=== PATIENT | female | born 1940 | race Hispanic/Latino ===

== ENCOUNTER 2016-07-17 01:29 | Inpatient (IN) | payer MEDICARE, BC ==
[2016-07-17 01:33] VITALS: BMI 24.6
--- NOTE | 2016-07-17 01:56 | ED PDOC ---
Arrival/HPI - General Chief Complaint: Shortness Of Breath Time Seen by Provider: 07/17/16 01:44 - History of Present Illness Narrative History of Present Illness (Text): 07/17/16 01:56 Estelle Fulton is a 75 year old female, whose past medical history includes COPD, emphysema, CAD with stenting, breast cancer, osteoarthritis, and hypertension, who presents to the Emergency department brought in by EMS complaining of shortness of breath tonight. Patient states she had nebulizer treatments at home and is on home oxygen. Patient denies any fever, chills, chest pain, shortness of breath, nausea, vomiting, diarrhea, urinary symptoms, back pain, neck pain, headache, dizziness, or any other complaints. PMD: Dr. Octavio Blair Time/Duration: Other (tonight) Symptom Onset: Gradual Symptom Course: Unchanged Activities at Onset: Rest, Light Context: Home Past Medical History - Provider Review Nursing Documentation Reviewed: Yes - Infectious Disease Hx of Infectious Diseases: None - Tetanus Immunization Tetanus Immunization: Unknown - Reproductive Menopause: Yes - Cardiac Hx Hypertension: Yes Hx Pacemaker: No - Pulmonary Hx Chronic Obstructive Pulmonary Disease (COPD): Yes Hx Emphysema: Yes Hx Pneumonia: Yes Other/Comment: O2 @ 2LPM - Neurological Hx Alzheimer's Disease: No Hx Dementia: No Hx Migraine: No Hx Multiple Sclerosis: No Hx Parkinson's Disease: No Hx Seizures: No - HEENT Hx HEENT Disorder: Yes (right eye lazy eye) Hx Cataracts: Yes (WITH SURGERY) Other/Comment: REDNESS ON RIGHT EYE X 6WKS - Renal Hx Renal Disorder: No Hx Kidney Stones: No - Endocrine/Metabolic Hx Hyperthyroidism: No Hx Hypothyroidism: No - Hematological/Oncological Hx Anemia: No Hx Sickle Cell Disease: No - Integumentary Hx Dermatological Disorder: No Hx Basal Cell Carcinoma: No Hx Damon: No Hx Cellulitis: No Hx Eczema: No Hx Melanoma: No Hx Psoriasis: No Hx Squamous Cell Carcinoma: No - Musculoskeletal/Rheumatological Hx Falls: Yes - Gastrointestinal Hx Crohn's Disease: No Hx Diverticulitis: No Hx Gall Bladder Disease: No Hx Gastritis: No Hx Pancreatitis: No - Genitourinary/Gynecological Hx Sexually Transmitted Diseases: No - Psychiatric Hx Anxiety: Yes Hx Bipolar Disorder: No Hx Depression: Yes Hx Schizophrenia: No Hx Substance Use: No - Past Surgical History Past Surgical History: No Previous - Surgical History Hx Appendectomy: No Hx Carotid Endarterectomy: No Hx Cholecystectomy: Yes Hx Coronary Artery Bypass Graft: No Hx Coronary Stent: No (pt denies) Hx Tonsillectomy: No - Anesthesia Hx Anesthesia: Yes Hx Anesthesia Reactions: No - Suicidal Assessment Feels Threatened In Home Enviroment: No Family/Social History - Physician Review Nursing Documentation Reviewed: Yes Family/Social History: No Known Family HX Smoking Status: Former Smoker Hx Alcohol Use: No Hx Substance Use: No Hx Substance Use Treatment: No Allergies/Home Meds Allergies/Adverse Reactions: Allergies No Known Allergies Allergy (Verified 03/16/16 10:16) Home Medications: Home Meds Medication Instructions Recorded Confirmed Tiotropium [Spiriva] 18 mcg IH DAILY 04/25/13 03/16/16 Fluticasone/Salmeterol [Advair 1 inh INH Q12 09/18/13 03/16/16 250-50 Diskus] Hydrochlorothiazide [HCTZ] 12.5 mg PO DAILY 03/02/14 03/16/16 Quetiapine Fumarate [Seroquel] 25 mg PO HS 03/02/14 03/16/16 Review of Systems - Physician Review All systems were reviewed & negative as marked: Yes - Review of Systems Constitutional: Normal. absent: Fevers Eyes: Normal ENT: Normal Respiratory: Normal, SOB Cardiovascular: Normal. absent: Chest Pain Gastrointestinal: Normal. absent: Abdominal Pain, Constipation, Diarrhea, Nausea Genitourinary Female: Normal. absent: Dysuria, Frequency, Hematuria, Urine Output Changes Musculoskeletal: Normal. absent: Back Pain, Neck Pain Skin: Normal. absent: Rash Neurological: Normal. absent: Headache, Dizziness Endocrine: Normal Hemo/Lymphatic: Normal Psychiatric: Normal Physical Exam Vital Signs Reviewed: Yes Vital Signs Temp Pulse Resp BP Pulse Ox 07/17/16 04:41 56 L 18 137/60 95 07/17/16 03:33 68 18 138/90 97 07/17/16 02:23 22 07/17/16 01:39 97.7 F 55 L 22 155/58 H 97 Temperature: Afebrile Blood Pressure: Hypertensive Pulse: Regular Respiratory Rate: Normal Appearance: Positive for: Well-Appearing, Non-Toxic, Comfortable Pain Distress: None Mental Status: Positive for: Alert and Oriented X 3 - Systems Exam Head: Present: Atraumatic, Normocephalic Pupils: Present: PERRL Extroacular Muscles: Present: EOMI Conjunctiva: Present: Normal Mouth: Present: Moist Mucous Membranes Neck: Present: Normal Range of Motion Respiratory/Chest: Present: Decreased Breath Sounds (Decreased breath sounds bilaterally). No: Respiratory Distress, Accessory Muscle Use Cardiovascular: Present: Regular Rate and Rhythm, Normal S1, S2. No: Murmurs Abdomen: Present: Normal Bowel Sounds. No: Tenderness, Distention, Peritoneal Signs Back: Present: Normal Inspection Upper Extremity: Present: Normal Inspection. No: Cyanosis, Edema Lower Extremity: Present: Normal Inspection. No: Edema Neurological: Present: GCS=15, CN II-XII Intact, Speech Normal Skin: Present: Warm, Dry, Normal Color. No: Rashes Psychiatric: Present: Alert, Oriented x 3, Normal Insight, Normal Concentration Medical Decision Making ED Course and Treatment: 07/17/16 01:56 Impression: 75 year old female brought in by EMS for shortness of breath tonight. Differential Diagnosis include but are not limited to: Plan: -- EKG -- Chest X-ray -- Labs, cardiac enzymes, BNP -- Solu-medrol -- Reassess and disposition Prior Visits: Notes and results from previous visits were reviewed. Progress Notes: Reviewed EKG, sinus bradycardia at 49 bpm. Non-specific ST/T wave changes. 07/17/16 04:23 Reviewed radiology, Chest X-ray shows chronic interstitial markings. 07/17/16 04:[address] Blair, who is aware and agree with plan. Accepts pt in to his service. Pt will go to Telemetry observation for COPD exacerbation. Pt is no acute distress. Discussed results and hospital observation plan with pt , who is aware and verbalizes understanding. - Lab Interpretations Lab Results: 07/17/16 02:10 07/17/16 02:10 Lab Results 07/17/16 02:10: WBC 6.6 D, RBC 3.96, Hgb 12.0, Hct 37.3, MCV 94.2, MCH 30.3, MCHC 32.2, RDW 12.4, Plt Count 324, MPV 8.3, PT 11.4, INR 1.06, APTT 25.6, Sodium 136, Potassium 4.1, Chloride 92 L, Carbon Dioxide 41 H, Anion Gap 7 L, BUN 13, Creatinine 0.7, Est GFR ( Amer) > 60, Est GFR (Non-Af Amer) > 60 , Random Glucose 90, Calcium 8.7, Total Bilirubin 0.8, AST 24, ALT 37, Alkaline Phosphatase 60, Lactate Dehydrogenase 384, Total Creatine Kinase 30 L, Troponin I 0.06 D, NT-Pro-B Natriuret Pep 1600 H, Total Protein 6.3, Albumin 3.3, Globulin 3.1, Albumin/Globulin Ratio 1.1 I have reviewed the lab results: Yes - RAD Interpretation Radiology Orders: 07/17/16 04:12 CHEST PORTABLE [RAD] [employer] Advisor: ED Physician - EKG Interpretation Interpreted by ED Physician: Yes Type: 12 lead EKG - Medication Orders Current Medication Orders: Albuterol/Ipratropium (Duoneb 3 Mg/0.5 Mg (3 Ml) Ud) 3 ml IH Q4H PRN PRN Reason: Shortness of Breath Stop: 07/17/16 08:32 Discontinued Medications Albuterol/Ipratropium (Duoneb 3 Mg/0.5 Mg (3 Ml) Ud) 3 ml IH ONCE STA Stop: 07/17/16 02:00 Last Admin: 07/17/16 02:21 Dose: 3 ML Albuterol/Ipratropium (Duoneb 3 Mg/0.5 Mg (3 Ml) Ud) 3 ml IH ONCE STA Stop: 07/17/16 04:12 Last Admin: 07/17/16 04:16 Dose: 3 ML Methylprednisolone (Solu-Medrol) 125 mg IVP ONCE ONE Stop: 07/17/16 02:00 Last Admin: 07/17/16 02:21 Dose: 125 MG IVP Administration Document 07/17/16 02:21 GMD (Rec: 07/17/16 02:21 GMD [id number]) Charges for Administration # of IVP Administrations 1 - Scribe Statement The provider has reviewed the documentation as recorded by the Veronique Hendrickson Provider Attestation: All medical record entries made by the Scribe were at my direction and personally dictated by me. I have reviewed the chart and agree that the record accurately reflects my personal performance of the history, physical exam, medical decision making, and the department course for this patient. I have also personally directed, reviewed, and agree with the discharge instructions and disposition. Disposition/Present on Arrival - Present on Arrival Any Indicators Present on Arrival: No History of DVT/PE: No History of Uncontrolled Diabetes: No Urinary Catheter: No History of Decub. Ulcer: No History Surgical Site Infection Following: None - Disposition Have Diagnosis and Disposition been Completed?: Yes Diagnosis: Chronic obstructive pulmonary disease with acute exacerbation Disposition: HOSPITALIZED Disposition Time: 04:32 Patient Plan: Observation Patient Problems: Current Active Problems Problem Status Diagnosed Chronic obstructive pulmonary disease with acute exacerbation Acute Hypertension Acute Metastatic bone cancer Acute Pneumonia Acute Pulmonary embolism Acute Lumbar compression fracture Chronic Thoracic compression fracture Chronic Depression Resolved Suicidal ideation Resolved Condition: GOOD
[2016-07-17] MEDS ORDERED: Albuterol-Ipratrop 3 mg / 0.5 (3 ml) UD IH STA ×2 (01:59→04:11)
[2016-07-17 02:33] LABS: HEMATOCRIT 37.3 % (36.0-48.0); MEAN CELL VOLUME 94.2 fL (80.0-105.0); MEAN CORPUSCULAR HEMOGLOBIN 30.3 pg (25.0-35.0); MEAN CORPUSCULAR HGB CONC 32.2 g/dl (31.0-37.0); MEAN PLATELET VOLUME 8.3 fl (7.0-11.0); RED CELL DISTRIBUTION WIDTH 12.4 % (11.5-14.5)
[2016-07-17 02:38] LABS: WHITE BLOOD COUNT 6.6 10^3/ul (4.5-11.0)
[2016-07-17 02:40] LABS: INR 1.06 (0.93-1.08); PARTIAL THROMBOPLASTIN TIME 25.6 Seconds (23.7-30.8)
[2016-07-17 02:53] LABS: ALB/GLOB RATIO 1.1 (1.1-1.8); ALKALINE PHOSPHATASE 60 U/L (38-133); ALT/SGPT 37 U/L (7-56); AST/SGOT 24 U/L (15-39); BILIRUBIN,TOTAL 0.8 mg/dL (0.2-1.3); BLOOD UREA NITROGEN 13 mg/dL (7-21); CALCIUM 8.7 mg/dL (8.4-10.5); CHLORIDE 92 mmol/L (98-107); GFR AFRICAN-AMERICAN > 60; GLUCOSE,RANDOM 90 mg/dL (70-110); POTASSIUM 4.1 mmol/L (3.6-5.0); SODIUM 136 mmol/L (132-148); TOTAL PROTEIN 6.3 g/dL (5.8-8.3)
[2016-07-17 03:03] LABS: TROPONIN I 0.06 ng/mL
[2016-07-17 03:11] LABS: CARBON DIOXIDE 41 mmol/L (21-33)
[2016-07-17] MEDS ORDERED: Albuterol-Ipratrop 3 mg / 0.5 (3 ml) UD IH PRN (04:31)
--- NOTE | 2016-07-17 08:25 | RAD ---
HISTORY: Shortness of breath COMPARISON: 03/15/2016 FINDINGS: LUNGS: The lungs are hyperinflated and there is peribronchial thickening with chronic changes in both lungs. There is no focal consolidation. PLEURA: No significant pleural effusion identified, no pneumothorax apparent. CARDIOVASCULAR: Normal. OSSEOUS STRUCTURES: There is diffuse bone demineralization. There is severe S shaped scoliosis. VISUALIZED UPPER ABDOMEN: Normal. OTHER FINDINGS: There are multiple surgical clips in the right axilla. IMPRESSION: No active pulmonary disease. COPD.
[2016-07-17] MEDS: Albuterol-Ipratrop 3 mg / 0.5 (3 ml) UD IH SCH ×2 (08:35→20:25)
--- NOTE | 2016-07-17 09:14 | HP ---
CHIEF COMPLAINT AND HISTORY OF PRESENT ILLNESS: This is a 75-year-old female who is coming into the hospital complaining of shortness of breath. She says her shortness of breath has become worse over the past few days. She does have a history of COPD, coronary artery disease. She was brought into t ER and was found to have shortness of breath secondary to COPD. The patient was given albuterol a nd Solu-Medrol. The patient has no complaints of any headaches. She says her breathing is better. She has no nausea, no vomiting, no dysuria, no frequency. All other review of symptoms are within no rmal limits. The patient is not able to walk that well. She was recently in [facility]. ALLERGIES: No known drug allergies. PAST MEDICAL HISTORY: 1. Coronary artery disease with stent. 2. Chronic obstructive pulmonary disease. 3. Anxiety. 4. Breast cancer. 5. Emphysema. 6. Insomnia. 7. T12 compression fracture. 8. Osteoporosis. PAST SURGICAL HISTORY: Mastectomy, , cholecystectomy. SOCIAL HISTORY: The patient did smoke for 50 years. She denies any drug use. FAMILY HISTORY: Noncontributory. HOME MEDICATIONS: Spiriva, Advair, hydrochlorothiazide, Seroquel. PHYSICAL EXAMINATION: VITAL SIGNS: Temperature is 98.3, pulse of 66, blood pressure 125/60, respiration is 18, O2 saturati on 94%. Height is 4 feet 8 inches, weight is 110 pounds, BMI is 24.7. GENERAL: The patient lying in bed, flat, and in no apparent distress. HEAD AND NECK EXAM: Atraumatic, normocephalic. Conjunctivae are pink. Throat clear and mouth with moist mucosa. Oropharynx benign. EYES: Extraocular movements are intact. PERRLA. NECK: Supple. No JVD, thyromegaly, or adenopathy. No bruits. HEART: S1 and S2 regular rate and rhythm. No murmurs, rubs, or gallops. LUNGS: Clear to auscultation bilaterally. No wheezing rales or rhonchi appreciated. No retraction s on exam. ABDOMEN: Soft, nontender, nondistended. Bowel sounds are positive in all quadrants. No rebound. No hepatosplenomegaly. EXTREMITIES: No cyanosis, clubbing, or edema. NEUROLOGIC: No facial asymmetry, tongue is midline, no uvula deviation. Power is 5/5 in upper extr emity and 5/5 in lower extremity. Sensation is normal in upper extremity and lower extremity. PSYCHIATRIC: Awake, alert, oriented x 3. No anxiety or depression symptoms. Good insight. Milena l affect. GENITOURINARY: No CVA tenderness VASCULAR: 2+ pulses in carotid and pedal pulses. SKIN: No erythema or abnormal nodules noted. SPINE: There is kyphosis. LYMPHADENOPATHY: No anterior cervical or posterior cervical adenopathy. No inguinal adenopathy. LABORATORIES: White count of 6.6, hemoglobin 12, platelet count is 324. INR is 1.06. Sodium is 136 , potassium 4.1, creatinine 0.7. ProBNP 1600. Chest x-ray done, no infiltrates. ASSESSMENT: 1. Acute chronic obstructive pulmonary disease. 2. Hypertension. 3. Coronary artery disease. 4. Insomnia. 5. T12 compression. 6. Osteoporosis. PLAN: The patient is going to be admitted to the hospital. The patient is going to be on steroids w ith Solu-Medrol, is on nebulizer treatments. The patient is on Seroquel. She is going to see [facility]. The patient is on lisinopril for hypertension, is on a heart healthy diet. We will get physical therapy to evaluate the patient as well. Bashir Blair MD cc: [id number] TT: 07/17/2016 09:13:10 en
--- NOTE | 2016-07-17 09:33 | CON ---
DATE: 07/17/2016 REASON FOR CONSULTATION: Chronic obstructive pulmonary disease. REFERRING PHYSICIAN: Dr. Bashir Blair. HISTORY OF PRESENT ILLNESS: The patient is a 75-year-old female, with past medical history significant for chronic obstructive pulmonary disease, significant noncompliance with office followup (not seen in our office in multiple years), coronary artery disease, status post cardiac stents, breast cancer, osteoarthritis, hypertension, anxiety, who presents to [facility] with a 1-day history of increasing shortness of breath at rest and dyspnea on exertion. The patient denies cough or sputum production. The patient also denies chest pain, coughing up of blood, or chest pain -- made worse with deep respirations. There is no history of temperatures, chills or infectious exposure. There is no history of night sweats, weight loss or appetite change prior to the above events. No history of leg or calf pains. No history of syncope or diaphoresis. No history of recent travel or trauma. REVIEW OF SYSTEMS: No history of nausea, vomiting or diarrhea. No acute urinary symptoms. No new neurologic complaints. The rest of the review of systems is negative. ALLERGIES: No known allergies. SOCIAL HISTORY: Positive for tobacco, negative for alcohol. FAMILY HISTORY: No inheritable diseases. HOME MEDICATIONS: Include prednisone, Spiriva, Seroquel, Advair, Lexapro, Lovenox, Vasotec, Tenormin, DuoNebs, Percocet, Xanax. PHYSICAL EXAMINATION: GENERAL: The patient is not short of breath at rest. She is not using accessory muscles for breathing. VITAL SIGNS: Temperature is 98.3, pulse 66, respirations 18, blood pressure 125 /60. Oxygen saturation on nasal cannula is between 94%-97%. HEENT: Normocephalic, atraumatic. NECK: No JVD. CARDIOVASCULAR: Systolic ejection murmur at the lower left sternal border. No S3 gallop. LUNGS: Decreased breath sounds at the bases. Minimal bilateral rhonchi. No wheezing. EXTREMITIES: No clubbing, cyanosis, or edema. Calves are nontender to palpation. GASTROINTESTINAL: Abdomen is soft, nontender, nondistended. Bowel sounds are positive. SKIN: No acute rash. NEUROLOGIC: Limited at the present time. PERTINENT LABORATORY DATA: Chest x-ray was done and reviewed. It is not significantly changed from the previous films. CBC: White count 6.6, hemoglobin 12.0, hematocrit 37.3, platelets of 324. Complete metabolic profile : Chloride 92, carbon dioxide 41, anion gap 7, troponin 0.06, B-type natriuretic peptide 1600. The rest of the metabolic profile is within normal limits. IMPRESSION: 1. Acute bronchitis. 2. Chronic obstructive pulmonary disease. 3. Coronary artery disease. 4. Hypertension. PLAN: The patient presents to [facility] with a 1-day history of increasing shortness of breath at rest and dyspnea on exertion. The patient offers no other pulmonary symptoms. I did review the x-ray as above. There is no significant change from the previous films. On physical exam, the patient is in mild bronchospasm. However, there is no significant alveolar arterial gradient. Oxygen saturation on nasal cannula is 94%-97%. I will continue with the current nebulizer treatments and intravenous steroids -- started by Dr. Blair. There is no history of temperatures. There is no leukocytosis. However, given her above age and diagnosis, I will start the patient on oral antibiotic therapy. I will also add inhaled Pulmicort to the current regimen this morning. The patient is on Advair at home. The patient does state to feeling much better this morning -- compared to yesterday. She is clinically improved. Additional pulmonary intervention will be based on the clinical status of the patient. I will discuss the above with Dr. Blair in the next few moments. Thank you very much for this pulmonary consultation. Nikos Taylor MD cc: [id number] TT: 07/17/2016 09:32:42 Confirmation # [id number] Dictation # [id number] lebron FOY
--- NOTE | 2016-07-17 09:54 | CARD ---
APPROVED REPORT EKG Measurement Heart [id number] <Conclusion> Sinus bradycardia with short SD Minimal voltage criteria for LVH, may be normal variant
[2016-07-17] MEDS: levoFLOXacin 500 MG TAB PO SCH (11:01)
[2016-07-17] MEDS ORDERED: Pneumococcal 23-Valent Vaccine IM ONE (13:47)
[2016-07-17] MEDS: Budesonide 0.5 mg/2 ml Inhal Susp UD IH SCH (20:25)
--- NOTE | 2016-07-18 07:28 | PN ---
DATE: 07/18/2016 The patient has no complaints of any chest pain, no shortness of breath. She says her breathing is b brenda. PHYSICAL EXAMINATION: VITAL SIGNS: Temperature is 98.3, pulse is 60, blood pressure is 100/65, respirations 20. GENERAL: The patient comfortable, in no acute distress. HEENT: Anicteric sclerae. Moist mucosa. NECK: No JVD or adenopathy. CARDIAC: S1/S2. No murmurs. No rubs. Regular. RESPIRATORY: Clear to auscultation bilaterally. No wheezes, rales, or rhonchi. Good air entry. ABDOMEN: Bowel sounds are positive, soft, nontender, and nondistended. EXTREMITIES: No edema. Has 1+ pulses. LABS: White count is 6.6, hemoglobin is 12, creatinine is 0.7. ASSESSMENT: 1. Acute chronic obstructive pulmonary disease exacerbation. 2. Anxiety. 3. Coronary artery disease. 4. Hypertension. 5. Insomnia. 6. T12 compression fracture. 7. Osteoporosis. PLAN: The patient is currently comfortable. She is on nebulizer treatment. She is receiving antibi otics with Levaquin. She is receiving Seroquel; this will continue. She is on steroids IV. She is on lisinopril for her hypertension. She says her breathing is better. She has no complaints of any headaches or dizziness. She otherwise feels well. Bashir Blair MD cc: [id number] TT: 07/18/2016 07:27:19 Confirmation # [id number] Dictation # [id number] mn
--- NOTE | 2016-07-18 07:40 | PN ---
DATE: 07/18/2016 SUBJECTIVE: The patient appears very comfortable at rest. She is not short of breath. PHYSICAL EXAMINATION: VITAL SIGNS: Temperature is 98.3, pulse 60, respirations 18, blood pressure 100 /65. Oxygen saturation on nasal cannula is 97%. HEENT: Normocephalic, atraumatic. No JVD. CARDIOVASCULAR: Systolic ejection murmur at the lower left sternal border. No S3 gallop. LUNGS: Improved breath sounds at the bases. Very minimal/less rhonchi. No wheezing. EXTREMITIES: No clubbing, cyanosis, or edema. Calves are nontender to palpation. GASTROINTESTINAL: Abdomen is soft, nontender, nondistended. Bowel sounds are positive. SKIN: No acute rash. NEUROLOGIC: Limited at the present time. IMPRESSION: 1. Acute bronchitis. 2. Chronic obstructive pulmonary disease. 3. Coronary artery disease. 4. Hypertension. PLAN: The patient appears very comfortable this morning. She is not short of breath at rest. She states she is feeling much, much better overall. She is asking to go home. On physical exam, there is certainly less bronchospasm noted. In addition, the oxygen saturation on nasal cannula is now 97%. I will continue with the current nebulizer treatments and change to oral steroids this morning. The patient remains on oral antibiotic therapy. There are no temperatures noted. There is no leukocytosis. Clinical status of the patient is certainly improved. I did discuss the case with the nurse and the patient at length. The patient is advised to increase her activity as tolerated. I will discuss the above with Dr. Blair this morning. Nikos Taylor MD cc: [id number] TT: 07/18/2016 07:39:40 Confirmation # [id number] Dictation # [id number] lebron FOY
[2016-07-18] MEDS: Budesonide 0.5 mg/2 ml Inhal Susp UD IH SCH ×2 (08:12→19:39)
[2016-07-18] MEDS: Albuterol-Ipratrop 3 mg / 0.5 (3 ml) UD IH SCH ×3 (08:12→19:39)
[2016-07-18] MEDS: levoFLOXacin 500 MG TAB PO SCH (09:40)
[2016-07-18] MEDS ORDERED: MethylPREDNISolone 40 mg Vial IVP SCH (10:00)
[2016-07-18] MEDS: Aspirin 325 mg EC Tablets PO SCH (17:06)
[2016-07-18 20:19] LABS: TROPONIN I 0.05 ng/mL
[2016-07-18 22:01] VITALS: RESP 20
[2016-07-19 01:40] VITALS: TEMP 97.8
[2016-07-19] MEDS: Albuterol-Ipratrop 3 mg / 0.5 (3 ml) UD IH SCH (07:58)
[2016-07-19] MEDS: Budesonide 0.5 mg/2 ml Inhal Susp UD IH SCH (07:58)
[2016-07-19 08:00] LABS: ALB/GLOB RATIO 1.1 (1.1-1.8); ALKALINE PHOSPHATASE 58 U/L (38-133); ALT/SGPT 28 U/L (7-56); AST/SGOT 26 U/L (15-39); BILIRUBIN,TOTAL 0.8 mg/dL (0.2-1.3); BLOOD UREA NITROGEN 17 mg/dL (7-21); CALCIUM 8.8 mg/dL (8.4-10.5); CARBON DIOXIDE 39 mmol/L (21-33); CHLORIDE 93 mmol/L (95-110); CHOLESTEROL 139 mg/dL (130-200); GFR AFRICAN-AMERICAN > 60; GLUCOSE,RANDOM 79 mg/dL (70-110); POTASSIUM 3.8 mmol/L (3.6-5.0); SODIUM 136 mmol/L (132-148); TOTAL PROTEIN 6.1 g/dL (5.8-8.3)
[2016-07-19 08:07] VITALS: BP 136/68
[2016-07-19 08:32] LABS: FREE T4 1.3 ng/dL (0.78-2.19); THYROID STIMULATING HORMONE 1.7 MIU/ml (0.46-4.68)
--- NOTE | 2016-07-19 08:38 | PN ---
DATE: 07/19/2016 SUBJECTIVE: The patient appears very comfortable this morning. She is not short of breath at rest. VITALS: Temperature is 97.8, pulse 64, respirations 18/20, blood pressure 105/ 51. Oxygen saturation on nasal cannula is 97%. HENT: Normocephalic, atraumatic. No JVD. CARDIOVASCULAR: Systolic ejection murmur at the lower left sternal border. No S3 gallop. LUNGS: Very minimal rhonchi. No wheezing. EXTREMITIES: No clubbing, cyanosis, or edema. Calves are nontender to palpation. GASTROINTESTINAL: Abdomen is soft, nontender, nondistended. Bowel sounds are positive. SKIN: No acute rash. NEUROLOGIC EXAMINATION: Limited at the present time. IMPRESSION: 1. Acute bronchitis. 2. Chronic obstructive pulmonary disease. 3. Coronary artery disease. 4. Hypertension. PLAN: The patient appears very comfortable this morning. She is not short of breath at rest. She states she is feeling much better overall. On physical exam, only minimal bronchospasm remains. In addition, the oxygen saturation on nasal cannula is now 97%. I will continue with the current nebulizer treatments and oral steroids (changed yesterday) for now. The patient also remains on oral antibiotic therapy. There are no temperatures noted. There is no leukocytosis. Clinical status of the patient is certainly improved -- compared to the initial presentation. The patient is advised to increase her activity as tolerated. I will discuss the above with Dr. Blair. Nikos Taylor MD cc: [id number] TT: 07/19/2016 08:37:58 Confirmation # [id number] Dictation # [id number] jn DANII
[2016-07-19] MEDS: Aspirin 325 mg EC Tablets PO SCH (09:38)
[2016-07-19] MEDS: levoFLOXacin 500 MG TAB PO SCH (09:40)
--- NOTE | 2016-07-19 13:10 | DS ---
The patient is a 75-year-old female who came into the hospital with an acute COPD exacerbation. She was given IV steroids and nebulizer treatments. She had improvement of her symptoms. The patient sa ys she is feeling better. She does not wish to go to rehab and prefers to go home. She has no compl aints of any headaches, no dizziness, no nausea. PHYSICAL EXAMINATION: VITAL SIGNS: Temperature is 97.8, pulse of 64, blood pressure is 105/51, respirations 20. GENERAL: The patient comfortable, in no acute distress. HEENT: Anicteric sclerae. Moist mucosa. NECK: No JVD or adenopathy. CARDIAC: S1/S2. No murmurs. No rubs. Regular. RESPIRATORY: Clear to auscultation bilaterally. No wheezes, rales, or rhonchi. Good air entry. ABDOMEN: Bowel sounds are positive, soft, nontender, and nondistended. EXTREMITIES: No edema. Has 1+ pulses. ASSESSMENT: 1. Acute chronic obstructive pulmonary disease. 2. Anxiety. 3. Coronary artery disease. 4. Hypertension. 5. Insomnia. 6. T12 compression fracture. 7. Osteoporosis. PLAN: The patient is currently comfortable. She had a troponin that was 0.7 and 0.5. We will get c ardiology to see her. She is on aspirin daily. She is on Levaquin. She is receiving Lipitor for dy slipidemia. She is on atenolol. She is receiving p.o. prednisone. We will await further input from cardiology. If she is cleared, we will most likely be able to discharge the patient home and have h er follow up as an outpatient. CONDITION: Stable. ACTIVITY: Increase as tolerated. FOLLOWUP: With Dr. Blair in 1-2 weeks. Bashir Blair MD cc: [id number] TT: 07/19/2016 13:09:41 en
[2016-07-19 13:12] VITALS: PULSE 76
--- NOTE | 2016-07-19 15:15 | CON ---
DATE: 07/19/2016 REQUESTING PHYSICIAN: Dr. Blair. REASON FOR CONSULTATION: Elevated troponin. HISTORY OF PRESENT ILLNESS: This is a 75-year-old woman with a history of chronic obstructive pulmon lalit disease, who was admitted with increasing dyspnea. Her troponin was borderline elevated and card iac evaluation was requested. There is mention in the chart of coronary artery disease with prior st enting, although the patient denies this. She did undergo cardiac catheterization in 2004, at which time she was found to have relatively normal coronary arteries. She denies any chest pain at the pre sent time. PAST MEDICAL HISTORY: Notable for chronic obstructive lung disease, history of prior breast cancer f or which she underwent a mastectomy prior, cholecystectomy, osteoporosis and thoracic compression fra cture. CURRENT MEDICATIONS: Include DuoNeb inhaler, aspirin, Levaquin, Lipitor, Pulmicort inhaler, Seroquel , Tenormin 50 mg daily, lisinopril, prednisone and Xanax p.r.n. ALLERGIES: She has no reported allergies. SOCIAL HISTORY: She was a smoker for over 50 years. She denies alcohol use. FAMILY HISTORY: Both parents are from age-related illness. REVIEW OF SYSTEMS: A 10-point review of systems is notable mainly for the problems mentioned above. PHYSICAL EXAMINATION: GENERAL: She is a thin elderly woman. VITAL SIGNS: Her blood pressure is 136/60 with a pulse of 76 in sinus, respirations are 14. She is afebrile. HEENT: Normocephalic, atraumatic. Pupils equal to light and accommodation. NECK: Supple. No JVD noted. CHEST: Bilateral scattered rhonchi heard. HEART: PMI displaced medially with no pathologic murmur or gallops noted. ABDOMEN: Soft, nontender, normoactive bowel sounds. EXTREMITIES: No clubbing, cyanosis or edema. SKIN: Warm and dry. PSYCHIATRIC: Normal mood and affect. NEUROLOGIC: No gross motor or sensory deficits appreciable. DIAGNOSTIC DATA: White count 6.6, hemoglobin and hematocrit 12.0 and 37.3 with a platelet count of 3 24,000. Potassium 3.8, BUN and creatinine 17 and 0.9, bicarbonate is 39. Three sets of cardiac enzy mes were borderline at 0.06, 0.07, and 0.05. CK was negative 30 and 43 respectively. Chest x-ray re veals hyperinflated lung rehman with severe scoliosis. Electrocardiogram reveals sinus bradycardia w ith a short [place] interval, voltage criteria for LVH and nonspecific ST-T abnormalities. IMPRESSION: 1. Borderline troponin, doubt any significance at this time. 2. Unclear if she does have coronary disease as she denies this despite reports in the chart to the contrary. 3. Exacerbation of chronic obstructive pulmonary disease, appears clinically improved. RECOMMENDATIONS: At this time, no further cardiac workup appears necessary at the present time. An echocardiogram has been performed and will be reviewed. All records will be accessed as able. An ev entual stress test would be reasonable. Thank you for this consultation. I will be happy to follow along as needed. Odilon Morris MD cc: [id number] TT: 07/19/2016 15:14:15 Confirmation # [id number] Dictation # [id number] [id number]
--- NOTE | 2016-07-20 12:54 | CARD ---
APPROVED REPORT EXAM: Two-dimensional and M-mode echocardiogram with Doppler and color Doppler. Other Information Quality : AverageRhythm : INDICATION LVFX 2D DIMENSIONS Left Atrium (2D)4.6 (1.6-4.0cm)IVSd1.0 (0.7-1.1cm) LVDd3.7 (3.9-5.9cm)PWd1.0 (0.7-1.1cm) LVDs2.5 (2.5-4.0cm)FS (%) 32.2 % LVEF (%)61.0 (>50%) M-Mode DIMENSIONS Aortic Root2.90 (2.2-3.7cm)Aortic Cusp Exc.2.00 (1.5-2.0cm) Aortic Valve AoV Peak Yergysyg241.0cm/Christiana P 1/2 [id number] Mitral Valve MV E Yfmcdmlc05.9cm/sMV A Odcuggyp822.0cm/sE/A ratio0.8 TDI Lateral E' Peak V4.58cm/sMedial E' Peak V4.68cm/sE/Lateral E'18.1 E/Medial E'17.7 Pulmonary Valve PV Peak Vpzbubmh40.3cm/sPV Peak Grad.2mmHg Tricuspid Valve TR Peak Fdueejfo742ak/sRAP NHWTKCZV61dzEwPT Peak Gr.61mmHg [id number] LEFT VENTRICLE The left ventricle is normal size. There is normal left ventricular wall thickness. The left ventricular function is normal. The left ventricular ejection fraction is within the normal range. There is normal LV segmental wall motion. RIGHT VENTRICLE The right ventricle is mildly dilated. ATRIA The left atrium is moderately dilated. The right atrium size is normal. AORTIC VALVE The aortic valve is normal in structure. There is trace aortic regurgitation. MITRAL VALVE The mitral valve is normal in structure. Mitral regurgitation is mild to moderate. TRICUSPID VALVE The tricuspid valve is normal in structure. There is severe tricuspid regurgitation. There is severe pulmonary hypertension. PULMONIC VALVE The pulmonic valve is not well visualized. There is mild pulmonic valvular regurgitation. GREAT VESSELS The aortic root is normal in size. PERICARDIAL EFFUSION There is no pericardial effusion. <Conclusion> The left ventricle is normal size. There is normal left ventricular wall thickness. The left ventricular function is normal. There is trace aortic regurgitation. Mitral regurgitation is mild to moderate. There is severe tricuspid regurgitation. There is mild pulmonic valvular regurgitation. There is severe pulmonary hypertension.
--- NOTE | 2016-07-20 16:09 | PQF GENQUE ---
07/20/16 Dr. Blair, ED documentation includes both "pneumonia,acute" and "pulmonary embolism, acute. " Please clarify whether either one or both of these conditions were present on this admission, since they are documented only in the ED notes. Thank you. no PE and no pneumonia Clarification of your documentation is requested to better reflect the severity of illness and intensity of treatment of your patient. Indicators present [] Specify: [] [] Specify: [] [] Specify: [] [] Specify: [] Location in the medical record that reflects the above clinical findings: [] Treatment Provided: [] PHYSICIAN'S RESPONSE Based on your medical judgment of the clinical indicators outlined above please clarify the following: [] Practitioner response [] If unable to determine, please check the box, sign and date. Present On Admission (POA) Indicator: [] Present at the time of admission [] Not present at the time of admission [] Clinically Undetermined In responding to this query, please exercise your independent professional judgment. The fact that a question is asked does not imply that any particular answer is desired or expected. Thank you for your clarification on this documentation. If you have any questions please call:[ ] * Thank you, [ ] diesel engine pipe fitter DANII
--- NOTE | 2016-07-20 16:55 | IP.NPCORE ---
COPD Progress Note - COPD Progress Note Plan to assess at outpatient follow up: Yes Symptoms:: Increase in Dyspnea, Cough Initial CXR:: normal result Date:: 07/17/16 Oxygen Saturation/Pulse Oximetry:: 96 ABG Not Indicated (Symptoms Improved): Yes Nebulizers Q2-4 hrs:: Duonebs/Albuterol Therapy Antibiotics (Name/Dose/Frequency):: Levaquin 500 mg po daily Systemic Steroids w/ methylprednisolone Name/Dose/Frequency:: prednisone 30 mg po daily Oxygen Delivery Method: Nasal Cannula Oxygen Flow Rate: 3 Smoking cessation counseling all stages copd exacerbation: Yes
[2016-07-20 16:58] VITALS: O2SAT 96
== END 2016-07-19 14:36 | disposition home or self-care (01) | DRG 191 ==
LOC: ED 01:29 → ERH 04:28 → OBSVTOIN 04:28 → ERH 06:42 → 3RNO 08:48
PROVIDERS: ADMIT Internal Medicine Nephrology; ATTEND Internal Medicine Nephrology
DX: J44.1 Chronic obstructive pulmonary disease with (acute) exacerbation (principal); C79.51 Secondary malignant neoplasm of bone; I27.2 Other secondary pulmonary hypertension; M48.54XA Collapsed vertebra, not elsewhere classified, thoracic region, initial encounter for fracture; M48.56XA Collapsed vertebra, not elsewhere classified, lumbar region, initial encounter for fracture; R00.1 Bradycardia, unspecified; Z99.81 Dependence on supplemental oxygen; J44.0 Chronic obstructive pulmonary disease with (acute) lower respiratory infection; J20.9 Acute bronchitis, unspecified; M81.0 Age-related osteoporosis without current pathological fracture; I25.10 Atherosclerotic heart disease of native coronary artery without angina pectoris; I10 Essential (primary) hypertension; F32.89 Other specified depressive episodes; F41.9 Anxiety disorder, unspecified; G47.00 Insomnia, unspecified; Z79.899 Other long term (current) drug therapy; Z85.3 Personal history of malignant neoplasm of breast; Z87.01 Personal history of pneumonia (recurrent); Z87.891 Personal history of nicotine dependence; Z90.49 Acquired absence of other specified parts of digestive tract; Z95.5 Presence of coronary angioplasty implant and graft; M19.90 Unspecified osteoarthritis, unspecified site; Z98.49 Cataract extraction status, unspecified eye; R40.2412 Glasgow coma scale score 13-15, at arrival to emergency department; Z91.19 Patient's noncompliance with other medical treatment and regimen; Z90.10 Acquired absence of unspecified breast and nipple; I08.3 Combined rheumatic disorders of mitral, aortic and tricuspid valves

== ENCOUNTER 2016-08-04 04:48 | Inpatient (IN) | payer MEDICARE, BC ==
[2016-08-04 04:48] VITALS: BMI 24.6
--- NOTE | 2016-08-04 05:23 | ED PDOC ---
Arrival/HPI - General Chief Complaint: Shortness Of Breath Time Seen by Provider: 08/04/16 04:49 Historian: Patient - History of Present Illness Narrative History of Present Illness (Text): 08/04/16 05:19 Estelle Fulton is a 75 year old female, with a history of CAD with stents, breast CA, osteoarthritis, and hypertension, presents to the emergency department via EMS complaining of 2 hour duration of shortness of breath. Denies any cough or chest pain. Patient has nebulizers at home, but states she has not used them.States she also found herself using home O2 more often over past few days. Denies any fever, chills, headache, dizziness, nausea, vomiting, diarrhea, urinary symptoms, or any other complaints at this time. PMD: Dr. Blair. 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) Hx Cataracts: Yes (WITH SURGERY left eye only) Other/Comment: eyeglasses, sx age 14 for strabismus right eye - Renal Hx Renal Disorder: No Hx Kidney Stones: No - Endocrine/Metabolic Hx Hypothyroidism: No - Hematological/Oncological Hx Anemia: No Hx Cancer: Yes (r breast over 20 yrs ago) Hx Chemotherapy: No (no chemo no radiation) Hx Sickle Cell Disease: No Other/Comment: r mastectomy with reconstruction - Integumentary Hx Dermatological Disorder: No Hx Basal Cell Carcinoma: No Hx Eczema: No Hx Melanoma: No Hx Psoriasis: No Hx Squamous Cell Carcinoma: No - Musculoskeletal/Rheumatological Hx Arthritis: Yes - Gastrointestinal Hx Crohn's Disease: No Hx Diverticulitis: No Hx Gall Bladder Disease: No Hx Gastritis: No Hx Pancreatitis: No - Genitourinary/Gynecological Hx Sexually Transmitted Diseases: No - Psychiatric Hx Anxiety: Yes Hx Bipolar Disorder: No Hx Depression: Yes Hx Schizophrenia: No Hx Substance Use: No - Past Surgical History Past Surgical History: No Previous - Surgical History Hx Appendectomy: No Hx Cardiac Catheterization: Yes (negative as per pt) Hx Cholecystectomy: Yes Hx Coronary Stent: No (pt denies) Other/Comment: left toe sx, r ankle fx sx with pin - Anesthesia Hx Anesthesia: Yes Hx Anesthesia Reactions: No - Suicidal Assessment Feels Threatened In Home Enviroment: No Family/Social History - Physician Review Nursing Documentation Reviewed: Yes Family/Social History: No Known Family HX Smoking Status: Former Smoker Hx Alcohol Use: No Hx Substance Use: No Hx Substance Use Treatment: No Allergies/Home Meds Allergies/Adverse Reactions: Allergies No Known Allergies Allergy (Verified 08/04/16 05:03) Home Medications: Home Meds Medication Instructions Recorded Confirmed Tiotropium [Spiriva] 18 mcg IH DAILY 04/25/13 08/04/16 Fluticasone/Salmeterol [Advair 1 inh INH Q12 09/18/13 08/04/16 250-50 Diskus] Hydrochlorothiazide [HCTZ] 12.5 mg PO DAILY 03/02/14 08/04/16 Quetiapine Fumarate [Seroquel] 25 mg PO HS 03/02/14 08/04/16 oxyCODONE/Acetaminophen [Percocet 1 tab PO Q8 07/17/16 08/04/16 5/325 mg Tab] Review of Systems - Physician Review All systems were reviewed & negative as marked: Yes - Review of Systems Constitutional: Normal. absent: Fatigue, Fevers Respiratory: SOB. absent: Cough Cardiovascular: absent: Chest Pain Gastrointestinal: Normal. absent: Abdominal Pain, Diarrhea, Nausea, Vomiting Genitourinary Female: Normal Neurological: Normal. absent: Headache, Dizziness Psychiatric: Normal Physical Exam Vital Signs Reviewed: Yes Vital Signs Temp Pulse Resp BP Pulse Ox 08/04/16 06:04 128 H 26 H 140/78 98 08/04/16 05:07 28 H 98 08/04/16 04:57 98.9 F 110 H 28 H 145/73 98 Temperature: Afebrile Blood Pressure: Normal Pulse: Tachycardic Respiratory Rate: Normal Appearance: Positive for: Non-Toxic Pain Distress: None Mental Status: Positive for: Alert and Oriented X 3 - Systems Exam Head: Present: Atraumatic, Normocephalic Pupils: Present: PERRL Conjunctiva: Present: Normal Respiratory/Chest: Present: Clear to Auscultation, Respiratory Distress (mild respiratory distress ), Decreased Breath Sounds, Other (velcro crackles Left lung base ). No: Accessory Muscle Use Cardiovascular: Present: Regular Rate and Rhythm, Normal S1, S2. No: Murmurs Abdomen: Present: Normal Bowel Sounds. No: Tenderness, Distention, Peritoneal Signs Upper Extremity: Present: Normal Inspection. No: Cyanosis, Edema Lower Extremity: Present: Normal Inspection. No: Edema Neurological: Present: GCS=15, CN II-XII Intact, Speech Normal, Motor Func Grossly Intact, Normal Sensory Function Skin: Present: Warm, Dry, Normal Color. No: Rashes Psychiatric: Present: Alert, Oriented x 3, Normal Insight, Normal Concentration Medical Decision Making ED Course and Treatment: 08/04/16 05:26 EKG interpreted by me: Sinus Tachycardia @ 104 bpm. normal axis. No STEMI. 08/04/16 05:51 Chest X-ray interpreted by me: No acute findings, no changes from previous. - Lab Interpretations Lab Results: 08/04/16 05:30 08/04/16 05:30 Lab Results 08/04/16 05:30: Sodium 141, Chloride 95 L, Potassium 3.1 L, Carbon Dioxide 38 H , Anion Gap 11, BUN 8, Creatinine 0.7, Est GFR ( Amer) > 60, Est GFR (Non -Af Amer) > 60, Random Glucose 101, Calcium 9.1, Total Bilirubin 1.4 H, AST 17, ALT 28, Alkaline Phosphatase 84, Troponin I Pending, Total Protein 6.5, Albumin 3.4, Globulin 3.1, Albumin/Globulin Ratio 1.1 08/04/16 05:30: pO2 41, VBG pH 7.35, VBG pCO2 76.0 H*, VBG HCO3 42.0 H, VBG Total CO2 44.3 H, VBG O2 Sat (Calc) 78.4 H, VBG Base Excess 12.8 H, VBG Potassium 3.3 L, Sodium 139.0, Chloride 101.0, Glucose 100, Lactate 1.1, FiO2 21.0, Venous Blood Potassium 3.3 L 08/04/16 05:30: WBC 6.0, RBC 4.26, Hgb 12.9, Hct 39.0, MCV 91.5, MCH 30.3, MCHC 33.1, RDW 12.6, Plt Count 195, MPV 10.2, Gran % 61.7, Lymph % (Auto) 18.2 L, [place] % (Auto) 10.4 H, Eos % (Auto) 9.0 H, Baso % (Auto) 0.7, Gran # 3.70, Lymph # 1.1 L, [place] # 0.6, Eos # 0.5, Baso # 0.04 - RAD Interpretation Radiology Orders: 08/04/16 05:10 CHEST PORTABLE [RAD] Stat - Medication Orders Current Medication Orders: Albuterol Sulfate (Albuterol 0.083% Inhal [place] (2.5 Mg/3 Ml) Ud) 2.5 mg INH Q4 ENDER Albuterol/Ipratropium (Duoneb 3 Mg/0.5 Mg (3 Ml) Ud) 3 ml IH TIDRESP ENDER Alprazolam (Xanax) 0.25 mg PO BID ENDER PRN Reason: Protocol Stop: 08/11/16 10:01 Atenolol (Tenormin) 50 mg PO DAILY ENDER Docusate Sodium (Colace) 100 mg PO BID ENDER Escitalopram Oxalate (Lexapro) 10 mg PO HS ENDER Ipratropium [place] (Atrovent) 0.5 mg IH Q6 ENDER Methylprednisolone (Solu-Medrol) 40 mg IVP DAILY ENDER Non-Formulary Medication (Enalapril Maleate [Vasotec]) 10 mg PO DAILY ENDER Non-Formulary Medication (Hydrochlorothiazide [Hctz]) 12.5 mg PO DAILY ENDER Oxycodone/Acetaminophen (Percocet 5/325 Mg Tab) 1 tab PO Q8 PRN PRN Reason: Pain, moderate (4-7) Stop: 08/07/16 14:01 Quetiapine Fumarate (Seroquel) 25 mg PO HS ENDER PRN Reason: Protocol Discontinued Medications Albuterol/Ipratropium (Duoneb 3 Mg/0.5 Mg (3 Ml) Ud) 3 ml IH Q15M ENDER Stop: 08/04/16 05:46 Last Admin: 08/04/16 05:25 Dose: 3 ml Methylprednisolone (Solu-Medrol) 60 mg IVP STAT STA Stop: 08/04/16 05:11 Last Admin: 08/04/16 05:30 Dose: 60 mg Potassium Chloride (K-Dur 20 Meq Er Tab) 40 meq PO STAT STA Stop: 08/04/16 06:05 - Scribe Statement The provider has reviewed the documentation as recorded by the Veronique Herzog Provider Attestation: All medical record entries made by the Veronique were at my direction and personally dictated by me. I have reviewed the chart and agree that the record accurately reflects my personal performance of the history, physical exam, medical decision making, and the department course for this patient. I have also personally directed, reviewed, and agree with the discharge instructions and disposition. Disposition/Present on Arrival - Present on Arrival Any Indicators Present on Arrival: No History of DVT/PE: No History of Uncontrolled Diabetes: No Urinary Catheter: No History of Decub. Ulcer: No History Surgical Site Infection Following: None - Disposition Have Diagnosis and Disposition been Completed?: Yes Diagnosis: Chronic obstructive pulmonary disease with acute exacerbation Disposition: HOSPITALIZED Disposition Time: 06:19 Condition: STABLE
[2016-08-04] MEDS: Albuterol-Ipratrop 3 mg / 0.5 (3 ml) UD IH SCH ×6 (05:25→20:02)
[2016-08-04 05:48] LABS: ADD MANUAL DIFF? NO
[2016-08-04 05:50] LABS: BASO # 0.04 K/mm3 (0.0-2.0); BASO % 0.7 % (0.0-3.0); EOS # 0.5 (0.0-0.7); GRAN % 61.7 % (50.0-68.0); LYMPH # 1.1 (1.2-3.4); LYMPH % 18.2 % (22.0-35.0); MEAN CELL VOLUME 91.5 fL (80.0-105.0); MEAN CORPUSCULAR HEMOGLOBIN 30.3 pg (25.0-35.0); MEAN CORPUSCULAR HGB CONC 33.1 g/dl (31.0-37.0); MEAN PLATELET VOLUME 10.2 fl (7.0-11.0); MONO # 0.6 (0.1-0.6); MONO % 10.4 % (1.0-6.0); PLATELET COUNT 195 10^3/uL (120.0-450.0); RED CELL DISTRIBUTION WIDTH 12.6 % (11.5-14.5)
[2016-08-04 05:52] LABS: VENOUS BLOOD GAS BASE EXCESS 12.8 mmol/L (0.0-2.0); VENOUS BLOOD PH 7.35 (7.32-7.43)
[2016-08-04 05:58] LABS: ALB/GLOB RATIO 1.1 (1.1-1.8); ALKALINE PHOSPHATASE 84 U/L (38-133); ALT/SGPT 28 U/L (7-56); AST/SGOT 17 U/L (15-39); BILIRUBIN,TOTAL 1.4 mg/dL (0.2-1.3); BLOOD UREA NITROGEN 8 mg/dL (7-21); CALCIUM 9.1 mg/dL (8.4-10.5); CARBON DIOXIDE 38 mmol/L (21-33); CHLORIDE 95 mmol/L (98-107); GFR AFRICAN-AMERICAN > 60; GLUCOSE,RANDOM 101 mg/dL (70-110); POTASSIUM 3.1 mmol/L (3.6-5.0); SODIUM 141 mmol/L (132-148); TOTAL PROTEIN 6.5 g/dL (5.8-8.3)
[2016-08-04] MEDS ORDERED: Potassium Chloride 20 mEq ER Tab PO STA (06:04)
[2016-08-04 06:09] LABS: TROPONIN I 0.02 ng/mL
[2016-08-04] MEDS ORDERED: Oxycodone/Acetaminophen 5/325 mg Tab PO PRN (06:14)
[2016-08-04] MEDS ORDERED: Albuterol 0.083% Inhal Sol (2.5 mg/3 mL) UD INH SCH (07:30)
--- NOTE | 2016-08-04 08:18 | CON ---
DATE: 08/04/2016 REASON FOR CONSULTATION: Chronic obstructive pulmonary disease. REFERRING PHYSICIAN: Dr. Bashir Blair The patient is a 75-year-old female, with past medical history significant for advanced chronic obstructive pulmonary disease, significant noncompliance with office followup, admitted noncompliance with her pulmonary medications at home, coronary artery disease, status post cardiac stents, breast cancer, osteoarthritis, hypertension, anxiety, who presents to [facility] with increasing shortness of breath at rest and dyspnea on exertion for 1 day. Again, the patient does state to not using her pulmonary medication at home for multiple days. The patient does state to a minimal cough with no sputum production. There is no history of chest pain, coughing up of blood or chest pain -- made worse with deep respirations. There is no history of temperatures , chills or infectious exposure. There is no history of night sweats, weight loss or appetite change prior to the above events. No history of leg or calf pains. No history of syncope or diaphoresis. No history of recent travel or trauma. REVIEW OF SYSTEMS: No history of nausea, vomiting or diarrhea. No acute urinary symptoms. No new neurologic or musculoskeletal complaints. Rest is negative. ALLERGIES: No known allergies. SOCIAL HISTORY: Positive for tobacco, negative for alcohol. FAMILY HISTORY: No inheritable diseases. HOME MEDICATIONS: Include Xanax, Lexapro, Vasotec, Colace, DuoNeb, Percocet, Seroquel, hydrochlorothiazide, Advair. PHYSICAL EXAMINATION: GENERAL: The patient is mildly short of breath, but in no acute distress. There is minimal accessory muscle usage. VITAL SIGNS: Temperature is 98.9, pulse on the monitor is 104, respiratory rate approximately 22/24, blood pressure 140/78. Oxygen saturation on nasal cannula is 98%. HEENT: Normocephalic, atraumatic. No JVD. CARDIOVASCULAR: Systolic ejection murmur at the lower left sternal border. No S3 gallop. LUNGS: Decreased breath sounds at the bases. Minimal rhonchi. Minimal wheezing. EXTREMITIES: No clubbing, cyanosis, or edema. Calves are nontender to palpation. GASTROINTESTINAL: Abdomen is soft, nontender, nondistended. Bowel sounds are positive. SKIN: No acute rash. NEUROLOGIC: Limited at the present time. PERTINENT LABORATORY DATA: Chest x-ray was done in the Emergency Room and reviewed. It is a poor rotated portable film. I do not appreciate any new or significant infiltrates. CBC: White count 6.0, hemoglobin 12.9, hematocrit 39.0, platelets of 195. Complete metabolic profile: Potassium 3.1, chloride 95 , carbon dioxide 38, total bilirubin 1.4. Rest of the metabolic profile is within normal limits. IMPRESSION: 1. Recurrent bronchitis. 2. Advanced chronic obstructive pulmonary disease. 3. Significant noncompliance with medication. 4. Coronary artery disease. PLAN: The patient presents to [facility] with increasing pulmonary symptoms for the past day. As above, she has admitted -- this morning -- to not using her pulmonary medications for multiple days. When asked why, she just shrugs her shoulders. The nurse practitioner -- who covers outpatient lung disease patients -- met with the patient right after I did. Hopefully the patient will start to be more compliant. I did review the x-ray as above. It is a poor rotated portable film -- but does not appear to show any new or significant changes. On physical exam, the patient is in mild bronchospasm. There is no significant alveolar-arterial gradient. Oxygen saturation on nasal cannula is now 98%. I will continue with the current nebulizer treatments and low-dose intravenous steroids -- started by Dr. Blair. Additional pulmonary intervention will be based on the clinical status of the patient. I will discuss the above with Dr. Blair this morning. Thank you very much for this pulmonary consultation. Nikos Taylor MD cc: [phone] TT: 08/04/2016 08:16:26 Confirmation # [id number] Dictation # [id number] en MTDD
--- NOTE | 2016-08-04 08:31 | HP ---
CHIEF COMPLAINT AND HISTORY OF PRESENT ILLNESS: This is a 75-year-old female who is coming into the hospital complaining of shortness of breath. She has a history of COPD that is advanced and is home O2 dependent. The patient says that she is finding herself using the oxygen much more. She came in for further evaluation. She was given IV steroids and nebulizer treatments and had some improvement of her symptoms. The patient has no complaints of any chest pain. She does have a cough, but it is nonproductive. She has no fevers or chills. No weakness in the arms or the legs no headaches, no dizziness, no abdominal pain, no back pain. All other review of symptoms are within normal limits except as mentioned. ALLERGIES: No known drug allergies. HOME MEDICATIONS: She is on Spiriva, Advair, hydrochlorothiazide, Seroquel and Percocet. PAST SURGICAL HISTORY: Left toe surgery, right ankle fracture, left eye surgery, mastectomy, C-secti on, cholecystectomy. PAST MEDICAL HISTORY: 1. Coronary artery disease with stent. 2. Chronic obstructive pulmonary disease, home oxygen dependent. 3. Anxiety. 4. Breast cancer. 5. Emphysema. 6. Insomnia. 7. T12 compression fracture. 8. Osteoporosis. SOCIAL HISTORY: She did smoke for 50 years. She denies alcohol or drug abuse. FAMILY HISTORY: Noncontributory. PHYSICAL EXAMINATION: VITAL SIGNS: Temperature is 98.9, pulse of 128, blood pressure 140/78, respirations 26, O2 saturatio n 98%, height is 4 feet 8 inches, weight is 110 pounds, BMI is 24.7. GENERAL: The patient lying in bed, flat, and in no apparent distress. HEAD AND NECK EXAM: Atraumatic, normocephalic. Conjunctivae are pink. Throat clear and mouth with moist mucosa. Oropharynx benign. EYES: Extraocular movements are intact. PERRLA. NECK: Supple. No JVD, thyromegaly, or adenopathy. No bruits. HEART: S1 and S2 regular rate and rhythm. No murmurs, rubs, or gallops. LUNGS: Bilateral good air entry, bilateral wheezing. No rales or rhonchi. ABDOMEN: Soft, nontender, nondistended. Bowel sounds are positive in all quadrants. No rebound. No hepatosplenomegaly. EXTREMITIES: No cyanosis, clubbing, or edema. NEUROLOGIC: No facial asymmetry, tongue is midline, no uvula deviation. Power is 5/5 in upper extr emity and 5/5 in lower extremity. Sensation is normal in upper extremity and lower extremity. PSYCHIATRIC: Awake, alert, oriented x 3. No anxiety or depression symptoms. Good insight. Milena l affect. GENITOURINARY: No CVA tenderness VASCULAR: 2+ pulses in carotid and pedal pulses. SKIN: No erythema or abnormal nodules noted. SPINE: Normal curvature. LYMPHADENOPATHY: No anterior cervical or posterior cervical adenopathy. No inguinal adenopathy. LABORATORIES: White count of 6.0, hemoglobin 12.9. The ABG shows pH of 7.35, pCO2 of 76, pO2 of 41. Chemistry shows a sodium 141, potassium is 3.1. The AST, ALT is 17 and 28. EKG shows sinus tachycardia at 104 with a normal axis, no ST-T changes. Chest x-ray done shows no in filtrates. ASSESSMENT: 1. Acute chronic obstructive pulmonary disease. 2. Hypokalemia. 3. Coronary artery disease. 4. Anxiety. 5. Insomnia. 6. Osteoporosis. PLAN: The patient is currently comfortable compared to when she first came in. She is going to be o n nebulizer treatments. The patient is on DuoNeb, is on Lexapro for anxiety, Percocet for pain. The patient is on Solu-Medrol. She is going to continue with lisinopril. She is on atenolol. She is g oi to be admitted to the medical-surgical floor. She is going to be placed on a regular diet. I w ill also start her on physical therapy. We will get pulmonary to see the patient as well. Bashir Blair MD cc: [id number] TT: 08/04/2016 08:30:19 en
--- NOTE | 2016-08-04 09:08 | CARD ---
APPROVED REPORT EKG Measurement Heart [id number] <Conclusion> Sinus tachycardia Otherwise normal ECG
--- NOTE | 2016-08-04 09:15 | RAD ---
HISTORY: sob COMPARISON: 07/17/2016 FINDINGS: LUNGS: No active pulmonary disease. PLEURA: No significant pleural effusion identified, no pneumothorax apparent. CARDIOVASCULAR: The heart is top-normal in size. There is aortic tortuosity OSSEOUS STRUCTURES: No significant abnormalities. VISUALIZED UPPER ABDOMEN: Normal. OTHER FINDINGS: The patient is rotated to the left IMPRESSION: No active disease.
[2016-08-04] MEDS ORDERED: Pneumococcal 23-Valent Vaccine IM ONE (15:55)
[2016-08-05] MEDS: Albuterol-Ipratrop 3 mg / 0.5 (3 ml) UD IH SCH ×3 (07:48→20:40)
[2016-08-05] MEDS: Budesonide 0.5 mg/2 ml Inhal Susp UD IH SCH ×2 (07:48→20:40)
--- NOTE | 2016-08-05 08:06 | PN ---
DATE: 08/05/2016 SUBJECTIVE: The patient appears comfortable this morning. She is not short of breath at rest. OBJECTIVE: VITAL SIGNS: Temperature is 97.7, pulse 81, respirations 18, blood pressure 114 /67. Oxygen saturation on nasal cannula is 95% to 98%. HEENT: Normocephalic, atraumatic. No JVD. CARDIOVASCULAR: Systolic ejection murmur at the lower left sternal border. No S3 gallop. LUNGS: Better breath sounds at the bases. Much less rhonchi. No wheezing. EXTREMITIES: No clubbing, cyanosis or edema. Calves are nontender to palpation. GASTROINTESTINAL: Abdomen is soft, nontender, nondistended. Bowel sounds are positive. SKIN: No acute rash. NEUROLOGIC: Limited at the present time. IMPRESSION: 1. Recurrent bronchitis. 2. Advanced chronic obstructive pulmonary disease. 3. Noncompliance with medication. 4. Coronary artery disease. PLAN: The patient appears much more comfortable this morning. She is not short of breath at rest. She states she is feeling much better overall. On physical exam, her bronchospasm is certainly less. In addition, the oxygen saturation on nasal cannula is 95% to 98%. I will continue with the current nebulizer treatments and low-dose intravenous steroids for now. I will also add inhaled Pulmicort. Clinical status of the patient is significantly improved -- compared to yesterday. I will discuss the above with the attending physician. Nikos Taylor MD cc: [id number] TT: 08/05/2016 08:05:16 Confirmation # [id number] Dictation # [id number] omero FOY
--- NOTE | 2016-08-05 09:02 | PN ---
DATE: 08/05/2016 SUBJECTIVE: The patient has no complaints of any chest pain. She says her breathing is better. No headaches or dizziness. PHYSICAL EXAMINATION: VITAL SIGNS: Temperature is 97.7, pulse of 76, blood pressure 114/67, respirations 20. GENERAL: The patient comfortable, in no acute distress. HEENT: Anicteric sclerae. Moist mucosa. NECK: No JVD or adenopathy. CARDIAC: S1/S2. No murmurs. No rubs. Regular. RESPIRATORY: Clear to auscultation bilaterally. No wheezes, rales, or rhonchi. Good air entry. ABDOMEN: Bowel sounds are positive, soft, nontender, and nondistended. EXTREMITIES: No edema. Has 1+ pulses. ASSESSMENT: 1. Acute chronic obstructive pulmonary disease exacerbation. 2. Hypokalemia. 3. Coronary artery disease. 4. Anxiety. 5. Insomnia. 6. Osteoporosis. PLAN: The patient is currently comfortable, is receiving Colace. She is on Lexapro for anxiety. Th e patient is on hydrochlorothiazide for hypertension. She is on Seroquel. She is on lisinopril for her hypertension. She is on Xanax as needed. I will discontinue telemetry. She is continuing to we an on Solu-Medrol. Bashir Blair MD cc: [id number] TT: 08/05/2016 09:02:03 Confirmation # [id number] Dictation # [id number] shaquille
[2016-08-05] MEDS: Ipratropium 0.02% Inhal Soln (0.5 mg/2.5 ml) UD IH SCH (09:20)
[2016-08-05] MEDS ORDERED: MethylPREDNISolone 40 mg Vial IVP SCH (10:00)
[2016-08-05 12:18] LABS: ADD MANUAL DIFF? NO
[2016-08-05 12:20] LABS: BASO # 0.01 K/mm3 (0.0-2.0); BASO % 0.1 % (0.0-3.0); EOS # 0.1 (0.0-0.7); EOS % 0.5 % (1.5-5.0); GRAN # 8.83 (1.4-6.5); GRAN % 89.2 % (50.0-68.0); HEMATOCRIT 36.5 % (36.0-48.0); LYMPH # 0.8 (1.2-3.4); LYMPH % 7.6 % (22.0-35.0); MEAN CELL VOLUME 92.2 fL (80.0-105.0); MEAN CORPUSCULAR HEMOGLOBIN 30.3 pg (25.0-35.0); MEAN CORPUSCULAR HGB CONC 32.9 g/dl (31.0-37.0); MEAN PLATELET VOLUME 9.6 fl (7.0-11.0); MONO # 0.3 (0.1-0.6); MONO % 2.6 % (1.0-6.0); PLATELET COUNT 196 10^3/uL (120.0-450.0); RED CELL DISTRIBUTION WIDTH 12.8 % (11.5-14.5); WHITE BLOOD COUNT 9.9 10^3/ul (4.5-11.0)
--- NOTE | 2016-08-05 12:25 | CP.PCM.PN ---
<Vj Rowe - Last Filed: 08/05/16 12:28> Subjective - Date & Time of Evaluation Date of Evaluation: 08/05/16 Time of Evaluation: 11:50 - Subjective Subjective: QA SPECIALIST Called 11:50am Reason: SVT & palpitations Pt seen and examined at bedside. Patient was complaining of palpitations. Denies any chest pain. Denies any headaches, dizziness, visual changes, shortness of breath, abd pain, n/v, calf tenderness. Vitals: P: 165 BP: 11/70 SO2: 95% on 2L NC RR: 18 PE: Gen: AAO x 3 Pulm: CTA b/l No wheezes, rales, ronchi CV: Tachycardia regular 165 Abd: Soft non tender and non distended Ext: no pedal edema, no calf tenderness Plan: - SVT of 165 bpm broke by it self to HR in the 80's and irregular - Stat Trops - Stat EKG - showed 82bpm sinus rhythm with short GA occasional PVCs - Stat Basic labs including CBC, CMP, Mg, P - Dr Blair was contacted - Consult requested with Dr Bee Objective - Vital Signs/Intake and Output Vital Signs (last 24 hours): Temp Pulse Resp BP Pulse Ox 97.7 F 76 20 114/67 95 08/05/16 05:50 08/05/16 07:55 08/05/16 05:50 08/05/16 05:50 08/05/16 05:50 - Medications Medications: Current Medications Albuterol/Ipratropium (Duoneb 3 Mg/0.5 Mg (3 Ml) Ud) 3 ml IH TIDRESP [facility] Last Admin: 08/05/16 07:48 Dose: 3 ml Alprazolam (Xanax) 0.25 mg PO BID [facility] PRN Reason: Protocol Stop: 08/11/16 10:01 Last Admin: 08/05/16 09:31 Dose: 0.25 mg Atenolol (Tenormin) 50 mg PO DAILY [facility] Last Admin: 08/05/16 09:31 Dose: 50 mg Budesonide (Pulmicort Respules) 0.5 mg IH [id number] [facility] Last Admin: 08/05/16 07:48 Dose: 0.5 mg Docusate Sodium (Colace) 100 mg PO BID [facility] Last Admin: 08/05/16 09:29 Dose: 100 mg Escitalopram Oxalate (Lexapro) 10 mg PO HS [facility] Last Admin: 08/04/16 21:13 Dose: 10 mg Hydrochlorothiazide (Microzide) 12.5 mg PO DAILY [facility] Last Admin: 08/05/16 09:29 Dose: 12.5 mg Lisinopril (Zestril) 10 mg PO DAILY [facility] Last Admin: 08/05/16 09:31 Dose: 10 mg Methylprednisolone (Solu-Medrol) 40 mg IVP DAILY [facility] Last Admin: 08/05/16 09:29 Dose: 40 mg Oxycodone/Acetaminophen (Percocet 5/325 Mg Tab) 1 tab PO Q8 PRN PRN Reason: Pain, moderate (4-7) Stop: 08/07/16 14:01 Quetiapine Fumarate (Seroquel) 25 mg PO [facility] PRN Reason: Protocol Last Admin: 08/04/16 21:13 Dose: 25 mg <Shandra Pope - Last Filed: 08/05/16 12:38> Objective - Vital Signs/Intake and Output Vital Signs (last 24 hours): Temp Pulse Resp BP Pulse Ox 97.7 F 76 20 114/67 95 08/05/16 05:50 08/05/16 07:55 08/05/16 05:50 08/05/16 05:50 08/05/16 05:50 - Medications Medications: Current Medications Albuterol/Ipratropium (Duoneb 3 Mg/0.5 Mg (3 Ml) Ud) 3 ml IH TIDRESP [facility] Last Admin: 08/05/16 07:48 Dose: 3 ml Alprazolam (Xanax) 0.25 mg PO BID [facility] PRN Reason: Protocol Stop: 08/11/16 10:01 Last Admin: 08/05/16 09:31 Dose: 0.25 mg Atenolol (Tenormin) 50 mg PO DAILY [facility] Last Admin: 08/05/16 09:31 Dose: 50 mg Budesonide (Pulmicort Respules) 0.5 mg IH [id number] [facility] Last Admin: 08/05/16 07:48 Dose: 0.5 mg Docusate Sodium (Colace) 100 mg PO BID [facility] Last Admin: 08/05/16 09:29 Dose: 100 mg Escitalopram Oxalate (Lexapro) 10 mg PO HS [facility] Last Admin: 08/04/16 21:13 Dose: 10 mg Hydrochlorothiazide (Microzide) 12.5 mg PO DAILY [facility] Last Admin: 08/05/16 09:29 Dose: 12.5 mg Lisinopril (Zestril) 10 mg PO DAILY [facility] Last Admin: 08/05/16 09:31 Dose: 10 mg Methylprednisolone (Solu-Medrol) 40 mg IVP DAILY [facility] Last Admin: 08/05/16 09:29 Dose: 40 mg Oxycodone/Acetaminophen (Percocet 5/325 Mg Tab) 1 tab PO Q8 PRN PRN Reason: Pain, moderate (4-7) Stop: 08/07/16 14:01 Quetiapine Fumarate (Seroquel) 25 mg PO HS [facility] PRN Reason: Protocol Last Admin: 08/04/16 21:13 Dose: 25 mg - Labs Labs: 08/05/16 12:10 08/05/16 12:10 Attending/Attestation - Attestation I have personally seen and examined this patient.: Yes I have fully participated in the care of the patient.: Yes I have reviewed all pertinent clinical information, including history, physical exam and plan: Yes
[2016-08-05 12:31] LABS: ALB/GLOB RATIO 1.2 (1.1-1.8); ALKALINE PHOSPHATASE 93 U/L (38-133); ALT/SGPT 28 U/L (7-56); AST/SGOT 22 U/L (15-39); BILIRUBIN,TOTAL 1.4 mg/dL (0.2-1.3); BLOOD UREA NITROGEN 20 mg/dL (7-21); CALCIUM 9.2 mg/dL (8.4-10.5); CARBON DIOXIDE 35 mmol/L (21-33); CHLORIDE 93 mmol/L (98-107); GFR AFRICAN-AMERICAN > 60; GLUCOSE,RANDOM 115 mg/dL (70-110); MAGNESIUM 2.1 mg/dL (1.7-2.2); PHOSPHOROUS 3.7 mg/dL (2.5-4.5); POTASSIUM 3.4 mmol/L (3.6-5.0); SODIUM 134 mmol/L (132-148); TOTAL PROTEIN 6.5 g/dL (5.8-8.3)
[2016-08-05 12:41] LABS: TROPONIN I 0.02 ng/mL
[2016-08-05] MEDS: POLYETHYLENE GLYCOL 3350 17 GM/Dose PACKET PO SCH (17:20)
[2016-08-06] MEDS: Albuterol-Ipratrop 3 mg / 0.5 (3 ml) UD IH SCH (07:42)
[2016-08-06] MEDS: Budesonide 0.5 mg/2 ml Inhal Susp UD IH SCH ×2 (07:42→20:04)
[2016-08-06 07:59] LABS: ALB/GLOB RATIO 1.2 (1.1-1.8); ALKALINE PHOSPHATASE 74 U/L (38-133); ALT/SGPT 35 U/L (7-56); AST/SGOT 18 U/L (15-39); BILIRUBIN,TOTAL 0.7 mg/dL (0.2-1.3); BLOOD UREA NITROGEN 30 mg/dL (7-21); CALCIUM 8.8 mg/dL (8.4-10.5); CARBON DIOXIDE 39 mmol/L (21-33); CHLORIDE 91 mmol/L (95-110); GFR AFRICAN-AMERICAN > 60; GLUCOSE,RANDOM 80 mg/dL (70-110); POTASSIUM 4.1 mmol/L (3.6-5.0); SODIUM 135 mmol/L (132-148); TOTAL PROTEIN 5.9 g/dL (5.8-8.3)
--- NOTE | 2016-08-06 09:02 | PN ---
DATE: 08/06/2016 PULMONARY NOTE SUBJECTIVE: The patient appears comfortable this morning. She is not short of breath at rest. OBJECTIVE: VITAL SIGNS: Temperature is 97.7, pulse 67, respirations 18, blood pressure 104 /56. Oxygen saturation on nasal cannula is 94%. HEENT: Normocephalic, atraumatic. No JVD. CARDIOVASCULAR: Systolic ejection murmur at the lower left sternal border. No S3 gallop. LUNGS: Improved breath sounds at the bases. Less rhonchi. No wheezing this morning. EXTREMITIES: No clubbing, cyanosis, or edema. Calves are nontender to palpation. GASTROINTESTINAL: Abdomen is soft, nontender, nondistended. Bowel sounds are positive. SKIN: No acute rash. NEUROLOGIC: Limited at the present time. IMPRESSION: 1. Recurrent bronchitis. 2. Advanced chronic obstructive pulmonary disease. 3. Noncompliance with medication. 4. Coronary artery disease. PLAN: The patient appears very comfortable this morning. She is not short of breath at rest. She states she is feeling much better overall. On physical exam, her bronchospasm is much less. In addition, there is no significant alveolar arterial gradient. I will continue with the current nebulizer treatments and change to oral steroids this morning. The patient was noted to be tachycardic yesterday morning. Cardiology evaluation with Dr. Bee has been ordered. Clinical status of the patient is certainly improved overall. However , the future status/prognosis of this patient with advanced chronic obstructive pulmonary disease and significant noncompliance with medication - remains guarded . She is for discharge in the near future. I will discuss the above with Dr. Blair this morning. Nikos Taylor MD cc: [id number] TT: 08/06/2016 09:01:14 Confirmation # [id number] Dictation # [id number] jn MTDD
[2016-08-06] MEDS: POLYETHYLENE GLYCOL 3350 17 GM/Dose PACKET PO SCH ×2 (10:10→17:34)
[2016-08-06] MEDS ORDERED: Levalbuterol 0.63 MG/3 ML Inhal Soln UD IH PRN (10:27)
[2016-08-06] MEDS: Enoxaparin 30 mg Syringe SC SCH (11:46)
--- NOTE | 2016-08-06 14:50 | CON ---
DATE: 08/06/2016 REASON FOR CONSULTATION: SVT, admitted with acute exacerbation of COPD. BRIEF CLINICAL HISTORY: A 75-year-old female with a past medical history significant for coronary ar lucy disease, chronic obstructive pulmonary disease, on home oxygen, kyphoscoliosis, breast CA, emphy sema, compression fracture, osteoporosis. Admitted with acute exacerbation of COPD, was getting zohaib tment Proventil treatment. Yesterday, patient had a run of SVT, which later on broke. Denies any ch est pain, shortness of breath, any palpitation. PAST MEDICAL HISTORY: Significant for coronary artery disease, COPD, anxiety disorder, breast CA, em physema, insomnia, compression fracture, kyphoscoliosis, osteoporosis. SOCIAL HISTORY: Did smoke for 50 years, quit smoking many years ago. Denies any history of alcohol abuse. ALLERGIES: No known drug allergy. CURRENT MEDICATIONS: The patient is taking Spiriva, Advair, hydrochlorothiazide, Seroquel and Percoc et. PAST SURGICAL HISTORY: Significant for left toe surgery, right ankle fracture, left eye surgery, mas tectomy, , cholecystectomy. PREVIOUS CARDIAC WORKUP: The patient had echocardiography on 07/19/2016, read by Dr. De Leon as normal size, normal thickness, normal LV function, trace aortic regurgitation, mild to moderate mitral regu rgitation, severe tricuspid regurgitation, mild pulmonary insufficiency, severe pulmonary hypertensio n, right ventricular systolic pressure 71. REVIEW OF SYSTEMS: As per HPI. PHYSICAL EXAMINATION: VITAL SIGNS: Temperature afebrile, heart rate 67, blood pressure 104/56. HEENT: PERRLA. Extraocular muscles intact. NECK: Supple. No carotid bruits. No thyromegaly. CHEST: Clear to auscultation. HEART: S1, S2 regular. ABDOMEN: Soft. EXTREMITIES: Clubbing, cyanosis negative. BLOOD WORKUP: WBC 9.9, hemoglobin 12, hematocrit 36.5, platelet count 196. Chemistry shows sodium 1 35, potassium 4. , chloride 91, carbon dioxide 39, anion gap of 9, BUN 30, creatinine 0.8. Tropo shorty 0.01. IMPRESSION: Supraventricular tachycardia, possibly secondary to beta-2 agonist, history of coronary artery disease in the remote, history of chronic obstructive pulmonary disease, tricuspid regurgitati on, pulmonary hypertension, preserved left ventricular function, history of breast cancer, kyphoscoli osis. RECOMMENDATION: Change to DuoNeb nebulizer treatment. Avoid beta-2 agonist, ipratropium, albuterol. Will get Xopenex. Continue atenolol 50 mg daily. We will follow with you. Thank you, Dr. Blair, for providing us the opportunity in taking care of the patient. We will fol low with you. We will put deep venous thrombosis prophylaxis. We will follow with you. Thank you, Dr. Blair, for providing us the opportunity in taking care of the patient. We will get the lipid profile, TSH, hemoglobin A1c. Michelle Bee MD cc: [id number] TT: 08/06/2016 14:50:08 Confirmation # [id number] Dictation # [id number] en
--- NOTE | 2016-08-06 17:03 | PN ---
DATE: 08/06/2016 SUBJECTIVE: The patient says her breathing is better. She did have an episode of an arrhythmia yest rogerio. I did speak to the on-call team with the qa internship. The patient has no complaints of any headac hes or dizziness. PHYSICAL EXAMINATION: VITAL SIGNS: Temperature is 98.2, pulse is 76, blood pressure 107/61, respirations 20. GENERAL: The patient comfortable, in no acute distress. HEENT: Anicteric sclerae. Moist mucosa. NECK: No JVD or adenopathy. CARDIAC: S1/S2. No murmurs. No rubs. Regular. RESPIRATORY: Clear to auscultation bilaterally. No wheezes, rales, or rhonchi. Good air entry. ABDOMEN: Bowel sounds are positive, soft, nontender, and nondistended. EXTREMITIES: No edema. Has 1+ pulses. ASSESSMENT: 1. Acute chronic obstructive pulmonary disease exacerbation. 2. Hypokalemia. 3. Coronary artery disease. 4. Anxiety. 5. Insomnia. 6. Osteoporosis. 7. Supraventricular tachycardia episode. PLAN: The patient is currently comfortable. She is receiving her nebulizers. She says she is breat horacio well. She had an episode of SVT possibly secondary to the beta agonist that she is receiving. The patient needs to have less beta agonist; that sometimes is difficult because the patient can get short of breath. She is on Lexapro for anxiety. She is on Lovenox for DVT prophylaxis. She is on p rednisone. She is on Colace for her constipation. Bashir Blair MD cc: [id number] TT: 08/06/2016 17:03:13 Confirmation # [id number] Dictation # [id number] mn
[2016-08-07 05:36] VITALS: O2SAT 96
[2016-08-07 07:22] LABS: ADD MANUAL DIFF? NO
[2016-08-07 07:25] LABS: BASO # 0.01 K/mm3 (0.0-2.0); BASO % 0.2 % (0.0-3.0); EOS % 0.5 % (1.5-5.0); GRAN # 3.65 (1.4-6.5); GRAN % 64.9 % (50.0-68.0); HEMATOCRIT 35.7 % (36.0-48.0); LYMPH # 1.3 (1.2-3.4); LYMPH % 23.7 % (22.0-35.0); MEAN CELL VOLUME 93.5 fL (80.0-105.0); MEAN CORPUSCULAR HEMOGLOBIN 30.1 pg (25.0-35.0); MEAN CORPUSCULAR HGB CONC 32.2 g/dl (31.0-37.0); MEAN PLATELET VOLUME 9.6 fl (7.0-11.0); MONO # 0.6 (0.1-0.6); MONO % 10.7 % (1.0-6.0); PLATELET COUNT 196 10^3/uL (120.0-450.0); RED CELL DISTRIBUTION WIDTH 12.9 % (11.5-14.5); WHITE BLOOD COUNT 5.6 10^3/ul (4.5-11.0)
[2016-08-07 07:38] LABS: ALB/GLOB RATIO 1.1 (1.1-1.8); ALKALINE PHOSPHATASE 70 U/L (38-133); ALT/SGPT 38 U/L (7-56); AST/SGOT 25 U/L (15-39); BILIRUBIN,TOTAL 1.2 mg/dL (0.2-1.3); BLOOD UREA NITROGEN 27 mg/dL (7-21); CALCIUM 8.8 mg/dL (8.4-10.5); CARBON DIOXIDE 39 mmol/L (21-33); CHLORIDE 94 mmol/L (98-107); CHOLESTEROL 144 mg/dL (130-200); GFR AFRICAN-AMERICAN > 60; GLUCOSE,RANDOM 77 mg/dL (70-110); MAGNESIUM 2.1 mg/dL (1.7-2.2); PHOSPHOROUS 3.2 mg/dL (2.5-4.5); POTASSIUM 4.4 mmol/L (3.6-5.0); SODIUM 138 mmol/L (132-148); TOTAL PROTEIN 6.1 g/dL (5.8-8.3)
[2016-08-07] MEDS: Budesonide 0.5 mg/2 ml Inhal Susp UD IH SCH ×2 (08:14→20:19)
--- NOTE | 2016-08-07 09:28 | DS ---
The patient has no complaints of any chest pain or shortness of breath, no headaches. She was refugio duy admitted to the hospital because of an acute COPD exacerbation. This is improved. She had an ep isode of tachycardia. She was seen by Dr. Bee and it was felt that this is from her nebulizer treat ments. PHYSICAL EXAMINATION: VITAL SIGNS: Temperature is 98.2, pulse is 63, blood pressure 123/71, respirations 20. GENERAL: The patient comfortable, in no acute distress. HEENT: Anicteric sclerae. Moist mucosa. NECK: No JVD or adenopathy. CARDIAC: S1/S2. No murmurs. No rubs. Regular. RESPIRATORY: Clear to auscultation bilaterally. No wheezes, rales, or rhonchi. Good air entry. ABDOMEN: Bowel sounds are positive, soft, nontender, and nondistended. EXTREMITIES: No edema. Has 1+ pulses. LABORATORY DATA: Creatinine 0.8. ASSESSMENT: 1. Acute chronic obstructive pulmonary disease. 2. . 3. Coronary artery disease. 4. Anxiety. 5. Insomnia. 6. Osteoporosis. 7. Supraventricular tachycardia episode. PLAN: The patient is on Colace for constipation, is on Lexapro for anxiety. The patient is on Perco cet for pain and is receiving prednisone. She is going to continue with Seroquel. She is on atenolo l. She is on lisinopril for hypertension. She is going to be on a heart healthy diet. Will have he r follow within a week. She does not always followup. I did advise her of the importance of followi ng up. Bashir Blair MD cc: [id number] TT: 08/07/2016 09:27:30 lis
--- NOTE | 2016-08-07 10:31 | PN ---
DATE: 08/07/2016 REASON FOR CONSULTATION AND FOLLOWUP: SVT, admitted with acute exacerbation of COPD. BRIEF CLINICAL HISTORY: A 75-year-old female with a past medical history significant for coronary ar lucy disease, chronic obstructive pulmonary disease, on home oxygen, kyphoscoliosis, breast CA, emphy sema, compression fracture, osteoporosis. Admitted with acute exacerbation of COPD. During the pulm onary treatment, patient went into episode of SVT, broke itself on beta gerardo. Denies any chest pa in, shortness of breath, any palpitation. PHYSICAL EXAMINATION: VITAL SIGNS: Temperature afebrile, heart rate 63, blood pressure 103/71. HEENT: PERRLA. Extraocular muscles intact. NECK: Supple. No carotid bruits. No thyromegaly. CHEST: Clear to auscultation. HEART: S1, S2 regular. ABDOMEN: Soft. EXTREMITIES: Clubbing, cyanosis negative. BLOOD WORKUP: WBC 5.6, hemoglobin 11.5, hematocrit 35.7, platelet count 196. Chemistry shows sodium 130, potassium 4.4, chloride 94, carbon dioxide 39, anion gap of 9, BUN 27, creatinine 0.7. Troponi n 0.02. IMPRESSION: No evidence of acute myocardial infarction, supraventricular tachycardia probably second lalit to Proventil treatment, history of acute exacerbation of chronic obstructive pulmonary disease, k yphoscoliosis, history of breast cancer, hypertension, tricuspid regurgitation, history of coronary a rtery disease in the remote. RECOMMENDATION: Change to Xopenex. Avoid beta-2 agonists. Continue deep venous thrombosis prophyla xis. Follow up hemoglobin A1c and continue low-dose beta-gerardo as tolerated. Discussed with Dr. Mackenzie jean baptiste. Probably is going to be discharged today. Michelle Bee MD cc: [id number] TT: 08/07/2016 10:30:27 Confirmation # [id number] Dictation # [id number] en
[2016-08-07] MEDS: Enoxaparin 30 mg Syringe SC SCH (10:32)
[2016-08-07] MEDS: POLYETHYLENE GLYCOL 3350 17 GM/Dose PACKET PO SCH ×2 (10:33→17:49)
[2016-08-08] MEDS: Budesonide 0.5 mg/2 ml Inhal Susp UD IH SCH (08:21)
--- NOTE | 2016-08-08 08:22 | DS ---
Please see the note that was done yesterday for the discharge summary. The patient says she is not f eeling well still. We will see if she qualifies for transitional care unit. PHYSICAL EXAMINATION: VITAL SIGNS: Temperature is 97.3, pulse of 64, blood pressure is 100/63, respirations 20. GENERAL: The patient comfortable, in no acute distress. HEENT: Anicteric sclerae. Moist mucosa. NECK: No JVD or adenopathy. CARDIAC: S1/S2. No murmurs. No rubs. Regular. RESPIRATORY: Clear to auscultation bilaterally. No wheezes, rales, or rhonchi. Good air entry. ABDOMEN: Bowel sounds are positive, soft, nontender, and nondistended. EXTREMITIES: No edema. Has 1+ pulses. ASSESSMENT: 1. Acute chronic obstructive pulmonary disease. 2. Gait dysfunction. 3. Coronary artery disease. 4. Osteoporosis. 5. Anxiety. 6. Insomnia. 7. Supraventricular tachycardia episode, resolved. PLAN: The patient is currently receiving prednisone p.o. She is on hydrochlorothiazide for hyperten malik. She is on Lexapro for her anxiety. She is receiving Xanax as needed. She is on lisinopril fo r hypertension. The patient was seen by physical therapy yesterday. The physical therapist also ass esses that the patient should probably go to transitional care unit for continued PT. See the note t hat was dictated yesterday on 08/07/2016 for details. Bashir Blair MD cc: [id number] TT: 08/08/2016 08:20:58 en
[2016-08-08] MEDS: Enoxaparin 30 mg Syringe SC SCH (10:28)
[2016-08-08] MEDS: POLYETHYLENE GLYCOL 3350 17 GM/Dose PACKET PO SCH (10:28)
[2016-08-08 10:32] VITALS: BP 114/60; PULSE 63
[2016-08-08 10:40] VITALS: RESP 18; TEMP 98.2
--- NOTE | 2016-08-08 13:31 | PN ---
DATE: 08/08/2016 REASON FOR CONSULTATION: SVT, admitted with acute exacerbation of COPD. BRIEF CLINICAL HISTORY: This is a 75-year-old female with a past medical history significant for kyp hoscoliosis, COPD, advanced, on home oxygen; emphysema, compression fracture, osteoporosis. Admitted with acute exacerbation of COPD. During the treatment, patient developed one episode of SVT, broke by itself on beta gerardo, now is stable. Denies any chest pain, shortness of breath, any palpitatio n. PHYSICAL EXAMINATION: As follows: VITAL SIGNS: Temperature afebrile, heart rate 60, blood pressure 104/60. HEENT: PERRLA, intact. NECK: Supple. No carotid bruits. No thyromegaly. CHEST: Clear to auscultation. HEART: S1, S2 regular. ABDOMEN: Soft. EXTREMITIES: Clubbing and cyanosis negative. BLOOD WORKUP: As follows: Hemoglobin ____, hematocrit 35.7 as of yesterday. IMPRESSION: Chronic obstructive pulmonary disease, advanced chronic obstructive pulmonary disease, h ome oxygen, admitted with acute exacerbation of chronic obstructive pulmonary disease, supraventricul ar tachycardia during the treatment, on beta gerardo stable; kyphoscoliosis, history of breast cancer . RECOMMENDATION: Avoid beta2-agonist. We will change to Xopenex. Continue DVT prophylaxis. Continu e beta gerardo. We will follow with you. CVS status is stable. No further cardiac workup is sherin medina Thank you, Dr. Blair, for providing us the opportunity in taking care of patient. Michelle Bee MD cc: [id number] TT: 08/08/2016 13:30:41 Confirmation # [id number] Dictation # [id number] sn
== END 2016-08-08 13:38 | DRG 191 ==
LOC: ED 04:48 → ERH 06:14 → 2RNO 08:32 → OBSVTOIN 08-05 08:55 → 3RSO 08-07 20:01
PROVIDERS: ADMIT Internal Medicine Nephrology; ATTEND Internal Medicine Nephrology
PROC: 3E0F7GC Introduction of Other Therapeutic Substance into Respiratory Tract, Via Natural or Artificial Opening (ICD-10-PCS; principal; 2016-08-04)
DX: J44.1 Chronic obstructive pulmonary disease with (acute) exacerbation (principal); I47.1 Supraventricular tachycardia; I27.2 Other secondary pulmonary hypertension; Z99.81 Dependence on supplemental oxygen; I10 Essential (primary) hypertension; I25.10 Atherosclerotic heart disease of native coronary artery without angina pectoris; M19.90 Unspecified osteoarthritis, unspecified site; F41.9 Anxiety disorder, unspecified; G47.00 Insomnia, unspecified; M81.0 Age-related osteoporosis without current pathological fracture; E87.6 Hypokalemia; M41.9 Scoliosis, unspecified; I08.1 Rheumatic disorders of both mitral and tricuspid valves; R26.9 Unspecified abnormalities of gait and mobility; M48.54XD Collapsed vertebra, not elsewhere classified, thoracic region, subsequent encounter for fracture with routine healing; Z91.14 Patient's other noncompliance with medication regimen; Z85.3 Personal history of malignant neoplasm of breast; Z95.5 Presence of coronary angioplasty implant and graft; Z90.49 Acquired absence of other specified parts of digestive tract; Z87.891 Personal history of nicotine dependence

== ENCOUNTER 2016-08-08 13:38 | Inpatient (IN) | payer OTHER, BC ==
[2016-08-08 14:28] VITALS: BMI 21.9
[2016-08-08] MEDS ORDERED: Levalbuterol 0.63 MG/3 ML Inhal Soln UD IH PRN (14:46)
[2016-08-08] MEDS: POLYETHYLENE GLYCOL 3350 17 GM/Dose PACKET PO SCH (17:49)
[2016-08-08] MEDS ORDERED: Arformoterol 15 mcg/2 ml Inh Sol IH SCH (20:00)
[2016-08-08] MEDS: Budesonide 0.5 mg/2 ml Inhal Susp UD IH SCH (20:31)
[2016-08-09] MEDS ORDERED: Enoxaparin 40 mg Syringe SC SCH (06:00)
[2016-08-09] MEDS: Enoxaparin 30 mg Syringe SC SCH (06:13)
[2016-08-09] MEDS ORDERED: Levalbuterol 0.63 MG/3 ML Inhal Soln UD IH PRN (07:15)
[2016-08-09] MEDS: Levalbuterol 0.63 MG/3 ML Inhal Soln UD IH SCH ×3 (07:18→19:50)
[2016-08-09] MEDS: Budesonide 0.5 mg/2 ml Inhal Susp UD IH SCH ×2 (07:18→19:50)
--- NOTE | 2016-08-09 07:51 | PN ---
DATE: 08/09/2016 SUBJECTIVE: The patient appears comfortable at rest. She is not short of breath. PHYSICAL EXAMINATION: VITAL SIGNS: Temperature is 98.5, pulse 62, respirations 18, blood pressure 102 /63. Oxygen saturation on nasal cannula is 97%. HEENT: Normocephalic, atraumatic. No JVD. CARDIOVASCULAR: Systolic ejection murmur at the lower left sternal border. No S3 gallop. LUNGS: Minimal bilateral rhonchi. No wheezing. EXTREMITIES: No clubbing, cyanosis, or edema. Calves are nontender to palpation. GASTROINTESTINAL: Abdomen is soft, nontender, nondistended. Bowel sounds are positive. SKIN: No acute rash. NEUROLOGIC: Limited at the present time. IMPRESSION: 1. Recurrent bronchitis. 2. Advanced chronic obstructive pulmonary disease. 3. Noncompliance with medication. 4. Coronary artery disease. PLAN: The patient appears comfortable this morning. She is not short of breath at rest. She states she is feeling much better overall. On physical exam, her bronchospasm is certainly less. In addition, the alveolar-arterial gradient is also less. Oxygen saturation on nasal cannula is now 97%. I will continue with the current nebulizer treatments (but change them to scheduled doses), as well as continue with the inhaled steroids and low-dose oral steroids. The patient is now on the transitional unit-- where she will participate with physical therapy. She is certainly clinically improved -- but remains guarded overall. I will discuss the above with Dr. Blair. Nikos Taylor MD cc: [id number] TT: 08/09/2016 07:50:13 Confirmation # [id number] Dictation # [id number] en MTDD
[2016-08-09] MEDS ORDERED: PREDNISONE 30 MG PO SCH (08:00)
--- NOTE | 2016-08-09 09:39 | PN ---
DATE: 08/09/2016 3 SUBJECTIVE: The patient has no complaints of any chest pain or shortness of breath, no headaches o r dizziness. She says she is comfortable, but very anxious following her in the acute side of the ho spital. The initial H and P has been reviewed and I agree with. PHYSICAL EXAMINATION: VITAL SIGNS: Temperature is 98.5, pulse of 62, blood pressure 102/63, respirations 18. GENERAL: The patient comfortable, in no acute distress. HEENT: Anicteric sclerae. Moist mucosa. NECK: No JVD or adenopathy. CARDIAC: S1/S2. No murmurs. No rubs. Regular. RESPIRATORY: Clear to auscultation bilaterally. No wheezes, rales, or rhonchi. Good air entry. ABDOMEN: Bowel sounds are positive, soft, nontender, and nondistended. EXTREMITIES: No edema. Has 1+ pulses. ASSESSMENT: 1. Anxiety. 2. Chronic obstructive pulmonary disease exacerbation, resolved. 3. Osteoporosis. 4. Gait dysfunction. 5. Insomnia. 7. Supraventricular tachycardia episode, resolved. PLAN: The patient is on Lexapro for anxiety. She is going to continue with Colace. I will get Dr. Messina to follow the patient. The patient is on MiraLax for constipation. She is on prednisone. Sh e is going to continue with Xopenex. She is on lisinopril for hypertension. Bashir Blair MD cc: [id number] TT: 08/09/2016 09:39:03 Confirmation # [id number] Dictation # [id number] tn
[2016-08-09] MEDS ORDERED: HYDROCHLOROTHIAZIDE 12.5 MG PO SCH (10:00)
[2016-08-09] MEDS: POLYETHYLENE GLYCOL 3350 17 GM/Dose PACKET PO SCH ×2 (11:02→18:20)
--- NOTE | 2016-08-09 16:24 | CON ---
DATE: 08/09/2016 The patient in room 313, bed 1. REASON FOR CONSULTATION: Followup on SVT, COPD. HISTORY OF PRESENT ILLNESS: The patient is a 75-year-old female, known case of coronary artery disea se, chronic obstructive pulmonary disease, on home oxygen; kyphoscoliosis, breast CA and compression fracture of spine due to osteoporosis. Was admitted with acute exacerbation of COPD. The patient wa s getting Proventil treatments and patient had run of SVT which later on converted to sinus rhythm. The patient now in transitional care unit for deconditioning and physical therapy. The patient lying comfortably in bed without chest pain, shortness of breath, or palpitation. PAST MEDICAL HISTORY: Significant for coronary artery disease, COPD, anxiety disorder, breast CA, in somnia, compression fracture of spine due to kyphoscoliosis, osteoporosis. PERSONAL HISTORY: Did smoke for about 50 years. The patient has stopped smoking, the last many year s. Denies drinking. ALLERGIES: The patient has no allergies. HOME MEDICATIONS: Included Spiriva, Advair, hydrochlorothiazide, Seroquel, Percocet. PAST SURGICAL HISTORY: The patient had left toe surgery, right ankle fracture, left eye surgery, mas tectomy, , cholecystectomy. PREVIOUS CARDIAC WORKUP: The patient had an echocardiogram 07/19/2016, normal LV with normal LV func tion, trace aortic regurgitation, [id number] mitral regurgitation, severe tricuspid regurgitati on, mild pulmonary hypertension, mild pulmonary insufficiency, severe pulmonary hypertension, right v entricle systolic pressure of 71 mmHg. REVIEW OF SYSTEMS: All the systems were reviewed, positives mentioned in the history, others were ne gative. PHYSICAL EXAMINATION: VITAL SIGNS: Blood pressure 101/54, respirations 18, pulse 78, temperature 98.3. HEENT: Head is normocephalic. Eyes: Pupils normal. Conjunctivae normal. Nose and throat normal. NECK: JVP low. Carotid equal. THORAX: AP diameter normal. LUNGS: No rales. Few wheezing sounds. CARDIOVASCULAR: Kyphoscoliosis. ABDOMEN: Soft, no tenderness, no organomegaly. EXTREMITIES: No clubbing, no cyanosis. LABORATORY DATA: WBC 5.6, hemoglobin 11.5, hematocrit 35.7, platelet 196. Sodium 138, potassium 4.4 , BUN 27, creatinine 0.7, phosphorus 3.2, magnesium 2.1, calcium 8.8, AST 25, ALT 38, total protein 6 .1, albumin 3.3. TSH 1.33. Troponin negative. AST, ALT normal. Total protein and albumin normal. DIAGNOSES: Supraventricular tachycardia, possibly secondary to beta2 agonist, history of coronary ar lucy disease in the remote, history of chronic obstructive pulmonary disease, tricuspid regurgitation , severe pulmonary hypertension, preserved left ventricular function, history of breast cancer, kypho scoliosis, deconditioning. PLAN: We will continue hydrochlorothiazide 12.5 p.o. daily, Lovenox 30 mg subQ daily, prednisone 30 mg p.o. q.8 hours, Seroquel 25 mg p.o. daily, atenolol 50 mg p.o. daily, Xopenex p.r.n., lisinopril 1 0 mg p.o. daily. We will continue present therapy. Continue physical therapy. We will follow with you. Michelle Pastor MD cc: [id number] TT: 08/09/2016 16:23:48 Confirmation # [id number] Dictation # [id number] sn
[2016-08-10] MEDS: Levalbuterol 0.63 MG/3 ML Inhal Soln UD IH SCH ×4 (02:34→22:07)
[2016-08-10] MEDS: Enoxaparin 30 mg Syringe SC SCH (05:29)
[2016-08-10] MEDS: Budesonide 0.5 mg/2 ml Inhal Susp UD IH SCH ×2 (07:23→22:07)
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
--- NOTE | 2016-08-10 08:34 | PN ---
DATE: 08/10/2016 SUBJECTIVE: The patient appears comfortable this morning. She is not short of breath at rest. OBJECTIVE: VITAL SIGNS: Temperature is 98.6, pulse 79, respirations 18, blood pressure 101 /64. Oxygen saturation on nasal cannula ranges between 92-97%. HEENT: Normocephalic, atraumatic. No JVD. CARDIOVASCULAR: Systolic ejection murmur at the lower left sternal border. No S3 gallop. LUNGS: Minimal/less rhonchi. No wheezing. EXTREMITIES: No clubbing, cyanosis, or edema. Calves are nontender to palpation. GASTROINTESTINAL: Abdomen is soft, nontender, nondistended. Bowel sounds are positive. SKIN: No acute rash. NEUROLOGIC: Limited at the present time. IMPRESSION: 1. Recurrent bronchitis. 2. Advanced chronic obstructive pulmonary disease. 3. Noncompliance with medications. 4. Coronary artery disease. PLAN: The patient appears comfortable this morning. She is not short of breath at rest. She does state to feeling much better overall. On physical exam, her bronchospasm continues to slowly resolve. In addition, the alveolar arterial gradient also continues to resolve. I will continue with the current nebulizer treatments and low-dose oral steroids for now. The patient remains on the transitional unit - where she will participate with physical therapy. Certainly, the clinical status of patient is significantly improved - compared to the initial presentation. However, again, the overall status/prognosis for this elderly woman-- with history of significant noncompliance with her medication at home - remains very guarded. I will discuss the above with Dr. Blair. Nikos Taylor MD cc: [phone] TT: 08/10/2016 08:33:30 Confirmation # [id number] Dictation # [id number] lebron FOY
--- NOTE | 2016-08-10 09:50 | PN ---
DATE: 08/10/2016 DATE: 08/10/2016 SUBJECTIVE: The patient has no complaints of any chest pain, no shortness of breath, no headaches. PHYSICAL EXAMINATION: VITAL SIGNS: Temperature is 98.6. Pulse is 79. Blood pressure is 101/64, respirations 18. GENERAL: The patient is comfortable, in no acute distress. HEENT: Anicteric sclerae. Moist mucosa. NECK: No JVD or adenopathy. CARDIAC: S1/S2. No murmurs. No rubs. Regular. RESPIRATORY: Clear to auscultation bilaterally. No wheezes, rales, or rhonchi. Good air entry. ABDOMEN: Bowel sounds are positive, soft, nontender, and nondistended. EXTREMITIES: No edema. Has 1+ pulses. ASSESSMENT: 1. Anxiety. 2. Chronic obstructive pulmonary disease. 3. Osteoporosis. 4. Gait dysfunction. 5. Insomnia. 6. Supraventricular tachycardia, resolved. PLAN: The patient is on hydrochlorothiazide. The patient is on Lovenox for DVT prophylaxis. She is on Lexapro. The patient is going to continue with prednisone. She is on Colace for constipation. She is on lisinopril for hypertension. The patient is on a heart-healthy diet. She is doing well [facility]. She was seen by Dr. Messina yesterday for evaluation for anxiety. Bashir Blair MD cc: [id number] TT: 08/10/2016 09:50:05 Confirmation # [id number] Dictation # [id number] shaquilel
[2016-08-10] MEDS: POLYETHYLENE GLYCOL 3350 17 GM/Dose PACKET PO SCH ×2 (10:04→17:53)
--- NOTE | 2016-08-10 13:01 | PCM.PYCHPN ---
Psychiatric Progress Note - Psychiatric Progress Note Patient seen today, length of contact: 25 Patient Chief Complaint: anxiety, depression, insomnia Problems Identified/Issues Discussed: patient carlos albertof, feeling weak Feels she is not feeling as well as when I had seen her yesterday Medical Problems: COPD, osteoporosis, gait dysfunction, i DSM 5 Symptoms Update: patient reports feeling more anxious and depressed th Medication Change: No Medical Record Reviewed: Yes Consults ordered or reviewed: reviewed Mental Status Examination - Cognitive Function Orientation: Person, Place, Situation, Time Memory: Impaired Attention: WNL Concentration: WNL Association: [facility] Fund of Knowledge: [facility] Decription of patient's judgement and insights: patient does not have a fut Does appear to have some concentration - Mood Mood: Depressed, Anxious - Affect Affect: Other - Speech Speech: Soft - Formal Thought Process Formal Thought Process: No Impairment Psychotic Thoughts and Behaviors: none is however obsessive - Suicidal Ideation Suicidal Ideation: No - Homicidal Ideation Homicidal Ideation: No Goal/Treatment Plan - Goal/Treatment Plan Progress Toward Problem(s) and Goals/Treatment Plan: Work on symptom stabilization and refer upon going home to a psychotherapist and psychopharmacologic management
--- NOTE | 2016-08-10 13:45 | PN ---
DATE: 08/10/2016 The patient is in room 313, bed 1. REASON FOR CONSULTATION AND FOLLOWUP: SVT, COPD. HISTORY OF PRESENT ILLNESS: A 75-year-old female, known case of coronary artery disease, chronic obs tructive pulmonary disease, on home oxygen, kyphoscoliosis, breast CA, compression fracture of spine due to osteoporosis, was admitted with acute exacerbation of COPD and patient was getting Proventil t reatment and patient had run of SVT, which is controlled with medication. Now, patient is maintainin g sinus rhythm. The patient now on transitional care unit for deconditioning and physical therapy. The patient denies any chest pain, no palpitation. Her shortness of breath is also better. PHYSICAL EXAMINATION: VITAL SIGNS: Blood pressure 107/57, respirations 20, pulse 70, temperature 97.8. HEAD: Normocephalic. EYES: Pupils normal. Conjunctivae normal. NECK: JVP low. Carotid equal. THORAX: AP diameter slightly increased. LUNGS: Clear to auscultation. No rales. CARDIOVASCULAR: S1 and S2. ABDOMEN: Soft, no tenderness, no organomegaly. Bowel sounds normal. EXTREMITIES: No clubbing, no cyanosis. Labs were done on the medical floor. They were reported in our previous notes. DIAGNOSES: Supraventricular tachycardia, possibly secondary to beta-2 agonist, history of coronary a rtery disease in the remote, history of chronic obstructive pulmonary disease, tricuspid regurgitatio n, severe pulmonary hypertension, preserved left ventricular function, history of breast cancer, kyph oscoliosis, deconditioning. PLAN: We will continue physical therapy. We will continue Lovenox 30 subQ daily, hydrochlorothiazid e 12.5 daily, prednisone 30 mg p.o. daily, Seroquel 25 mg daily, atenolol 50 mg p.o. daily, Xopenex p .r.n., lisinopril 10 mg daily. We will follow with you. Michelle Pastor MD cc: [id number] TT: 08/10/2016 13:44:46 Confirmation # [id number] Dictation # [id number] en
[2016-08-11] MEDS: Levalbuterol 0.63 MG/3 ML Inhal Soln UD IH SCH ×4 (01:56→20:01)
[2016-08-11] MEDS: Enoxaparin 30 mg Syringe SC SCH (05:41)
[2016-08-11] MEDS: Budesonide 0.5 mg/2 ml Inhal Susp UD IH SCH ×2 (07:22→20:01)
--- NOTE | 2016-08-11 08:26 | PN ---
DATE: 08/11/2016 SUBJECTIVE: The patient appears comfortable this morning. She is not short of breath at rest. PHYSICAL EXAMINATION: VITAL SIGNS: Temperature is 98.1, pulse 74, respirations 18, blood pressure 91/ 50. Oxygen saturation on nasal cannula is 96%-98%. HEENT: Normocephalic, atraumatic. No JVD. CARDIOVASCULAR: Systolic ejection murmur at the lower left sternal border. No S3 gallop. LUNGS: Minimal/less rhonchi. No wheezing. EXTREMITIES: No clubbing, cyanosis, or edema. Calves are nontender to palpation. GASTROINTESTINAL: Abdomen is soft, nontender, nondistended. Bowel sounds are positive. SKIN: No acute rash. NEUROLOGIC: Limited at the present time. IMPRESSION: 1. Recurrent bronchitis. 2. Advanced chronic obstructive pulmonary disease. 3. Noncompliance with medication. 4. Coronary artery disease. PLAN: The patient appears comfortable this morning. She is not short of breath at rest. She does state to feeling much better overall. On physical exam, her bronchospasm continues to slowly resolve. In addition, the alveolar- arterial gradient also continues to slowly resolve. Oxygen saturation on nasal cannula is now 97%-98%. I will continue with the current nebulizer treatments and decrease the oral steroids this morning. Clinical status of the patient is certainly improved -- compared to last week. However, again, the overall status /prognosis for this elderly patient-- with advanced chronic obstructive pulmonary disease -- remains guarded. I will discuss the above with Dr. Blair. Nikos Taylor MD cc: [phone] TT: 08/11/2016 08:25:46 Confirmation # [id number] Dictation # [id number] en MTDD
[2016-08-11] MEDS: POLYETHYLENE GLYCOL 3350 17 GM/Dose PACKET PO SCH ×3 (10:11→17:44)
--- NOTE | 2016-08-11 12:09 | PN ---
DATE: 08/11/2016 The patient is in room 313, bed 1. REASON FOR CONSULTATION AND FOLLOWUP: SVT, COPD. HISTORY OF PRESENT ILLNESS: A 75-year-old female, known case of coronary artery disease, chronic obs tructive pulmonary disease, on home oxygen, kyphoscoliosis, breast CA, compression fracture of spine, osteoporosis, who was admitted with acute exacerbation of COPD and the patient was on Proventil zohaib tment. The patient had a run of SVT. Since then, she was treated medically and rhythm has been stab le. The patient is now on transitional care unit getting physical therapy for deconditioning. The p atient denies any chest pain, shortness of breath, palpitation. PHYSICAL EXAMINATION: VITAL SIGNS: Blood pressure is 105/64, respirations 18, pulse 60, temperature 98.1. HEENT: Head is normocephalic. Eyes: Pupils normal, conjunctivae, normal. Nose and throat normal. NECK: JVP low. Carotid equal. THORAX: AP diameter is slightly increased. LUNGS: No rales. CARDIOVASCULAR: S1, S2. ABDOMEN: Soft, no tenderness, no organomegaly. EXTREMITIES: No clubbing, no cyanosis. LABORATORY DATA: Done on the medical floor and they were reported on our previous notes. DIAGNOSES: Supraventricular tachycardia, possibly secondary to beta 2 agonist, history of chronic ob structive pulmonary disease, exacerbation of chronic obstructive pulmonary disease, tricuspid regurgi tation, severe pulmonary hypertension, preserved left ventricular function, history of breast cancer, kyphoscoliosis, deconditioning, history of coronary artery disease in the remote ____. PLAN: We will continue physical therapy and we will continue prednisone 20 mg p.o. daily, Lovenox 30 mg subQ daily, atenolol 50 daily, Xopenex p.r.n., lisinopril 10 mg daily. We will follow with you. Michelle Pastor MD cc: [phone] TT: 08/11/2016 12:08:41 Confirmation # [id number] Dictation # [id number] tn
--- NOTE | 2016-08-11 12:39 | PCM.PYCHPN ---
Psychiatric Progress Note - Psychiatric Progress Note Patient seen today, length of contact: 25 Patient Chief Complaint: anxiety, depression, insomnia Problems Identified/Issues Discussed: patient fretf, feeling weak Feels she is not feeling as well as when I had seen her yesterday Medical Problems: COPD, osteoporosis, gait dysfunction, i Diagnostic Results: Patient seems more anxious and self punitive today. Upset that she did not do the things she had planned to do this morning is worrying about what will occur when she gets home regarding self or home care I have referred case back to the addiction social worker tool for further reassurance and planning Concerned also that her son is presently away in [place] and will be coming back to this weekend he reportedly visits her regularly; at least once weekly. He lives in [facility]. DSM 5 Symptoms Update: More anxious, fretful, ambivalent, worried about the future. Medication Change: No Medical Record Reviewed: Yes Mental Status Examination - Cognitive Function Orientation: Person, Place, Situation, Time Memory: Impaired Attention: WNL Concentration: WNL Association: WNL Fund of Knowledge: [facility] Decription of patient's judgement and insights: patient does not have a fut Does appear to have some concentration - Mood Mood: Depressed, Anxious - Affect Affect: Constricted, Other - Speech Speech: Appropriate, Soft - Formal Thought Process Formal Thought Process: No Impairment Psychotic Thoughts and Behaviors: none is however obsessive - Suicidal Ideation Suicidal Ideation: No - Homicidal Ideation Homicidal Ideation: No Goal/Treatment Plan - Goal/Treatment Plan Progress Toward Problem(s) and Goals/Treatment Plan: Work on symptom stabilization and refer upon going home to a psychotherapist and psychopharmacologic management On August 11 worked with social work on planning for discharge. Patient needs much reiteration and support about her chronic worries of self-care, health etc. Also has a self punitive streak
[2016-08-12] MEDS: Levalbuterol 0.63 MG/3 ML Inhal Soln UD IH SCH ×4 (01:10→21:20)
[2016-08-12] MEDS: Enoxaparin 30 mg Syringe SC SCH (05:35)
[2016-08-12] MEDS: Budesonide 0.5 mg/2 ml Inhal Susp UD IH SCH ×2 (07:24→21:20)
[2016-08-12] MEDS: POLYETHYLENE GLYCOL 3350 17 GM/Dose PACKET PO SCH ×2 (10:35→17:42)
--- NOTE | 2016-08-12 10:46 | PN ---
DATE: 08/12/2016 LOCATION: 313, bed 1. REASON FOR CONSULTATION AND FOLLOWUP: Supraventricular tachycardia, chronic obstructive pulmonary di sease. HISTORY OF PRESENT ILLNESS: A 75-year-old female, known case of coronary artery disease, chronic obs tructive pulmonary disease, on home oxygen, kyphoscoliosis, breast CA, compression fracture of the sp ine, osteoporosis, admitted with acute exacerbation of COPD and developed SVT while she was Proventil treatment. The patient put on beta gerardo and the patient has been staying stable, in sinus rhythm . The patient lying flat in bed without chest pain, shortness of breath, palpitation. The patient g etting physical therapy for deconditioning. PHYSICAL EXAMINATION: VITAL SIGNS: Blood pressure 113/54, respirations 22, pulse 56, temperature 98.1. HEAD: Normocephalic. EYES: Pupils normal. Conjunctivae normal. NECK: JVP low. Carotid equal. THORAX: AP diameter chest is increased. ABDOMEN: Soft, nontender, no organomegaly. Bowel sounds normal. EXTREMITIES: No clubbing, no cyanosis. LABORATORY DATA: Done on the medical floor and they were reported in our previous notes on the medic al floor. DIAGNOSES: Supraventricular tachycardia now maintaining sinus rhythm, chronic obstructive pulmonary disease, supraventricular tachycardia probably secondary to beta 2 agonist therapy, tricuspid regurgi tation, severe pulmonary hypertension, preserved left ventricular function, history of breast cancer, kyphoscoliosis, deconditioning. History of coronary artery disease remote. PLAN: To continue Lovenox 30 mg subQ daily, hydrochlorothiazide 12.5 mg p.o. daily, prednisone 20 mg p.o. daily, atenolol 50 mg daily, lisinopril 10 mg p.o. daily. We will continue present therapy. [facility] and will follow with you. Michelle Pastor MD cc: [phone] TT: 08/12/2016 10:45:37 Confirmation # [id number] Dictation # [id number] shaquille
--- NOTE | 2016-08-12 12:10 | PN ---
DATE: 08/12/2016 SUBJECTIVE: The patient is a 75-year-old, seen and examined, complained of feeling very weak, tired. She states she is exhausted and not eating that well. PHYSICAL EXAMINATION: VITAL SIGNS: She is afebrile, pulse 56, respirations 20, blood pressure 90/55. LUNGS: Bilateral fair airflow, no rhonchi or crackle. HEART: S1, S2 audible. ABDOMEN: Soft, nontender, no rebound, no guarding. NEUROLOGIC: The patient is awake, alert, able to communicate. LABORATORY EXAMINATION: There is no new lab available today. ASSESSMENT: 1. Supraventricular tachycardia. 2. History of chronic obstructive pulmonary disease. 3. Hypertension, but now hypotensive. 4. Pulmonary hypertension. 5. History of cancer of breast. 6. Status post right breast implant. 7. Kyphoscoliosis. 8. Coronary artery disease. 9. Tricuspid regurgitation. PLAN: Currently, the patient is on diuretic. She is getting prednisone 20 mg daily. She is on aten olol 50 daily. We will continue on lisinopril and Lovenox. Encourage physical therapy. Reevaluate the patient in a.m. Merced Ramirez MD cc: [phone] TT: 08/12/2016 12:10:11 Confirmation # [id number] Dictation # [id number] tn
[2016-08-13] MEDS: Levalbuterol 0.63 MG/3 ML Inhal Soln UD IH SCH ×4 (03:10→21:15)
[2016-08-13] MEDS: Enoxaparin 30 mg Syringe SC SCH (05:41)
[2016-08-13] MEDS: Budesonide 0.5 mg/2 ml Inhal Susp UD IH SCH ×2 (07:22→21:15)
[2016-08-13] MEDS: POLYETHYLENE GLYCOL 3350 17 GM/Dose PACKET PO SCH ×2 (09:25→18:13)
--- NOTE | 2016-08-13 14:28 | PN ---
DATE: 08/13/2016 The patient is in room 313, bed 1. REASON FOR CONSULTATION AND FOLLOWUP: Supraventricular tachycardia, chronic obstructive pulmonary di sease. HISTORY OF PRESENT ILLNESS: A 75-year-old female, known case of coronary artery disease, chronic obs tructive pulmonary disease, on home oxygen, kyphoscoliosis, breast CA, compression fracture of the sp ine, osteoporosis. Admitted with acute exacerbation of COPD and developed SVT while she was on Prove ntil treatment. The patient on beta gerardo and has been staying stable with rhythm, sinus. The pat ient denies chest pain, shortness of breath, palpitation. The patient is getting physical therapy. PHYSICAL EXAMINATION: VITAL SIGNS: Blood pressure 107/56, respirations 14, pulse 73, temperature 98.6. HEAD: Normocephalic. EYES: Pupils normal. Conjunctivae normal. NOSE AND THROAT: Normal. NECK: JVP low. Carotid equal. THORAX: AP diameter slightly prolonged. LUNGS: No significant rales. CARDIOVASCULAR: S1, S2. ABDOMEN: Soft, no tenderness, no organomegaly. EXTREMITIES: No clubbing, no cyanosis. DIAGNOSES: Supraventricular tachycardia, probably related to beta-2 agonist therapy, stable with bet a blockers, chronic obstructive pulmonary disease, severe pulmonary hypertension, preserved left vent ricular function, history of breast cancer, kyphoscoliosis, deconditioning, history of coronary arter y disease, remote. PLAN: Clinically, patient's cardiac status is stable and patient denies any cardiac symptoms, so we will continue present therapy including atenolol, prednisone, hydrochlorothiazide, Lovenox, Xopenex, lisinopril and we will follow with you. Michelle Pastor MD cc: [id number] TT: 08/13/2016 14:27:51 Confirmation # [id number] Dictation # [id number] en
--- NOTE | 2016-08-13 15:42 | PN ---
DATE: 08/13/2016 The patient is a 75-year-old, seen and examined, sitting in chair, complained of feeling tired, did n ot sleep that well, ate better this morning. PHYSICAL EXAMINATION: VITAL SIGNS: She is afebrile, pulse 73, respirations 14, blood pressure 107/56. LUNGS: Bilateral fair airflow, no rhonchi or crackle. HEART: S1, S2 audible. ABDOMEN: Soft, nontender, no rebound, no guarding. NEUROLOGIC: She is awake and alert, communicative, moves all extremities. EXTREMITIES: Bilateral legs, no edema. LABORATORY EXAMINATION: There is no new lab available today. ASSESSMENT: 1. Generalized weakness with deconditioning and difficulty walking. 2. History of chronic obstructive pulmonary disease. 3. Hypertension, but stable. 4. History of pulmonary hypertension. 5. History of cancer of breast. 6. Status post right breast implant. 7. Coronary artery disease. PLAN: Encourage ambulation. The patient's medications reviewed and found to be appropriate. Contin ue all medications. Dr. Blair will reevaluate patient in a.m. Merced Ramirez MD cc: [id number] TT: 08/13/2016 15:41:23 Confirmation # [id number] Dictation # [id number] en
[2016-08-14] MEDS: Levalbuterol 0.63 MG/3 ML Inhal Soln UD IH SCH ×4 (02:35→20:01)
[2016-08-14] MEDS: Enoxaparin 30 mg Syringe SC SCH (05:49)
[2016-08-14] MEDS: Budesonide 0.5 mg/2 ml Inhal Susp UD IH SCH ×2 (07:17→20:01)
--- NOTE | 2016-08-14 07:56 | PN ---
DATE: 08/14/2016 SUBJECTIVE: The patient has no complaints of any chest pain, no shortness of breath, no headaches, n o dizziness. PHYSICAL EXAMINATION: VITAL SIGNS: Temperature is 98.4, pulse is 76, blood pressure is 103/52, respirations 14. GENERAL: The patient comfortable, in no acute distress. HEENT: Anicteric sclerae. Moist mucosa. NECK: No JVD or adenopathy. CARDIAC: S1/S2. No murmurs. No rubs. Regular. RESPIRATORY: Clear to auscultation bilaterally. No wheezes, rales, or rhonchi. Good air entry. ABDOMEN: Bowel sounds are positive, soft, nontender, and nondistended. EXTREMITIES: No edema. Has 1+ pulses. ASSESSMENT: 1. Anxiety. 2. Chronic obstructive pulmonary disease. 3. Osteoporosis. 4. Gait dysfunction. 5. Insomnia. 6. Supraventricular tachycardia, resolved. PLAN: The patient is currently getting physical therapy on the transitional care unit. She is on Le xapro by Dr. Messina. She is on Colace for constipation. She is on Lovenox for deep venous thrombosi s prophylaxis. She is on hydrochlorothiazide for her hypertension. She is going to continue with Xa nax as needed. She is on lisinopril for her hypertension as well. Bashir Blair MD cc: [id number] TT: 08/14/2016 07:55:36 Confirmation # [id number] Dictation # [id number] en
--- NOTE | 2016-08-14 08:45 | PN ---
DATE: 08/14/2016 SUBJECTIVE: The patient appears comfortable this morning. She is not short of breath at rest. OBJECTIVE: VITAL SIGNS: Temperature is 98.4, pulse 76, respirations 14/16, blood pressure 103/52. Oxygen saturation on nasal cannula is 96%. HEENT: Normocephalic, atraumatic. No JVD. CARDIOVASCULAR: Systolic ejection murmur at the lower left sternal border. No S3 gallop. LUNGS: Clear bilaterally. EXTREMITIES: No clubbing, cyanosis, or edema. Calves are nontender to palpation. GASTROINTESTINAL: Abdomen is soft, nontender, nondistended. Bowel sounds are positive. SKIN: No acute rash. NEUROLOGIC: Limited at the present time. IMPRESSION: 1. Recurrent bronchitis. 2. Advanced chronic obstructive pulmonary disease. 3. Noncompliance with medication. 4. Coronary artery disease. PLAN: The patient appears very comfortable this morning. She is not short of breath at rest. She does state to feeling much better overall. On physical exam, her lungs are now clear. Oxygen saturation on nasal cannula is 96%. I will continue with the current nebulizer treatments and decrease the oral steroids this morning. Clinical status of the patient continues to improve. However, the overall status/prognosis of this elderly patient - with significant noncompliance at home - remains very guarded. All are aware. I will discuss the above with Dr. Blair. Nikos Taylor MD cc: [id number] TT: 08/14/2016 08:44:32 Confirmation # [id number] Dictation # [id number] lebron FOY
[2016-08-14] MEDS: POLYETHYLENE GLYCOL 3350 17 GM/Dose PACKET PO SCH ×2 (10:12→17:07)
--- NOTE | 2016-08-14 12:28 | PN ---
DATE: 08/14/2016 The patient is in room 313, bed 1. REASON FOR CONSULTATION AND FOLLOWUP: Supraventricular tachycardia, chronic obstructive pulmonary di sease. HISTORY OF PRESENT ILLNESS: A 75-year-old female, known case of coronary artery disease, chronic obs tructive pulmonary disease, on home oxygen, kyphoscoliosis, breast CA, compression fracture of spine, osteoporosis. Admitted with exacerbation of COPD and developed SVT while she was on Proventil treat ment. The patient was put on atenolol and she has been staying in sinus rhythm. The patient denies chest pain, palpitations, shortness of breath. The patient is lying flat in bed without respiratory distress. PHYSICAL EXAMINATION: VITAL SIGNS: Blood pressure 112/43, respirations 18, pulse is 57, temperature 98.7. HEAD: Normocephalic. EYES: Pupils normal. Conjunctivae normal. NECK: JVP low. Carotid equal. THORAX: AP diameter increased. LUNGS: No significant rales. CARDIOVASCULAR: S1, S2. ABDOMEN: Soft, no tenderness. No organomegaly. Bowel sounds normal. EXTREMITIES: No clubbing, no cyanosis, no edema of legs. DIAGNOSES: Supraventricular tachycardia, probably related to beta-2 agonist therapy, stable with bet a blockers, chronic obstructive pulmonary disease, severe pulmonary hypertension, preserved left vent ricular systolic function, history of breast cancer, kyphoscoliosis, deconditioning. PLAN: Continue atenolol 50 mg daily along with prednisone, hydrochlorothiazide, Lovenox, Xopenex, li sinopril and continue physical therapy. We will follow with you. Michelle Pastor MD cc: [id number] TT: 08/14/2016 12:27:26 Confirmation # [id number] Dictation # [id number] en
[2016-08-15] MEDS: Levalbuterol 0.63 MG/3 ML Inhal Soln UD IH SCH ×4 (02:08→19:08)
[2016-08-15] MEDS: Enoxaparin 30 mg Syringe SC SCH (05:56)
[2016-08-15 06:59] VITALS: O2SAT 98
[2016-08-15] MEDS: Budesonide 0.5 mg/2 ml Inhal Susp UD IH SCH ×2 (07:22→19:08)
[2016-08-15] MEDS: POLYETHYLENE GLYCOL 3350 17 GM/Dose PACKET PO SCH ×2 (10:15→17:53)
--- NOTE | 2016-08-15 11:10 | PN ---
DATE: 08/15/2016 REASON FOR CONSULTATION AND FOLLOWUP: SVT, tachycardia, chronic obstructive pulmonary disease, dal[place] nuity of the care in transitional care unit. BRIEF CLINICAL HISTORY: This is a 75-year-old female with a past medical history significant for cor onary artery disease; chronic obstructive pulmonary disease, on home oxygen; kyphoscoliosis, breast C A, compression fracture of spine, osteoporosis, admitted with exacerbation of COPD, developed SVT on Proventil treatment. Now patient is stable and in rehab at TCU. Denies any chest pain, shortness of breath, any palpitation. Getting rehab. PHYSICAL EXAMINATION: VITAL SIGNS: Temperature afebrile, heart rate 70, blood pressure 117/70. HEENT: PERRLA. Extraocular muscles intact. NECK: Supple. No carotid bruits. No thyromegaly. CHEST: Clear to auscultation. HEART: S1, S2 regular. ABDOMEN: Soft. EXTREMITIES: Clubbing and cyanosis negative. BLOOD WORKUP: WBC 5.3, hemoglobin 11.6, hematocrit 35.7, platelet count 196 as of 08/07/2016. BUN 2 7, creatinine 0.7 as of 08/07/2016. IMPRESSION: Chronic obstructive pulmonary disease exacerbation, kyphoscoliosis; supraventricular tac hycardia secondary to Proventil treatment, secondary to beta 2 agonist; severe pulmonary hypertension , preserved left ventricular function; history of breast cancer, kyphoscoliosis, deconditioning of th e body; history of coronary artery disease, remote. RECOMMENDATION: CV status is stable. Continue DVT prophylaxis. Continue atenolol. Continue predni sone. Will follow with you. CVS status is stable. No further intervention is required. Thank you, Dr. Blair for providing us the opportunity in taking care of the patient. Michelle Bee MD cc: [id number] TT: 08/15/2016 11:09:09 Confirmation # [id number] Dictation # [id number] mn
[2016-08-16] MEDS: Levalbuterol 0.63 MG/3 ML Inhal Soln UD IH SCH ×3 (03:10→13:10)
[2016-08-16] MEDS: Enoxaparin 30 mg Syringe SC SCH (05:51)
[2016-08-16] MEDS: Budesonide 0.5 mg/2 ml Inhal Susp UD IH SCH (07:24)
--- NOTE | 2016-08-16 09:46 | DS ---
The patient is a 75-year-old female who had come into the transitional care unit for rehabilitation, as she had made improvement in her walking. The patient says that she is anxious, but less so than w hen she first came in. She has been seen by Dr. Messina. She had no complaints of any headaches or d izziness. She is scheduled to be discharged home today. PHYSICAL EXAMINATION: VITAL SIGNS: Temperature is 98.5, pulse of 61. Blood pressure 136/82. Respiration is 18. O2 satur ation 98%. GENERAL: The patient is comfortable, in no acute distress. HEENT: Anicteric sclerae. Moist mucosa. NECK: No JVD or adenopathy. CARDIAC: S1/S2. No murmurs. No rubs. Regular. RESPIRATORY: Clear to auscultation bilaterally. No wheezes, rales, or rhonchi. Good air entry. ABDOMEN: Bowel sounds are positive, soft, nontender, and nondistended. EXTREMITIES: No edema. Has 1+ pulses. ASSESSMENT: 1. Anxiety. 2. Chronic obstructive pulmonary disease. 3. Osteoporosis. 4. Gait dysfunction. 5. Insomnia. 6. Supraventricular tachycardia, resolved. PLAN: The patient is on Colace for constipation. The patient is on Lexapro. She is on Lovenox for DVT prophylaxis. She is on hydrochlorothiazide and lisinopril for hypertension. She is getting Xana x as needed. Bashir Blair MD cc: [id number] TT: 08/16/2016 09:44:57 jn
[2016-08-16] MEDS: POLYETHYLENE GLYCOL 3350 17 GM/Dose PACKET PO SCH (10:46)
--- NOTE | 2016-08-16 12:47 | PN ---
DATE: 08/16/2016 The patient is in room 313, bed 1. REASON FOR CONSULTATION AND FOLLOWUP: Supraventricular tachycardia, chronic obstructive pulmonary di sease. HISTORY OF PRESENT ILLNESS: A 75-year-old female, known case of coronary artery disease, chronic obs tructive pulmonary disease, at home on oxygen, kyphoscoliosis, breast carcinoma, compression fracture of spine, osteoporosis, admitted with exacerbation of COPD and developed SVT while she was on Proven til treatment. The patient was placed on atenolol. Since then, the patient has been maintaining sin us rhythm and not complaining of palpitation. She denies chest pain or palpitation. The patient is sitting in bed without any cardiac complaints. PHYSICAL EXAMINATION: VITAL SIGNS: Blood pressure 102/66, respirations 20, pulse 65, temperature 98.3. HEAD: Normocephalic. EYES: Pupils are normal. Conjunctivae are normal. NOSE AND THROAT: Normal. NECK: JVP low. Carotids equal. THORAX: AP diameter slightly increased. LUNGS: No significant rales. CARDIOVASCULAR: S1, S2. ABDOMEN: Soft. No organomegaly. Bowel sounds normal. EXTREMITIES: No clubbing, no cyanosis. LABORATORY DATA: Reported on our previous progress notes. They were done on 08/07/2016. IMPRESSION: Chronic obstructive pulmonary disease with exacerbation, kyphoscoliosis, supraventricula r tachycardia secondary to Proventil treatment, severe pulmonary hypertension, preserved left ventric ular systolic function on echo, history of breast cancer, kyphoscoliosis, deconditioning, remote hist ory of coronary artery disease. PLAN: Continue atenolol 50 mg daily, lisinopril 10 mg daily, prednisone 10 mg daily, hydrochlorothia zide 12.5 mg p.o. daily, Lovenox 30 mg subQ daily, atenolol 50 daily. We will follow with you. Michelle Pastor MD cc: [id number] TT: 08/16/2016 12:46:42 Confirmation # [id number] Dictation # [id number] jn
[2016-08-16 16:58] VITALS: BP 101/52; PULSE 58; RESP 98; TEMP 98.1
== END 2016-08-16 18:15 | disposition home health service (06) | DRG 945 ==
LOC: TRCU 13:38
PROVIDERS: ADMIT Internal Medicine Nephrology; ATTEND Internal Medicine Nephrology
PROC: F07Z9ZZ Gait Training/Functional Ambulation Treatment (ICD-10-PCS; principal; 2016-08-10)
PROC: F07Z5ZZ Bed Mobility Treatment (ICD-10-PCS; 2016-08-10)
PROC: F07Z8ZZ Transfer Training Treatment (ICD-10-PCS; 2016-08-10)
PROC: F07L6YZ Therapeutic Exercise Treatment of Musculoskeletal System - Lower Back / Lower Extremity using Other Equipment (ICD-10-PCS; 2016-08-10)
PROC: F08Z2ZZ Grooming/Personal Hygiene Treatment (ICD-10-PCS; 2016-08-11)
DX: R53.1 Weakness (principal); J44.1 Chronic obstructive pulmonary disease with (acute) exacerbation; I47.1 Supraventricular tachycardia; I95.9 Hypotension, unspecified; I27.2 Other secondary pulmonary hypertension; I08.1 Rheumatic disorders of both mitral and tricuspid valves; R26.2 Difficulty in walking, not elsewhere classified; I10 Essential (primary) hypertension; F41.9 Anxiety disorder, unspecified; G47.00 Insomnia, unspecified; K59.00 Constipation, unspecified; M41.9 Scoliosis, unspecified; I25.10 Atherosclerotic heart disease of native coronary artery without angina pectoris; M80.88XD Other osteoporosis with current pathological fracture, vertebra(e), subsequent encounter for fracture with routine healing; Z91.14 Patient's other noncompliance with medication regimen; Z99.81 Dependence on supplemental oxygen; Z85.3 Personal history of malignant neoplasm of breast; Z98.82 Breast implant status

== ENCOUNTER 2016-08-17 10:36 | Inpatient (IN) | payer MEDICARE, BC ==
[2016-08-17 10:37] VITALS: BMI 24.6
[2016-08-17 11:19] VITALS: O2SAT 98
--- NOTE | 2016-08-17 11:25 | ED PDOC ---
Arrival/HPI - General Historian: Patient - History of Present Illness Time/Duration: 24 hours Symptom Onset: Gradual Symptom Course: Unchanged - General Chief Complaint: Psychiatric Evaluation Time Seen by Provider: 08/17/16 11:08 - History of Present Illness Narrative History of Present Illness (Text): 75 F with pmh of COPD, emphysema, CAD with stents, breast cancer, osteoarthritis, hypertension, and depression who presents to the emergency department with depression. Pt states that her depression started yesterday when she got home from [place]CU in [facility]. Pt states that her son and sister were home when she arrived from the hospital but when they left is when her depresion started. She states that she has thoughts of hurting herself but she would never do such a thing and has no plans. Pt denies any headache, dizziness, f/c, focal deficits, shortness of breath, chest pain, abd pain, n/v/d. PMD: Dr Blair ([facility]) Past Medical History - Provider Review Nursing Documentation Reviewed: Yes - Infectious Disease Hx of Infectious Diseases: None - Tetanus Immunization Tetanus Immunization: Unknown - Reproductive Menopause: Yes - Cardiac Hx Cardiac Disorders: Yes (CAD, w/ stent) Hx Hypertension: Yes - Pulmonary Hx Chronic Obstructive Pulmonary Disease (COPD): Yes - Neurological Hx Neurological Disorder: No Hx Alzheimer's Disease: No Hx Dementia: No Hx Migraine: No Hx Parkinson's Disease: No Hx Seizures: No - HEENT Hx HEENT Disorder: Yes (right eye lazy eye,BLURRY VISION) Hx Cataracts: Yes (WITH SURGERY left eye only) Other/Comment: eyeglasses, sx age 14 for strabismus right eye - Renal Hx Renal Disorder: No Hx Kidney Stones: No - Endocrine/Metabolic Hx Hypothyroidism: No - Hematological/Oncological Hx Blood Disorders: Yes Hx Anemia: No Hx Cancer: Yes (r breast over 20 yrs ago) Hx Chemotherapy: No (no chemo no radiation) Other/Comment: r mastectomy with reconstruction - Integumentary Hx Dermatological Disorder: No Hx Basal Cell Carcinoma: No Hx Eczema: No Hx Melanoma: No Hx Psoriasis: No Hx Squamous Cell Carcinoma: No Other/Comment: BILATERAL LEG EDEMA +2 ,BRUISED SPEARS BONES - Musculoskeletal/Rheumatological Hx Arthritis: Yes - Gastrointestinal Hx Gastrointestinal Disorders: Yes (CONSTIPATION) Hx Crohn's Disease: No Hx Diverticulitis: No Hx Gall Bladder Disease: Yes (CHOLECYSTECTOMY) Hx Pancreatitis: No - Genitourinary/Gynecological Hx Reproductive Disorders: No - Psychiatric Hx Psychophysiologic Disorder: Yes Hx Anxiety: Yes Hx Bipolar Disorder: No Hx Depression: Yes Hx Schizophrenia: No Hx Substance Use: No - Past Surgical History Past Surgical History: No Previous - Surgical History Hx Appendectomy: No Hx Cholecystectomy: Yes Other/Comment: left toe sx, r ankle fx sx with pin - Anesthesia Hx Anesthesia: Yes Hx Anesthesia Reactions: No - Suicidal Assessment Feels Threatened In Home Enviroment: No Family/Social History - Physician Review Nursing Documentation Reviewed: Yes Family/Social History: No Known Family HX Smoking Status: Former Smoker Hx Alcohol Use: No Hx Substance Use: No Hx Substance Use Treatment: No Allergies/Home Meds Allergies/Adverse Reactions: Allergies No Known Allergies Allergy (Verified 08/04/16 14:26) Home Medications: Home Meds Medication Instructions Recorded Confirmed Tiotropium [Spiriva] 18 mcg IH DAILY 04/25/13 08/17/16 Fluticasone/Salmeterol [Advair 1 inh INH Q12 09/18/13 08/17/16 250-50 Diskus] Hydrochlorothiazide [HCTZ] 12.5 mg PO DAILY 03/02/14 08/17/16 Quetiapine Fumarate [Seroquel] 25 mg PO HS 03/02/14 08/17/16 oxyCODONE/Acetaminophen [Percocet 1 tab PO Q8 07/17/16 08/17/16 5/325 mg Tab] Review of Systems - Review of Systems Constitutional: absent: Fatigue, Fevers Eyes: absent: Vision Changes ENT: absent: Hearing Changes Respiratory: absent: SOB, Cough Cardiovascular: absent: Chest Pain, Palpitations, Edema Gastrointestinal: absent: Abdominal Pain, Diarrhea, Nausea Genitourinary Female: absent: Dysuria, Frequency Musculoskeletal: absent: Arthralgias Skin: absent: Rash Neurological: absent: Headache, Dizziness Psychiatric: Depression, Suicidal Ideation. absent: Anxiety Physical Exam Appearance: Positive for: Well-Appearing, Non-Toxic, Comfortable Pain Distress: None Mental Status: Positive for: Alert and Oriented X 3 - Systems Exam Head: Present: Atraumatic, Normocephalic Pupils: Present: PERRL Extroacular Muscles: Present: EOMI Mouth: Present: Moist Mucous Membranes Neck: Present: Normal Range of Motion Respiratory/Chest: Present: Clear to Auscultation, Good Air Exchange. No: Respiratory Distress, Accessory Muscle Use Cardiovascular: Present: Regular Rate and Rhythm, Normal S1, S2. No: Murmurs Abdomen: Present: Normal Bowel Sounds. No: Tenderness, Distention, Peritoneal Signs Upper Extremity: Present: Normal Inspection. No: Cyanosis, Edema Lower Extremity: Present: Normal Inspection. No: Edema Neurological: Present: GCS=15, CN II-XII Intact, Speech Normal Skin: Present: Warm, Dry, Normal Color. No: Rashes Psychiatric: Present: Alert, Oriented x 3, Depressed Mood, Suicidal Ideation. No: Anxious, Agitated, Hallucinations Vital Signs Temp Pulse Resp BP Pulse Ox 08/17/16 13:00 68 18 131/55 L 98 08/17/16 11:00 98.0 F 69 18 133/48 L 98 Medical Decision Making ED Course and Treatment: Patient Seen With Resident: In agreement with resident note. Patient was seen and evaluated with resident, came up with plan and treatment together. (Christian Marcano DO) Impression: 75 F with pmh of COPD, emphysema, CAD with stents, breast cancer, osteoarthritis, hypertension, and depression who presents to the emergency department with depression. Differential Diagnosis included but are not limited to: Depression / anxiety Plan: -CBC, CMP, Urinalysis, tox, Alcohol - Reassess and disposition Prior Visits: Notes and results from previous visits were reviewed. On 08/04/16 patient came in complaining of sob. Progress Notes: 08/17/16 11:28 - Contacted [facility] EKG: Ordered, reviewed, and independently interpreted the EKG. Rate : 60 BPM Rhythm : sinus rythm with short TX Interpretation : No ST-segment elevations or depressions, no T-wave inversions, normal intervals. Comparison : 08/04/16 - 104 bpm sinus tachy [facility] was contacted and will admit patient on to their service. (Vj Rowe) - Lab Interpretations Lab Results: 08/17/16 12:20 08/17/16 12:20 Lab Results 08/17/16 13:28: Urine Color Yellow, Urine Appearance Clear, Urine pH 6.5, Ur Specific [place] 1.015, Urine Protein Trace H, Urine Glucose (UA) Negative, Urine Ketones Negative, Urine Blood Moderate H, Urine Nitrate Negative, Urine Bilirubin Negative, Urine Urobilinogen 0.2, Ur Leukocyte Esterase Negative, Urine RBC Pending, Urine WBC Pending 08/17/16 13:23: Urine Opiates Screen Negative, Urine Methadone Screen Negative, Ur Barbiturates Screen Negative, Ur Phencyclidine Scrn Negative, Ur Amphetamines Screen Negative, U Benzodiazepines Scrn Positive H, U Oth Cocaine Metabols Negative, U Cannabinoids Screen Negative 08/17/16 12:20: TSH 3rd Generation 1.59, Alcohol, Quantitative < 10 08/17/16 12:20: Sodium 135, Potassium 3.6, Chloride 91 L, Carbon Dioxide 39 H, Anion Gap 9 L, BUN 12, Creatinine 0.6, Est GFR ( Amer) > 60, Est GFR (Non -Af Amer) > 60, Random Glucose 82, Calcium 8.7, Total Bilirubin 0.9, AST 26, ALT 58 H, Alkaline Phosphatase 61, Total Protein 6.3, Albumin 3.3, Globulin 2.9 , Albumin/Globulin Ratio 1.1 08/17/16 12:20: WBC 6.5, RBC 3.89, Hgb 12.0, Hct 36.5, MCV 93.8, MCH 30.8, MCHC 32.9, RDW 12.9, Plt Count 279, MPV 9.2, Gran % 74.7 H, Lymph % (Auto) 15.8 L, [place] % (Auto) 7.2 H, Eos % (Auto) 2.0, Baso % (Auto) 0.3, Gran # 4.88, Lymph # 1.0 L, [place] # 0.5, Eos # 0.1, Baso # 0.02 - PA / TIME LOCK EXPERT / Resident Statement SHILPA has reviewed & agrees with the documentation as recorded. / has examined the patient and agrees with the treatment plan. Disposition/Present on Arrival - Present on Arrival Any Indicators Present on Arrival: No History of DVT/PE: No History of Uncontrolled Diabetes: No Urinary Catheter: No History of Decub. Ulcer: No History Surgical Site Infection Following: None - Disposition Have Diagnosis and Disposition been Completed?: Yes Disposition Time: 13:00 - Disposition Diagnosis: Depression Disposition: HOSPITALIZED Condition: FAIR Referrals: Bashir Blair MD [Staff Provider] - Follow up with primary
[2016-08-17 12:28] LABS: ADD MANUAL DIFF? NO
[2016-08-17 12:33] LABS: BASO # 0.02 K/mm3 (0.0-2.0); BASO % 0.3 % (0.0-3.0); EOS # 0.1 (0.0-0.7); GRAN # 4.88 (1.4-6.5); GRAN % 74.7 % (50.0-68.0); HEMATOCRIT 36.5 % (36.0-48.0); LYMPH % 15.8 % (22.0-35.0); MEAN CELL VOLUME 93.8 fL (80.0-105.0); MEAN CORPUSCULAR HEMOGLOBIN 30.8 pg (25.0-35.0); MEAN CORPUSCULAR HGB CONC 32.9 g/dl (31.0-37.0); MEAN PLATELET VOLUME 9.2 fl (7.0-11.0); MONO # 0.5 (0.1-0.6); MONO % 7.2 % (1.0-6.0); PLATELET COUNT 279 10^3/uL (120.0-450.0); RED CELL DISTRIBUTION WIDTH 12.9 % (11.5-14.5); WHITE BLOOD COUNT 6.5 10^3/ul (4.5-11.0)
[2016-08-17 12:43] LABS: ALB/GLOB RATIO 1.1 (1.1-1.8); ALKALINE PHOSPHATASE 61 U/L (38-133); ALT/SGPT 58 U/L (7-56); AST/SGOT 26 U/L (15-39); BILIRUBIN,TOTAL 0.9 mg/dL (0.2-1.3); BLOOD UREA NITROGEN 12 mg/dL (7-21); CALCIUM 8.7 mg/dL (8.4-10.5); CARBON DIOXIDE 39 mmol/L (21-33); CHLORIDE 91 mmol/L (98-107); GFR AFRICAN-AMERICAN > 60; GLUCOSE,RANDOM 82 mg/dL (70-110); POTASSIUM 3.6 mmol/L (3.6-5.0); SODIUM 135 mmol/L (132-148); TOTAL PROTEIN 6.3 g/dL (5.8-8.3)
[2016-08-17 13:13] LABS: THYROID STIMULATING HORMONE 1.59 mIU/mL (0.46-4.68)
[2016-08-17 13:15] LABS: ALCOHOL SERUM < 10 mg/dL (0-10)
[2016-08-17 14:17] LABS: PH,URINE 6.5 (4.7-8.0); URINE BILIRUBIN NEGATIVE (NEGATIVE); URINE BLOOD MODERATE (NEGATIVE); URINE GLUCOSE (UA) NEGATIVE (NEGATIVE); URINE KETONE NEGATIVE (NEGATIVE); URINE LEUKOCYTE ESTERASE NEGATIVE Leu/uL (NEGATIVE); URINE PROTEIN TRACE mg/dL (<30 mg/dL); URINE UROBILINOGEN 0.2 E.U./dL (<1 E.U./dL)
[2016-08-17 14:23] LABS: URINE APPEARANCE CLEAR (CLEAR); URINE COLOR YELLOW (YELLOW)
--- NOTE | 2016-08-17 14:38 | CARD ---
APPROVED REPORT EKG Measurement Heart [id number] DC 100P21 [id number] <Conclusion> Sinus rhythm with short DC Inverted T waves V 2,3
[2016-08-17 14:42] LABS: URINE BACTERIA FEW (NEG); URINE EPITHELIAL CELLS 0 - 2 /hpf (0-5); URINE WBC 0 - 2 /hpf (0-6)
[2016-08-17] MEDS: Albuterol-Ipratrop 3 mg / 0.5 (3 ml) UD IH PRN (18:25)
[2016-08-17] MEDS ORDERED: Albuterol-Ipratrop 3 mg / 0.5 (3 ml) UD IH SCH (19:30)
[2016-08-18 08:09] LABS: CHOLESTEROL 159 mg/dL (130-200); GLUCOSE,FASTING 84 mg/dL (65-110)
[2016-08-18 08:27] LABS: FREE T4 1.18 ng/dL (0.78-2.19)
[2016-08-18 08:41] LABS: THYROID STIMULATING HORMONE 2.5 mIU/mL (0.46-4.68)
[2016-08-18] MEDS ORDERED: HYDROCHLOROTHIAZIDE 12.5 MG PO SCH (10:30)
[2016-08-18] MEDS: Albuterol-Ipratrop 3 mg / 0.5 (3 ml) UD IH PRN (11:12)
--- NOTE | 2016-08-18 12:01 | CON ---
DATE: 08/18/2016 REFERRING PHYSICIAN: Dr. Ayala REASON FOR CONSULTATION: Medical management of COPD, coronary artery disease. CHIEF COMPLAINT AND HISTORY OF PRESENT ILLNESS: The patient is a 75-year-old female who was discharg ed from the hospital 1-2 days ago. She was complaining of significant anxiety. She was being follow ed by psychiatry on the transitional care unit where she was discharged from. She came in for furthe r management of her anxiety and has been admitted to the psychiatric floor. The patient has a past m edical history of coronary artery disease, COPD, osteoarthritis, hypertension. She says that she has been depressed and anxious. She has had thoughts of hurting herself. She denies any chest pain. N o nausea, no vomiting, no fever, no headaches, no chills. REVIEW OF SYMPTOMS: All others are within normal limits except as mentioned. ALLERGIES: No known drug allergies. HOME MEDICATIONS: Spiriva, Advair, hydrochlorothiazide, Seroquel, Percocet. PAST MEDICAL HISTORY: 1. Anxiety. 2. Coronary artery disease with stent. 3. COPD, on home O2. 4. Breast cancer. 5. Emphysema. 6. Insomnia. 7. T12 compression fracture. 8. Osteoporosis. SOCIAL HISTORY: She did smoke for 50 years. She denies alcohol or drug abuse. FAMILY HISTORY: Noncontributory. PAST SURGICAL HISTORY: 1. Left toe surgery. 2. Right ankle fracture. 3. Left eye surgery. 4. Mastectomy. 5. . 6. Cholecystectomy. PHYSICAL EXAMINATION: VITAL SIGNS: The patient has a temperature of 98.7, pulse of 78, blood pressure is 120/65, respirati ons 16, height is 4 feet 8 inches, weight is 100 pounds, BMI is 22.4. GENERAL: The patient lying in bed, flat, and in no apparent distress. HEAD AND NECK EXAM: Atraumatic, normocephalic. Conjunctivae are pink. Throat clear and mouth with moist mucosa. Oropharynx benign. EYES: Extraocular movements are intact. PERRLA. NECK: Supple. No JVD, thyromegaly, or adenopathy. No bruits. HEART: S1 and S2 regular rate and rhythm. No murmurs, rubs, or gallops. LUNGS: Clear to auscultation bilaterally. No wheezing rales or rhonchi appreciated. No retraction s on exam. ABDOMEN: Soft, nontender, nondistended. Bowel sounds are positive in all quadrants. No rebound. No hepatosplenomegaly. EXTREMITIES: No cyanosis, clubbing, or edema. NEUROLOGIC: No facial asymmetry, tongue is midline, no uvula deviation. Power is 5/5 in upper extr emity and 5/5 in lower extremity. Sensation is normal in upper extremity and lower extremity. PSYCHIATRIC: Awake, alert, oriented x 3. No anxiety or depression symptoms. Good insight. Milena l affect. GENITOURINARY: No CVA tenderness VASCULAR: 2+ pulses in carotid and pedal pulses. SKIN: No erythema or abnormal nodules noted. SPINE: There is kyphosis. LYMPHADENOPATHY: No anterior cervical or posterior cervical adenopathy. No inguinal adenopathy. LABORATORIES: White count of 6.5, hemoglobin 12, platelet count is 279. Chemistry shows sodium is 1 35, potassium is 3.6, anion gap is 9. The LDL is 95. TSH is 1.59. Urine shows blood that is modera te, nitrites are negative, bilirubin is negative. Toxicology shows benzodiazepines are positive, debi emely is negative, cannabinoids are negative, PCP is negative. EKG: Sinus rhythm with a heart rate of 60, QTc is 400. ASSESSMENT: 1. Anxiety. 2. Chronic obstructive pulmonary disease, stable. 3. Coronary artery disease. 4. Insomnia. 5. T12 compression fracture. 6. Osteoporosis. PLAN: The patient is currently comfortable. She is on nebulizer treatments as needed. She is on tr azodone. She is receiving Seroquel and Xanax. The patient is going to continue with her hydrochloro thiazide. She has been on Spiriva. This will be continued as well. She gets Colace for constipatio n. I also placed her on her Advair. The patient is on enalapril for her hypertension. She is stabl e medically, no current active medical issues. Thank you for allowing me to participate in the care of your patient. Bashir Blair MD cc: [id number] TT: 08/18/2016 12:00:20 Confirmation # [id number] Dictation # [id number] en
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
[2016-08-18] MEDS: Tiotropium 18 mcg Cap For Inhalation IH SCH (16:26)
[2016-08-18] MEDS: Fluticasone-Salmeterol 250-50mcg Diskus INH SCH (17:09)
[2016-08-18] MEDS ORDERED: Fluticasone-Salmeterol 250-50mcg Diskus INH SCH (18:00)
--- NOTE | 2016-08-19 09:08 | PCM.PYCHPN ---
Psychiatric Progress Note - Psychiatric Progress Note Patient seen today, length of contact: 25 min Patient Chief Complaint: depressed Problems Identified/Issues Discussed: I reviewed assessment and recent notes. I met with patient at bedside. She appears fairly groomed and she is oriented x3. Patient is communicative and can express herself well. She reports continued depression "I wish I could feel better" and affect is constricted. Patient is tolerating her medications and denies s/e or discomfort. Reports that she is sleeping well. Patient is neither hopeful or hopeless. She denies SI. Cooperative and appropriate with staff with good impulse control. There were no behavioral issues overnight Diagnostic Results: Adjustment disorder with features of depression that the anxiety Generalized anxiety disorder Obsessive personality disorder with dependent features Medication Change: No Medical Record Reviewed: Yes (notes, vitals, labs, reports) Mental Status Examination - Cognitive Function Orientation: Person, Place, Situation, Time - Mood Mood: Depressed, Anxious - Affect Affect: Constricted - Formal Thought Process Formal Thought Process: No Impairment - Homicidal Ideation Homicidal Ideation: No Goal/Treatment Plan - Goal/Treatment Plan Progress Toward Problem(s) and Goals/Treatment Plan: * c/w current tx and plan * No new weekend labs * Vitals reviewed and noted below: Selected Entries 08/18/16 08/18/16 09:38 16:28 Temperature 98.7 F Pulse Rate 78 77 Respiratory 16 Rate Blood Pressure 120/65 122/60
[2016-08-19] MEDS: Fluticasone-Salmeterol 250-50mcg Diskus INH SCH ×2 (09:23→17:04)
[2016-08-19] MEDS: Tiotropium 18 mcg Cap For Inhalation IH SCH (09:26)
--- NOTE | 2016-08-20 08:32 | PCM.PYCHPN ---
Psychiatric Progress Note - Psychiatric Progress Note Patient seen today, length of contact: 25 min Patient Chief Complaint: depressed Problems Identified/Issues Discussed: I reviewed recent notes and met with patient at bedside. She appears fairly groomed and remains oriented x3. Patient is communicative and can express herself well. She reports continued depression and hopelessness. Denies any improvement since admission. Her affect is constricted. Patient denies suicidal thoughts but feels apathetic about living. Patient is tolerating her medications and denies s/e or discomfort. Reports that she is sleeping well. Staff notes indicate that she has been cooperative, pleasant and appropriate but needy sometimes. There were no behavioral issues over the weekend. Diagnostic Results: Adjustment disorder with features of depression that the anxiety Generalized anxiety disorder Obsessive personality disorder with dependent features Medication Change: No Medical Record Reviewed: Yes (notes, vitals, labs, reports) Mental Status Examination - Cognitive Function Orientation: Person, Place, Situation, Time - Mood Mood: Depressed (and hopeless), Anxious - Affect Affect: Constricted - Speech Speech: Appropriate - Formal Thought Process Formal Thought Process: No Impairment - Suicidal Ideation Suicidal Ideation: No - Homicidal Ideation Homicidal Ideation: No Goal/Treatment Plan - Goal/Treatment Plan Progress Toward Problem(s) and Goals/Treatment Plan: * c/w current tx and plan * No new weekend labs * Vitals reviewed and noted below: Selected Entries 08/20/16 07:03 Temperature 97.6 F Pulse Rate 73 Respiratory 16 Rate Blood Pressure 123/60
[2016-08-20] MEDS: Albuterol-Ipratrop 3 mg / 0.5 (3 ml) UD IH PRN (09:06)
[2016-08-20] MEDS: Fluticasone-Salmeterol 250-50mcg Diskus INH SCH ×2 (09:53→17:05)
[2016-08-20] MEDS: Tiotropium 18 mcg Cap For Inhalation IH SCH (09:54)
[2016-08-21] MEDS: Tiotropium 18 mcg Cap For Inhalation IH SCH (08:54)
[2016-08-21] MEDS: Fluticasone-Salmeterol 250-50mcg Diskus INH SCH ×2 (08:55→17:20)
--- NOTE | 2016-08-21 14:42 | PCM.PYCHPN ---
Psychiatric Progress Note - Psychiatric Progress Note Patient seen today, length of contact: 25 min Patient Chief Complaint: The patient is a 75-year-old white female who had just been discharged from the transitional care unit. Amongst her complaints on the TCU and presently were anxiety and depression. Target the patient has a long history of such symptoms dating back perhaps her entire adult life. Presently she indicated she had gotten into an argument with her son who resides in [place], over $200 she owes them for rent money. Apparently she became distraught over this and was having suicidal thoughts. A while on the transitional care unit the patient was dealing with issues of generalized anxiety, obsessiveness and difficulty in functioning. She charged with 2 number of medical problems including CAD, COPD, hypoxemia, she is a breast cancer survivor with her mastectomy, she has osteoarthritis with degenerative joint disease Number of surgical procedures including on her left toe, right ankle, left eye, hysterectomy cc Problems Identified/Issues Discussed: Moderate anxiety, obsessiveness. The conflict with son presently. Dependent personality traits Medical Problems: The patient has needed redirection generation, support and pharmacotherapeutic intervention Diagnostic Results: As listed in chart DSM 5 Symptoms Update: Remains somewhat anxious, needing reassurance. Seems to be benefiting from individual and group milieu therapy. Medication Change: No Medical Record Reviewed: Yes (notes, vitals, labs, reports) Consults ordered or reviewed: Reviewed Mental Status Examination - Cognitive Function Orientation: Person, Place, Situation, Time Memory: Impaired Attention: WNL Concentration: Poor Association: WNL Decription of patient's judgement and insights: Has some insight into the nature of her condition and why she is here. She did not specifically articulate her recognize why it is she so dependent or anxious. - Mood Mood: Depressed (and hopeless), Anxious - Affect Affect: Constricted - Speech Speech: Appropriate - Formal Thought Process Formal Thought Process: No Impairment - Suicidal Ideation Suicidal Ideation: No - Homicidal Ideation Homicidal Ideation: No Goal/Treatment Plan - Goal/Treatment Plan Progress Toward Problem(s) and Goals/Treatment Plan: We will offer supportive therapy. We'll try to engage son in family dialogue will try to reinforce to patient the previously established plan when she was on the TCU which was to come for psychiatric care to Dr. Messina and to go for counseling at a local long term care social worker On August 21 noted that her mood and affect are improving. Patient still feels the need for safety and support socialization here. - Smoking Cessation Smoking Cessation Initiated: No Reason for not providing: Not smoking
--- NOTE | 2016-08-22 00:55 | PN ---
DATE: 08/19/2016 SUBJECTIVE: She is comfortable in bed, in no acute distress. She has chronic obstructive pulmonary disease with home oxygen. She is currently on oxygen. Denies any shortness of breath, no chest pain . No nausea, no vomiting. REVIEW OF SYSTEMS: As per HPI. Rest of 12-point review of systems reviewed and negative. ALLERGIES: No known drug allergies. PHYSICAL EXAMINATION: GENERAL: Comfortable in bed, in no acute distress, oxygen by nasal cannula. VITAL SIGNS: Blood pressure 120/80, respiratory rate 18 per minute. HEENT: Normal. CHEST: Bilateral air entry present. Crepitations at the bases, occasional. CARDIOVASCULAR: S1, S2 normal. No murmur, no gallop. ABDOMEN: Soft, nontender. No hepatosplenomegaly. EXTREMITIES: No edema. SPINE: Nontender. LYMPHADENOPATHY: None. LABORATORY DATA: White count 6.5, hemoglobin 12, platelet count 279. Sodium 135, potassium 3.6. ASSESSMENT: 1. Anxiety. 2. Chronic obstructive pulmonary disease. 3. Coronary artery disease. 4. History of breast cancer. 5. T12 compression fracture. PLAN: She is currently comfortable. We will continue with nebulizer treatment. Continue current me dication and diuretics with hydrochlorothiazide. She is getting Colace for constipation. We will co ntinue the same. She has history of breast cancer, no evidence of recurrence. She is on enalapril f or hypertension, continue that. Xanax p.r.n. Kierra Pritchett MD cc: [id number] TT: 08/22/2016 00:55:01 Confirmation # [id number] Dictation # [id number] mn
[2016-08-22] MEDS: Fluticasone-Salmeterol 250-50mcg Diskus INH SCH ×2 (06:33→17:36)
[2016-08-22 07:33] VITALS: RESP 20
[2016-08-22] MEDS: Tiotropium 18 mcg Cap For Inhalation IH SCH (08:42)
[2016-08-23] MEDS: Tiotropium 18 mcg Cap For Inhalation IH SCH (08:44)
[2016-08-23] MEDS: Fluticasone-Salmeterol 250-50mcg Diskus INH SCH ×2 (08:44→17:42)
--- NOTE | 2016-08-23 13:40 | PN ---
DATE: 08/22/2016 The patient is a 75-year-old anxious obsessive white female. The patient also has COPD and is currently on oxygen. She also has a history of breast cancer and a T12 compression fracture. Blood pressure 120/80, respiratory rate 18. The patient is markedly improving and she reports feeling less anxious. , , , on Ativ an 25 mg at bedtime p.r.n., , Seroquel 0.25 mg b.i.d. Moy Messina MD, PhD cc: [id number] TT: 08/23/2016 01:37:04 Confirmation # [id number] Dictation # [id number] vn 08/23/2016 12:39:35
--- NOTE | 2016-08-23 23:16 | PCM.PYCHPN ---
Psychiatric Progress Note - Psychiatric Progress Note Patient seen today, length of contact: 25 min Patient Chief Complaint: The patient is a 75-year-old white female who had just been discharged from the transitional care unit. Amongst her complaints on the TCU and presently were anxiety and depression. Target the patient has a long history of such symptoms dating back perhaps her entire adult life. Presently she indicated she had gotten into an argument with her son who resides in [place], over $200 she owes them for rent money. Apparently she became distraught over this and was having suicidal thoughts. A while on the transitional care unit the patient was dealing with issues of generalized anxiety, obsessiveness and difficulty in functioning. She charged with 2 number of medical problems including CAD, COPD, hypoxemia, she is a breast cancer survivor with her mastectomy, she has osteoarthritis with degenerative joint disease Number of surgical procedures including on her left toe, right ankle, left eye, hysterectomy cc Problems Identified/Issues Discussed: Moderate anxiety, obsessiveness. The conflict with son presently. Dependent personality traits Medical Problems: The patient has needed redirection generation, support and pharmacotherapeutic intervention Diagnostic Results: As listed in chart DSM 5 Symptoms Update: less anxious,more interactive,spoke of sons business stress (air conditioning) Medication Change: No Medical Record Reviewed: Yes (notes, vitals, labs, reports) Mental Status Examination - Cognitive Function Orientation: Person, Place, Situation, Time Memory: Intact Attention: WNL Concentration: Poor Association: WNL Decription of patient's judgement and insights: Has some insight into the nature of her condition and why she is here. She did not specifically articulate her recognize why it is she so dependent or anxious. - Mood Mood: Anxious, Neutral - Affect Affect: Constricted - Speech Speech: Appropriate, Soft - Formal Thought Process Formal Thought Process: No Impairment - Suicidal Ideation Suicidal Ideation: No - Homicidal Ideation Homicidal Ideation: No Goal/Treatment Plan - Goal/Treatment Plan Progress Toward Problem(s) and Goals/Treatment Plan: We will offer supportive therapy. We'll try to engage son in family dialogue will try to reinforce to patient the previously established plan when she was on the TCU which was to come for psychiatric care to Dr. Messina and to go for counseling at a local high school social studies teacher On August 21 noted that her mood and affect are improving. Patient still feels the need for safety and support socialization here.
--- NOTE | 2016-08-24 21:49 | PCM.PYCHPN ---
Psychiatric Progress Note - Psychiatric Progress Note Patient seen today, length of contact: 25 min Patient Chief Complaint: The patient is a 75-year-old white female who had just been discharged from the transitional care unit. Amongst her complaints on the TCU and presently were anxiety and depression. Target the patient has a long history of such symptoms dating back perhaps her entire adult life. Presently she indicated she had gotten into an argument with her son who resides in [place], over $200 she owes them for rent money. Apparently she became distraught over this and was having suicidal thoughts. A while on the transitional care unit the patient was dealing with issues of generalized anxiety, obsessiveness and difficulty in functioning. She charged with 2 number of medical problems including CAD, COPD, hypoxemia, she is a breast cancer survivor with her mastectomy, she has osteoarthritis with degenerative joint disease Number of surgical procedures including on her left toe, right ankle, left eye, hysterectomy cc Problems Identified/Issues Discussed: Moderate anxiety, obsessiveness. The conflict with son presently. Dependent personality traits Medical Problems: The patient has needed redirection generation, support and pharmacotherapeutic intervention Diagnostic Results: As listed in chart DSM 5 Symptoms Update: The patient remains anxious, fretful, dependent. Has trouble expressing her feelings but corresponds by actions. Claims that she is having trouble breathing. Expresses a fear of being adequately capable of caring for herself. Had reviewed case with son over phone during treatment team. He himself appears to be somewhat irritable. He rejects possibility that mother would move in with him, claiming his would leave him before that would happen. Thus we have faced with the possibility that the patient will very quickly returned to the hospital if she is discharged in her present mental and physical state Medication Change: No Medical Record Reviewed: Yes (notes, vitals, labs, reports) Consults ordered or reviewed: Reviewed Mental Status Examination - Cognitive Function Orientation: Person, Place, Situation, Time Memory: Intact Attention: WNL Concentration: Poor Association: WNL Fund of Knowledge: WNL Decription of patient's judgement and insights: Has some insight into the nature of her condition and why she is here. She did not specifically articulate her recognize why it is she so dependent or anxious. - Mood Mood: Depressed, Anxious, Neutral - Affect Affect: Constricted, Depressed - Speech Speech: Appropriate, Soft - Formal Thought Process Formal Thought Process: No Impairment - Suicidal Ideation Suicidal Ideation: No - Homicidal Ideation Homicidal Ideation: No Goal/Treatment Plan - Goal/Treatment Plan Progress Toward Problem(s) and Goals/Treatment Plan: We will offer supportive therapy. We'll try to engage son in family dialogue will try to reinforce to patient the previously established plan when she was on the TCU which was to come for psychiatric care to Dr. Messina and to go for counseling at a local social services specialist On August 21 noted that her mood and affect are improving. Patient still feels the need for safety and support socialization here. On August 24 at the alternative discharge plans as patient is emitting sufficient signals that she is not ready for discharge, feels she can't take care of herself. Discharge presently would no likelihood lead to a very rapid return to our emergency room. Review the situation with son who is not appear to take mother home. Indicates there is no other relative who can take care of her. Thus we are moving to a possible assisted living or care home suggested placement.
[2016-08-25 07:14] VITALS: BP 120/65; PULSE 65; TEMP 97.5
[2016-08-25] MEDS: Tiotropium 18 mcg Cap For Inhalation IH SCH (08:12)
[2016-08-25] MEDS: Fluticasone-Salmeterol 250-50mcg Diskus INH SCH (08:13)
--- NOTE | 2016-08-25 14:32 | PCM.PYCHPN ---
Psychiatric Progress Note - Psychiatric Progress Note Patient seen today, length of contact: 25 min Patient Chief Complaint: The patient is a 75-year-old white female who had just been discharged from the transitional care unit. Amongst her complaints on the TCU and presently were anxiety and depression. Target the patient has a long history of such symptoms dating back perhaps her entire adult life. Presently she indicated she had gotten into an argument with her son who resides in [place], over $200 she owes them for rent money. Apparently she became distraught over this and was having suicidal thoughts. A while on the transitional care unit the patient was dealing with issues of generalized anxiety, obsessiveness and difficulty in functioning. She charged with 2 number of medical problems including CAD, COPD, hypoxemia, she is a breast cancer survivor with her mastectomy, she has osteoarthritis with degenerative joint disease Number of surgical procedures including on her left toe, right ankle, left eye, hysterectomy cc Problems Identified/Issues Discussed: Moderate anxiety, obsessiveness. The conflict with son presently. Dependent personality traits Medical Problems: The patient has needed redirection generation, support and pharmacotherapeutic intervention Diagnostic Results: As listed in chart DSM 5 Symptoms Update: Remains anxious and depressed, needy, somatic. Is giving him mixed messages about the ability and willingness to return home. I am fearful patient wants supervised living such as a longterm or assisted living but this is not available to her. Her son cannot take her to his home. I am anticipating the patient is likely to make a return visit to our emergency room shortly after discharge presently Medication Change: No Medical Record Reviewed: Yes (notes, vitals, labs, reports) Consults ordered or reviewed: Reviewed Mental Status Examination - Cognitive Function Orientation: Person, Place, Situation, Time Memory: Intact Attention: WNL Concentration: WNL Association: WNL Fund of Knowledge: [facility] Decription of patient's judgement and insights: Has some insight into the nature of her condition and why she is here. She did not specifically articulate her recognize why it is she so dependent or anxious. - Mood Mood: Depressed, Anxious, Neutral - Affect Affect: Constricted, Depressed - Speech Speech: Appropriate, Soft - Formal Thought Process Formal Thought Process: No Impairment - Suicidal Ideation Suicidal Ideation: No - Homicidal Ideation Homicidal Ideation: No Goal/Treatment Plan - Goal/Treatment Plan Progress Toward Problem(s) and Goals/Treatment Plan: We will offer supportive therapy. We'll try to engage son in family dialogue will try to reinforce to patient the previously established plan when she was on the TCU which was to come for psychiatric care to Dr. Messina and to go for counseling at a local social studies teacher On August 21 noted that her mood and affect are improving. Patient still feels the need for safety and support socialization here. On August 24 at the alternative discharge plans as patient is emitting sufficient signals that she is not ready for discharge, feels she can't take care of herself. Discharge presently would no likelihood lead to a very rapid return to our emergency room. Review the situation with son who is not appear to take mother home. Indicates there is no other relative who can take care of her. Thus we are moving to a possible assisted living or longterm suggested placement. On August 25 patient is to return home. She is to have home services. Attendance at a senior citizens program is recommended. Her prognosis is guarded for a quick return to the emergency room.
== END 2016-08-25 17:36 | disposition home or self-care (01) | DRG 882 ==
LOC: ED 10:36 → PSYC 13:00
PROVIDERS: ADMIT Psychiatry & Neurology Psychiatry; ATTEND Psychiatry & Neurology Addiction Medicine
PROC: GZ3ZZZZ Medication Management (ICD-10-PCS; principal; 2016-08-17)
DX: F43.23 Adjustment disorder with mixed anxiety and depressed mood (principal); F60.9 Personality disorder, unspecified; F41.1 Generalized anxiety disorder; J44.9 Chronic obstructive pulmonary disease, unspecified; Z99.81 Dependence on supplemental oxygen; I25.10 Atherosclerotic heart disease of native coronary artery without angina pectoris; I10 Essential (primary) hypertension; M19.90 Unspecified osteoarthritis, unspecified site; M81.0 Age-related osteoporosis without current pathological fracture; G47.00 Insomnia, unspecified; K59.00 Constipation, unspecified; M48.54XD Collapsed vertebra, not elsewhere classified, thoracic region, subsequent encounter for fracture with routine healing; Z85.3 Personal history of malignant neoplasm of breast; Z95.5 Presence of coronary angioplasty implant and graft; Z90.10 Acquired absence of unspecified breast and nipple; Z90.49 Acquired absence of other specified parts of digestive tract; Z87.891 Personal history of nicotine dependence

== ENCOUNTER 2016-09-19 07:29 | Observation (INO) | payer MEDICARE, BC ==
[2016-09-19 07:46] VITALS: BMI 22.5
[2016-09-19] MEDS ORDERED: Magnesium Sulfate 1 gm in D5W 1 GM/100 ML BAG IVPB ONE (08:30)
[2016-09-19] MEDS ORDERED: Aspirin 325 mg EC Tablets PO STA (08:30)
--- NOTE | 2016-09-19 08:37 | ED PDOC ---
Arrival/HPI - General Historian: Patient - History of Present Illness Time/Duration: Prior to Arrival Symptom Onset: Gradual Symptom Course: Unchanged Context: Home - General Chief Complaint: Shortness Of Breath Time Seen by Provider: 09/19/16 08:01 - History of Present Illness Narrative History of Present Illness (Text): 09/19/16 08:33 75 yo female with PMH of COPD, HTN, anxiety and depression presents with SOB. Patient states that the shortness of breath started about 1 week ago. She is on home O2 which she use intermittently. However over the past week patient states that she has been using her oxygen and inhalers more often then normal. Patient report SOB at rest, but it does not wake her up from sleep. She was recently in the hospital for similar symptoms, she was treated for COPD exacerbation. She denies fever, chills, chest pain. She reports lower back pain , denies numbness, tingling, urinary symptoms. Patient lives alone has home health aid come few times per week. PMD is Dr. Blair. ([facility]) Past Medical History - Provider Review Nursing Documentation Reviewed: Yes - Infectious Disease Hx of Infectious Diseases: None - Tetanus Immunization Tetanus Immunization: Unknown - Cardiac Hx Cardiac Disorders: Yes (CAD, w/ stent) Hx Hypertension: Yes - Pulmonary Hx Chronic Obstructive Pulmonary Disease (COPD): Yes - Neurological Hx Neurological Disorder: No Hx Alzheimer's Disease: No HX Cerebrovascular Accident: No Hx Dementia: No Hx Dizziness: No Hx Meningitis: No Hx Migraine: No Hx Multiple Sclerosis: No Hx Paralysis: No Hx Parkinson's Disease: No Hx Seizures: No Hx Syncope: No Hx Transient Ischemic Attacks (TIA): No Hx Vertigo: No - HEENT Hx HEENT Disorder: Yes (right eye lazy eye,BLURRY VISION) Hx Cataracts: Yes (WITH SURGERY left eye only) Hx Deafness: No Hx Difficulty Chewing: No Hx Epistaxis: No Hx Macular Degeneration: No Other/Comment: eyeglasses, sx age 14 for strabismus right eye - Renal Hx Renal Disorder: No Hx Dialysis: No Hx Kidney Stones: No Hx Neurogenic Bladder: No Hx Pyelonephritis: No Hx Renal Cancer: No Hx Renal Failure: No - Endocrine/Metabolic Hx Endocrine Disorders: No Hx Adrenal Cancer: No Hx Diabetes Insipidus: No Hx Diabetes Mellitus Type 1: No Hx Diabetes Mellitus Type 2: No Hx Hyperthyroidism: No Hx Hypothyroidism: No Hx Systemic Lupus Erythematosus: No - Hematological/Oncological Hx Blood Disorders: Yes Hx AIDS: No Hx Anemia: No Hx Blood Transfusion Reaction: No Hx Bruising: No Hx Cancer: Yes (r breast over 20 yrs ago) Hx Chemotherapy: No (no chemo no radiation) Hx Cirrhosis: No Hx Gum Bleeding: No Hx Hemophilia: No Hx Hepatitis A: No Hx Hepatitis B: No Hx Hepatitis C: No Hx Leukemia: No Hx Lymphoma: No Hx Metastasis: No Hx Shingles: No Hx Sickle Cell Trait: No Hx Sickle Cell Disease: No Hx Unexplained Bleeding: No Hx von Willebrand's Disease: No Other/Comment: r mastectomy with reconstruction - Integumentary Hx Dermatological Disorder: No Hx Basal Cell Carcinoma: No Hx Damon: No Hx Cellulitis: No Hx Eczema: No Hx Melanoma: No Hx Psoriasis: No Hx Squamous Cell Carcinoma: No Other/Comment: BILATERAL LEG EDEMA +2 ,BRUISED SPEARS BONES - Musculoskeletal/Rheumatological Hx Arthritis: Yes - Gastrointestinal Hx Gastrointestinal Disorders: Yes (CONSTIPATION) Hx Constipation: Yes Hx Crohn's Disease: No Hx Diverticulitis: No Hx Gall Bladder Disease: Yes (CHOLECYSTECTOMY) Hx Pancreatitis: No - Genitourinary/Gynecological Hx Genitourinary Disorders: No Hx Bladder Cancer: No Hx Bladder Stone: No Hx Cervical Cancer: No Hx Hematuria: No Hx Incontinence: No Hx Ovarian Cancer: No Hx Prostate Cancer: No Hx Prostate Problems: No Hx Reproductive Disorders: No Hx Sexually Transmitted Diseases: No Hx Uterine Cancer: No Hx Urinary Tract Infection: No - Psychiatric Hx Psychophysiologic Disorder: No Hx Anxiety: Yes Hx Bipolar Disorder: No Hx Depression: Yes Hx Emotional Abuse: No Hx Physical Abuse: No Hx Schizophrenia: No Hx Sexual Abuse: No Hx Substance Use: No - Past Surgical History Past Surgical History: No Previous - Surgical History Hx Abdominal Aortic Aneurysm Repair: No Hx Amputation: No Hx Angiogram: No Hx Angioplasty: No Hx Appendectomy: No Hx Arteriovenous Shunt: No Hx Arthroscopy: No Hx Bile Duct Stent: No Hx Breast Biopsy: Yes Hx Cataract Extraction: No Hx Cardiac Catheterization: No Hx Carotid Endarterectomy: No Hx Section: No Hx Cholecystectomy: Yes Hx Coronary Artery Bypass Graft: No Hx Coronary Stent: Yes Hx Dilation and Curettage: No Hx Eye Surgery: No Hx Femoral-Popliteal Bypass Graft: No Hx Gastric Bypass Surgery: No Hx Hysterectomy: No Hx Joint Replacement: No Hx Kidney Transplant: No Hx Liver Transplant: No Hx Mastectomy: No Hx Musculoskeletal Surgery: No Hx Open Heart Surgery: No Hx Open Reduction Internal Fixation: No Other/Comment: left toe sx, r ankle fx sx with pin - Anesthesia Hx Anesthesia: Yes Hx Anesthesia Reactions: No Hx Malignant Hyperthermia: No - Suicidal Assessment Feels Threatened In Home Enviroment: No Family/Social History - Physician Review Nursing Documentation Reviewed: Yes Family/Social History: No Known Family HX Smoking Status: Former Smoker Hx Alcohol Use: No Hx Substance Use: No Hx Substance Use Treatment: No Allergies/Home Meds Allergies/Adverse Reactions: Allergies No Known Allergies Allergy (Verified 09/19/16 07:51) Home Medications: Home Meds Medication Instructions Recorded Confirmed Fluticasone/Salmeterol [Advair 1 inh INH Q12 09/18/13 09/19/16 250-50 Diskus] Hydrochlorothiazide [HCTZ] 12.5 mg PO DAILY 03/02/14 09/19/16 oxyCODONE/Acetaminophen [Percocet 1 tab PO Q8 07/17/16 09/19/16 5/325 mg Tab] Review of Systems - Review of Systems Constitutional: Normal. absent: Weight Change, Fevers Eyes: Normal ENT: Normal Respiratory: SOB. absent: Cough, Sputum, Wheezing Cardiovascular: Normal, Palpitations (chronic). absent: Chest Pain, Edema, Orthopnea Gastrointestinal: Normal, Constipation. absent: Abdominal Pain, Diarrhea, Nausea, Vomiting Genitourinary Female: Normal. absent: Dysuria, Frequency, Hematuria Musculoskeletal: Normal, Back Pain. absent: Arthralgias, Myalgias Skin: Normal Neurological: Normal. absent: Headache, Dizziness, Speech Changes Hemo/Lymphatic: Normal. absent: Easy Bleeding, Easy Bruising Psychiatric: Anxiety Physical Exam - Systems Exam Head: Present: Atraumatic, Normocephalic Pupils: Present: PERRL. No: Non-Reactive Extroacular Muscles: Present: EOMI Conjunctiva: Present: Normal Mouth: Present: Dry, Normal Tounge. No: Moist Mucous Membranes Nose (External): Present: Atraumatic Neck: Present: Normal Range of Motion Respiratory/Chest: Present: Respiratory Distress, Rhonchi, Tachypneic. No: Wheezes, Decreased Breath Sounds Cardiovascular: Present: Regular Rate and Rhythm, Normal S1, S2. No: Murmurs, Tachycardic Abdomen: Present: Distention, Normal Bowel Sounds. No: Tenderness, Peritoneal Signs, Guarding Back: Present: Normal Inspection Upper Extremity: Present: Normal Inspection. No: Cyanosis, Edema, Tenderness, Swelling Lower Extremity: Present: Normal Inspection. No: Edema, CALF TENDERNESS Neurological: Present: GCS=15, CN II-XII Intact, Speech Normal Skin: Present: Warm, Dry, Normal Color. No: Rashes Psychiatric: Present: Alert, Oriented x 3, Anxious Vital Signs Temp Pulse Resp BP Pulse Ox 09/19/16 12:21 98.2 F 86 18 133/78 98 09/19/16 11:36 69 18 138/75 98 09/19/16 09:13 74 20 140/77 98 09/19/16 07:58 96 09/19/16 07:44 97.9 F 81 22 143/79 95 Medical Decision Making - Critical Care Critical Care Minutes: 30 minutes - EKG Interpretation Interpreted by ED Physician: Yes Type: 12 lead EKG ED Course and Treatment: Patient Seen With Resident: In agreement with resident note which contains more details about the patient. Patient was seen and evaluated with resident. Came up with plan and treatment together. (Mikie Milan) 09/19/16 08:40 Impression: 75 yo female with PMH of copd, depression, anxiety presented with SOB. Differential Diagnosis included but are not limited to: COPD exacerbation Plan: - cbc, bmp, PT, PTT - bipap - nebulizer - cxr - solu-medrol - cardiac iso - Urinalysis - asa - blood cultures -- Reassess and disposition Progress Notes: - abd distended, ultrasound showed distending bladder. Patient states that she has to urinate but can not on bedpan, last urinated before coming to ED. Will insert straight cath. 09/19/16 08:43 - EKG rate 81 NSR, No ST changes. 09/19/16 09:20 - pt is tolerating Bipap, lung sounds improved, patient reports improved SOB. Straight cath with 600cc removed. CXR showed no active disease, COPD. 09/19/16 11:10 - Labs reviewed. Spoke with Dr. Blair, requested admission to med/surg, and consultation Dr. Karpman for COPD exacerbation. Patient is aware and agrees. (Alex,Chelsey) - Lab Interpretations Lab Results: 09/19/16 09:00 09/19/16 09:00 Lab Results 09/19/16 09:15: Urine Color Yellow, Urine Appearance Sl cloudy, Urine pH 8.0, Ur Specific [place] 1.015, Urine Protein Negative, Urine Glucose (UA) Negative, Urine Ketones Negative, Urine Blood Small H, Urine Nitrate Negative, Urine Bilirubin Negative, Urine Urobilinogen 0.2, Ur Leukocyte Esterase Trace H, Urine RBC 2 - 5, Urine WBC 1 - 3, Urine Bacteria Trace 09/19/16 09:00: Sodium 137, Potassium 3.8, Chloride 92 L, Carbon Dioxide 39 H, Anion Gap 10, BUN 8, Creatinine 0.5, Est GFR ( Amer) > 60, Est GFR (Non- Af Amer) > 60, Random Glucose 98, Calcium 9.0, Total Bilirubin 1.1, AST 25, ALT 31, Alkaline Phosphatase 84, Lactate Dehydrogenase 587, Total Creatine Kinase 62 , Troponin I < 0.01 D, Total Protein 6.8, Albumin 3.8, Globulin 3.0, Albumin/ Globulin Ratio 1.3 09/19/16 09:00: PT 10.3, INR 0.95, APTT 24.7 09/19/16 09:00: WBC 10.0 D, RBC 3.93, Hgb 12.2, Hct 37.6, MCV 95.7, MCH 31.0, MCHC 32.4, RDW 13.2, Plt Count 280, MPV 8.7, Gran % 85.4 H, Lymph % (Auto) 7.6 L , Gove % (Auto) 6.3 H, Eos % (Auto) 0.4 L, Baso % (Auto) 0.3, Gran # 8.49 H, Lymph # 0.8 L, Gove # 0.6, Eos # 0.0, Baso # 0.03 - RAD Interpretation Radiology Orders: 09/19/16 08:30 CHEST PORTABLE [RAD] Stat - EKG Interpretation EKG Interpretation (Text): 09/19/16 08:44 EKG: Ordered, reviewed, and independently interpreted the EKG. Rate : 21 BPM Rhythm : NSR Interpretation : No ST-segment elevations or depressions, (Alex,Chelsey) - Medication Orders Current Medication Orders: Albuterol Sulfate (Albuterol 0.083% Inhal [place] (2.5 Mg/3 Ml) Ud) 2.5 mg IH [id number] PRN PRN Reason: Shortness of Breath Albuterol/Ipratropium (Duoneb 3 Mg/0.5 Mg (3 Ml) Ud) 3 ml INH TID [facility] Alprazolam (Xanax) 0.25 mg PO BID [facility] PRN Reason: Protocol Stop: 09/26/16 18:01 Last Admin: 09/19/16 16:59 Dose: 0.25 mg Re-Assess: Reassess Psych Meds Document 09/19/16 17:59 (Rec: 09/19/16 18:09 [id number]) Reassess Psych Med Effective Arformoterol Tartrate (Brovana) 15 mcg IH [id number] [facility] Budesonide (Pulmicort Respules) 0.5 mg IH [id number] [facility] Docusate Sodium (Colace) 100 mg PO BID [facility] Last Admin: 09/19/16 16:59 Dose: 100 mg Escitalopram Oxalate (Lexapro) 10 mg PO HS [facility] Hydrochlorothiazide (Microzide) 12.5 mg PO DAILY [facility] Last Admin: 09/19/16 16:59 Dose: 12.5 mg Lisinopril (Zestril) 10 mg PO DAILY [facility] Last Admin: 09/19/16 16:59 Dose: 10 mg Non-Formulary Medication (Budesonide/Formoterol Fumarate [Symbicort 160-4.5 Mcg Inhaler]) 1 aer IH Q6 [facility] Oxycodone/Acetaminophen (Percocet 5/325 Mg Tab) 1 tab PO Q8 PRN PRN Reason: Pain, moderate (4-7) Stop: 09/22/16 16:16 Prednisone (Prednisone Tab) 10 mg PO DAILY [facility] Last Admin: 09/19/16 16:59 Dose: 10 mg Quetiapine Fumarate (Seroquel) 25 mg PO HS [facility] PRN Reason: Protocol Tiotropium [place] (Spiriva) 18 mcg IH DAILY [facility] Trazodone HCl (Desyrel) 50 mg PO HS [facility] Discontinued Medications Albuterol/Ipratropium (Duoneb 3 Mg/0.5 Mg (3 Ml) Ud) 3 ml IH Q15M [facility] Stop: 09/19/16 09:01 Last Admin: 09/19/16 09:56 Dose: 3 ml Aspirin (Ecotrin) 325 mg PO STAT STA Stop: 09/19/16 08:31 Last Admin: 09/19/16 09:56 Dose: 325 mg Magnesium Sulfate/Dextrose (Magnesium Sulfate 1 Gm/100 Ml D5w) 1 gm in 100 mls @ 100 mls/hr IVPB ONCE ONE Stop: 09/19/16 09:29 Last Admin: 09/19/16 09:56 Dose: 100 mls/hr Methylprednisolone (Solu-Medrol) 125 mg IVP STAT STA Stop: 09/19/16 08:30 Last Admin: 09/19/16 09:56 Dose: 125 mg Oxycodone/Acetaminophen (Percocet 5/325 Mg Tab) 1 tab PO Q8 [facility] Stop: 09/22/16 16:16 Pneumococcal Polyvalent Vaccine (Pneumovax 23 Vaccine) 0.5 ml IM .ONCE ONE Stop: 09/19/16 14:44 Disposition/Present on Arrival - Present on Arrival Any Indicators Present on Arrival: No History of DVT/PE: No History of Uncontrolled Diabetes: No Urinary Catheter: No History of Decub. Ulcer: No History Surgical Site Infection Following: None - Disposition Have Diagnosis and Disposition been Completed?: Yes Disposition Time: 11:10 Patient Plan: Admission - Disposition Diagnosis: COPD exacerbation Disposition: HOSPITALIZED Patient Problems: Current Active Problems Problem Status Onset COPD exacerbation Acute Condition: FAIR
--- NOTE | 2016-09-19 09:10 | RAD ---
HISTORY: cough COMPARISON: 08/04/2016 FINDINGS: LUNGS: The lungs are hyperinflated and there is peribronchial thickening with chronic changes in both lungs. . There is no lobar pneumonia. PLEURA: No significant pleural effusion identified, no pneumothorax apparent. CARDIOVASCULAR: The heart is normal in size. Atherosclerotic aortic arch calcifications are present. With OSSEOUS STRUCTURES: No significant abnormalities. VISUALIZED UPPER ABDOMEN: Normal. OTHER FINDINGS: There are multiple surgical clips in the right axilla. IMPRESSION: No active pulmonary disease. COPD.
[2016-09-19 09:22] LABS: ADD MANUAL DIFF? NO
[2016-09-19 09:27] LABS: BASO # 0.03 K/mm3 (0.0-2.0); BASO % 0.3 % (0.0-3.0); EOS % 0.4 % (1.5-5.0); GRAN # 8.49 (1.4-6.5); GRAN % 85.4 % (50.0-68.0); HEMATOCRIT 37.6 % (36.0-48.0); LYMPH # 0.8 (1.2-3.4); LYMPH % 7.6 % (22.0-35.0); MEAN CELL VOLUME 95.7 fL (80.0-105.0); MEAN CORPUSCULAR HGB CONC 32.4 g/dl (31.0-37.0); MEAN PLATELET VOLUME 8.7 fl (7.0-11.0); MONO # 0.6 (0.1-0.6); MONO % 6.3 % (1.0-6.0); PLATELET COUNT 280 10^3/uL (120.0-450.0); RED CELL DISTRIBUTION WIDTH 13.2 % (11.5-14.5)
[2016-09-19 09:38] LABS: ALB/GLOB RATIO 1.3 (1.1-1.8); ALKALINE PHOSPHATASE 84 U/L (38-133); ALT/SGPT 31 U/L (7-56); AST/SGOT 25 U/L (15-39); BILIRUBIN,TOTAL 1.1 mg/dL (0.2-1.3); BLOOD UREA NITROGEN 8 mg/dL (7-21); CARBON DIOXIDE 39 mmol/L (21-33); CHLORIDE 92 mmol/L (98-107); GFR AFRICAN-AMERICAN > 60; GLUCOSE,RANDOM 98 mg/dL (70-110); INR 0.95 (0.93-1.08); PARTIAL THROMBOPLASTIN TIME 24.7 Seconds (23.7-30.8); POTASSIUM 3.8 mmol/L (3.6-5.0); SODIUM 137 mmol/L (132-148); TOTAL PROTEIN 6.8 g/dL (5.8-8.3)
[2016-09-19 09:51] LABS: TROPONIN I < 0.01 ng/mL
[2016-09-19] MEDS: Albuterol-Ipratrop 3 mg / 0.5 (3 ml) UD IH SCH (09:56)
[2016-09-19 09:59] LABS: URINE BILIRUBIN NEGATIVE (NEGATIVE); URINE BLOOD SMALL (NEGATIVE); URINE GLUCOSE (UA) NEGATIVE (NEGATIVE); URINE KETONE NEGATIVE (NEGATIVE); URINE LEUKOCYTE ESTERASE TRACE Leu/uL (NEGATIVE); URINE PROTEIN NEGATIVE mg/dL (<30 mg/dL); URINE UROBILINOGEN 0.2 E.U./dL (<1 E.U./dL)
[2016-09-19 10:05] LABS: URINE APPEARANCE SL CLOUDY (CLEAR); URINE COLOR YELLOW (YELLOW)
[2016-09-19 10:12] LABS: URINE BACTERIA TRACE (NEG)
[2016-09-19] MEDS ORDERED: Albuterol 0.083% Inhal Sol (2.5 mg/3 mL) UD IH PRN (11:55)
[2016-09-19] MEDS ORDERED: Pneumococcal 23-Valent Vaccine IM ONE (14:43)
[2016-09-19] MEDS ORDERED: Oxycodone/Acetaminophen 5/325 mg Tab PO SCH (16:15)
[2016-09-19] MEDS ORDERED: HYDROCHLOROTHIAZIDE 12.5 MG PO SCH (16:15)
[2016-09-19] MEDS ORDERED: Oxycodone/Acetaminophen 5/325 mg Tab PO PRN (16:24)
[2016-09-19] MEDS ORDERED: Non Formulary Medication (Budesonide/Formoterol Fumarate [Symbicort 160-4.5 Mcg Inhaler] 1 IH SCH (18:00)
[2016-09-19] MEDS: Arformoterol 15 mcg/2 ml Inh Sol IH SCH (19:44)
[2016-09-19] MEDS: Budesonide 0.5 mg/2 ml Inhal Susp UD IH SCH (19:44)
[2016-09-19] MEDS ORDERED: Fluticasone-Salmeterol 250-50mcg Diskus INH SCH (22:00)
--- NOTE | 2016-09-19 22:34 | CARD ---
APPROVED REPORT EKG Measurement Heart [id number] <Conclusion> Normal sinus rhythm Normal ECG
[2016-09-20] MEDS ORDERED: Albuterol-Ipratrop 3 mg / 0.5 (3 ml) UD INH SCH (00:45)
--- NOTE | 2016-09-20 07:40 | CON ---
DATE: 09/20/2016 REASON FOR CONSULTATION: Chronic obstructive pulmonary disease. REFERRING PHYSICIAN: Dr. Blair. HISTORY OF PRESENT ILLNESS: The patient is a 75-year-old female with past medical history significant for advanced chronic obstructive pulmonary disease - - on home oxygen, noncompliance with her pulmonary medications at home, coronary artery disease, hypertension, anxiety, who presents with worsening shortness of breath at rest, dyspnea on exertion, and cough over the past week. The patient denies sputum production. The patient also denies chest pain, coughing up of blood or chest pain -- made worse with deep respirations. There is no history of temperatures, chills or infectious exposure. There is no history of night sweats, weight loss or appetite change prior to the above events. No history of leg or calf pains. No history of syncope or diaphoresis. No history of recent travel or trauma. REVIEW OF SYSTEMS: No history of nausea, vomiting or diarrhea. No acute urinary symptoms. No new neurological or musculoskeletal complaints. Rest of the review of systems is negative. ALLERGIES: No known allergies. SOCIAL HISTORY: Positive for tobacco, negative for alcohol. FAMILY HISTORY: No inheritable diseases. HOME MEDICATIONS: Include Desyrel, prednisone, Percocet, Microzide, Spiriva, Seroquel, Zestril, hydrochlorothiazide, Advair, Lexapro, Vasotec, Colace, Symbicort, DuoNebs, Xanax. PHYSICAL EXAMINATION: GENERAL: The patient is not short of breath at rest. She is not using accessory muscles for breathing. VITAL SIGNS: Temperature is 98.0, pulse 77, respirations 18, blood pressure 139 /73. Oxygen saturation on nasal cannula is 94-98%. HEENT: Normocephalic, atraumatic. NECK: No JVD. CARDIOVASCULAR: Systolic ejection murmur at the lower left sternal border. No S3 gallop. LUNGS: Decreased breath sounds at the bases. Minimal bilateral rhonchi. No wheezing. EXTREMITIES: No clubbing, cyanosis, or edema. Calves are nontender to palpation. GASTROINTESTINAL: Abdomen is soft, nontender, nondistended. Bowel sounds are positive. SKIN: No acute rash. NEUROLOGIC: Limited at the present time. PERTINENT LABORATORY DATA: Chest x-ray was done yesterday and reviewed. There is no active pulmonary disease noted. CBC: White count 10.0, hemoglobin 12.2, hematocrit 37.6, platelets of 280. Complete metabolic profile: Chloride 92, carbon dioxide 39. Rest of the metabolic profile is within normal limits. IMPRESSION: 1. Recurrent bronchitis. 2. Advanced chronic obstructive pulmonary disease -- on home oxygen. 3. Coronary artery disease. 4. Hypertension. PLAN: The patient presents to [facility] with worsening pulmonary symptoms over the past week. She does have a strong history of noncompliance with her medication at home. I did discuss this issue with her again this morning. I have also reviewed the chest x-ray -- as above. There is no active disease present. On physical exam, there is mild bronchospasm noted. In addition, there is no significant alveolar arterial gradient. Oxygen saturation on nasal cannula is 94-98%. I will continue with the current nebulizer treatments and low-dose oral steroids for now. The patient does state to feeling much better this morning -- compared to the past few days. She is clinically improved. Additional pulmonary intervention will be based on the clinical status of the patient. I will discuss the above with Dr. Blair this morning. Thank you very much for this pulmonary consultation. Nikos Taylor MD cc: [id number] TT: 09/20/2016 07:40:24 Confirmation # [id number] Dictation # [id number] MTDD
[2016-09-20] MEDS: Arformoterol 15 mcg/2 ml Inh Sol IH SCH ×2 (08:01→19:54)
[2016-09-20] MEDS: Budesonide 0.5 mg/2 ml Inhal Susp UD IH SCH ×2 (08:01→19:54)
--- NOTE | 2016-09-20 10:40 | HP ---
CHIEF COMPLAINT AND HISTORY OF PRESENT ILLNESS: This is a 75-year-old female who is coming in to the hospital with a past medical history of COPD, anxiety. She has a history of hypertension. The gurvinder ent is well known to me. She was discharged from the hospital about 1 month ago. She has been havin g more shortness of breath. She says she also has pain in the lower part of the back on the left-ana ed area. She came in for further evaluation. She has no complaints of any fevers or chills, no naus ea, no vomiting. She has a cough that is nonproductive. She gets dyspnea on exertion at times. No abdominal pain, no dysuria or frequency, and no weakness in the arms or the legs. She says her anxie ty is better. She does have difficulty walking at times. She has a poor appetite, but has been eati ng. REVIEW OF SYSTEMS: All other review of symptoms are within normal limits except as mentioned. ALLERGIES: No known drug allergies. FAMILY HISTORY: Noncontributory. HOME MEDICATIONS: She is on Advair, hydrochlorothiazide, Percocet. PHYSICAL EXAMINATION: VITAL SIGNS: Temperature is 97.7. Pulse is 77. Blood pressure is 139/92, respirations 12, O2 satur ation 96%. BMI is 22.5. GENERAL: The patient is lying in bed, flat, and in no apparent distress. HEAD AND NECK EXAM: Atraumatic, normocephalic. Conjunctivae are pink. Throat clear and mouth with moist mucosa. Oropharynx benign. EYES: Extraocular movements are intact. PERRLA. NECK: Supple. No JVD, thyromegaly, or adenopathy. No bruits. HEART: S1 and S2 regular rate and rhythm. No murmurs, rubs, or gallops. LUNGS: Clear to auscultation bilaterally. No wheezing rales or rhonchi appreciated. No retraction s on exam. ABDOMEN: Soft, nontender, nondistended. Bowel sounds are positive in all quadrants. No rebound. No hepatosplenomegaly. EXTREMITIES: No cyanosis, clubbing, or edema. NEURO: No facial asymmetry, tongue is midline, no uvula deviation. Power is 5/5 in upper extremity and 5/5 in lower extremity. Sensation is normal in upper extremity and lower extremity. PSYCH: Awake, alert, oriented x3. No anxiety or depression symptoms. Good insight. Normal affec t. : No CVA tenderness VASCULAR: 2+ pulses in carotid and pedal pulses. SKIN: No erythema or abnormal nodules noted. SPINE: Normal curvature. LYMPHADENOPATHY: No anterior cervical or posterior cervical adenopathy. No inguinal adenopathy. BACK: There is kyphosis present. LABORATORY DATA: White count of 10, hemoglobin 12.2. Chemistry shows a sodium 137. Creatinine is 0 .5. Chest x-ray done shows no infiltrates. EKG done shows a heart rate of 81. It is sinus rhythm. QTC is 420. ASSESSMENT: 1. Anxiety. 2. Acute chronic obstructive pulmonary disease. 3. Osteoporosis. 4. Gait dysfunction. 5. Insomnia. 6. Back pain. PLAN: The patient is going to be admitted to the hospital. I placed her on nebulizer treatment. Sharmin last is on her arformoterol. She is going to be on trazodone. She is going to continue with her hydroc hlorothiazide for hypertension. She is on prednisone daily. She is receiving Xanax as needed. She is on lisinopril. We will get a chest x-ray of her back, get physical therapy. Bashir Blair MD cc: [id number] TT: 09/20/2016 10:39:48 jn
[2016-09-20] MEDS: Tiotropium 18 mcg Cap For Inhalation IH SCH (11:22)
--- NOTE | 2016-09-20 12:56 | RAD ---
PROCEDURE: Radiographs of the Lumbar Spine. HISTORY: back pain COMPARISON: 09/22/2014 FINDINGS: BONES: Generalized osteopenia and marked thoracolumbar scoliosis are present these findings both optimal evaluation. There is a diffuse spondylosis there is diffuse multi level can cavities to multiple endplates either representing a Schmorl's node indentations and or compression deformities multiple compression deformities of the mid to inferior thoracic spine are noted on the current study is portions of the spine are not well seen on the prior but they do appear to be compressed as per the frontal view images from 2015. The appearance of the lumbosacral vertebral bodies is indeterminate sound clear if this is the L5 vertebral body or the S1 on lateral view. Compared to 2015 study, there is interval change - increased concavity to the superior endplate at this lumbosacral current junction. Interval compression deformity here is a consideration. Given the concomitant obscuring bowel gas and stool the impeding optimal evaluation, consider CT of the lumbar spine with multiplanar reformations. If patient can tolerate, MRI of the lumbar spine a helpful in assessing for vertebral marrow edema DISC SPACES: Multilevel disc space narrowing noted OTHER FINDINGS: The apparent interval abnormal L5 or S1 vertebral body appears slightly more posterior subluxed relative relative to the vertebral body just above a compared the prior study. Facet arthrosis is noted. This may be due to progressive ligamentous laxity. No gross fracture the posterior elements is apparent on these images Extensive atherosclerotic vascular calcifications are present in the DC and normally accordance bifurcations per multiple surgical clips are also present. IMPRESSION: Markedly limited exam - there is some motion present and there is severe osteopenia multiple prior inferior thoracic marked compression deformities noted. The concomitant prominent S-shaped thoracolumbar scoliosis adds to this limited evaluation. Since 2014 concern is raised for interval superior endplate compression of either with the L5 vertebral body or the S1 vertebral body (which numbers income is at difficult to state with certainty. Here there is also some mild malalignment/ subluxation suggested. Consider CT lumbar spine for MRI of the lumbar spine to assess for marrow edema
[2016-09-21] MEDS ORDERED: Oxycodone/Acetaminophen 5/325 mg Tab PO STA (05:24)
--- NOTE | 2016-09-21 05:24 | CP.PCM.PN ---
Subjective - Date & Time of Evaluation Date of Evaluation: 09/21/16 Time of Evaluation: 06:11 - Subjective Subjective: Patient was seen at bedside. Complains of low back pain. Mild pain, states that pain was helped by pain medications she got, was sleeping, woke up with pain again. Pain has been present for past one week.Denies history of injury. Denies paraesthesia, bladder or bowel incontinence. Has no other complaints. ROS: Negative except as mentioned above. Medical record was reviewed. Has an order for percocet which is not due until 8AM. This 75 year old white woman is admitted with sob, back pain on left side. Has PMH of COPD, anxiety, HTN, insomnia, osteoporosis, gait dysfunction. Objective - Vital Signs/Intake and Output Vital Signs (last 24 hours): Temp Pulse Resp BP Pulse Ox 98 F 82 20 133/61 95 09/20/16 16:00 09/20/16 16:00 09/20/16 16:00 09/20/16 16:00 09/20/16 16:00 Intake and Output: 09/20/16 09/21/16 18:59 06:59 Intake Total 660 720 Balance 660 720 - Medications Medications: Current Medications Albuterol Sulfate (Albuterol 0.083% Inhal Clare (2.5 Mg/3 Ml) Ud) 2.5 mg IH [id number] PRN PRN Reason: Shortness of Breath Albuterol/Ipratropium (Duoneb 3 Mg/0.5 Mg (3 Ml) Ud) 3 ml INH TIDRESP [facility] Alprazolam (Xanax) 0.25 mg PO BID [facility] PRN Reason: Protocol Stop: 09/26/16 18:01 Last Admin: 09/20/16 17:45 Dose: 0.25 mg Arformoterol Tartrate (Brovana) 15 mcg IH [id number] [facility] Last Admin: 09/20/16 19:54 Dose: 15 mcg Budesonide (Pulmicort Respules) 0.5 mg IH [id number] [facility] Last Admin: 09/20/16 19:54 Dose: 0.5 mg Docusate Sodium (Colace) 100 mg PO BID [facility] Last Admin: 09/20/16 17:46 Dose: 100 mg Escitalopram Oxalate (Lexapro) 10 mg PO HS [facility] Last Admin: 09/20/16 21:35 Dose: 10 mg Hydrochlorothiazide (Microzide) 12.5 mg PO DAILY [facility] Last Admin: 09/20/16 09:31 Dose: 12.5 mg Lisinopril (Zestril) 10 mg PO DAILY [facility] Last Admin: 09/20/16 09:31 Dose: 10 mg Non-Formulary Medication (Budesonide/Formoterol Fumarate [Symbicort 160-4.5 Mcg Inhaler]) 1 aer IH Q6 [facility] Oxycodone/Acetaminophen (Percocet 5/325 Mg Tab) 1 tab PO Q8 PRN PRN Reason: Pain, moderate (4-7) Stop: 09/22/16 16:16 Last Admin: 09/21/16 00:09 Dose: 1 tab Prednisone (Prednisone Tab) 10 mg PO DAILY [facility] Last Admin: 09/20/16 09:32 Dose: 10 mg Quetiapine Fumarate (Seroquel) 25 mg PO HS [facility] PRN Reason: Protocol Last Admin: 09/20/16 21:35 Dose: 25 mg Tiotropium Dexter (Spiriva) 18 mcg IH DAILY [facility] Last Admin: 09/20/16 11:22 Dose: 18 mcg Trazodone HCl (Desyrel) 50 mg PO HS [facility] Last Admin: 09/20/16 21:35 Dose: 50 mg - Labs Labs: PT 10.3 Seconds (9.9-11.8) 09/19/16 09:00 INR 0.95 (0.93-1.08) 09/19/16 09:00 APTT 24.7 Seconds (23.7-30.8) 09/19/16 09:00 - Constitutional Appears: Well, No Acute Distress - Head Exam Head Exam: ATRAUMATIC, NORMAL INSPECTION, NORMOCEPHALIC - Eye Exam Eye Exam: Normal appearance - ENT Exam ENT Exam: TM's Normal Bilaterally - Neck Exam Neck Exam: Normal Inspection - Respiratory Exam Respiratory Exam: NORMAL BREATHING PATTERN - Cardiovascular Exam Cardiovascular Exam: absent: JVD - GI/Abdominal Exam GI & Abdominal Exam: absent: Distended - Rectal Exam Rectal Exam: Deferred - Extremities Exam Extremities Exam: Normal Inspection - Back Exam Back Exam: NORMAL INSPECTION. absent: CVA tenderness (L), CVA tenderness (R) - Neurological Exam Neurological Exam: Alert, Awake, Oriented x3 - Psychiatric Exam Psychiatric exam: Normal Affect, Normal Mood - Skin Skin Exam: Normal Color Assessment and Plan - Assessment and Plan (Free Text) Assessment: Back pain. Hypertension. Osteoporosis. Gait dysfunction. HTN. Anxiety. Insomnia. Plan: Percocet 325/5 I PO now. Continue present medications.
[2016-09-21] MEDS: Budesonide 0.5 mg/2 ml Inhal Susp UD IH SCH (08:00)
[2016-09-21] MEDS: Arformoterol 15 mcg/2 ml Inh Sol IH SCH (08:00)
--- NOTE | 2016-09-21 08:51 | PN ---
DATE: 09/21/2016 SUBJECTIVE: The patient appears comfortable this morning. She is not short of breath at rest. OBJECTIVE: VITAL SIGNS: Temperature is 98.0, pulse 82, respirations 18/20, blood pressure 133/61. Oxygen saturation on nasal cannula is 95-96%. HEENT: Normocephalic, atraumatic. No JVD. CARDIOVASCULAR: Systolic ejection murmur at the lower left sternal border. No S3 gallop. LUNGS: Decreased breath sounds at the bases. Minimal/less rhonchi. No wheezing. EXTREMITIES: No clubbing, cyanosis, or edema. Calves are nontender to palpation. GASTROINTESTINAL: Abdomen is soft, nontender, nondistended. Bowel sounds are positive. SKIN: No acute rash. NEUROLOGIC: Limited at the present time. IMPRESSION: 1. Recurrent bronchitis. 2. Advanced chronic obstructive pulmonary disease -- on home oxygen. 3. Coronary artery disease. 4. Hypertension. PLAN: The patient appears comfortable this morning. She is not short of breath at rest. She states she is feeling much better overall. On physical exam, her bronchospasm is less. In addition, the alveolar arterial gradient is also less. I will continue with the current nebulizer treatments and oral steroids for now. Clinical status of the patient is certainly improved -- compared to the initial presentation. However, the overall status/prognosis for this elderly woman -- with advanced chronic obstructive pulmonary disease - does remain guarded. I will discuss the above with Dr. Blair. Nikos Taylor MD cc: [id number] TT: 09/21/2016 08:50:06 Confirmation # [id number] Dictation # [id number] otilia FOY
[2016-09-21 09:07] VITALS: BP 119/53; PULSE 76; RESP 22; TEMP 98.1; O2SAT 94
[2016-09-21] MEDS: Tiotropium 18 mcg Cap For Inhalation IH SCH (09:35)
--- NOTE | 2016-09-21 23:06 | DS ---
SUBJECTIVE: The patient has no complaints of any chest pain. No shortness of breath. No headaches or dizziness. She was admitted to the hospital because of COPD exacerbation. She is feeling better. She is going to be discharged home. She has a history of osteoporosis and fractures. I have place d her on Fosamax as an outpatient. PHYSICAL EXAMINATION: VITAL SIGNS: Temperature is 98.1, pulse of 76, blood pressure 119/53, respirations 22. GENERAL: The patient comfortable, in no acute distress. HEENT: Anicteric sclerae. Moist mucosa. NECK: No JVD or adenopathy. CARDIAC: S1/S2. No murmurs. No rubs. Regular. RESPIRATORY: Clear to auscultation bilaterally. No wheezes, rales, or rhonchi. Good air entry. ABDOMEN: Bowel sounds are positive, soft, nontender, and nondistended. EXTREMITIES: No edema. Has 1+ pulses. ASSESSMENT: 1. Acute chronic obstructive pulmonary disease. 2. Anxiety. 3. Gait dysfunction, improved. 4. Insomnia. 5. Back pain . 6. Osteoporosis. PLAN: The patient is comfortable. She is going to be on steroids. She is going to continue followi ng with Dr. Messina, her psychiatrist. She is on Brovana. She is receiving prednisone. She is on Xa nax as needed. She is on lisinopril for hypertension. CONDITION: Stable. ACTIVITIES: Increase as tolerated. Bashir Blair MD cc: [id number] TT: 09/21/2016 23:05:14 al
== END 2016-09-21 16:50 | disposition home or self-care (01) ==
LOC: ED 07:29 → ERH 11:08 → 3RSO 12:24
PROVIDERS: ADMIT Internal Medicine Nephrology; ATTEND Internal Medicine Nephrology
DX: J44.1 Chronic obstructive pulmonary disease with (acute) exacerbation (principal); I10 Essential (primary) hypertension; I25.10 Atherosclerotic heart disease of native coronary artery without angina pectoris; M81.0 Age-related osteoporosis without current pathological fracture; F41.9 Anxiety disorder, unspecified; G47.00 Insomnia, unspecified; R26.2 Difficulty in walking, not elsewhere classified; M54.5 Low back pain; Z91.14 Patient's other noncompliance with medication regimen; Z99.81 Dependence on supplemental oxygen; Z95.5 Presence of coronary angioplasty implant and graft
CPT/HCPCS: 71010; 72100; 80053; 81001; 82550; 83615; 84484; 85025; 85610; 85730; 87040; 93005; 94640; 94660; 94760; 96374; 99285; G0378; J2930; J3475

== ENCOUNTER 2016-10-01 07:41 | Inpatient (IN) | payer MEDICARE, BC ==
[2016-10-01 07:42] VITALS: BMI 22.5
[2016-10-01] MEDS ORDERED: Morphine 4 mg/ml ISec IVP STA (07:58)
--- NOTE | 2016-10-01 08:05 | ED PDOC ---
Arrival/HPI - General Chief Complaint: Back Pain Time Seen by Provider: 10/01/16 07:44 Historian: Patient - History of Present Illness Narrative History of Present Illness (Text): 10/01/16 08:02 Estelle Fulton is a 75 year old female, with a history of COPD, emphysema, hypertension, anxiety and osteoarthritis, presents to the emergency department complaining of intermittent lower back pain for past 1 week. States that pain radiates to bilateral lower legs. She was admitted to the hospital 2 weeks prior for shortness of breath. States that fell down on her back once in the bathroom after discharge from the hospital, but was able to ambulate without any difficulty after the fall. Denies any fever, chills, headache, dizziness, chest pain, shortness of breath, nausea, vomiting, diarrhea, urinary symptoms, or any other complaints at this time. 10/01/16 10:23 Time/Duration: 1 week Symptom Course: Intermittent Severity Level: Mild Activities at Onset: Light Context: Home Past Medical History - Provider Review Nursing Documentation Reviewed: Yes - Infectious Disease Hx of Infectious Diseases: None - Tetanus Immunization Tetanus Immunization: Unknown - Cardiac Hx Cardiac Disorders: Yes (CAD, w/ stent) Hx Hypertension: Yes - Pulmonary Hx Chronic Obstructive Pulmonary Disease (COPD): Yes - Neurological Hx Neurological Disorder: No Hx Alzheimer's Disease: No HX Cerebrovascular Accident: No Hx Dementia: No Hx Dizziness: No Hx Meningitis: No Hx Migraine: No Hx Multiple Sclerosis: No Hx Paralysis: No Hx Parkinson's Disease: No Hx Seizures: No Hx Syncope: No Hx Transient Ischemic Attacks (TIA): No Hx Vertigo: No - HEENT Hx HEENT Disorder: Yes (right eye lazy eye,BLURRY VISION) Hx Cataracts: Yes (WITH SURGERY left eye only) Hx Deafness: No Hx Difficulty Chewing: No Hx Epistaxis: No Hx Macular Degeneration: No Other/Comment: eyeglasses, sx age 14 for strabismus right eye - Renal Hx Renal Disorder: No Hx Dialysis: No Hx Kidney Stones: No Hx Neurogenic Bladder: No Hx Pyelonephritis: No Hx Renal Cancer: No Hx Renal Failure: No - Endocrine/Metabolic Hx Endocrine Disorders: No Hx Adrenal Cancer: No Hx Diabetes Insipidus: No Hx Diabetes Mellitus Type 1: No Hx Diabetes Mellitus Type 2: No Hx Hyperthyroidism: No Hx Hypothyroidism: No Hx Systemic Lupus Erythematosus: No - Hematological/Oncological Hx Blood Disorders: Yes Hx AIDS: No Hx Anemia: No Hx Blood Transfusion Reaction: No Hx Bruising: No Hx Cancer: Yes (r breast over 20 yrs ago) Hx Chemotherapy: No (no chemo no radiation) Hx Cirrhosis: No Hx Gum Bleeding: No Hx Hemophilia: No Hx Hepatitis A: No Hx Hepatitis B: No Hx Hepatitis C: No Hx Leukemia: No Hx Lymphoma: No Hx Metastasis: No Hx Shingles: No Hx Sickle Cell Trait: No Hx Sickle Cell Disease: No Hx Unexplained Bleeding: No Hx von Willebrand's Disease: No Other/Comment: r mastectomy with reconstruction - Integumentary Hx Dermatological Disorder: No Hx Basal Cell Carcinoma: No Hx Damon: No Hx Cellulitis: No Hx Eczema: No Hx Melanoma: No Hx Psoriasis: No Hx Squamous Cell Carcinoma: No Other/Comment: BILATERAL LEG EDEMA +2 ,BRUISED SPEARS BONES - Musculoskeletal/Rheumatological Hx Arthritis: Yes - Gastrointestinal Hx Gastrointestinal Disorders: Yes (CONSTIPATION) Hx Constipation: Yes Hx Crohn's Disease: No Hx Diverticulitis: No Hx Gall Bladder Disease: Yes (CHOLECYSTECTOMY) Hx Pancreatitis: No - Genitourinary/Gynecological Hx Genitourinary Disorders: No Hx Bladder Cancer: No Hx Bladder Stone: No Hx Cervical Cancer: No Hx Hematuria: No Hx Incontinence: No Hx Ovarian Cancer: No Hx Prostate Cancer: No Hx Prostate Problems: No Hx Reproductive Disorders: No Hx Sexually Transmitted Diseases: No Hx Uterine Cancer: No Hx Urinary Tract Infection: No - Psychiatric Hx Psychophysiologic Disorder: No Hx Anxiety: Yes Hx Bipolar Disorder: No Hx Depression: Yes Hx Emotional Abuse: No Hx Physical Abuse: No Hx Schizophrenia: No Hx Sexual Abuse: No Hx Substance Use: No - Past Surgical History Past Surgical History: No Previous - Surgical History Hx Abdominal Aortic Aneurysm Repair: No Hx Amputation: No Hx Angiogram: No Hx Angioplasty: No Hx Appendectomy: No Hx Arteriovenous Shunt: No Hx Arthroscopy: No Hx Bile Duct Stent: No Hx Breast Biopsy: Yes Hx Cataract Extraction: No Hx Cardiac Catheterization: No Hx Carotid Endarterectomy: No Hx Section: No Hx Cholecystectomy: Yes Hx Coronary Artery Bypass Graft: No Hx Coronary Stent: Yes Hx Dilation and Curettage: No Hx Eye Surgery: No Hx Femoral-Popliteal Bypass Graft: No Hx Gastric Bypass Surgery: No Hx Hysterectomy: No Hx Joint Replacement: No Hx Kidney Transplant: No Hx Liver Transplant: No Hx Mastectomy: No Hx Musculoskeletal Surgery: No Hx Open Heart Surgery: No Hx Open Reduction Internal Fixation: No Other/Comment: left toe sx, r ankle fx sx with pin - Anesthesia Hx Anesthesia: Yes Hx Anesthesia Reactions: No Hx Malignant Hyperthermia: No - Suicidal Assessment Feels Threatened In Home Enviroment: No Family/Social History - Physician Review Nursing Documentation Reviewed: Yes Family/Social History: No Known Family HX Smoking Status: Former Smoker Hx Alcohol Use: No Hx Substance Use: No Hx Substance Use Treatment: No Allergies/Home Meds Allergies/Adverse Reactions: Allergies No Known Allergies Allergy (Verified 09/19/16 07:51) Home Medications: Home Meds Medication Instructions Recorded Confirmed ALPRAZolam [Xanax] 0.25 mg PO DAILY 10/01/16 10/01/16 Albuterol HFA [Ventolin HFA 90 2 puff IH [id number] PRN 10/01/16 10/01/16 mcg/actuation (8 g)] Albuterol/Ipratropium [Duoneb 3 3 ml INH Q6 PRN 10/01/16 10/01/16 mg/0.5 mg (3 ml) UD] Enalapril Maleate [Vasotec] 10 mg PO DAILY 10/01/16 10/01/16 Enalapril Maleate [Vasotec] 10 mg PO DAILY 10/01/16 10/01/16 Review of Systems - Physician Review All systems were reviewed & negative as marked: Yes - Review of Systems Constitutional: Normal. absent: Fatigue, Fevers Respiratory: Normal. absent: SOB, Cough, Sputum Cardiovascular: Normal. absent: Chest Pain, Palpitations Gastrointestinal: Normal. absent: Abdominal Pain, Diarrhea, Nausea, Vomiting Musculoskeletal: Back Pain (radiating to b/l buttocks) Neurological: Normal. absent: Headache, Dizziness Psychiatric: Normal Physical Exam Vital Signs Reviewed: Yes Vital Signs Temp Pulse Resp BP Pulse Ox 10/01/16 10:56 98 F 75 19 132/72 98 10/01/16 10:24 98 F 85 19 132/72 99 10/01/16 07:42 98.9 F 69 17 158/74 H 94 L Temperature: Afebrile Blood Pressure: Normal Pulse: Regular Respiratory Rate: Normal Appearance: Positive for: Well-Appearing, Non-Toxic, Comfortable Pain Distress: None Mental Status: Positive for: Alert and Oriented X 3 - Systems Exam Head: Present: Atraumatic, Normocephalic Pupils: Present: PERRL Conjunctiva: Present: Normal Mouth: Present: Moist Mucous Membranes Neck: Present: Normal Range of Motion Respiratory/Chest: Present: Wheezes (Scattered wheezing ). No: Respiratory Distress, Accessory Muscle Use Cardiovascular: Present: Regular Rate and Rhythm, Normal S1, S2. No: Murmurs Abdomen: Present: Normal Bowel Sounds. No: Tenderness, Distention, Peritoneal Signs Back: Present: Other (lumbar spinal tenderness to palpation ) Upper Extremity: Present: Normal Inspection. No: Cyanosis, Edema Lower Extremity: Present: Normal Inspection. No: Edema Neurological: Present: GCS=15, CN II-XII Intact, Speech Normal, Motor Func Grossly Intact, Normal Sensory Function Skin: Present: Warm, Dry, Normal Color. No: Rashes Psychiatric: Present: Alert, Oriented x 3, Normal Insight, Normal Concentration Medical Decision Making ED Course and Treatment: 10/01/16 08:10 Impression: A 75 year old female who presents to the ed complaining of lower back pain for past week. r/o comprssion fx. Plan: -- CT lumbar spine -- Labs -- Morphine -- Urinalysis Progress Notes: 10/01/16 09:33 PROCEDURE: CT Lumbar Spine without contrast FINDINGS: VERTEBRAE: There is a severe compression fracture of T11 which can be seen on the previous study. This has a fragmented appearance consistent with a recent injury. There is minimal retropulsion of bone into the spinal canal. There is a new severe compression fracture of L5. There is anterior subluxation of L4 over L5 with associated spinal stenosis. Bilateral sacral fractures are seen. On the left side the fracture line parallels the sacroiliac joint. On the right side there is a vertical and transverse component as seen on image 64 in the coronal plane. PARASPINAL SOFT TISSUES: Unremarkable. OTHER FINDINGS: None. IMPRESSION: Severe compression fractures of T11 and L5. Linear fractures through the sacral ala bilaterally. Severe spinal stenosis at L4-5 10/01/16 09:49 Patient has difficulty ambulating, needs PT evaluation for gait dysfunction. 10/01/16 09:[address] Pritchett, who is aware agrees with the plan to admit patient to med/surg for multiple compression fractures. Accepts patient under service with Dr. Rivera on consult. 10/01/16 10:24 - Lab Interpretations Lab Results: 10/01/16 08:00 10/01/16 08:00 Lab Results 10/01/16 08:15: Urine Color Yellow, Urine Appearance Clear, Urine pH 7.5, Ur Specific [place] 1.020, Urine Protein 30 H, Urine Glucose (UA) Negative, Urine Ketones Negative, Urine Blood Small H, Urine Nitrate Positive H, Urine Bilirubin Negative, Urine Urobilinogen 0.2, Ur Leukocyte Esterase Negative, Urine RBC 0 - 2, Urine WBC 0 - 2, Urine Bacteria Large 10/01/16 08:00: Sodium 135, Potassium 3.3 L, Chloride 96 L, Carbon Dioxide 35 H , Anion Gap 7 L, BUN 11, Creatinine 0.5, Est GFR ( Amer) > 60, Est GFR ( Non-Af Amer) > 60, Random Glucose 86, Calcium 8.7, Total Bilirubin 0.9, AST 27, ALT 29, Alkaline Phosphatase 91, Total Protein 6.2, Albumin 3.4, Globulin 2.8, Albumin/Globulin Ratio 1.2 10/01/16 08:00: PT 10.7, INR 0.99, APTT 23.8 10/01/16 08:00: WBC 9.0, RBC 3.79, Hgb 11.9 L, Hct 35.7 L, MCV 94.2, MCH 31.4, MCHC 33.3, RDW 13.4, Plt Count 324, MPV 8.4, Gran % 75.9 H, Lymph % (Auto) 13.3 L, [place] % (Auto) 6.6 H, Eos % (Auto) 3.6, Baso % (Auto) 0.6, Gran # 6.84 H, Lymph # 1.2, [place] # 0.6, Eos # 0.3, Baso # 0.05 I have reviewed the lab results: Yes - RAD Interpretation Radiology Orders: 10/01/16 07:59 LUMBAR SPINE W/O CONTRAST [CT] [employer] Salesperson: Radiologist - EKG Interpretation Interpreted by ED Physician: Yes Type: 12 lead EKG - Medication Orders Current Medication Orders: Albuterol/Ipratropium (Duoneb 3 Mg/0.5 Mg (3 Ml) Ud) 3 ml IH [id number] PRN PRN Reason: Shortness of Breath Alprazolam (Xanax) 0.25 mg PO DAILY [facility] PRN Reason: Protocol Stop: 10/08/16 12:46 Last Admin: 10/01/16 12:52 Dose: 0.25 mg Atenolol (Tenormin) 50 mg PO DAILY [facility] Last Admin: 10/01/16 12:50 Dose: 50 mg Escitalopram Oxalate (Lexapro) 10 mg PO HS [facility] Famotidine (Pepcid) 20 mg PO 1000,2200 [facility] Lisinopril (Zestril) 10 mg PO DAILY [facility] Morphine Sulfate (Morphine) 2 mg IVP Q3H PRN PRN Reason: Pain, severe (8-10) Last Admin: 10/01/16 12:52 Dose: 2 mg Re-Assess: LUIS Pain Assessment Document 10/01/16 13:52 RV (Rec: 10/01/16 14:15 RV [id number]) Pain Reassessment Is this a pain reassessment? No Sleep Is patient sleeping during reassessment? No Presence of Pain Presence of Pain Yes Pain Scale Used Pain Scale Used Numeric Location Left, Right or Bilateral Bilateral Pain Location Body Site Back Description Description Constant Intensity of Pain at present 5 Alleviating Factors/Management Medication Techniques Alleviating Factors Medication Morphine Sulfate (Morphine Extended Release Tab) 15 mg PO Q12 [facility] Last Admin: 10/01/16 14:45 Dose: Not Given Non-Admin Reason: Patient Refused Oxycodone/Acetaminophen (Percocet 10/325 Mg Tab) 1 tab PO Q6H PRN PRN Reason: Pain, Mild (1-3) Quetiapine Fumarate (Seroquel) 25 mg PO HS [facility] PRN Reason: Protocol Senna/Docusate Sodium (Senokot S 50 Mg-8.6 Mg) 1 tab PO BID [facility] Discontinued Medications Ceftriaxone Sodium (Rocephin 1 Gram Ivpb) 1 gm in 100 mls @ 200 mls/hr IVPB STAT STA PRN Reason: Protocol Stop: 10/01/16 09:23 Last Admin: 10/01/16 10:03 Dose: 200 mls/hr Lisinopril (Zestril) 10 mg PO .EXTRA DOSE ONE Stop: 10/01/16 12:46 Last Admin: 10/01/16 12:51 Dose: 10 mg Morphine Sulfate (Morphine) 2 mg IVP STAT STA Stop: 10/01/16 07:59 Last Admin: 10/01/16 08:19 Dose: 2 mg Re-Assess: LUIS Pain Assessment Document 10/01/16 09:19 GMI (Rec: 10/01/16 10:01 GMI [id number]) Pain Reassessment Is this a pain reassessment? Yes Sleep Is patient sleeping during reassessment? No Presence of Pain Presence of Pain No Potassium Chloride (K-Dur 20 Meq Er Tab) 40 meq PO STAT STA Stop: 10/01/16 08:42 Last Admin: 10/01/16 10:02 Dose: 40 meq - Scribe Statement The provider has reviewed the documentation as recorded by the Veronique Herzog Provider Attestation: All medical record entries made by the Veronique were at my direction and personally dictated by me. I have reviewed the chart and agree that the record accurately reflects my personal performance of the history, physical exam, medical decision making, and the department course for this patient. I have also personally directed, reviewed, and agree with the discharge instructions and disposition. Disposition/Present on Arrival - Present on Arrival Any Indicators Present on Arrival: No History of DVT/PE: No History of Uncontrolled Diabetes: No Urinary Catheter: No History of Decub. Ulcer: No History Surgical Site Infection Following: None - Disposition Have Diagnosis and Disposition been Completed?: Yes Diagnosis: Sacral fracture, Lumbar compression fracture Disposition: HOSPITALIZED Disposition Time: 10:24 Patient Problems: Current Active Problems Problem Status Onset Lumbar compression fracture Acute Sacral fracture Acute Condition: FAIR
[2016-10-01 08:15] LABS: ADD MANUAL DIFF? NO
[2016-10-01 08:21] LABS: BASO # 0.05 K/mm3 (0.0-2.0); BASO % 0.6 % (0.0-3.0); EOS # 0.3 (0.0-0.7); EOS % 3.6 % (1.5-5.0); GRAN # 6.84 (1.4-6.5); GRAN % 75.9 % (50.0-68.0); HEMATOCRIT 35.7 % (36.0-48.0); LYMPH # 1.2 (1.2-3.4); LYMPH % 13.3 % (22.0-35.0); MEAN CELL VOLUME 94.2 fL (80.0-105.0); MEAN CORPUSCULAR HEMOGLOBIN 31.4 pg (25.0-35.0); MEAN CORPUSCULAR HGB CONC 33.3 g/dl (31.0-37.0); MEAN PLATELET VOLUME 8.4 fl (7.0-11.0); MONO # 0.6 (0.1-0.6); MONO % 6.6 % (1.0-6.0); PLATELET COUNT 324 10^3/uL (120.0-450.0); RED CELL DISTRIBUTION WIDTH 13.4 % (11.5-14.5)
[2016-10-01 08:28] LABS: INR 0.99 (0.93-1.08); PARTIAL THROMBOPLASTIN TIME 23.8 Seconds (23.7-30.8)
[2016-10-01 08:38] LABS: ALB/GLOB RATIO 1.2 (1.1-1.8); ALKALINE PHOSPHATASE 91 U/L (38-133); ALT/SGPT 29 U/L (7-56); AST/SGOT 27 U/L (15-39); BILIRUBIN,TOTAL 0.9 mg/dL (0.2-1.3); BLOOD UREA NITROGEN 11 mg/dL (7-21); CALCIUM 8.7 mg/dL (8.4-10.5); CARBON DIOXIDE 35 mmol/L (21-33); CHLORIDE 96 mmol/L (98-107); GFR AFRICAN-AMERICAN > 60; GLUCOSE,RANDOM 86 mg/dL (70-110); POTASSIUM 3.3 mmol/L (3.6-5.0); SODIUM 135 mmol/L (132-148); TOTAL PROTEIN 6.2 g/dL (5.8-8.3)
[2016-10-01] MEDS ORDERED: Potassium Chloride 20 mEq ER Tab PO STA (08:41)
[2016-10-01 08:52] LABS: PH,URINE 7.5 (4.7-8.0); URINE BILIRUBIN NEGATIVE (NEGATIVE); URINE BLOOD SMALL (NEGATIVE); URINE GLUCOSE (UA) NEGATIVE (NEGATIVE); URINE KETONE NEGATIVE (NEGATIVE); URINE LEUKOCYTE ESTERASE NEGATIVE Leu/uL (NEGATIVE); URINE PROTEIN 30 mg/dL (<30 mg/dL); URINE UROBILINOGEN 0.2 E.U./dL (<1 E.U./dL)
[2016-10-01 08:53] LABS: URINE APPEARANCE CLEAR (CLEAR); URINE COLOR YELLOW (YELLOW)
[2016-10-01] MEDS ORDERED: cefTRIAXone 1 gm 1 GM/100 ML BAG IVPB STA (08:54)
[2016-10-01 09:09] LABS: URINE BACTERIA LARGE (NEG); URINE RBC 0 - 2 /hpf (0-2); URINE WBC 0 - 2 /hpf (0-6)
--- NOTE | 2016-10-01 09:32 | CT ---
PROCEDURE: CT Lumbar Spine without contrast HISTORY: low back pain COMPARISON: Plain films dated 09/20/2016 TECHNIQUE: Axial computed tomography images were obtained of the lumbar spine without the use of intravenous contrast. Coronal and sagittal reformatted images were created and reviewed. Radiation dose: Total exam DLP = 180 mGy-cm. This CT exam was performed using one or more of the following dose reduction techniques: Automated exposure control, adjustment of the mA and/or kV according to patient size, and/or use of iterative reconstruction technique. FINDINGS: VERTEBRAE: There is a severe compression fracture of T11 which can be seen on the previous study. This has a fragmented appearance consistent with a recent injury. There is minimal retropulsion of bone into the spinal canal. There is a new severe compression fracture of L5. There is anterior subluxation of L4 over L5 with associated spinal stenosis. Bilateral sacral fractures are seen. On the left side the fracture line parallels the sacroiliac joint. On the right side there is a vertical and transverse component as seen on image 64 in the coronal plane. PARASPINAL SOFT TISSUES: Unremarkable. OTHER FINDINGS: None. IMPRESSION: Severe compression fractures of T11 and L5. Linear fractures through the sacral ala bilaterally. Severe spinal stenosis at L4-5
[2016-10-01] MEDS ORDERED: Oxycodone/Acetaminophen 10/325 mg Tab PO PRN (11:50)
[2016-10-01] MEDS ORDERED: Albuterol-Ipratrop 3 mg / 0.5 (3 ml) UD IH PRN (11:52)
[2016-10-01] MEDS ORDERED: ENALAPRIL MALEATE 10 MG PO SCH (12:45)
[2016-10-01] MEDS: Morphine 2 mg/ml ISec IVP PRN ×2 (12:52→17:56)
[2016-10-01] MEDS: Morphine 15 mg SR Tab PO SCH ×2 (14:45→21:04)
[2016-10-01] MEDS: Docusate-Senna 50 mg-8.6 mg Tab PO SCH (17:56)
[2016-10-01] MEDS ORDERED: Albuterol-Ipratrop 3 mg / 0.5 (3 ml) UD INH SCH (18:00)
[2016-10-02] MEDS: Morphine 2 mg/ml ISec IVP PRN ×2 (03:26→19:49)
[2016-10-02] MEDS ORDERED: Barium Sulfate Susp 2.1% w/v, 2.0% w/w 450 mL Bottle PO ONE (06:45)
[2016-10-02 07:44] LABS: ADD MANUAL DIFF? NO
[2016-10-02 07:48] LABS: BASO # 0.02 K/mm3 (0.0-2.0); BASO % 0.3 % (0.0-3.0); EOS # 0.4 (0.0-0.7); EOS % 4.5 % (1.5-5.0); GRAN # 5.57 (1.4-6.5); GRAN % 70.8 % (50.0-68.0); HEMATOCRIT 34.6 % (36.0-48.0); LYMPH # 1.3 (1.2-3.4); LYMPH % 16.3 % (22.0-35.0); MEAN CORPUSCULAR HEMOGLOBIN 30.6 pg (25.0-35.0); MEAN CORPUSCULAR HGB CONC 31.2 g/dl (31.0-37.0); MEAN PLATELET VOLUME 8.3 fl (7.0-11.0); MONO # 0.6 (0.1-0.6); MONO % 8.1 % (1.0-6.0); PLATELET COUNT 266 10^3/uL (120.0-450.0); RED CELL DISTRIBUTION WIDTH 13.7 % (11.5-14.5); WHITE BLOOD COUNT 7.9 10^3/ul (4.5-11.0)
[2016-10-02 08:02] LABS: ALB/GLOB RATIO 1.3 (1.1-1.8); ALKALINE PHOSPHATASE 93 U/L (38-133); ALT/SGPT 28 U/L (7-56); AST/SGOT 22 U/L (15-39); BILIRUBIN,TOTAL 0.8 mg/dL (0.2-1.3); BLOOD UREA NITROGEN 20 mg/dL (7-21); CARBON DIOXIDE 33 mmol/L (21-33); CHLORIDE 97 mmol/L (98-107); GFR AFRICAN-AMERICAN > 60; GLUCOSE,RANDOM 102 mg/dL (70-110); POTASSIUM 4.6 mmol/L (3.6-5.0); SODIUM 135 mmol/L (132-148); TOTAL PROTEIN 6.1 g/dL (5.8-8.3)
--- NOTE | 2016-10-02 08:23 | HP ---
HISTORY OF PRESENT ILLNESS: The patient is a 75-year-old female with history of COPD on home oxygen. Presented to the ED with back pain radiating to the legs. She has pain for almost 3 months now. She fell in the bathroom and was not able to get up. CAT scan of the lumbar spine without contrast showed compression fracture of T11. There is severe compression fracture of L5. Bilateral sacral fractures were seen. She also reports around 60 pounds weight loss over the past 1 year. She used to weigh around 160 pounds. She is currently 104 pounds. She has history of breast cancer, diagnosed 20 years ago. Underwent a right-sided mastectomy, followed by the breast implant. She still has the implant. Appetite is normal. Denies any chest pain. She has baseline shortness of breath. She is on home oxygen for COPD. She has been a heavy smoker. Hypertension, blood pressure controlled on current medication. She also has anxiety and osteoarthritis. No issues regarding the joint pain now. PAST MEDICAL HISTORY: Breast cancer, diagnosed 20 years ago, osteoarthritis, coronary artery disease, status post cardiac stent, hypertension, COPD, emphysema, anxiety disorder. PAST SURGICAL HISTORY: Right mastectomy, left eye surgery. PERSONAL HISTORY: Former smoker. No history of alcohol abuse. SOCIAL HISTORY: Lives at home. ALLERGIES: No known drug allergies. FAMILY HISTORY: No positive history of cancer in the family. HOME MEDICATIONS: Advair inhalation q. 12 hours, hydrochlorothiazide 12.5 mg daily, Percocet 1 tablet q. 8 hours. REVIEW OF SYSTEMS: As per HPI. Rest of 12-point review of systems reviewed and negative. PHYSICAL EXAMINATION: GENERAL: Comfortable in bed, in no acute distress. She is short-statured, cachectic. VITAL SIGNS: Temperature 98.9, heart rate 69 per minute, respiratory rate 17 per minute, blood pressure 150/74, oxygen saturation 98% on oxygen by nasal cannula. HEENT: Pallor positive. NECK: No lymphadenopathy. CHEST: Air entry present, equal bilateral. No added sound. CARDIOVASCULAR: Within normal limits. ABDOMEN: Soft, nontender, no hepatosplenomegaly. Vague lump felt in the abdomen, cystic in nature. EXTREMITIES: No edema. BREASTS: Right-sided breast, implant present, left-sided, no lump present. Right side, no skin lump present. RADIOLOGY: CAT scan of the spine as described under HPI. LABORATORIES: White count 9000, hemoglobin 11.9, hematocrit 35.7, platelets 324. Sodium 135, potassium 3.3, BUN 11, creatinine 0.5, glucose 86. ELECTROCARDIOGRAM: A 12-lead EKG, no ST and T changes. ASSESSMENT: 1. Status post fall. 2. Sacral fracture, lumbar compression fracture. 3. History of breast cancer, possibility of metastatic disease now. 4. Anemia. 5. Osteoarthritis. 6. Emphysema. 7. Chronic obstructive pulmonary disease. 8. Hypertension. PLAN: She has multiple compression fractures, sacral fracture. There is high suspicion for metastatic disease in the bone because of the history of breast cancer. Will do the bone scan, CAT scan of the chest, abdomen, and pelvis without contrast. There is a vague lump felt in the abdomen. Might be cystic in nature or just dilated bowel loops. We will continue with Xanax 0.25 mg p.o. daily, lisinopril 10 mg daily, morphine 2 mg IV q. 3 hours p.r.n. Will do add long-acting morphine, MS Contin 15 mg p.o. b.i.d. Stool softener b.i.d., senna, Colace. Orthopedic consultation with Dr. Whyte requested. Kierra Pritchett MD cc: [id number] TT: 10/01/2016 16:07:45 omero MTDD
[2016-10-02] MEDS: Morphine 15 mg SR Tab PO SCH ×2 (09:33→21:28)
[2016-10-02] MEDS: Docusate-Senna 50 mg-8.6 mg Tab PO SCH ×2 (09:33→17:24)
--- NOTE | 2016-10-02 10:06 | PN ---
DATE: 10/02/2016 SUBJECTIVE: The patient has no complaints of any chest pain, no shortness of breath, no headaches or dizziness. She does have back pain. PHYSICAL EXAMINATION: VITAL SIGNS: Temperature is 99.2, pulse is 73, blood pressure 122/69, respiration is 18. GENERAL: The patient is comfortable, in no acute distress. HEENT: Anicteric sclerae. Moist mucosa. NECK: No JVD or adenopathy. CARDIAC: S1/S2. No murmurs. No rubs. Regular. RESPIRATORY: Clear to auscultation bilaterally. No wheezes, rales, or rhonchi. Good air entry. ABDOMEN: Bowel sounds are positive, soft, nontender, and nondistended. EXTREMITIES: No edema. Has 1+ pulses. LABS: White count of 7.9, hemoglobin 10.8, creatinine 0.8. Lumbar spine CT done shows severe compression fracture of T11 and L5. There are linear fractures thr ough the sacrum bilaterally. This is a severe spinal stenosis at L4-L5. ASSESSMENT: 1. Compression fracture of T11 and L5. 2. Spinal stenosis. 3. Anemia. 4. Osteoarthritis. 5. Chronic obstructive pulmonary disease. 6. Hypertension. 7. History of breast cancer. 8. Anxiety. PLAN: The patient is currently comfortable. The patient has osteoporosis. She was given bisphospho nates as an outpatient. She is on morphine for pain. She is on Pepcid. She is receiving Seroquel. She has lisinopril for hypertension. She has a bone scan that has been ordered. Dr. Diop is go ing to evaluate the patient. I will also get Dr. Pritchett to follow. She was going to need physical th erapy and pain management. Bashir Blair MD cc: [id number] TT: 10/02/2016 10:05:46 Confirmation # [id number] Dictation # [id number] mn
--- NOTE | 2016-10-02 12:56 | CT ---
PROCEDURE: CT Chest, Abdomen and Pelvis without intravenous contrast HISTORY: r/o mets, abdominal mass, h/o breast cancer COMPARISON: None. TECHNIQUE: Radiation dose: Total exam DLP = 314 mGy-cm. This CT exam was performed using one or more of the following dose reduction techniques: Automated exposure control, adjustment of the mA and/or kV according to patient size, and/or use of iterative reconstruction technique. FINDINGS: CT CHEST WITHOUT CONTRAST: LUNGS: There is a focal density in the periphery of the right middle lobe. This most likely represents an area of scarring. There is no evidence of mass or nodule. MEDIASTINUM: Unremarkable. Normal caliber aorta and pulmonary arterial trunk. Normal size heart. LYMPH NODES: Unremarkable. PLEURA: Unremarkable. No pneumothorax. No pleural fluid. BONES: Unremarkable. OTHER FINDINGS: None. CT ABDOMEN AND PELVIS: LIVER: Unremarkable. No gross lesion or ductal dilatation. GALLBLADDER AND BILE DUCTS: Gallbladder removed PANCREAS: Unremarkable. No gross lesion or ductal dilatation. SPLEEN: Unremarkable. ADRENALS: Unremarkable. No mass. KIDNEYS AND URETERS: Unremarkable. No hydronephrosis. No solid mass. VASCULATURE: Unremarkable. No aortic aneurysm. BOWEL: Unremarkable. No obstruction. No gross mural thickening. There is moderate constipation. APPENDIX: Normal appendix. PERITONEUM: Unremarkable. No free fluid. No free air. There is a 3 cm right inguinal hernia that contains a segment of small bowel. There is no obstruction LYMPH NODES: Unremarkable. No enlarged lymph nodes. BLADDER: Unremarkable. REPRODUCTIVE: Unremarkable. BONES: As seen on the recent CT of the lumbar spine there are severe compression fractures of T11 and L5 as well as sacral fractures OTHER FINDINGS: None. IMPRESSION: No evidence of metastatic disease. Right inguinal hernia containing loops of small bowel without obstruction. Moderate constipation
[2016-10-02 14:53] LABS: VITAMIN D 25 OH TOTAL 18.3 NG/ML (30.0-100.0)
--- NOTE | 2016-10-02 23:31 | CP.PCM.PN ---
Subjective - Date & Time of Evaluation Date of Evaluation: 10/02/16 Time of Evaluation: 18:00 - Subjective Subjective: 10/02/2016 HISTORY OF PRESENT ILLNESS: The patient is a 75-year-old female with history of COPD on home oxygen. Presented to the ED with back pain radiating to the legs. She has pain for almost 3 months now. She fell in the bathroom and was not able to get up. CAT scan of the lumbar spine without contrast showed compression fracture of T11. There is severe compression fracture of L5. Bilateral sacral fractures were seen. She also reports around 60 pounds weight loss over the past 1 year. She used to weigh around 160 pounds. She is currently 104 pounds. She has history of breast cancer, diagnosed 20 years ago. Underwent a right-sided mastectomy, followed by the breast implant. She still has the implant. Appetite is normal. Denies any chest pain. She has baseline shortness of breath. She is on home oxygen for COPD. She has been a heavy smoker. Hypertension, blood pressure controlled on current medication. She also has anxiety and osteoarthritis. No issues regarding the joint pain now. Ct chest abdomen , pelvis did not show metastatic disease. Inguinal hernia with bowel loops. Pain better controlled with current meds. PAST MEDICAL HISTORY: Breast cancer, diagnosed 20 years ago, osteoarthritis, coronary artery disease, status post cardiac stent, hypertension, COPD, emphysema, anxiety disorder. PAST SURGICAL HISTORY: Right mastectomy, left eye surgery. PERSONAL HISTORY: Former smoker. No history of alcohol abuse. SOCIAL HISTORY: Lives at home. ALLERGIES: No known drug allergies. FAMILY HISTORY: No positive history of cancer in the family. HOME MEDICATIONS: Advair inhalation q. 12 hours, hydrochlorothiazide 12.5 mg daily, Percocet 1 tablet q. 8 hours. REVIEW OF SYSTEMS: As per HPI. Rest of 12-point review of systems reviewed and negative. PHYSICAL EXAMINATION: GENERAL: Comfortable in bed, in no acute distress. She is short-statured, cachectic. VITAL SIGNS: reviewed. HEENT: Pallor positive. NECK: No lymphadenopathy. CHEST: Air entry present, equal bilateral. No added sound. CARDIOVASCULAR: Within normal limits. ABDOMEN: Soft, nontender, no hepatosplenomegaly. Vague lump felt in the abdomen, cystic in nature. EXTREMITIES: No edema. BREASTS: Right-sided breast, implant present, left-sided, no lump present. Right side, no skin lump present. RADIOLOGY: CAT scan of the spine as described under HPI. LABORATORIES: White count 9000, hemoglobin 11.9, hematocrit 35.7, platelets 324. Sodium 135, potassium 3.3, BUN 11, creatinine 0.5, glucose 86. ELECTROCARDIOGRAM: A 12-lead EKG, no ST and T changes. ASSESSMENT: 1. Status post fall. 2. Sacral fracture, lumbar compression fracture. 3. History of breast cancer, possibility of metastatic disease now. 4. Anemia. 5. Osteoarthritis. 6. Emphysema. 7. Chronic obstructive pulmonary disease. 8. Hypertension. PLAN: 1.Fracture T11, L5, sacral . Suspicion of metastatic disease. Bone scan done today. results awaited. 2. Pain: controlled on current regimen. 3. anemia : iron deficiency. will consider IV iron . 4. She will benefit from bisphosphonate therapy. Vit D level ordered. 5. CV : BP controlled with current meds. Kierra Pritchett MD Objective - Vital Signs/Intake and Output Vital Signs (last 24 hours): Temp Pulse Resp BP Pulse Ox 99 F 71 20 106/57 L 97 10/02/16 16:00 10/02/16 16:00 10/02/16 16:00 10/02/16 16:00 10/02/16 16:00 Intake and Output: 10/02/16 10/03/16 18:59 06:59 Intake Total 480 360 Output Total 300 200 Balance 180 160 - Medications Medications: Current Medications Albuterol/Ipratropium (Duoneb 3 Mg/0.5 Mg (3 Ml) Ud) 3 ml IH [id number] PRN PRN Reason: Shortness of Breath Alprazolam (Xanax) 0.25 mg PO DAILY [facility] PRN Reason: Protocol Stop: 10/08/16 12:46 Last Admin: 10/02/16 09:33 Dose: 0.25 mg Atenolol (Tenormin) 50 mg PO DAILY [facility] Last Admin: 10/02/16 09:33 Dose: 50 mg Escitalopram Oxalate (Lexapro) 10 mg PO [facility] Last Admin: 10/02/16 21:28 Dose: 10 mg Famotidine (Pepcid) 20 mg PO 1000,2200 [facility] Last Admin: 10/02/16 21:28 Dose: 20 mg Lisinopril (Zestril) 10 mg PO DAILY [facility] Last Admin: 10/02/16 09:32 Dose: 10 mg Morphine Sulfate (Morphine) 2 mg IVP Q3H PRN PRN Reason: Pain, severe (8-10) Last Admin: 10/02/16 19:49 Dose: 2 mg Morphine Sulfate (Morphine Extended Release Tab) 15 mg PO Q12 [facility] Last Admin: 10/02/16 21:28 Dose: 15 mg Oxycodone/Acetaminophen (Percocet 10/325 Mg Tab) 1 tab PO Q6H PRN PRN Reason: Pain, Mild (1-3) Last Admin: 10/01/16 23:42 Dose: 1 tab Quetiapine Fumarate (Seroquel) 25 mg PO HS [facility] PRN Reason: Protocol Last Admin: 10/02/16 21:28 Dose: 25 mg Senna/Docusate Sodium (Senokot S 50 Mg-8.6 Mg) 1 tab PO BID [facility] Last Admin: 10/02/16 17:24 Dose: 1 tab - Labs Labs: 10/02/16 07:20 10/02/16 07:20 PT 10.7 Seconds (9.9-11.8) 10/01/16 08:00 INR 0.99 (0.93-1.08) 10/01/16 08:00 APTT 23.8 Seconds (23.7-30.8) 10/01/16 08:00
[2016-10-03] MEDS: Morphine 2 mg/ml ISec IVP PRN (07:17)
[2016-10-03] MEDS: Docusate-Senna 50 mg-8.6 mg Tab PO SCH ×2 (09:33→17:06)
[2016-10-03] MEDS: Morphine 15 mg SR Tab PO SCH ×2 (09:34→21:05)
[2016-10-03] MEDS ORDERED: Ciprofloxacin 400mg/200ml D5W 400 MG/200 ML BAG IVPB SCH (11:00)
[2016-10-04 07:45] LABS: HEMATOCRIT 33.9 % (36.0-48.0); MEAN CELL VOLUME 96.6 fL (80.0-105.0); MEAN CORPUSCULAR HEMOGLOBIN 31.3 pg (25.0-35.0); MEAN CORPUSCULAR HGB CONC 32.4 g/dl (31.0-37.0); MEAN PLATELET VOLUME 8.6 fl (7.0-11.0); WHITE BLOOD COUNT 12.3 10^3/ul (4.5-11.0)
[2016-10-04 08:00] LABS: ALB/GLOB RATIO 1.2 (1.1-1.8); ALKALINE PHOSPHATASE 88 U/L (38-133); ALT/SGPT 29 U/L (7-56); AST/SGOT 21 U/L (15-39); BILIRUBIN,TOTAL 0.9 mg/dL (0.2-1.3); BLOOD UREA NITROGEN 24 mg/dL (7-21); CALCIUM 8.9 mg/dL (8.4-10.5); CARBON DIOXIDE 35 mmol/L (21-33); CHLORIDE 89 mmol/L (98-107); GFR AFRICAN-AMERICAN > 60; GLUCOSE,RANDOM 99 mg/dL (70-110); POTASSIUM 4.3 mmol/L (3.6-5.0); SODIUM 129 mmol/L (132-148)
[2016-10-04 09:20] VITALS: BP 108/57; PULSE 80; RESP 22; TEMP 98.7; O2SAT 98
--- NOTE | 2016-10-04 09:40 | CP.PCM.PN ---
Subjective - Date & Time of Evaluation Date of Evaluation: 10/04/16 Time of Evaluation: 09:37 - Subjective Subjective: Pt with controlled pain. She has been on Morphine ER and Percocet for breakthough pain. Eating ok. + Anxiety Objective - Vital Signs/Intake and Output Vital Signs (last 24 hours): Temp Pulse Resp BP Pulse Ox 98.7 F 80 22 108/57 L 98 10/04/16 09:19 10/04/16 09:19 10/04/16 09:19 10/04/16 09:19 10/04/16 09:19 Intake and Output: 10/04/16 10/04/16 06:59 18:59 Intake Total 320 0 Output Total 200 Balance 120 0 - Medications Medications: Current Medications Albuterol/Ipratropium (Duoneb 3 Mg/0.5 Mg (3 Ml) Ud) 3 ml IH [id number] PRN PRN Reason: Shortness of Breath Alprazolam (Xanax) 0.25 mg PO Q4 PRN; Protocol PRN Reason: Anxiety Stop: 10/10/16 12:01 Last Admin: 10/03/16 19:49 Dose: 0.25 mg Atenolol (Tenormin) 50 mg PO DAILY [facility] Last Admin: 10/03/16 09:34 Dose: 50 mg Escitalopram Oxalate (Lexapro) 10 mg PO [facility] Last Admin: 10/03/16 21:05 Dose: 10 mg Famotidine (Pepcid) 20 mg PO 1000,2200 [facility] Last Admin: 10/03/16 21:05 Dose: 20 mg Lisinopril (Zestril) 10 mg PO DAILY [facility] Last Admin: 10/03/16 09:34 Dose: 10 mg Morphine Sulfate (Morphine) 2 mg IVP Q3H PRN PRN Reason: Pain, severe (8-10) Last Admin: 10/03/16 07:17 Dose: 2 mg Morphine Sulfate (Morphine Extended Release Tab) 15 mg PO Q12 [facility] Last Admin: 10/03/16 21:05 Dose: 15 mg Oxycodone/Acetaminophen (Percocet 10/325 Mg Tab) 1 tab PO Q6H PRN PRN Reason: Pain, Mild (1-3) Last Admin: 10/01/16 23:42 Dose: 1 tab Quetiapine Fumarate (Seroquel) 25 mg PO HS [facility] PRN Reason: Protocol Last Admin: 10/03/16 21:05 Dose: 25 mg Senna/Docusate Sodium (Senokot S 50 Mg-8.6 Mg) 1 tab PO BID [facility] Last Admin: 10/03/16 17:06 Dose: 1 tab - Labs Labs: 10/04/16 06:50 10/04/16 06:50 PT 10.7 Seconds (9.9-11.8) 10/01/16 08:00 INR 0.99 (0.93-1.08) 10/01/16 08:00 APTT 23.8 Seconds (23.7-30.8) 10/01/16 08:00 - Constitutional Appears: Well - Head Exam Head Exam: NORMAL INSPECTION - Eye Exam Pupil Exam: NORMAL ACCOMODATION - ENT Exam ENT Exam: Mucous Membranes Moist, Normal Exam - Respiratory Exam Respiratory Exam: Clear to Ausculation Bilateral, NORMAL BREATHING PATTERN - Cardiovascular Exam Cardiovascular Exam: REGULAR RHYTHM, +S1, +S2 - GI/Abdominal Exam GI & Abdominal Exam: Normal Bowel Sounds. absent: Tenderness, Hernia, Hypoactive Bowel Sounds, Organomegaly, Pulsatile Mass - Back Exam Back Exam: NORMAL INSPECTION, paraspinal tenderness. absent: CVA tenderness (R) - Psychiatric Exam Psychiatric exam: Normal Affect, Normal Mood - Skin Skin Exam: Normal Color Assessment and Plan - Assessment and Plan (Free Text) Assessment: 1. Compression fracture of T11 and L5. 2. Spinal stenosis. 3. Anemia. 4. Osteoarthritis. 5. Chronic obstructive pulmonary disease. 6. Hypertension. 7. History of breast cancer. 8. Anxiety. Plan: The patient is currently comfortable. The patient has osteoporosis. She was given bisphosphonates as an outpatient. She is on morphine and Percocet for pain.which is controlled. She is on Pepcid. She is receiving Seroquel. She has lisinopril for hypertension. PT. I will also get Dr. Pritchett to follow. She was going to need physical therapy and pain management.
[2016-10-04] MEDS: Docusate-Senna 50 mg-8.6 mg Tab PO SCH (10:41)
[2016-10-04] MEDS: Morphine 15 mg SR Tab PO SCH (10:42)
--- NOTE | 2016-10-04 14:47 | NM ---
PROCEDURE: Whole Body Bone Scan HISTORY: h/o breast cancer, r/o bone mets COMPARISON: Recent CT of the lumbar spine TECHNIQUE: Following administration of 22.4 miCu of Tc MDP multiplanar whole body images were obtained. FINDINGS: Evidence for bony metastatic disease: None. Degenerative uptake: None. Physiologic uptake: Normal physiologic activity in the kidneys. Other findings: There is intense uptake in the sacrum correlating with the recently identified sacral fractures. There is also uptake in the T11 compression fracture. There is no significant activity seen at the L5 level. IMPRESSION: No evidence of bony metastatic disease. Compression fracture at T11 and sacral fractures
== END 2016-10-04 15:30 | DRG 552 ==
LOC: ED 07:41 → ERH 09:57 → 3RSO 11:08
PROVIDERS: ADMIT Internal Medicine Medical Oncology; ATTEND Internal Medicine Nephrology
DX: S32.059A Unspecified fracture of fifth lumbar vertebra, initial encounter for closed fracture (principal); S22.089A Unspecified fracture of T11-T12 vertebra, initial encounter for closed fracture; S32.10XA Unspecified fracture of sacrum, initial encounter for closed fracture; J44.9 Chronic obstructive pulmonary disease, unspecified; I10 Essential (primary) hypertension; I25.10 Atherosclerotic heart disease of native coronary artery without angina pectoris; M19.90 Unspecified osteoarthritis, unspecified site; F41.9 Anxiety disorder, unspecified; F17.200 Nicotine dependence, unspecified, uncomplicated; D64.9 Anemia, unspecified; M48.06 Spinal stenosis, lumbar region; M81.0 Age-related osteoporosis without current pathological fracture; W19.XXXA Unspecified fall, initial encounter; Y92.012 Bathroom of single-family (private) house as the place of occurrence of the external cause; Z85.3 Personal history of malignant neoplasm of breast; Z95.5 Presence of coronary angioplasty implant and graft; Z90.11 Acquired absence of right breast and nipple; Z98.82 Breast implant status; Z99.81 Dependence on supplemental oxygen

== ENCOUNTER 2016-10-04 15:26 | Inpatient (IN) | payer OTHER, BC ==
[2016-10-04 16:38] VITALS: BMI 23.8
[2016-10-04] MEDS: Docusate-Senna 50 mg-8.6 mg Tab PO SCH (17:46)
[2016-10-04 18:33] LABS: OSMOLALITY,URINE 690 mosm/kg (50-645)
[2016-10-04] MEDS: Morphine 2 mg/ml ISec IVP PRN (19:43)
[2016-10-04] MEDS ORDERED: Pneumococcal 23-Valent Vaccine IM ONE (20:10)
[2016-10-04] MEDS: Morphine 15 mg SR Tab PO SCH (21:36)
[2016-10-05 06:38] LABS: BASO # 0.02 K/mm3 (0.0-2.0); BASO % 0.2 % (0.0-3.0); EOS # 0.1 (0.0-0.7); EOS % 1.5 % (1.5-5.0); GRAN # 6.83 (1.4-6.5); GRAN % 80.7 % (50.0-68.0); HEMOGLOBIN 10.7 gm/dL (12.0-16.0); LYMPH # 0.9 (1.2-3.4); LYMPH % 10.5 % (22.0-35.0); MEAN CELL VOLUME 94.9 fL (80.0-105.0); MEAN CORPUSCULAR HEMOGLOBIN 30.1 pg (25.0-35.0); MEAN CORPUSCULAR HGB CONC 31.7 g/dl (31.0-37.0); MEAN PLATELET VOLUME 8.3 fl (7.0-11.0); MONO # 0.6 (0.1-0.6); MONO % 7.1 % (1.0-6.0); PLATELET COUNT 238 10^3/uL (120.0-450.0); RBC 3.56 10^6/uL (3.5-6.1); RED CELL DISTRIBUTION WIDTH 12.7 % (11.5-14.5); WHITE BLOOD COUNT 8.5 10^3/ul (4.5-11.0)
[2016-10-05 07:18] LABS: ALB/GLOB RATIO 1.1 (1.1-1.8); ALBUMIN 3.2 g/dL (3.0-4.8); ALT/SGPT 25 U/L (7-56); AST/SGOT 23 U/L (15-39); BLOOD UREA NITROGEN 20 mg/dL (7-21); CALCIUM 8.5 mg/dL (8.4-10.5); GFR AFRICAN-AMERICAN > 60; GFR NON-AFRICAN AMERICAN > 60
[2016-10-05] MEDS: Morphine 15 mg SR Tab PO SCH (09:57)
[2016-10-05] MEDS: Docusate-Senna 50 mg-8.6 mg Tab PO SCH ×2 (09:59→17:50)
[2016-10-05] MEDS: Oxycodone/Acetaminophen 10/325 mg Tab PO PRN (16:13)
--- NOTE | 2016-10-05 17:55 | CP.PCM.PN ---
Subjective - Date & Time of Evaluation Date of Evaluation: 10/05/16 Time of Evaluation: 17:27 - Subjective Subjective: Initial H and P reviewed and I agree with. Pt for rehab. Pain is controlled. Objective - Vital Signs/Intake and Output Vital Signs (last 24 hours): Temp Pulse Resp BP Pulse Ox 98.6 F 87 14 132/61 96 10/05/16 10:00 10/05/16 11:05 10/05/16 10:00 10/05/16 11:05 10/05/16 10:00 Intake and Output: 10/05/16 10/05/16 06:59 18:59 Intake Total 360 Balance 360 - Medications Medications: Current Medications Albuterol/Ipratropium (Duoneb 3 Mg/0.5 Mg (3 Ml) Ud) 3 ml IH [id number] PRN; Protocol PRN Reason: Shortness of Breath Alprazolam (Xanax) 0.25 mg PO Q4 PRN; Protocol PRN Reason: Anxiety Stop: 10/11/16 16:38 Last Admin: 10/05/16 11:11 Dose: 0.25 mg Atenolol (Tenormin) 50 mg PO DAILY [facility] PRN Reason: Protocol Last Admin: 10/05/16 11:05 Dose: 50 mg Escitalopram Oxalate (Lexapro) 10 mg PO HS [facility] PRN Reason: Protocol Last Admin: 10/04/16 21:21 Dose: 10 mg Famotidine (Pepcid) 20 mg PO 1000,2200 [facility] PRN Reason: Protocol Last Admin: 10/05/16 09:59 Dose: 20 mg Lisinopril (Zestril) 10 mg PO DAILY [facility] PRN Reason: Protocol Last Admin: 10/05/16 11:10 Dose: 10 mg Morphine Sulfate (Morphine) 2 mg IVP Q3H PRN; Protocol PRN Reason: Pain, severe (8-10) Last Admin: 10/04/16 19:43 Dose: 2 mg Morphine Sulfate (Morphine Extended Release Tab) 15 mg PO Q12 [facility] PRN Reason: Protocol Last Admin: 10/05/16 09:57 Dose: 15 mg Oxycodone/Acetaminophen (Percocet 10/325 Mg Tab) 1 tab PO Q6H PRN; Protocol PRN Reason: Pain, Mild (1-3) Last Admin: 10/05/16 16:13 Dose: 1 tab Quetiapine Fumarate (Seroquel) 25 mg PO HS [facility] PRN Reason: Protocol Last Admin: 10/04/16 21:21 Dose: 25 mg Senna/Docusate Sodium (Senokot S 50 Mg-8.6 Mg) 1 tab PO BID [facility] PRN Reason: Protocol Last Admin: 10/05/16 09:59 Dose: 1 tab - Labs Labs: 10/05/16 06:20 10/05/16 06:20 - Constitutional Appears: Well, No Acute Distress - ENT Exam ENT Exam: Mucous Membranes Moist - Neck Exam Neck Exam: Full ROM, Normal Inspection - Respiratory Exam Respiratory Exam: Clear to Ausculation Bilateral, NORMAL BREATHING PATTERN - Cardiovascular Exam Cardiovascular Exam: REGULAR RHYTHM, +S1, +S2 - GI/Abdominal Exam GI & Abdominal Exam: Soft, Normal Bowel Sounds. absent: Tenderness, Organomegaly - Exam External exam: NORMAL EXTERNAL EXAM - Neurological Exam Neurological Exam: Alert, Awake, CN II-XII Intact, Normal Gait, Oriented x3 Assessment and Plan - Assessment and Plan (Free Text) Assessment: 1. Compression fracture of T11 and L5. 2. Spinal stenosis. 3. Anemia. 4. Osteoarthritis. 5. Chronic obstructive pulmonary disease. 6. Hypertension. 7. History of breast cancer. 8. Anxiety. Plan: The patient is currently comfortable. The patient has osteoporosis. She was given bisphosphonates as an outpatient. on morphine for pain. She is on Pepcid. She is receiving Seroquel. She has lisinopril for hypertension. Physical therapy and pain management.
[2016-10-06] MEDS: Morphine 15 mg SR Tab PO SCH ×3 (01:17→21:49)
[2016-10-06] MEDS: Morphine 2 mg/ml ISec IVP PRN (03:17)
--- NOTE | 2016-10-06 10:13 | PCM.PYCHPN ---
Psychiatric Progress Note - Psychiatric Progress Note Patient Chief Complaint: pain and Anxiety. seen 10/05.see gena consult. pt under my care. tonny lifelong hx of anxiety/depression,dependance. now dependant on the good graces of son who lives near [place]. sees her weekly. his wont allow her to live with them. her compliance is poor, presently complaining of back pain
[2016-10-06] MEDS: Docusate-Senna 50 mg-8.6 mg Tab PO SCH ×2 (10:23→18:28)
[2016-10-06] MEDS: Albuterol-Ipratrop 3 mg / 0.5 (3 ml) UD IH PRN (13:15)
[2016-10-06] MEDS: Oxycodone/Acetaminophen 10/325 mg Tab PO PRN (13:26)
[2016-10-07] MEDS: Morphine 2 mg/ml ISec IVP PRN ×4 (00:14→20:55)
[2016-10-07] MEDS: Albuterol-Ipratrop 3 mg / 0.5 (3 ml) UD IH PRN (04:12)
[2016-10-07] MEDS: Morphine 15 mg SR Tab PO SCH ×2 (09:11→21:34)
[2016-10-07] MEDS: Docusate-Senna 50 mg-8.6 mg Tab PO SCH (09:12)
[2016-10-08] MEDS: Morphine 2 mg/ml ISec IVP PRN ×3 (01:55→13:55)
[2016-10-08] MEDS: Morphine 15 mg SR Tab PO SCH ×2 (09:23→21:12)
[2016-10-08] MEDS: Docusate-Senna 50 mg-8.6 mg Tab PO SCH ×3 (09:24→17:42)
[2016-10-08] MEDS ORDERED: POLYETHYLENE GLYCOL 3350 17 GM/Dose PACKET PO SCH (10:00)
[2016-10-08] MEDS ORDERED: Morphine 2 mg/ml ISec IVP PRN (17:46)
[2016-10-09 06:43] VITALS: BP 92/60; PULSE 77; RESP 20; TEMP 98.8; O2SAT 97
[2016-10-09] MEDS ORDERED: Naloxone 0.4 mg/ml Inj (Adult) ONE (08:04)
[2016-10-09] MEDS: Albuterol-Ipratrop 3 mg / 0.5 (3 ml) UD IH PRN (08:06)
--- NOTE | 2016-10-09 13:03 | CP.PCM.PN ---
Subjective - Date & Time of Evaluation Date of Evaluation: 10/09/16 Time of Evaluation: 08:02 - Subjective Subjective: Responded stat to [employer] call. Pt's RN called [employer] when pt was noted to be unresponsive when she started her rounds. Patient was admitted to this floor for rehab for compression fracture of T11 and L5. She was last given morphine last night. Initial VS:BP 67/41 P 61 RR12 T 98.1 SPO2 90% on o2 at 2L/min Accucheck 205 She was promptly placed on O2 by NRB mask Repeat BP was 128/62 HR 89 O2 sat was 94% RR13 PMH:R Breast Ca S/P R mastectomy and reconstruction,HTN,CD,Osteoarthritis, Depression and anxiety Objective - Vital Signs/Intake and Output Vital Signs (last 24 hours): Temp Pulse Resp BP Pulse Ox 98.8 F 77 20 92/60 L 97 10/09/16 06:00 10/09/16 06:00 10/09/16 06:00 10/09/16 06:00 10/09/16 06:00 - Labs Labs: 10/05/16 06:20 10/05/16 06:20 - Constitutional Appears: Other (In mild resp distress) - Head Exam Head Exam: ATRAUMATIC, NORMAL INSPECTION, NORMOCEPHALIC - Eye Exam Eye Exam: PERRL Pupil Exam: PERRL (2mm, bilateral) - ENT Exam ENT Exam: Mucous Membranes Moist - Neck Exam Neck Exam: Normal Inspection - Respiratory Exam Respiratory Exam: Decreased Breath Sounds, Wheezes, Respiratory Distress ( initially had slow respirations,after she was given Narcan iv ,she started complaining of shortness of breath) Additional comments: S/P R mastectomy with reconstruction - Cardiovascular Exam Cardiovascular Exam: REGULAR RHYTHM - GI/Abdominal Exam GI & Abdominal Exam: Soft, Normal Bowel Sounds. absent: Tenderness - Extremities Exam Extremities Exam: Normal Inspection. absent: Calf Tenderness, Pedal Edema - Back Exam Back Exam: vertebral tenderness (noted in lower thoracic and lumbar region) - Neurological Exam Neurological Exam: Alert, Awake, Oriented x3 (oriented x 2) Additional comments: moves all 4 extremities well. - Psychiatric Exam Psychiatric exam: Anxious - Skin Skin Exam: Dry, Warm Assessment and Plan - Assessment and Plan (Free Text) Assessment: Unresponsiveness sec to sedative effect of morphine Shortness of breath. Plan: Pt was given Narcan 0.4 mg iv stat with prompt response. She woke up ,was agitated,and c/o difficulty breathing.A nebulizer treatment was started immediately. EKG was done stat,it showed NSR. Discussed case with Dr Blair,pt transferred to the ER by RRteam,endorsed to ER MD Dr Marcano
--- NOTE | 2016-10-11 11:56 | CARD ---
APPROVED REPORT EKG Measurement Heart [id number] <Conclusion> Sinus rhythm with short [place] Wandering baseline and electrical artifact present
== END 2016-10-09 08:23 | disposition home or self-care (01) | DRG 561 ==
LOC: TRCU 15:26
PROVIDERS: ADMIT Internal Medicine Nephrology; ATTEND Internal Medicine Nephrology
PROC: F07Z9FZ Gait Training/Functional Ambulation Treatment using Assistive, Adaptive, Supportive or Protective Equipment (ICD-10-PCS; principal; 2016-10-05)
PROC: F08Z4FZ Home Management Treatment using Assistive, Adaptive, Supportive or Protective Equipment (ICD-10-PCS; 2016-10-05)
PROC: 3E0F7GC Introduction of Other Therapeutic Substance into Respiratory Tract, Via Natural or Artificial Opening (ICD-10-PCS; 2016-10-06)
DX: S32.059D Unspecified fracture of fifth lumbar vertebra, subsequent encounter for fracture with routine healing (principal); S22.089D Unspecified fracture of T11-T12 vertebra, subsequent encounter for fracture with routine healing; J44.9 Chronic obstructive pulmonary disease, unspecified; D64.9 Anemia, unspecified; I10 Essential (primary) hypertension; F41.9 Anxiety disorder, unspecified; M81.0 Age-related osteoporosis without current pathological fracture; F32.9 Major depressive disorder, single episode, unspecified; R06.02 Shortness of breath; K59.00 Constipation, unspecified; T40.605A Adverse effect of unspecified narcotics, initial encounter; M47.9 Spondylosis, unspecified; R26.2 Difficulty in walking, not elsewhere classified; W19.XXXD Unspecified fall, subsequent encounter; Z85.3 Personal history of malignant neoplasm of breast; Z90.11 Acquired absence of right breast and nipple

== ENCOUNTER 2016-10-09 08:23 | Inpatient (IN) | payer MEDICARE, BC ==
[2016-10-09 08:45] VITALS: BMI 19.5
--- NOTE | 2016-10-09 08:55 | ED PDOC ---
Arrival/HPI - General Historian: Patient - History of Present Illness Time/Duration: Prior to Arrival Symptom Onset: Sudden Context: Other (TCU) - General Chief Complaint: Respiratory Distress Time Seen by Provider: 10/09/16 08:25 - History of Present Illness Narrative History of Present Illness (Text): 10/09/16 09:03 75 year old female with past medical history of COPD on home O2, breast CA s/p Right breast mastectomy, HTN, CAD, OA, depression and anxiety was brought down to the ED from TCU for respiratory distress. Patient was found by the staff to have difficulty breathing and rapid response was called at 7:55am. Patient was given naloxone and oxygen prior to coming to the ED. Patient was admitted on for back pain secondary to compression fracture of T11, L5 and sacrum. She was been treated with morphine for her back pain in the hospital. Patient was agitated wanting to go home stating it is "her sister's birthday" and "I need to go to the dentist". Patient denies having trauma, loss of consciousness , headache, fever, chills, chest pain, abdominal pain, nausea, or vomiting. (Becki Seay) Past Medical History - Provider Review Nursing Documentation Reviewed: Yes - Infectious Disease Hx of Infectious Diseases: None - Tetanus Immunization Tetanus Immunization: Unknown - Cardiac Hx Cardiac Disorders: Yes (CAD with stents) Hx Hypertension: Yes - Pulmonary Hx Chronic Obstructive Pulmonary Disease (COPD): Yes - Neurological HX Cerebrovascular Accident: No - HEENT Hx HEENT Disorder: Yes (right eye lazy eye,BLURRY VISION) Hx Cataracts: Yes (WITH SURGERY left eye only) Hx Deafness: No Hx Difficulty Chewing: No Hx Epistaxis: No Hx Macular Degeneration: No Other/Comment: eyeglasses, sx age 14 for strabismus right eye - Renal Hx Renal Failure: No - Endocrine/Metabolic Hx Diabetes Mellitus Type 1: No Hx Diabetes Mellitus Type 2: No Hx Hypothyroidism: No - Hematological/Oncological Hx Blood Disorders: Yes Hx AIDS: No Hx Anemia: No Hx Blood Transfusion Reaction: No Hx Bruising: No Hx Cancer: Yes (r breast over 20 yrs ago) Hx Chemotherapy: No (no chemo no radiation) Hx Cirrhosis: No Hx Gum Bleeding: No Hx Hemophilia: No Hx Hepatitis A: No Hx Hepatitis B: No Hx Hepatitis C: No Hx Leukemia: No Hx Lymphoma: No Hx Metastasis: No Hx Shingles: No Hx Sickle Cell Trait: No Hx Sickle Cell Disease: No Hx Unexplained Bleeding: No Hx von Willebrand's Disease: No Other/Comment: r mastectomy with reconstruction - Integumentary Hx Dermatological Disorder: No Hx Basal Cell Carcinoma: No Hx Damon: No Hx Cellulitis: No Hx Eczema: No Hx Melanoma: No Hx Psoriasis: No Hx Squamous Cell Carcinoma: No Other/Comment: BILATERAL LEG EDEMA +2 ,BRUISED SPEARS BONES - Musculoskeletal/Rheumatological Hx Arthritis: Yes - Gastrointestinal Hx Gastrointestinal Disorders: Yes (CONSTIPATION) - Genitourinary/Gynecological Hx Genitourinary Disorders: No - Psychiatric Hx Psychophysiologic Disorder: No Hx Anxiety: Yes Hx Bipolar Disorder: No Hx Depression: Yes Hx Emotional Abuse: No Hx Physical Abuse: No Hx Schizophrenia: No Hx Sexual Abuse: No Hx Substance Use: No - Past Surgical History Past Surgical History: No Previous - Surgical History Hx Abdominal Aortic Aneurysm Repair: No Hx Amputation: No Hx Angiogram: No Hx Angioplasty: No Hx Appendectomy: No Hx Arteriovenous Shunt: No Hx Arthroscopy: No Hx Bile Duct Stent: No Hx Breast Biopsy: Yes Hx Cataract Extraction: No Hx Cardiac Catheterization: No Hx Carotid Endarterectomy: No Hx Section: No Hx Cholecystectomy: Yes Hx Coronary Artery Bypass Graft: No Hx Coronary Stent: Yes Hx Dilation and Curettage: No Hx Eye Surgery: No Hx Femoral-Popliteal Bypass Graft: No Hx Gastric Bypass Surgery: No Hx Hysterectomy: No Hx Joint Replacement: No Hx Kidney Transplant: No Hx Liver Transplant: No Hx Mastectomy: No Hx Musculoskeletal Surgery: No Hx Open Heart Surgery: No Hx Open Reduction Internal Fixation: No Other/Comment: left toe sx, r ankle fx sx with pin - Anesthesia Hx Anesthesia: Yes Hx Anesthesia Reactions: No Hx Malignant Hyperthermia: No - Suicidal Assessment Feels Threatened In Home Enviroment: No Family/Social History - Physician Review Nursing Documentation Reviewed: Yes Family/Social History: Unknown Family HX Smoking Status: Former Smoker Hx Alcohol Use: No Hx Substance Use: No Hx Substance Use Treatment: No Allergies/Home Meds Allergies/Adverse Reactions: Allergies No Known Allergies Allergy (Verified 10/04/16 16:49) Review of Systems - Physician Review All systems were reviewed & negative as marked: Yes - Review of Systems Constitutional: Normal. absent: Fevers, Night Sweats Eyes: Normal ENT: Normal Respiratory: SOB, Cough Cardiovascular: Normal. absent: Chest Pain, Syncope Gastrointestinal: Normal. absent: Diarrhea, Vomiting Genitourinary Female: Normal Musculoskeletal: Back Pain Skin: Normal. absent: Pruritis, Laceration Neurological: Normal. absent: Headache, Dizziness Endocrine: Normal Hemo/Lymphatic: Normal Physical Exam Vital Signs Reviewed: Yes Temperature: Afebrile Blood Pressure: Normal Pulse: Regular Respiratory Rate: Normal Appearance: Positive for: Well-Appearing Pain Distress: None Mental Status: Positive for: Alert and Oriented X 3, Agitated - Systems Exam Head: Present: Atraumatic, Normocephalic Pupils: Present: PERRL Extroacular Muscles: Present: EOMI Conjunctiva: Present: Normal Mouth: Present: Moist Mucous Membranes Respiratory/Chest: Present: Clear to Auscultation, Tachypneic, Other (Right breast implant appreciated). No: Respiratory Distress, Wheezes Cardiovascular: Present: Regular Rate and Rhythm, Normal S1, S2. No: Murmurs Abdomen: Present: Normal Bowel Sounds. No: Tenderness, Distention, Peritoneal Signs Back: Present: Midline Tenderness (lumbar spine tenderness) Lower Extremity: Present: Normal Inspection. No: Edema Neurological: Present: GCS=15, Speech Normal, Motor Func Grossly Intact Skin: Present: Warm, Dry, Normal Color. No: Rashes Psychiatric: Present: Alert, Agitated (Alert, awake, orient to place and person only) Vital Signs Temp Pulse Resp BP Pulse Ox 10/09/16 09:44 78 20 90/57 L 96 10/09/16 08:32 99.6 F 78 20 106/64 99 Medical Decision Making Re-evaluation Time: 09:50 Reassessment Condition: Improved ED Course and Treatment: Patient Seen With Resident: In agreement with resident note. Patient was seen and evaluated with resident, came up with plan and treatment together. (Christian Marcano DO) 10/09/16 08:57 -EKG -Cardiac ISO -CBC, CMP -CXR -Solu medrol -Duoneb -O2 via NC DDx: COPD exacerbation, PNA, pneumothorax 10/09/16 09:[address] Blair evaluated the patient, recommended remote tele Based on history and physical, patient's presenting symptom is likely COPD exacerbation secondary to pain medication use. (Becki Seay) - Lab Interpretations Lab Results: 10/09/16 09:37 10/09/16 09:37 Lab Results 10/09/16 09:37: WBC 7.3, RBC 3.17 L, Hgb 9.7 L, Hct 30.9 L, MCV 97.5, MCH 30.6, MCHC 31.4, RDW 13.0, Plt Count 217, MPV 8.8, Gran % 81.5 H, Lymph % (Auto) 9.4 L , [place] % (Auto) 7.2 H, Eos % (Auto) 1.6, Baso % (Auto) 0.3, Gran # 5.97, Lymph # 0.7 L, [place] # 0.5, Eos # 0.1, Baso # 0.02 10/09/16 09:37: Sodium 129 L, Potassium 4.9, Chloride 86 L, Carbon Dioxide 38 H , Anion Gap 10, BUN 49 H, Creatinine 1.6 H, Est GFR ( Amer) 38, Est GFR ( Non-Af Amer) 31, Random Glucose 87, Calcium 8.7, Total Bilirubin 0.9, AST 17, ALT 21, Alkaline Phosphatase 98, Lactate Dehydrogenase 313 L, Total Creatine Kinase 37, Troponin I < 0.01, Total Protein 5.8, Albumin 3.1, Globulin 2.6, Albumin/Globulin Ratio 1.2 - RAD Interpretation Radiology Orders: 10/09/16 08:56 X-RAY [CHEST PORTABLE] [RAD] Stat - EKG Interpretation EKG Interpretation (Text): 10/09/16 09:32 NSR at 80bpm, no acute ST changes. NV interval 106ms. Read by me (Becki Seay) - Medication Orders Current Medication Orders: Discontinued Medications Albuterol/Ipratropium (Duoneb 3 Mg/0.5 Mg (3 Ml) Ud) 3 ml IH STAT STA Stop: 10/09/16 08:58 Last Admin: 10/09/16 09:29 Dose: 3 ml Methylprednisolone (Solu-Medrol) 125 mg IVP STAT STA Stop: 10/09/16 08:58 Last Admin: 10/09/16 09:30 Dose: 125 mg - PA / PET WALKER / Resident Statement / has reviewed & agrees with the documentation as recorded. / has examined the patient and agrees with the treatment plan. Disposition/Present on Arrival - Present on Arrival Any Indicators Present on Arrival: No History of DVT/PE: No History of Uncontrolled Diabetes: No Urinary Catheter: No History of Decub. Ulcer: Yes (Stage 1 buttock area) History Surgical Site Infection Following: None - Disposition Have Diagnosis and Disposition been Completed?: Yes Disposition Time: 10:00 Patient Plan: Other (Remote Tele) - Disposition Diagnosis: COPD exacerbation Disposition: HOSPITALIZED Patient Problems: Current Active Problems Problem Status Onset COPD exacerbation Acute Condition: STABLE Referrals: Chelsey Gay, [Primary Care Provider] - Follow up with primary
[2016-10-09] MEDS ORDERED: Albuterol-Ipratrop 3 mg / 0.5 (3 ml) UD IH STA (08:57)
[2016-10-09 09:42] LABS: BASO # 0.02 K/mm3 (0.0-2.0); BASO % 0.3 % (0.0-3.0); EOS # 0.1 (0.0-0.7); EOS % 1.6 % (1.5-5.0); GRAN # 5.97 (1.4-6.5); GRAN % 81.5 % (50.0-68.0); HEMOGLOBIN 9.7 gm/dL (12.0-16.0); LYMPH # 0.7 (1.2-3.4); LYMPH % 9.4 % (22.0-35.0); MEAN CELL VOLUME 97.5 fL (80.0-105.0); MEAN CORPUSCULAR HEMOGLOBIN 30.6 pg (25.0-35.0); MEAN CORPUSCULAR HGB CONC 31.4 g/dl (31.0-37.0); MEAN PLATELET VOLUME 8.8 fl (7.0-11.0); MONO # 0.5 (0.1-0.6); MONO % 7.2 % (1.0-6.0); PLATELET COUNT 217 10^3/uL (120.0-450.0); RBC 3.17 10^6/uL (3.5-6.1); WHITE BLOOD COUNT 7.3 10^3/ul (4.5-11.0)
[2016-10-09 09:52] LABS: ALB/GLOB RATIO 1.2 (1.1-1.8); ALBUMIN 3.1 g/dL (3.0-4.8); ALT/SGPT 21 U/L (7-56); AST/SGOT 17 U/L (15-39); BLOOD UREA NITROGEN 49 mg/dL (7-21); CALCIUM 8.7 mg/dL (8.4-10.5); GFR AFRICAN-AMERICAN 38; GFR NON-AFRICAN AMERICAN 31
[2016-10-09 10:04] LABS: TROPONIN I < 0.01 ng/mL
--- NOTE | 2016-10-09 10:53 | RAD ---
HISTORY: shortness of breath COMPARISON: 09/19/2016 FINDINGS: LUNGS: No active pulmonary disease. PLEURA: No significant pleural effusion identified, no pneumothorax apparent. CARDIOVASCULAR: Normal. OSSEOUS STRUCTURES: No significant abnormalities. VISUALIZED UPPER ABDOMEN: Normal. OTHER FINDINGS: None IMPRESSION: No active disease.
--- NOTE | 2016-10-09 11:20 | CARD ---
APPROVED REPORT EKG Measurement Heart [id number] <Conclusion> Sinus rhythm with short AK LVH by voltage
--- NOTE | 2016-10-09 12:13 | CP.PCM.HP ---
History of Present Illness - History of Present Illness History of Present Illness: Pt was a rapid response. She was hypotensive and not responding well. She is more awake now after getting Narcan. She was on narcotics for her back pain. No CP/SOB/N/V Present on Admission - Present on Admission Any Indicators Present on Admission: No Review of Systems - Constitutional Constitutional: absent: Daytime Sleepiness, Headache, Night Sweats, Sleep Apnea - EENT Eyes: absent: Blind Spots, Irritation, Itchy Eyes, Loss of Vision Nose/Mouth/Throat: absent: Nasal Discharge, Post Nasal Drip, Change in Voice, Dental Pain - Breasts Breasts: absent: Change in Shape - Cardiovascular Cardiovascular: Dyspnea on Exertion. absent: Chest Pain, Claudication, Edema, Pain Radiating to Arm/Neck/Jaw, Leg Edema, Paroxysmal Nocturnal Dyspnea, Rapid Heart Rate - Respiratory Respiratory: absent: Cough, Dyspnea, Hemoptysis, Pain on Inspiration, Change in Mucous Color - Gastrointestinal Gastrointestinal: absent: Abdominal Pain, Change in Stool Character, Coffee Ground Emesis, Early Satiety, Heartburn, Hematemesis - Genitourinary Genitourinary: absent: Difficulty Urinating, Pyuria, Nocturia, Urinary Incontinence - Reproductive: Female Reproductive:Female: absent: Amenorrhea/ Control, Cycle >35 Days, Cycle Variable - Menstruation Menstruation: Amenorrhea - Musculoskeletal Musculoskeletal: absent: Atrophy, Limited Range of Motion, Loss of Height, Myalgias, Neck Pain - Integumentary Integumentary: absent: Bleeding Lesions, Rash - Neurological Neurological: Disequilibrium. absent: Dizziness, Headaches, Lack of Coordination, Radicular Pain, Sensory Deficit - Psychiatric Psychiatric: Anxiety, Panic Attacks. absent: Anhedonia, Depression - Endocrine Endocrine: absent: Excessive Sweating, Palpitations Past Patient History - Infectious Disease Hx of Infectious Diseases: None - Tetanus Immunizations Tetanus Immunization: Unknown - Past Medical History & Family History Past Medical History?: Yes - Past Social History Smoking Status: Former Smoker Alcohol: None - CARDIAC Hx Cardiac Disorders: Yes (CAD with stents) Hx Hypertension: Yes - PULMONARY Hx Chronic Obstructive Pulmonary Disease (COPD): Yes - NEUROLOGICAL HX Cerebrovascular Accident: No - HEENT Hx HEENT Problems: Yes (right eye lazy eye,BLURRY VISION) Hx Cataracts: Yes (WITH SURGERY left eye only) Hx Deafness: No Hx Difficulty Chewing: No Hx Epistaxis: No Hx Macular Degeneration: No Other/Comment: eyeglasses, sx age 14 for strabismus right eye - RENAL Hx Renal Failure: No - ENDOCRINE/METABOLIC Hx Diabetes Mellitus Type 1: No Hx Diabetes Mellitus Type 2: No Hx Hypothyroidism: No - HEMATOLOGICAL/ONCOLOGICAL Hx Blood Disorders: Yes Hx AIDS: No Hx Anemia: No Hx Blood Transfusion Reaction: No Hx Bruising: No Hx Cancer: Yes (r breast over 20 yrs ago) Hx Chemotherapy: No (no chemo no radiation) Hx Cirrhosis: No Hx Gum Bleeding: No Hx Hemophilia: No Hx Hepatitis A: No Hx Hepatitis B: No Hx Hepatitis C: No Hx Leukemia: No Hx Metastesis: No Hx Shingles: No Hx Sickle Cell Disease: No Hx Unexplained Bleeding: No Hx von Willebrand's Disease: No Other/Comment: r mastectomy with reconstruction - INTEGUMENTARY Hx Dermatological Problems: No Hx Basil Cell: No Hx Damon: No Hx Cellulitis: No Hx Eczema: No Hx Melanoma: No Hx Psoriasis: No Hx Squamous Cell: No Other/Comment: BILATERAL LEG EDEMA +2 ,BRUISED SPEARS BONES - MUSCULOSKELETAL/RHEUMATOLOGICAL Hx Arthritis: Yes - GASTROINTESTINAL Hx Gastrointestinal Disorders: Yes (CONSTIPATION) - GENITOURINARY/GYNECOLOGICAL Hx Genitourinary Disorders: No - PSYCHIATRIC Hx Psychophysiologic Disorder: No Hx Anxiety: Yes Hx Bipolar Disorder: No Hx Depression: Yes Hx Emotional Abuse: No Hx Physical Abuse: No Hx Schizophrenia: No Hx Sexual Abuse: No Hx Substance Use: No - SURGICAL HISTORY Hx Abdominal Aortic Aneurysm Repair: No Hx Amputation: No Hx Angiogram: No Hx Angioplasty: No Hx Appendectomy: No Hx Arteriovenous Shunt: No Hx Arthroscopy: No Hx Bile Duct Stent: No Hx Breast Biopsy: Yes Hx Cataract Extraction: No Hx Cardiac Catheterization: No Hx Carotid Endarterectomy: No Hx Section: No Hx Cholecystectomy: Yes Hx Coronary Artery Bypass Graft: No Hx Coronary Stent: Yes Hx Dilation and Curettage: No Hx Eye Surgery: No Hx Femoral-Popliteal Bypass Graft: No Hx Gastric Bypass Surgery: No Hx Hysterectomy: No Hx Joint Replacement: No Hx Kidney Transplant: No Hx Liver Transplant: No Hx Mastectomy: No Hx Musculoskeletal Surgery: No Hx Open Heart Surgery: No Hx Open Reduction Internal Fixation: No Other/Comment: left toe sx, r ankle fx sx with pin - ANESTHESIA Hx Anesthesia: Yes Hx Anesthesia Reactions: No Hx Malignant Hyperthermia: No Meds Allergies/Adverse Reactions: Allergies Allergy/AdvReac Type Severity Reaction Status Date / Time No Known Allergies Allergy Verified 10/04/16 16:49 Physical Exam - Head Exam Head Exam: ATRAUMATIC, NORMAL INSPECTION, NORMOCEPHALIC - Eye Exam Eye Exam: EOMI, Normal appearance, PERRL - ENT Exam ENT Exam: Mucous Membranes Moist, Normal Exam - Neck Exam Neck exam: Positive for: Normal Inspection - Respiratory Exam Respiratory Exam: Clear to Auscultation Bilateral, NORMAL BREATHING PATTERN - Cardiovascular Exam Cardiovascular Exam: REGULAR RHYTHM - GI/Abdominal Exam GI & Abdominal Exam: Normal Bowel Sounds, Soft. absent: Guarding, Hypoactive Bowel Sounds, Tenderness - Rectal Exam Rectal Exam: NORMAL INSPECTION - Back Exam Back exam: NORMAL INSPECTION. absent: CVA tenderness (L), CVA tenderness (R) - Neurological Exam Neurological exam: Alert, CN II-XII Intact, Normal Gait, Reflexes Normal - Psychiatric Exam Psychiatric exam: Normal Affect, Normal Mood - Skin Skin Exam: Dry, Intact, Normal Color, Warm Results - Vital Signs Recent Vital Signs: Last Vital Signs Temp 99.6 F 10/09/16 08:32 Pulse 78 10/09/16 09:44 Resp 20 10/09/16 09:44 BP 90/57 L 10/09/16 09:44 Pulse Ox 96 10/09/16 09:44 - Labs Result Diagrams: 10/09/16 09:37 10/09/16 09:37 Assessment & Plan - Assessment and Plan (Free Text) Assessment: SOB Hyponatremia Anxiety Osteoporosis Gait Dysfunction Plan: IV Steriods. Neb treatment. Xanax for anxiety. Meds reviewed. Reg diet.
[2016-10-09] MEDS: Enoxaparin 30 mg Syringe SC SCH (12:29)
[2016-10-09] MEDS: Albuterol-Ipratrop 3 mg / 0.5 (3 ml) UD IH SCH ×2 (13:23→19:49)
[2016-10-09] MEDS ORDERED: Pneumococcal 23-Valent Vaccine IM ONE (13:45)
[2016-10-10] MEDS: Oxycodone/Acetaminophen 10/325 mg Tab PO PRN ×3 (00:30→15:58)
[2016-10-10 06:58] LABS: HEMOGLOBIN 10.3 gm/dL (12.0-16.0); MEAN CORPUSCULAR HEMOGLOBIN 31.1 pg (25.0-35.0); MEAN CORPUSCULAR HGB CONC 33.1 g/dl (31.0-37.0); MEAN PLATELET VOLUME 8.8 fl (7.0-11.0); RBC 3.31 10^6/uL (3.5-6.1); RED CELL DISTRIBUTION WIDTH 12.7 % (11.5-14.5); WHITE BLOOD COUNT 8.1 10^3/ul (4.5-11.0)
[2016-10-10 07:06] LABS: ALB/GLOB RATIO 1.1 (1.1-1.8); ALBUMIN 3.2 g/dL (3.0-4.8); ALT/SGPT 28 U/L (7-56); AST/SGOT 25 U/L (15-39); BLOOD UREA NITROGEN 41 mg/dL (7-21); CALCIUM 8.8 mg/dL (8.4-10.5); GFR AFRICAN-AMERICAN > 60; GFR NON-AFRICAN AMERICAN > 60
[2016-10-10] MEDS: Albuterol-Ipratrop 3 mg / 0.5 (3 ml) UD IH SCH ×3 (07:47→19:45)
[2016-10-10] MEDS: Enoxaparin 30 mg Syringe SC SCH (09:52)
[2016-10-10 16:02] VITALS: RESP 22
[2016-10-11] MEDS: Oxycodone/Acetaminophen 10/325 mg Tab PO PRN (00:38)
[2016-10-11 07:44] LABS: HEMOGLOBIN 9.8 gm/dL (12.0-16.0); MEAN CELL VOLUME 95.3 fL (80.0-105.0); MEAN CORPUSCULAR HEMOGLOBIN 30.4 pg (25.0-35.0); MEAN CORPUSCULAR HGB CONC 31.9 g/dl (31.0-37.0); MEAN PLATELET VOLUME 8.9 fl (7.0-11.0); RBC 3.22 10^6/uL (3.5-6.1); WHITE BLOOD COUNT 5.8 10^3/ul (4.5-11.0)
[2016-10-11 07:57] LABS: ALB/GLOB RATIO 1.3 (1.1-1.8); ALT/SGPT 30 U/L (7-56); AST/SGOT 28 U/L (15-39); BLOOD UREA NITROGEN 24 mg/dL (7-21); CALCIUM 8.6 mg/dL (8.4-10.5); GFR AFRICAN-AMERICAN > 60; GFR NON-AFRICAN AMERICAN > 60
[2016-10-11] MEDS: Albuterol-Ipratrop 3 mg / 0.5 (3 ml) UD IH SCH ×2 (08:20→14:08)
[2016-10-11 08:40] VITALS: BP 109/56; PULSE 70; TEMP 98.4; O2SAT 96
[2016-10-11] MEDS: Enoxaparin 30 mg Syringe SC SCH (09:55)
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
== END 2016-10-11 15:33 | DRG 191 ==
LOC: ED 08:23 → ERH 10:26 → 3RNO 13:01 → OBSVTOIN 10-10 12:09
PROVIDERS: ADMIT Internal Medicine Nephrology; ATTEND Internal Medicine Nephrology
DX: J44.1 Chronic obstructive pulmonary disease with (acute) exacerbation (principal); E87.1 Hypo-osmolality and hyponatremia; C50.919 Malignant neoplasm of unspecified site of unspecified female breast; I10 Essential (primary) hypertension; I25.10 Atherosclerotic heart disease of native coronary artery without angina pectoris; Z90.11 Acquired absence of right breast and nipple; M19.90 Unspecified osteoarthritis, unspecified site; F41.8 Other specified anxiety disorders; M81.0 Age-related osteoporosis without current pathological fracture; R26.9 Unspecified abnormalities of gait and mobility

== ENCOUNTER 2016-10-11 15:36 | Inpatient (IN) | payer MEDICARE, BC ==
--- NOTE | 2016-10-11 17:57 | PCM.BM ---
<Mani Hayes - Last Filed: 10/11/16 18:00> Treatment Plan Problems - Problems identified on initial assessmt ANXIETY Date Initiated: 10/11/16 Time Initiated: 17:50 Assessment reference: NA Status: Active PANIC ATTACKS Date Initiated: 10/11/16 Time Initiated: 17:51 Assessment reference: NA Status: Active FEAR Date Initiated: 10/11/16 Time Initiated: 17:52 Status: Active INEFFECTIVE BREATHING PATTERN Date Initiated: 10/11/16 Time Initiated: 17:57 Status: Active Treatment assets and liabiliti Patient Assests: adapts well, other Patient Liabilities: live alone, medical problems, other - Milieu Protocol Maintain good personal hygiene: daily Encourage regular showers, daily Remind patient to perform daily oral care, daily Assist patient to perform ADL's Maintain personal safety: daily Educate patient to report safety concerns to staff, daily Monitor environment for contraband/sharps Medication safety: Monitor for expected outcome, potential side effects: daily, Assess barriers to learning: daily, Assess readiness for medication education: daily Discharge/Continuing Care - Education Needs Education Needs: Patient Medication, Patient Diagnosis/Disease Process, Patient Coping Skills, Patient Anger Management skills, Patient Placement options, Patient Community resources, Patient Activities of Daily Living, Patient Uses of Medical Equipment, Patient Personal Hygiene/Grooming, Patient Aftercare Safety Plan - Discharge Discharge Criteria: Tolerates medication w/o severe side effects, Other, Free of Suicidal thoughts, Free of Homicidal thoughts, Free of paranoid thoughts, Free of agitation, Normal sleep pattern, Ability to care for self, No longer exhibiting s/s of withdrawal, Reduction of target symptoms Discharge to:: Home <Zoila Koch - Last Filed: 10/12/16 16:51> Family Contact Family involvement: Family/SO is involved Family contact: Patient agrees to contact Family contact name: Av Fulton(son) [phone] Family contacted how many times per week?: 2 - Goals for Treatment Patient goals for treatment: "To reorient myself so that I can go back home."
[2016-10-11] MEDS: Oxycodone/Acetaminophen 10/325 mg Tab PO PRN (19:09)
[2016-10-11] MEDS: Albuterol-Ipratrop 3 mg / 0.5 (3 ml) UD IH SCH (20:25)
[2016-10-12] MEDS ORDERED: Alum-Mag Hydrox-Simethicone Susp (30 mL) PO PRN (01:36)
[2016-10-12] MEDS ORDERED: Magnesium Hydroxide Susp 30 ml UD PO PRN (01:36)
[2016-10-12] MEDS: Albuterol-Ipratrop 3 mg / 0.5 (3 ml) UD IH SCH ×4 (02:00→20:55)
[2016-10-12] MEDS: Oxycodone/Acetaminophen 10/325 mg Tab PO PRN (03:03)
[2016-10-12 08:01] LABS: GLUCOSE,FASTING 83 mg/dL (65-110); HDL CHOLESTEROL 49 mg/dL (29-60)
[2016-10-12 08:12] LABS: LDL CHOLESTEROL 96 mg/dL (0-129)
[2016-10-12 08:26] LABS: FREE T4 1.22 ng/dL (0.78-2.19)
[2016-10-12] MEDS: Enoxaparin 30 mg Syringe SC SCH (09:08)
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
[2016-10-13] MEDS: Albuterol-Ipratrop 3 mg / 0.5 (3 ml) UD IH SCH ×3 (01:44→20:54)
[2016-10-13] MEDS: Enoxaparin 30 mg Syringe SC SCH (07:53)
[2016-10-13] MEDS ORDERED: Albuterol-Ipratrop 3 mg / 0.5 (3 ml) UD IH PRN (08:46)
--- NOTE | 2016-10-13 08:47 | CP.PCM.CON ---
History of Present Illness - History of Present Illness History of Present Illness: Pt with controlled back pain. She is breathing well. No CP/SOB/N/V/F/BILL. She is being evaluated for her COPD and her back pain. She had a fall at home. She has been getting PT and improving. Review of Systems - Constitutional Constitutional: Weight Loss. absent: Fatigue, Lethargy, Malaise, Sleep Apnea - EENT Eyes: absent: Irritation, Photophobia, Requires Corrective Lenses, Sees Flashes Nose/Mouth/Throat: absent: Sinus Pain, Dry Mouth, Dysphagia, Odynophagia - Cardiovascular Cardiovascular: absent: Pain Radiating to Arm/Neck/Jaw, Leg Edema, Palpitations , Paroxysmal Nocturnal Dyspnea - Respiratory Respiratory: absent: Pain on Inspiration - Gastrointestinal Gastrointestinal: absent: Coffee Ground Emesis, Constipation - Genitourinary Genitourinary: absent: Urinary Frequency, Urinary Hesitance, Hx Renal/Bladder Calculi - Musculoskeletal Musculoskeletal: Abnormal Gait, Arthralgias, Back Pain, Deformity, Loss of Height. absent: Neck Pain - Integumentary Integumentary: absent: Bleeding Lesions, Non-Healing Lesions, Skin Ulcer, Swelling - Psychiatric Psychiatric: Anxiety, Panic Attacks. absent: Hallucinations, Homicidal Ideation - Endocrine Endocrine: absent: Excessive Sweating, Heat Intolorance Past Patient History - Infectious Disease Hx of Infectious Diseases: None - Tetanus Immunizations Tetanus Immunization: Unknown - Past Medical History & Family History Past Medical History?: Yes - Past Social History Smoking Status: Former Smoker - CARDIAC Hx Cardiac Disorders: Yes (CAD with stents) Hx Hypertension: Yes Hx Peripheral Edema: Yes (+1 pitting edema r ft) - PULMONARY Hx Asthma: Yes Hx Chronic Obstructive Pulmonary Disease (COPD): Yes (has home o2) Hx Emphysema: Yes - NEUROLOGICAL HX Cerebrovascular Accident: No - HEENT Hx HEENT Problems: Yes (right eye lazy eye,BLURRY VISION) Hx Cataracts: Yes (WITH SURGERY left eye only) Hx Deafness: No Hx Difficulty Chewing: No Hx Epistaxis: No Hx Macular Degeneration: No Other/Comment: eyeglasses, sx age 14 for strabismus right eye - RENAL Hx Renal Failure: No - ENDOCRINE/METABOLIC Hx Diabetes Mellitus Type 1: No Hx Diabetes Mellitus Type 2: No Hx Hypothyroidism: No - HEMATOLOGICAL/ONCOLOGICAL Hx Blood Disorders: Yes Hx Cancer: Yes (r breast over 20 yrs ago) Hx Chemotherapy: No (no chemo no radiation) Other/Comment: r mastectomy with reconstruction - INTEGUMENTARY Hx Squamous Cell: No Other/Comment: +1 pitting edema r ft bottom of foot red c/o pain, dry skin to lips, pt refusing to turn over for back asseesment - MUSCULOSKELETAL/RHEUMATOLOGICAL Hx Falls: Yes (past) - GASTROINTESTINAL Hx Gastrointestinal Disorders: Yes (CONSTIPATION) - GENITOURINARY/GYNECOLOGICAL Hx Urinary Tract Infection: Yes - PSYCHIATRIC Hx Substance Use: No - SURGICAL HISTORY Hx Cholecystectomy: Yes Hx Coronary Stent: Yes Other/Comment: left toe sx, r ankle fx sx with pin, c section - ANESTHESIA Hx Anesthesia: Yes Hx Anesthesia Reactions: No Hx Malignant Hyperthermia: No Meds Allergies/Adverse Reactions: Allergies Allergy/AdvReac Type Severity Reaction Status Date / Time No Known Allergies Allergy Verified 10/11/16 23:08 - Medications Medications: Current Medications Acetaminophen (Tylenol 325mg Tab) 650 mg PO Q4H PRN PRN Reason: Pain, Mild (1-3) Last Admin: 10/12/16 22:07 Dose: 650 mg Al Hydrox/Mg Hydrox/Simethicone (Maalox Plus 30 Ml) 30 ml PO DAILY PRN PRN Reason: Upset Stomach Last Admin: 10/12/16 01:45 Dose: 30 ml Albuterol/Ipratropium (Duoneb 3 Mg/0.5 Mg (3 Ml) Ud) 3 ml IH [id number] [facility] Last Admin: 10/13/16 08:33 Dose: 3 ml Alprazolam (Xanax) 0.25 mg PO Q4H PRN; Protocol PRN Reason: Anxiety Stop: 10/18/16 16:01 Last Admin: 10/12/16 23:57 Dose: 0.25 mg Atenolol (Tenormin) 50 mg PO DAILY [facility] Last Admin: 10/13/16 07:52 Dose: 50 mg Enoxaparin Sodium (Lovenox) 30 mg SC DAILY [facility] PRN Reason: Protocol Last Admin: 10/13/16 07:53 Dose: 30 mg Escitalopram Oxalate (Lexapro) 10 mg PO DAILY [facility] Last Admin: 10/13/16 07:53 Dose: 10 mg Famotidine (Pepcid) 20 mg PO 1000,2200 [facility] Last Admin: 10/12/16 21:12 Dose: 20 mg Lisinopril (Zestril) 10 mg PO DAILY [facility] Last Admin: 10/13/16 07:52 Dose: 10 mg Magnesium Hydroxide (Milk Of Magnesia) 30 ml PO DAILY PRN PRN Reason: Constipation Oxycodone/Acetaminophen (Percocet 10/325 Mg Tab) 1 tab PO Q6H PRN PRN Reason: Pain, moderate (4-7) Last Admin: 10/11/16 19:09 Dose: 1 tab Quetiapine Fumarate (Seroquel) 25 mg PO HS [facility] PRN Reason: Protocol Last Admin: 10/12/16 21:12 Dose: 25 mg Physical Exam - Constitutional Appears: Well - Head Exam Head Exam: ATRAUMATIC, NORMAL INSPECTION, NORMOCEPHALIC - Eye Exam Eye Exam: EOMI, Normal appearance, PERRL Pupil Exam: NORMAL ACCOMODATION, PERRL - ENT Exam ENT Exam: Mucous Membranes Moist, Normal Exam - Neck Exam Neck exam: Positive for: Normal Inspection - Respiratory Exam Respiratory Exam: Clear to Auscultation Bilateral, NORMAL BREATHING PATTERN - Cardiovascular Exam Cardiovascular Exam: REGULAR RHYTHM, RRR, +S1, +S2 - GI/Abdominal Exam GI & Abdominal Exam: Normal Bowel Sounds, Soft. absent: Distended, Organomegaly , Rebound, Tenderness - Rectal Exam Rectal Exam: NORMAL INSPECTION - Back Exam Back exam: NORMAL INSPECTION - Neurological Exam Neurological exam: Alert, CN II-XII Intact, Normal Gait, Oriented x3, Reflexes Normal Results - Vital Signs Recent Vital Signs: Last Vital Signs Temp 97.9 F 10/13/16 07:22 Pulse 63 10/13/16 07:22 Resp 20 10/13/16 07:22 BP 146/74 10/13/16 07:22 Pulse Ox Assessment & Plan - Assessment and Plan (Free Text) Assessment: Hyponatremia Anxiety Osteoporosis Gait Dysfunction . Plan: Pt on Psych floor. Continue with PT. On Seroqeul. Check CMP for Na. On Lisinopril for HTN. Xanax for anxiety. Neb treatment prn - Date & Time Date: 10/13/16 Time: 08:46
[2016-10-13] MEDS: Oxycodone/Acetaminophen 10/325 mg Tab PO PRN ×2 (10:16→18:14)
--- NOTE | 2016-10-13 15:53 | PCM.PYCHPN ---
Psychiatric Progress Note - Psychiatric Progress Note Patient seen today, length of contact: 25 Patient Chief Complaint: Anxiety and fear of dying Problems Identified/Issues Discussed: emotional lability, anxiety, intermittent confusion, gait disturbance Medical Problems: Had individual and group milieu therapy and pharmacotherapy DSM 5 Symptoms Update: patient seems to be benefiting from individual and group milieu therapy and physical therapy. Was able to engage in meaningful life review Medication Change: No Medical Record Reviewed: No Consults ordered or reviewed: reviewed Mental Status Examination - Cognitive Function Orientation: Person, Place, Situation, Time Memory: Intact Attention: WNL Concentration: WNL Association: WNL Decription of patient's judgement and insights: improving - Mood Mood: Anxious - Affect Affect: Constricted ( ), Other - Speech Speech: Appropriate - Formal Thought Process Formal Thought Process: No Impairment, Other - Suicidal Ideation Suicidal Ideation: No - Homicidal Ideation Homicidal Ideation: No Goal/Treatment Plan - Goal/Treatment Plan Progress Toward Problem(s) and Goals/Treatment Plan: Engage patient in supportive psychotherapy as well as help her develop some insight. Offer reassurance and support. Adjust medication. Complete medical workup. Sure home fits guidelines for safety. Estimated Date of D/C: 10/16/16
[2016-10-13] MEDS ORDERED: Albuterol-Ipratrop 3 mg / 0.5 (3 ml) UD IH SCH (16:00)
[2016-10-14] MEDS: Oxycodone/Acetaminophen 10/325 mg Tab PO PRN ×3 (03:47→18:08)
[2016-10-14 07:41] LABS: HEMOGLOBIN 10.5 gm/dL (12.0-16.0); MEAN CELL VOLUME 93.1 fL (80.0-105.0); MEAN CORPUSCULAR HEMOGLOBIN 30.2 pg (25.0-35.0); MEAN CORPUSCULAR HGB CONC 32.4 g/dl (31.0-37.0); MEAN PLATELET VOLUME 8.7 fl (7.0-11.0); RBC 3.48 10^6/uL (3.5-6.1); RED CELL DISTRIBUTION WIDTH 12.9 % (11.5-14.5); WHITE BLOOD COUNT 4.1 10^3/ul (4.5-11.0)
[2016-10-14 07:53] LABS: ALB/GLOB RATIO 1.2 (1.1-1.8); ALBUMIN 3.2 g/dL (3.0-4.8); ALT/SGPT 37 U/L (7-56); AST/SGOT 39 U/L (15-39); BLOOD UREA NITROGEN 12 mg/dL (7-21); CALCIUM 8.6 mg/dL (8.4-10.5); GFR AFRICAN-AMERICAN > 60; GFR NON-AFRICAN AMERICAN > 60
[2016-10-14] MEDS: Enoxaparin 30 mg Syringe SC SCH (08:07)
[2016-10-14] MEDS: Albuterol-Ipratrop 3 mg / 0.5 (3 ml) UD IH SCH ×2 (09:30→21:00)
--- NOTE | 2016-10-14 12:07 | PCM.PYCHPN ---
Psychiatric Progress Note - Psychiatric Progress Note Patient seen today, length of contact: 30 minutes Patient Chief Complaint: "i'm feeling fine today, in good spirits, but little anxious" Problems Identified/Issues Discussed: Suicide/ homicide prevention, past psychiatric h/o, current psychiatric symptoms , medical problems, risk/benefits and alternatives of medications, medications compliance, coping strategies, substance abuse h/o, relapse prevention, importance of follow up with psychiatrist and therapist, discharge plan. Medical Problems: Pt with controlled back pain. She is breathing well. No CP/SOB/N/V/F/BILL. She is being evaluated for her COPD and her back pain. She had a fall at home. She has been getting PT and improving. Diagnostic Results: 10/14/16 07:00 10/14/16 07:00 Lab Results 10/14/16 07:00: Sodium 132, Potassium 3.6, Chloride 88 L, Carbon Dioxide 39 H, Anion Gap 9 L, BUN 12, Creatinine 0.5, Est GFR ( Amer) > 60, Est GFR (Non -Af Amer) > 60, Random Glucose 77, Calcium 8.6, Total Bilirubin 0.8, AST 39, ALT 37, Alkaline Phosphatase 92, Total Protein 5.8, Albumin 3.2, Globulin 2.6, Albumin/Globulin Ratio 1.2 10/14/16 07:00: WBC 4.1 L D, RBC 3.48 L, Hgb 10.5 L, Hct 32.4 L, MCV 93.1, MCH 30.2, MCHC 32.4, RDW 12.9, Plt Count 254, MPV 8.7 10/12/16 07:20: Free T4 1.22, TSH 3rd Generation 1.4 10/12/16 07:20: Fasting Glucose 83, Triglycerides 110, Cholesterol 152, LDL Cholesterol Direct 96, HDL Cholesterol 49 Vital Signs Temp Pulse Resp BP 10/14/16 08:06 53 L 132/65 10/14/16 08:04 132/65 10/14/16 07:12 97.6 F 53 L 20 132/65 10/13/16 16:45 64 139/79 10/13/16 07:22 97.9 F 63 20 146/74 10/12/16 16:00 72 104/51 L 10/12/16 13:32 97.3 F L 10/12/16 10:21 97.7 F 10/12/16 09:24 95 H 95/66 L 10/12/16 09:23 68 95/66 L 10/12/16 09:21 97.2 F L 10/12/16 07:48 97.8 F 56 L 20 126/66 10/11/16 16:41 97.6 F 68 17 107/56 L DSM 5 Symptoms Update: shortly patient is 75 year old female with past medical history of COPD on home O2, breast CA s/p Right breast mastectomy, HTN, CAD, OA, 10/04/16 for back pain secondary to compression fracture of T11, L5 and sacrum, 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 Patient was found by the staff to have difficulty breathing and rapid response was called, patient was stabilized on the medical side, was found to be depressed and anxious, was transferred to the psychiatric inpatient unit under Dr. Messina services. This contract technical writer is covering for Dr. Messina today. Patient is very familiar to this contract technical writer from the multiple admissions to the psychiatric inpatient units in the past most likely related to anxiety and depressive symptoms due to general medical condition. Patient presented Fairly well, patient reported that she had a good night sleep, at the same time patient said "I was scared at the nighttime", patient reported that her mood is improving, she feels anxious, patient was offered to be on scheduled dose of xanax 0.25 mg twice a day instead of when necessary medication. Patient was in agreement with that plan, said "I think it will be a good idea, because when I feel anxious it takes a long time for the medication to start working". as per staff, patient feels anxious on and off, no behavioral disturbances, patient still appears to be depressed, anxious, has fair appetite and sleep. Patient tolerates medications well, no side effects observed or reported, aims 0 , no EPS. Patient was seen by medical team, notes reviewed. 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 Rule out major depressive disorder Rule out panic disorder Rule out generalized anxiety disorder Medication Change: No (xanax 0.25bid scheduled) Medical Record Reviewed: No Consults ordered or reviewed: medical consult reviewed, appreciated Mental Status Examination - Cognitive Function Orientation: Person, Place, Situation, Time Memory: Intact Attention: WNL Concentration: WNL Association: WNL - Mood Mood: Depressed ("I feel better"), Anxious - Affect Affect: Constricted ( ), Other - Speech Speech: Appropriate - Formal Thought Process Formal Thought Process: No Impairment, Other - Suicidal Ideation Suicidal Ideation: No - Homicidal Ideation Homicidal Ideation: No Goal/Treatment Plan - Goal/Treatment Plan Need for Continued Stay: Remain at risks for inpatient hospitalization, Severe depression anxiety, Discharge may exacerbated symptoms, Severe functional impairment Progress Toward Problem(s) and Goals/Treatment Plan: milieu, structure, supportive therapy xanax 0.5 mg twice a day for anxiety continue current medications will monitor patient closely will d/w on Sunday. Estimated Date of D/C: 10/16/16
[2016-10-15] MEDS: Enoxaparin 30 mg Syringe SC SCH (07:58)
[2016-10-15] MEDS: Oxycodone/Acetaminophen 10/325 mg Tab PO PRN ×3 (08:00→20:25)
[2016-10-15] MEDS: Albuterol-Ipratrop 3 mg / 0.5 (3 ml) UD IH SCH ×2 (09:04→21:30)
--- NOTE | 2016-10-15 11:16 | PCM.PYCHPN ---
Psychiatric Progress Note - Psychiatric Progress Note Patient seen today, length of contact: 25 minutes Patient Chief Complaint: "When do you think I will be discharged?" Problems Identified/Issues Discussed: Suicide/ homicide prevention, past psychiatric h/o, current psychiatric symptoms , medical problems, risk/benefits and alternatives of medications, medications compliance, coping strategies, substance abuse h/o, relapse prevention, importance of follow up with psychiatrist and therapist, discharge plan. Medical Problems: Pt with controlled back pain. She is breathing well. No CP/SOB/N/V/F/BILL. She is being evaluated for her COPD and her back pain. She had a fall at home. She has been getting PT and improving. Diagnostic Results: 10/14/16 07:00 10/14/16 07:00 Lab Results 10/14/16 07:00: Sodium 132, Potassium 3.6, Chloride 88 L, Carbon Dioxide 39 H, Anion Gap 9 L, BUN 12, Creatinine 0.5, Est GFR ( Amer) > 60, Est GFR (Non -Af Amer) > 60, Random Glucose 77, Calcium 8.6, Total Bilirubin 0.8, AST 39, ALT 37, Alkaline Phosphatase 92, Total Protein 5.8, Albumin 3.2, Globulin 2.6, Albumin/Globulin Ratio 1.2 10/14/16 07:00: WBC 4.1 L D, RBC 3.48 L, Hgb 10.5 L, Hct 32.4 L, MCV 93.1, MCH 30.2, MCHC 32.4, RDW 12.9, Plt Count 254, MPV 8.7 10/12/16 07:20: Free T4 1.22, TSH 3rd Generation 1.4 10/12/16 07:20: Fasting Glucose 83, Triglycerides 110, Cholesterol 152, LDL Cholesterol Direct 96, HDL Cholesterol 49 Vital Signs Temp Pulse Resp BP 10/14/16 08:06 53 L 132/65 10/14/16 08:04 132/65 10/14/16 07:12 97.6 F 53 L 20 132/65 10/13/16 16:45 64 139/79 10/13/16 07:22 97.9 F 63 20 146/74 10/12/16 16:00 72 104/51 L 10/12/16 13:32 97.3 F L 07/06/17 10:21 97.7 F 10/12/16 09:24 95 H 95/66 L 10/12/16 09:23 68 95/66 L 10/12/16 09:21 97.2 F L 10/12/16 07:48 97.8 F 56 L 20 126/66 10/11/16 16:41 97.6 F 68 17 107/56 L Temp Pulse Resp BP Pulse Ox 97.9 F 68 16 140/67 10/15/16 06:53 10/15/16 06:53 10/15/16 06:53 10/15/16 06:53 DSM 5 Symptoms Update: shortly patient is 75 year old female with past medical history of COPD on home O2, breast CA s/p Right breast mastectomy, HTN, CAD, OA, 10/04/16 for back pain secondary to compression fracture of T11, L5 and sacrum, 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 Patient was found by the staff to have difficulty breathing and rapid response was called, patient was stabilized on the medical side, was found to be depressed and anxious, was transferred to the psychiatric inpatient unit under Dr. Messina services. This jingle writer is covering for Dr. Messina today. Patient is very familiar to this jingle writer from the multiple admissions to the psychiatric inpatient units in the past. Pt most likely has anxiety and depressive symptoms due to general medical condition. Patient presented fairly well today, patient reported that she had a good night sleep, pt said that she feels less anxious after xanax was given as schedule dose, asked about possible discharge on Sunday, advised to speak to . As per staff no behavioral disturbances, patient appears less depressed and less anxious, has fair appetite and sleep. Patient tolerates medications well, no side effects observed or reported, aims 0 , no EPS. Patient was seen by medical team, notes reviewed. 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 Rule out major depressive disorder Rule out panic disorder Rule out generalized anxiety disorder Medication Change: Yes (xanax 0.25bid scheduled yesterday) Medical Record Reviewed: No Consults ordered or reviewed: medical consult reviewed, appreciated Mental Status Examination - Cognitive Function Orientation: Person, Place, Situation, Time Memory: Intact Attention: WNL Concentration: WNL Association: WNL - Mood Mood: Depressed ("I feel better"), Anxious ("I am less anxious") - Affect Affect: Constricted ( ), Other - Speech Speech: Appropriate - Formal Thought Process Formal Thought Process: No Impairment, Other - Suicidal Ideation Suicidal Ideation: No - Homicidal Ideation Homicidal Ideation: No Goal/Treatment Plan - Goal/Treatment Plan Need for Continued Stay: Remain at risks for inpatient hospitalization, Severe depression anxiety, Discharge may exacerbated symptoms, Severe functional impairment Progress Toward Problem(s) and Goals/Treatment Plan: milieu, structure, supportive therapy xanax 0.5 mg twice a day for anxiety continue current medications will monitor patient closely will d/w on Mm. Estimated Date of D/C: 10/16/16
[2016-10-16] MEDS: Oxycodone/Acetaminophen 10/325 mg Tab PO PRN ×2 (07:55→16:41)
[2016-10-16] MEDS: Enoxaparin 30 mg Syringe SC SCH (07:55)
[2016-10-16] MEDS: Albuterol-Ipratrop 3 mg / 0.5 (3 ml) UD IH SCH (09:16)
--- NOTE | 2016-10-16 18:19 | PCM.PYCHPN ---
Psychiatric Progress Note - Psychiatric Progress Note Patient seen today, length of contact: 25 minutes Patient Chief Complaint: Anxiety and fear of dying Problems Identified/Issues Discussed: emotional lability, anxiety, intermittent confusion, gait disturbance Medical Problems: Had individual and group milieu therapy and pharmacotherapy DSM 5 Symptoms Update: Remains fretful and anxious. Informs me however that her stay here has helped her away her anxiety and fears somewhat. This patient asking in a circuitous way for a intermediate or assisted living placement?? Medication Change: Yes (xanax 0.25bid scheduled yesterday) Medical Record Reviewed: Yes Consults ordered or reviewed: Review Mental Status Examination - Cognitive Function Orientation: Person, Place, Situation, Time Memory: Intact Attention: WNL Concentration: WNL Association: WNL - Mood Mood: Depressed ("I feel better"), Anxious ("I am less anxious") - Affect Affect: Constricted ( ), Other - Speech Speech: Appropriate - Formal Thought Process Formal Thought Process: No Impairment, Other - Suicidal Ideation Suicidal Ideation: No - Homicidal Ideation Homicidal Ideation: No Goal/Treatment Plan - Goal/Treatment Plan Need for Continued Stay: Remain at risks for inpatient hospitalization, Severe depression anxiety, Discharge may exacerbated symptoms, Severe functional impairment Progress Toward Problem(s) and Goals/Treatment Plan: Engage patient in supportive psychotherapy as well as help her develop some insight. Offer reassurance and support. Adjust medication. Complete medical workup. Sure home fits guidelines for safety. Patient expressing a desire to go home and a willingness to do so. My sense however is that patient is ample ambivalent than fearful of independent living. The son very much involved. The son cannot lemon picker mother today. Patient will be discharged tomorrow. Estimated Date of D/C: 10/16/16
[2016-10-17 07:36] VITALS: BP 141/66; PULSE 73; RESP 20; TEMP 97.9
== END 2016-10-17 08:21 | disposition home or self-care (01) | DRG 884 ==
LOC: PSYC 15:36
PROVIDERS: ADMIT Psychiatry & Neurology Addiction Medicine; ATTEND Psychiatry & Neurology Addiction Medicine
PROC: GZ3ZZZZ Medication Management (ICD-10-PCS; principal; 2016-10-11)
DX: F06.31 Mood disorder due to known physiological condition with depressive features (principal); F41.1 Generalized anxiety disorder; J44.9 Chronic obstructive pulmonary disease, unspecified; E87.1 Hypo-osmolality and hyponatremia; F60.7 Dependent personality disorder; F41.0 Panic disorder [episodic paroxysmal anxiety]; M54.9 Dorsalgia, unspecified; M81.0 Age-related osteoporosis without current pathological fracture; R26.9 Unspecified abnormalities of gait and mobility; I10 Essential (primary) hypertension; I25.10 Atherosclerotic heart disease of native coronary artery without angina pectoris; Z99.81 Dependence on supplemental oxygen; Z85.3 Personal history of malignant neoplasm of breast; Z90.11 Acquired absence of right breast and nipple; S22.089D Unspecified fracture of T11-T12 vertebra, subsequent encounter for fracture with routine healing; S32.059D Unspecified fracture of fifth lumbar vertebra, subsequent encounter for fracture with routine healing; S32.10XD Unspecified fracture of sacrum, subsequent encounter for fracture with routine healing; W19.XXXD Unspecified fall, subsequent encounter; Z87.891 Personal history of nicotine dependence

== ENCOUNTER 2016-11-25 11:28 | Inpatient (IN) | payer MEDICARE, BC ==
[2016-11-25 11:40] VITALS: BMI 21.2
[2016-11-25] MEDS ORDERED: Aspirin 325 mg EC Tablets PO STA (11:48)
[2016-11-25] MEDS ORDERED: Albuterol-Ipratrop 3 mg / 0.5 (3 ml) UD IH STA (11:49)
--- NOTE | 2016-11-25 11:55 | ED PDOC ---
Arrival/HPI - General Chief Complaint: Rib Injury Time Seen by Provider: 11/25/16 11:41 Historian: Patient - History of Present Illness Narrative History of Present Illness (Text): 11/25/16 11:47 A 75 year old female, whose past medical history includes COPD, hypertension and anxiety, presents to the emergency department complaining of shortness of breath since this morning. Patient notes left sided chest pain, worse when taking deep breaths. She also reports feeling anxious today. Patient denies any fever, chills, nausea, vomiting, abdominal pain, urinary symptoms, cough, congestion or any other complaints. Patient denies any recent travel or surgeries. PMD: Dr. Blair Time/Duration: Other (this morning) Symptom Course: Unchanged Quality: Other Context: Home Past Medical History - Provider Review Nursing Documentation Reviewed: Yes - Infectious Disease Hx of Infectious Diseases: None - Tetanus Immunization Tetanus Immunization: Unknown - Reproductive Menopause: Yes - Cardiac Hx Cardiac Disorders: Yes (CAD with stents) Hx Hypertension: Yes Hx Peripheral Edema: Yes (+1 pitting edema r ft) - Pulmonary Hx Asthma: Yes Hx Chronic Obstructive Pulmonary Disease (COPD): Yes (has home o2) Hx Emphysema: Yes - Neurological HX Cerebrovascular Accident: No - HEENT Hx HEENT Disorder: Yes (right eye lazy eye,BLURRY VISION) Hx Cataracts: Yes (WITH SURGERY left eye only) Hx Deafness: No Hx Difficulty Chewing: No Hx Epistaxis: No Hx Macular Degeneration: No Other/Comment: eyeglasses, sx age 14 for strabismus right eye - Renal Hx Renal Failure: No - Endocrine/Metabolic Hx Diabetes Mellitus Type 1: No Hx Diabetes Mellitus Type 2: No Hx Hypothyroidism: No - Hematological/Oncological Hx Blood Disorders: Yes Hx Cancer: Yes (r breast over 20 yrs ago) Hx Chemotherapy: No (no chemo no radiation) Other/Comment: r mastectomy with reconstruction - Integumentary Hx Squamous Cell Carcinoma: No Other/Comment: +1 pitting edema r ft bottom of foot red c/o pain, dry skin to lips, pt refusing to turn over for back asseesment - Musculoskeletal/Rheumatological Hx Falls: Yes (past) - Gastrointestinal Hx Gastrointestinal Disorders: Yes (CONSTIPATION) - Genitourinary/Gynecological Hx Urinary Tract Infection: Yes - Psychiatric Hx Psychophysiologic Disorder: No Hx Anxiety: Yes Hx Bipolar Disorder: No Hx Depression: Yes Hx Emotional Abuse: No Hx Physical Abuse: No Hx Schizophrenia: No Hx Sexual Abuse: No Hx Substance Use: No - Past Surgical History Past Surgical History: No Previous - Surgical History Hx Cholecystectomy: Yes Hx Coronary Stent: Yes Other/Comment: left toe sx, r ankle fx sx with pin, c section - Anesthesia Hx Anesthesia: Yes Hx Anesthesia Reactions: No Hx Malignant Hyperthermia: No - Suicidal Assessment Feels Threatened In Home Enviroment: No Family/Social History - Physician Review Nursing Documentation Reviewed: Yes Family/Social History: No Known Family HX Smoking Status: Former Smoker Hx Alcohol Use: No Hx Substance Use: No Hx Substance Use Treatment: No Allergies/Home Meds Allergies/Adverse Reactions: Allergies No Known Allergies Allergy (Verified 11/25/16 11:42) Review of Systems - Physician Review All systems were reviewed & negative as marked: Yes - Review of Systems Constitutional: absent: Fevers, Night Sweats ENT: absent: Sinus Congestion Respiratory: SOB. absent: Cough Cardiovascular: Chest Pain Gastrointestinal: absent: Abdominal Pain, Nausea, Vomiting Genitourinary Female: absent: Dysuria, Frequency, Hematuria, Urine Output Changes Psychiatric: Anxiety Physical Exam Vital Signs Reviewed: Yes Vital Signs Temp Pulse Resp BP Pulse Ox 11/25/16 12:00 97.6 F 96 H 22 134/73 99 11/25/16 11:40 98.1 F 68 24 134/73 100 Temperature: Afebrile Blood Pressure: Normal Pulse: Regular Respiratory Rate: Normal Appearance: Positive for: Well-Appearing, Non-Toxic, Comfortable Pain Distress: None Mental Status: Positive for: Alert and Oriented X 3 - Systems Exam Head: Present: Atraumatic, Normocephalic Pupils: Present: PERRL Extroacular Muscles: Present: EOMI Conjunctiva: Present: Normal Mouth: Present: Moist Mucous Membranes Pharnyx: No: ERYTHEMA, EXUDATE, TONSILS ENLARGED Neck: Present: Normal Range of Motion Respiratory/Chest: Present: Rhonchi (in left lung field), Tachypneic. No: Respiratory Distress, Accessory Muscle Use, Wheezes Cardiovascular: Present: Regular Rate and Rhythm, Normal S1, S2. No: Murmurs Abdomen: Present: Normal Bowel Sounds. No: Tenderness, Distention, Peritoneal Signs Back: Present: Normal Inspection Upper Extremity: Present: Normal Inspection. No: Cyanosis, Edema Lower Extremity: Present: Normal Inspection. No: Edema Neurological: Present: GCS=15, CN II-XII Intact, Speech Normal Skin: Present: Warm, Dry, Normal Color. No: Rashes Psychiatric: Present: Alert, Oriented x 3, Normal Insight, Normal Concentration Medical Decision Making ED Course and Treatment: 11/25/16 11:47 Impression: A 75 year old female with shortness of breath, left sided chest pain and anxiety. On exam, tachypneic and rhonchi in left lung field. Differential Diagnosis included but are not limited to: PNA vs. COPD vs. ACS Plan: -- Chest xray -- EKG -- Labs -- Urinalysis -- Duoneb, Ecotrin, Ativan and Solumedrol -- Reassess and disposition Progress Notes: EKG shows NSR at 72 BPM with PVCs otherwise normal. Interpreted by me. Report Date : 11/25/2016 12:17:16 Procedure: Chest xray Dictator : Anson Fagan MD IMPRESSION: No active disease. Report Date : 11/25/2016 13:43:39 PROCEDURE: CT Chest with contrast (Pulmonary Angiogram) Dictator : Anson Fagan MD IMPRESSION: No evidence pulmonary embolism. Centrilobular pulmonary emphysema. No acute infiltrate. Multiple thoracic vertebral compression fractures unchanged from 10/02/2016. 11/25/16 14:57 CT results reviewed. Patient appears more comfortable after oxygen and treatment. Lungs are clear. Left sided chest pain improved. She states at times it hurts more when she moves. Consider ACS vs MSK. Case discussed with Dr. Ramirez who is covering for Dr. Blair who agrees to telemetry observation. Dr. Bee/Darby have consulted for cardiology before so consult was placed. Patient states she doesn't have a mixer whipped topping. - Lab Interpretations Lab Results: 11/25/16 11:55 11/25/16 11:55 Lab Results 11/25/16 14:19: pCO2 66 H, pO2 77.0 L, HCO3 40.0 H, ABG pH 7.39, ABG Total CO2 42.0 H, ABG O2 Saturation 97.7, ABG O2 Content 15.7, ABG Base Excess 12.5 H, ABG Hemoglobin 11.7, ABG Carboxyhemoglobin 1.8 H, POC ABG HHb (Measured) 2.2, ABG Methemoglobin 1.0, ABG O2 Capacity 16.1, Hgb O2 Saturation 95.0, FiO2 28.0 11/25/16 11:55: Sodium 139, Chloride 95 L, Potassium 3.7, Carbon Dioxide 38 H, Anion Gap 10, BUN 11, Creatinine 0.5, Est GFR ( Amer) > 60, Est GFR (Non- Af Amer) > 60, Random Glucose 100, Calcium 9.1, Lactate Dehydrogenase 505, Total Creatine Kinase 37, Troponin I < 0.01, NT-Pro-B Natriuret Pep 771 H 11/25/16 11:55: pO2 49, VBG pH 7.33, VBG pCO2 79.0 H*, VBG HCO3 41.7 H, VBG Total CO2 44.1 H, VBG O2 Sat (Calc) 88.5 H, VBG Base Excess 12.5 H, VBG Potassium 3.9, Sodium 139.0, Chloride 97.0 L, Glucose 100, Lactate 0.8, FiO2 21.0, Venous Blood Potassium 3.9 11/25/16 11:55: PT 10.3, INR 0.95, APTT 24.5, D-Dimer, Quantitative 0.80 H 11/25/16 11:55: WBC 4.6, RBC 4.10, Hgb 12.6, Hct 39.1, MCV 95.4, MCH 30.7, MCHC 32.2, RDW 12.7, Plt Count 277, MPV 9.1, Gran % 71.9 H, Lymph % (Auto) 17.3 L, Snyder % (Auto) 6.7 H, Eos % (Auto) 3.7, Baso % (Auto) 0.4, Gran # 3.33, Lymph # 0.8 L, Snyder # 0.3, Eos # 0.2, Baso # 0.02 I have reviewed the lab results: Yes Interpretation: Abnormal lab values (dimer was elevated and CT ordered.) - RAD Interpretation Radiology Orders: 11/25/16 11:48 CHEST PORTABLE [RAD] Stat 11/25/16 12:15 ANGIO CHEST PE PROTOCOL [CT] Stat - Medication Orders Current Medication Orders: Discontinued Medications Albuterol/Ipratropium (Duoneb 3 Mg/0.5 Mg (3 Ml) Ud) 3 ml IH STAT STA Stop: 11/25/16 11:50 Last Admin: 11/25/16 11:59 Dose: 3 ml Aspirin (Ecotrin) 325 mg PO STAT STA Stop: 11/25/16 11:49 Last Admin: 11/25/16 11:59 Dose: 325 mg Iohexol (Omnipaque 350 100 Ml) Confirm Administered Dose 350 mg .ROUTE .STK-MED ONE Stop: 11/25/16 12:41 Lorazepam (Ativan) 1 mg IVP ONCE ONE PRN Reason: Protocol Stop: 11/25/16 11:50 Last Admin: 11/25/16 11:59 Dose: 1 mg Methylprednisolone (Solu-Medrol) 125 mg IVP STAT STA Stop: 11/25/16 11:49 Last Admin: 11/25/16 11:59 Dose: 125 mg - Scribe Statement The provider has reviewed the documentation as recorded by the Alonsoibberhane Kumar Provider Scribe Attestation: All medical record entries made by the Scribe were at my direction and personally dictated by me. I have reviewed the chart and agree that the record accurately reflects my personal performance of the history, physical exam, medical decision making, and the department course for this patient. I have also personally directed, reviewed, and agree with the discharge instructions and disposition. Disposition/Present on Arrival - Present on Arrival Any Indicators Present on Arrival: No History of DVT/PE: No History of Uncontrolled Diabetes: No Urinary Catheter: No History of Decub. Ulcer: No History Surgical Site Infection Following: None - Disposition Have Diagnosis and Disposition been Completed?: Yes Diagnosis: COPD (chronic obstructive pulmonary disease), Chest pain Disposition: HOSPITALIZED Disposition Time: 15:02 Patient Plan: Observation Condition: FAIR Discharge Instructions (ExitCare): Chest Pain (ED) Referrals: PCP,NO [Primary Care Provider] - Follow up with primary Forms: [employer] ([place])
[2016-11-25 12:02] LABS: VENOUS BLOOD GAS BASE EXCESS 12.5 mmol/L (0.0-2.0); VENOUS BLOOD PH 7.33 (7.32-7.43)
[2016-11-25 12:09] LABS: BASO # 0.02 K/mm3 (0.0-2.0); BASO % 0.4 % (0.0-3.0); EOS # 0.2 (0.0-0.7); EOS % 3.7 % (1.5-5.0); GRAN # 3.33 (1.4-6.5); GRAN % 71.9 % (50.0-68.0); HEMATOCRIT 39.1 % (36.0-48.0); LYMPH # 0.8 (1.2-3.4); LYMPH % 17.3 % (22.0-35.0); MEAN CELL VOLUME 95.4 fl (80.0-105.0); MEAN CORPUSCULAR HEMOGLOBIN 30.7 pg (25.0-35.0); MEAN CORPUSCULAR HGB CONC 32.2 g/dl (31.0-37.0); MEAN PLATELET VOLUME 9.1 fl (7.0-11.0); MONO # 0.3 (0.1-0.6); MONO % 6.7 % (1.0-6.0); RED CELL DISTRIBUTION WIDTH 12.7 % (11.5-14.5); WHITE BLOOD COUNT 4.6 10^3/ul (4.5-11.0)
[2016-11-25 12:12] LABS: INR 0.95 (0.93-1.08); PARTIAL THROMBOPLASTIN TIME 24.5 Seconds (23.7-30.8)
[2016-11-25 12:13] LABS: D DIMER 0.8 mg/L FEU (0-0.50)
--- NOTE | 2016-11-25 12:18 | RAD ---
HISTORY: left chest pain and sob r/o pna COMPARISON: 10/09/2016 FINDINGS: LUNGS: No active pulmonary disease. PLEURA: No significant pleural effusion identified, no pneumothorax apparent. CARDIOVASCULAR: Normal. OSSEOUS STRUCTURES: No significant abnormalities. VISUALIZED UPPER ABDOMEN: Normal. OTHER FINDINGS: Left mastectomy. Surgical clips in right axilla. IMPRESSION: No active disease.
[2016-11-25 12:19] LABS: BLOOD UREA NITROGEN 11 mg/dL (7-21); CALCIUM 9.1 mg/dL (8.4-10.5); CARBON DIOXIDE 38 mmol/L (21-33); CHLORIDE 95 mmol/L (98-107); GFR AFRICAN-AMERICAN > 60; GLUCOSE,RANDOM 100 mg/dL (70-110); POTASSIUM 3.7 mmol/L (3.6-5.0); SODIUM 139 mmol/L (132-148)
[2016-11-25 12:33] LABS: TROPONIN I < 0.01 ng/mL
[2016-11-25] MEDS ORDERED: Iohexol 350 MG/100 ML VIAL ONE (12:40)
--- NOTE | 2016-11-25 13:13 | CARD ---
APPROVED REPORT EKG Measurement Heart [id number] WA 100P9 [id number] <Conclusion> Sinus rhythm with short WA with occasional premature ventricular complexes T wave abnormality, consider anterior ischemia Abnormal ECG
--- NOTE | 2016-11-25 13:44 | CT ---
PROCEDURE: CT Chest with contrast (Pulmonary Angiogram) HISTORY: sob r/o pe COMPARISON: CT chest, abdomen and pelvis 10/02/2016 TECHNIQUE: Axial computed tomography images were obtained of the chest in the pulmonary arterial phase of enhancement. Coronal and sagittal reformatted images were created and reviewed. Intravenous contrast dose: 100 mL Omnipaque 350 Radiation dose: Total exam DLP = 189.95 mGy-cm. This CT exam was performed using one or more of the following dose reduction techniques: Automated exposure control, adjustment of the mA and/or kV according to patient size, and/or use of iterative reconstruction technique. FINDINGS: PULMONARY ARTERIES: Unremarkable. No pulmonary embolism. AORTA: No acute findings. No thoracic aortic aneurysm. LUNGS: Centrilobular pulmonary emphysema most prominent in upper lobes. Lingular subsegmental atelectasis. Minimal right upper lobe and right lower lobe subsegmental atelectasis. No pulmonary infiltrate. PLEURAL SPACES: Unremarkable. No effusion or pneuomothorax. HEART: Unremarkable. No cardiomegaly. No significant pericardial effusion. LYMPH NODES: No lymphadenopathy. BONES, CHEST WALL: Multiple thoracic vertebral compression fractures including T5, 6 and 7, T9, 10 and 11 and severe T12 compression fracture with mild bony retropulsion. These are unchanged from prior CT examination. No new fracture identified. OTHER FINDINGS: Right breast prosthesis noted. IMPRESSION: No evidence pulmonary embolism. Centrilobular pulmonary emphysema. No acute infiltrate. Multiple thoracic vertebral compression fractures unchanged from 10/02/2016.
[2016-11-25 14:23] LABS: ARTERIAL BLOOD GAS O2 CAPACITY 16.1 mL/dl (16-24); ARTERIAL BLOOD GAS O2 CONTENT 15.7 ML/dl (15-23); ARTERIAL BLOOD GAS PH 7.39 (7.35-7.45); CARBOXYHEMOGLOBIN 1.8 % (0.5-1.5); HHB 2.2 % (0-5)
[2016-11-25] MEDS ORDERED: Albuterol-Ipratrop 3 mg / 0.5 (3 ml) UD IH PRN (17:05)
[2016-11-25 17:07] LABS: PH,URINE 7.5 (4.7-8.0); URINE BILIRUBIN NEGATIVE (NEGATIVE); URINE BLOOD MODERATE (NEGATIVE); URINE GLUCOSE (UA) NEGATIVE (NEGATIVE); URINE KETONE NEGATIVE (NEGATIVE); URINE LEUKOCYTE ESTERASE NEGATIVE Leu/uL (NEGATIVE); URINE PROTEIN TRACE mg/dL (<30 mg/dL); URINE UROBILINOGEN 0.2 E.U./dL (<1 E.U./dL)
[2016-11-25 17:10] LABS: URINE APPEARANCE CLEAR (CLEAR); URINE COLOR YELLOW (YELLOW)
[2016-11-25 17:50] LABS: URINE AMORPHOUS SEDIMENT FEW; URINE EPITHELIAL CELLS 0 - 2 /hpf (0-5)
[2016-11-25] MEDS: Albuterol-Ipratrop 3 mg / 0.5 (3 ml) UD IH SCH (21:50)
[2016-11-25] MEDS: MethylPREDNISolone 40 mg Vial IV SCH (22:43)
--- NOTE | 2016-11-26 02:27 | HP ---
HISTORY OF PRESENT ILLNESS: The patient is 75 years old known to me from previous admission came to emergency room because of chest pain. She also has shortness of breath started this morning. Pain is on the left side, radiating towards her neck and shoulder. It also hurts on taking deep breath. Denies any trauma or fall. The patient states she also feel very anxious. No history of fever. No chills. No nausea, vomiting or diarrhea. No abdominal pain. No cough or congestion. PAST MEDICAL HISTORY: Significant for: 1. Hypertension. 2. Generalized osteoarthritis. 3. History of depression. 4. Anxiety disorder. 5. History of COPD. 6. Coronary artery disease, status post angioplasty. 7. History of CA of breast. 8. Thoracic vertebral compression fracture. SOCIAL HISTORY: She does admit to have smoking for long time, 40 to 50 years. ALLERGIES: SHE IS NOT ALLERGIC TO ANY MEDICATION. PAST SURGICAL HISTORY: Significant for right ankle fracture and left eye surgery. She has status post mastectomy and cholecystectomy. MEDICATIONS AT HOME: She is on Seroquel 25 at bedtime, Lisinopril 10 mg daily, Pepcid 20 mg twice a day, Lexapro 10 mg at bedtime, atenolol 50 mg daily, nebulizer treatment and Xanax 0.25 q. 6 hours p.r.n. REVIEW OF SYSTEMS: Significant for shortness of breath and chest discomfort. PHYSICAL EXAMINATION: GENERAL: She seems to be comfortable. Not in any acute distress. VITAL SIGNS: She is afebrile, pulse 92, respirations 18 and blood pressure 128/74. LUNGS: Bilateral rhonchi and expiratory rhonchi. HEART: S1 and S2, audible. ABDOMEN: Soft and nontender. No rebound. No guarding. NEUROLOGIC: The patient is awake and alert. Able to communicate. LABORATORY DATA: WBC is 4.6, hemoglobin is 12.6, hematocrit 39 and platelet of 277. PT 10.3 and INR 0.95. Chemistry: Sodium 139, potassium 3.7, chloride 95, CO2 of 38, BUN 11 and creatinine 0.5. BNP 771. She had CT scan of the chest done that shows no evidence of pulmonary embolism, centrilobular emphysema, no acute infiltrate, multiple thoracic vertebral compression fracture. EKG shows sinus rhythm with short OK with occasional premature ventricular complexes. ASSESSMENT: 1. Chronic obstructive pulmonary disease exacerbation. 2. Chest pain seems to be non-cardiac. 3. History of hypertension. 4. Anxiety disorder. 5. Coronary artery disease, status post angioplasty. PLAN: We will place the patient in observation and we will follow cardiac enzyme. Cardiology consult by Dr. Bee. We will resume her medication, give her analgesic and followup troponin. The patient remains stable. We will make plan for early discharge. Merced Ramirez MD
[2016-11-26] MEDS: Albuterol-Ipratrop 3 mg / 0.5 (3 ml) UD IH SCH ×3 (08:11→21:06)
[2016-11-26] MEDS: MethylPREDNISolone 40 mg Vial IV SCH ×2 (09:27→21:23)
[2016-11-26 10:46] LABS: TROPONIN I < 0.01 ng/mL
[2016-11-26] MEDS ORDERED: Naproxen 550 mg Tab PO SCH (18:00)
[2016-11-26] MEDS: Naproxen 275 mg Tab PO SCH (18:13)
--- NOTE | 2016-11-26 21:20 | PN ---
DATE: SUBJECTIVE: The patient is 75 years old, seen and examined. No shortness of breath. No cough. No congestion. Complaining of left-sided chest pain. She states it hurts when she presses on it and when she takes a deep breath. PHYSICAL EXAMINATION: VITAL SIGNS: She is afebrile, pulse 52, respirations 20, blood pressure 101/64. LUNGS: Bilateral fair airflow. HEART: S1 and S2 audible. CHEST: She has left lower chest palpable tenderness. NEUROLOGIC: She is awake and alert, able to communicate. LABORATORY DATA: WBC 4.6, hemoglobin 12.6, hematocrit 39, platelet 277. Chemistry; sodium 139, potassium 3.7, chloride 95, CO2 of 38, BUN 11, creatinine 0.5, blood sugar of 100. CT scan of the chest negative for pulmonary embolism since the D-dimer was positive. ASSESSMENT: 1. Noncardiac chest pain. 2. Anxiety disorder. 3. Hypertension. 4. History of chronic obstructive pulmonary disease. PLAN: I will discontinue telemetry. We will give her small dose of Naprosyn. Encourage ambulation. Follow up her labs and reevaluate in a.m. If the patient remains stable, she can be discharged in a.m. Merced Ramirez MD
[2016-11-27] MEDS: Albuterol-Ipratrop 3 mg / 0.5 (3 ml) UD IH SCH ×3 (03:30→13:36)
--- NOTE | 2016-11-27 04:40 | CON ---
DATE: 11/27/2016 REASON FOR THE CONSULTATION: Chest pain, history of SVT, COPD. BRIEF CLINICAL HISTORY: This is a 75-year-old female with past medical history significant for coronary artery disease, chronic obstructive pulmonary disease, on home oxygen, kyphoscoliosis, breast CA, compression fracture of her spine due to osteoporosis, history of exacerbation of COPD multiple times, history of Proventil treatment who came in with left-sided chest pain very tender. Denies any chest pain, dyspnea on exertion. PAST MEDICAL HISTORY: Significant for coronary artery disease, COPD, anxiety disorder, breast CA, insomnia, compression fracture of her spine due to kyphoscoliosis and osteoporosis, history of COPD after having Proventil treatment. SOCIAL HISTORY: Did smoke for 50 years, stopped smoking many years ago. Denies any history of alcohol abuse. ALLERGIES: NO KNOWN DRUG ALLERGIES. HOME MEDICATIONS: The patient is taking Spiriva, Advair, hydrochlorothiazide, Seroquel, Percocet. PAST SURGICAL HISTORY: Significant for left toe surgery, had ankle fracture, left eye surgery, mastectomy, and cholecystectomy. PREVIOUS CARDIAC WORKUP: As follows; the patient had echocardiography 07/19/2016 shows normal LV size, normal ____, aortic regurgitation, [id number] mitral regurgitation, severe tricuspid regurgitation, [id number] pulmonary hypertension, mild pulmonary insufficiency. right ventricular systolic pressure of 71. REVIEW OF SYSTEMS: As per HPI. PHYSICAL EXAMINATION VITAL SIGNS: Temperature afebrile, heart rate 52, blood pressure 101/61. HEENT: PERRLA. Extraocular muscles intact. NECK: Supple. No carotid bruit. No thyromegaly. CHEST: Clear to auscultation. HEART: S1 and S2 regular. ABDOMEN: Soft. EXTREMITIES: Clubbing and cyanosis negative. LABORATORY DATA: Blood workup as follows; WBC 4.6, hemoglobin 12.6, hematocrit 39.1, platelet count 277. Chemistry shows sodium 139, potassium 3.7, chloride 95, carbon dioxide 38, anion gap of 10, BUN 11, creatinine 0.5. Troponin 0.01 x3 negative. EKG shows normal sinus, poor RR progression, heart rate is 72, occasional PVCs noted. IMPRESSION: Atypical chest pain, tenderness on the chest wall, history of coronary artery disease, past history of chronic obstructive pulmonary disease, history of home oxygen, history of kyphoscoliosis, history of compression fracture, history of breast cancer status post mastectomy. Her last echo shows preserved LV function, pulmonary hypertension, chronic obstructive pulmonary disease. No evidence of acute angina. Most likely this chest pain is secondary to tenderness of the breast underneath the breast with musculoskeletal. We have added troponin this morning at 10:00, was found to be negative. RECOMMENDATIONS: Continue aggressive medical treatment. We will discontinue telemetry. If remains stable, possibly discharge to home tomorrow. We will get lipid profile, TSH, hemoglobin A1c, interim continue aggressive treatment for COPD, continue atenolol and Naprosyn. The patient also complained of history of weight loss as she is completely losing weight, so strongly consider GI evaluation. The patient used to go to Dr. Doshi. We will discuss with you. Thank you, Dr. Ramirez for providing me the opportunity in taking care of the patient. We will follow with you. Michelle Bee MD
[2016-11-27 07:32] LABS: BASO # 0.01 K/mm3 (0.0-2.0); BASO % 0.2 % (0.0-3.0); EOS % 0.2 % (1.5-5.0); GRAN # 3.73 (1.4-6.5); GRAN % 65.9 % (50.0-68.0); HEMATOCRIT 30.4 % (36.0-48.0); LYMPH # 1.3 (1.2-3.4); LYMPH % 23.4 % (22.0-35.0); MEAN CELL VOLUME 93.8 fl (80.0-105.0); MEAN CORPUSCULAR HEMOGLOBIN 30.6 pg (25.0-35.0); MEAN CORPUSCULAR HGB CONC 32.6 g/dl (31.0-37.0); MEAN PLATELET VOLUME 8.8 fl (7.0-11.0); MONO # 0.6 (0.1-0.6); MONO % 10.3 % (1.0-6.0); RED CELL DISTRIBUTION WIDTH 12.9 % (11.5-14.5); WHITE BLOOD COUNT 5.7 10^3/ul (4.5-11.0)
[2016-11-27 07:46] LABS: ALB/GLOB RATIO 1.3 (1.1-1.8); ALKALINE PHOSPHATASE 70 U/L (38-133); ALT/SGPT 26 U/L (7-56); AST/SGOT 20 U/L (15-39); BILIRUBIN,TOTAL 0.7 mg/dL (0.2-1.3); BLOOD UREA NITROGEN 32 mg/dL (7-21); CALCIUM 8.6 mg/dL (8.4-10.5); CARBON DIOXIDE 37 mmol/L (21-33); CHLORIDE 94 mmol/L (98-107); CHOLESTEROL 147 mg/dL (130-200); GFR AFRICAN-AMERICAN > 60; GLUCOSE,RANDOM 78 mg/dL (70-110); MAGNESIUM 1.9 mg/dL (1.7-2.2); PHOSPHOROUS 3.5 mg/dL (2.5-4.5); POTASSIUM 3.7 mmol/L (3.6-5.0); SODIUM 137 mmol/L (132-148); TOTAL PROTEIN 5.4 g/dL (5.8-8.3)
[2016-11-27 08:59] VITALS: RESP 18; TEMP 98.4; O2SAT 97
[2016-11-27] MEDS ORDERED: POLYETHYLENE GLYCOL 3350 17 GM/Dose PACKET PO SCH (10:00)
[2016-11-27] MEDS: Naproxen 275 mg Tab PO SCH (10:41)
[2016-11-27] MEDS: MethylPREDNISolone 40 mg Vial IV SCH (10:43)
[2016-11-27 10:46] VITALS: BP 141/99; PULSE 56
--- NOTE | 2016-11-27 17:21 | CP.PCM.CON ---
History of Present Illness - History of Present Illness History of Present Illness: The patient is a 75-year-old white female well known to me. She has issues of chronic anxiety, somatic concerns, and treatment noncompliance. Her past medical history is positive for hyper tension osteoarthritis, COPD, status post breast cancer, coronary artery disease with an angioplasty plasty in the past and other conditions as well. She is still ruminating over issues that her spoke to her about 40 years ago. She has had several recent psychiatric hospitalizations for overwhelming anxiety and somatization. The patient has fear for her health, fear of living alone, has a son who lives in [facility] but whose will not allow the patient to move in with them. Review of Systems - Review of Systems Systems not reviewed;Unavailable: Other (Anxiety and somatic concerns) - Constitutional Constitutional: As Per HPI - EENT Eyes: As Per HPI Ears: As Per HPI Nose/Mouth/Throat: As Per HPI - Breasts Breasts: As Per HPI - Cardiovascular Cardiovascular: As Per HPI - Respiratory Respiratory: As Per HPI - Gastrointestinal Gastrointestinal: As Per HPI - Genitourinary Genitourinary: As Per HPI - Reproductive: Female Reproductive:Female: As Per HPI - Menstruation Menstruation: As Per HPI - Musculoskeletal Musculoskeletal: As Per HPI - Integumentary Integumentary: As Per HPI - Neurological Neurological: As Per HPI - Psychiatric Psychiatric: Anxiety, Other (Excessive somatic concerns) - Endocrine Endocrine: As Per HPI Past Patient History - Infectious Disease Hx of Infectious Diseases: None - Tetanus Immunizations Tetanus Immunization: Unknown - Past Medical History & Family History Past Medical History?: Yes - Past Social History Smoking Status: Former Smoker Chewing Tobacco Use: No Cigar Use: No Alcohol: None Home Situation {Lives}: Alone Domestic Violence: Negative - CARDIAC Hx Cardiac Disorders: Yes Hx Circulatory Problems: Yes Hx Hypertension: Yes Other/Comment: Status post angioplasty - PULMONARY Hx Respiratory Disorders: Yes Hx Asthma: Yes Hx Chronic Obstructive Pulmonary Disease (COPD): Yes Hx Emphysema: Yes Hx Respiratory Tract Infection: Yes - NEUROLOGICAL Hx Neurological Disorder: No Hx Dizziness: Yes Hx Syncope: Yes - HEENT Hx HEENT Problems: Yes Hx Cataracts: Yes (L. eye sx) Other/Comment: Blurry vision. R. eye lazy eye - RENAL Hx Chronic Kidney Disease: No - ENDOCRINE/METABOLIC Hx Endocrine Disorders: No - HEMATOLOGICAL/ONCOLOGICAL Hx Blood Disorders: Yes Hx Cancer: Yes (R. Breast Cancer (20 yrs ago)) - INTEGUMENTARY Hx Dermatological Problems: No - MUSCULOSKELETAL/RHEUMATOLOGICAL Hx Musculoskeletal Disorders: Yes Hx Arthritis: Yes Hx Falls: Yes Hx Fractures: Yes (R. ankle fx with surgery) - GASTROINTESTINAL Hx Gastrointestinal Disorders: No - GENITOURINARY/GYNECOLOGICAL Hx Genitourinary Disorders: No - PSYCHIATRIC Hx Psychophysiologic Disorder: No Hx Substance Use: No - SURGICAL HISTORY Hx Surgeries: Yes Hx Coronary Stent: Yes Other/Comment: Cataracts with sx of the left eye and R. ankle fx repair with surgery with pins - ANESTHESIA Hx Anesthesia: Yes Hx Anesthesia Reactions: No Hx Malignant Hyperthermia: No Meds Home Medications: Home Medication List Medication Instructions Recorded Confirmed Type Acetaminophen [Tylenol 325mg tab] 650 mg PO Q6H PRN tab 11/27/16 Rx predniSONE [predniSONE Tab] See Taper PO DAILY 7 Days 11/27/16 Rx Allergies/Adverse Reactions: Allergies Allergy/AdvReac Type Severity Reaction Status Date / Time No Known Allergies Allergy Verified 11/25/16 11:42 - Medications Medications: Current Medications Acetaminophen (Tylenol 325mg Tab) 650 mg PO Q6H PRN PRN Reason: Fever >100.4 F Last Admin: 11/27/16 01:43 Dose: 650 mg Albuterol/Ipratropium (Duoneb 3 Mg/0.5 Mg (3 Ml) Ud) 3 ml IH [id number] [facility] Last Admin: 11/27/16 13:36 Dose: 3 ml Alprazolam (Xanax) 0.25 mg PO Q6 PRN; Protocol PRN Reason: Anxiety Stop: 12/02/16 18:01 Last Admin: 11/27/16 10:42 Dose: 0.25 mg Aspirin (Aspirin Chewable) 81 mg PO DAILY [facility] Last Admin: 11/27/16 10:42 Dose: 81 mg Atenolol (Tenormin) 50 mg PO DAILY [facility] Last Admin: 11/27/16 10:42 Dose: 50 mg Escitalopram Oxalate (Lexapro) 10 mg PO HS [facility] Last Admin: 11/26/16 21:20 Dose: 10 mg Famotidine (Pepcid) 20 mg PO 1000,2200 [facility] Last Admin: 11/27/16 10:42 Dose: 20 mg Methylprednisolone (Solu-Medrol) 40 mg IV Q12 [facility] Last Admin: 11/27/16 10:43 Dose: 40 mg Naproxen (Anaprox) 275 mg PO BID [facility] Last Admin: 11/27/16 10:41 Dose: 275 mg Polyethylene Glycol (Miralax) 17 gm PO DAILY [facility] Last Admin: 11/27/16 10:53 Dose: 17 gm Quetiapine Fumarate (Seroquel) 25 mg PO HS [facility] PRN Reason: Protocol Last Admin: 11/26/16 21:20 Dose: 25 mg Physical Exam - Psychiatric Exam Psychiatric exam: Anxious (Somatic) Results - Vital Signs Recent Vital Signs: Last Vital Signs Temp 98.4 F 11/27/16 08:58 Pulse 56 L 11/27/16 10:42 Resp 18 11/27/16 08:58 BP 141/99 H 11/27/16 10:42 Pulse Ox 97 11/27/16 08:58 - Labs Result Diagrams: 11/27/16 07:27 11/27/16 07:27 Labs: Laboratory Results - last 24 hr 11/27/16 11/27/16 11/27/16 07:27 07:27 07:27 WBC 5.7 D RBC 3.24 L Hgb 9.9 L D Hct 30.4 L MCV 93.8 MCH 30.6 MCHC 32.6 RDW 12.9 Plt Count 215 MPV 8.8 Gran % 65.9 Lymph % (Auto) 23.4 [place] % (Auto) 10.3 H Eos % (Auto) 0.2 L Baso % (Auto) 0.2 Gran # 3.73 Lymph # 1.3 [place] # 0.6 Eos # 0.0 Baso # 0.01 Sodium 137 Potassium 3.7 Chloride 94 L Carbon Dioxide 37 H Anion Gap 10 BUN 32 H Creatinine 0.8 Est GFR ( Amer) > 60 Est GFR (Non-Af Amer) > 60 Random Glucose 78 Hemoglobin A1c 5.2 Calcium 8.6 Phosphorus 3.5 Magnesium 1.9 Total Bilirubin 0.7 AST 20 ALT 26 Alkaline Phosphatase 70 Total Protein 5.4 L Albumin 3.1 Globulin 2.3 Albumin/Globulin Ratio 1.3 Triglycerides 56 Cholesterol 147 LDL Cholesterol Direct 78 HDL Cholesterol 53 TSH 3rd Generation 11/27/16 07:27 WBC RBC Hgb Hct MCV MCH MCHC RDW Plt Count MPV Gran % Lymph % (Auto) [place] % (Auto) Eos % (Auto) Baso % (Auto) Gran # Lymph # [place] # Eos # Baso # Sodium Potassium Chloride Carbon Dioxide Anion Gap BUN Creatinine Est GFR ( Amer) Est GFR (Non-Af Amer) Random Glucose Hemoglobin A1c Calcium Phosphorus Magnesium Total Bilirubin AST ALT Alkaline Phosphatase Total Protein Albumin Globulin Albumin/Globulin Ratio Triglycerides Cholesterol LDL Cholesterol Direct HDL Cholesterol TSH 3rd Generation 2.79 - Impressions Impression: Psychiatrically patient exhibiting her usual anxious and somatic self. As per usual proposes to follow-up with recommendations such as office visits in my office and with a therapist level of actual follow-up (compliance) however is spotty at best Assessment & Plan (1) Anxiety Status: Chronic (2) Somatoform disorder Status: Chronic - Assessment and Plan (Free Text) Assessment: Patient receiving pharmacotherapy, having again referred for psychotherapy
--- NOTE | 2016-11-27 23:24 | PN ---
DATE: 11/27/2016 REASON FOR THE CONSULTATION: Followup chest pain, history of SVT, COPD. SUBJECTIVE: The patient is lying flat, wanted to go home. Denies any chest pain, shortness of breath, any palpitation. PHYSICAL EXAMINATION: GENERAL: Lying flat in bed, not in apparent distress. VITAL SIGNS: Temperature afebrile 98.4, heart rate 63, blood pressure 127/69. HEENT: PERRLA. Extraocular muscles intact. NECK: Supple. No carotid bruit. No thyromegaly. CHEST: Clear to auscultation. HEART: S1 and S2 regular. ABDOMEN: Soft. EXTREMITIES: Clubbing and cyanosis negative. LABORATORY DATA: Blood workup as follows; WBC 5.3, hemoglobin 9.9, hematocrit 30.4, platelet count 215. Chemistry showed sodium 130, potassium 3.7, chloride 94, carbon dioxide 37, anion gap of 10, BUN 13, creatinine 0.7. Total protein 5.4, albumin 3.1, albumin globulin ratio at 1.3, triglycerides 56, VLDL not available, cholesterol 147, LDL 78, HDL 53, TSH 2.79. Troponin 0.01. IMPRESSION: A 75-year-old female with past medical history of supraventricular tachycardia, admitted with left-sided pain which is very tender, noncardiac profile, troponin is negative. No evidence of acute AR and no evidence of acute coronary syndrome, history of coronary artery disease in the past, remote chronic obstructive pulmonary disease, anxiety disorder, breast CA, insomnia, compression fracture of her spine due to kyphoscoliosis and osteoporosis. RECOMMENDATION: Avoid DuoNeb nebulizer treatment; put Xopenex. The patient complained of weight loss and wanted to see Dr. Doshi. Dr. Doshi put on consult. Continue treatment for COPD, continue baby aspirin, continue beta-gerardo , continue atenolol 50 mg once a day. We will follow with you. CVS status is stable. No further cardiac workup is planned at this time. Thank you, Dr. Ramirez for providing me the opportunity in taking care of the patient. Michelle Bee MD
--- NOTE | 2016-11-28 00:07 | CON ---
DATE: 11/27/2016 HISTORY OF PRESENT ILLNESS: Ms. Fulton is a 75-year-old white female known to oim consultant with past medical history of diverticulosis, redundant colon, internal hemorrhoids, osteoarthritis, depression, COPD, coronary artery disease and breast cancer. She was admitted because of chest pain. The patient was seen by multiple consultants here on the floor including Dr. Bee. Dr. Ramirez saw the patient over the past couple days. Going to Dr. Bee's note, we discovered non-cardiac chest pain, so telemetry is discontinued. In discussion with the patient at the bedside it appears that she may have bumped into a wall, this may have caused the degree of chest discomfort. I reviewed her most recent clinical GI history, which was consistent with constipation. When I evaluated the patient in 2014 at which time a colonoscopy was performed, it was significant for extensive diverticulosis as well as a tight sigmoid colon,redundant colon and internal hemorrhoids. The patient noted that over the past 5 years or so, she lost a total of about 50 pounds. Her current weight is roughly about 99 pounds and she is 4 feet 8 inches in height. Overall, she feels good at her current weight. Note that she was "taller" when her weight was 155, but at that time in point she felt overweight. At the current time point, she denies any hematemesis, rectal bleeding, dysphagia, abdominal pain, acid reflux. Constipation has been an issue and she notes some hard stool on a periodic basis. PHYSICAL EXAMINATION: VITAL SIGNS: I reviewed this patient's vital signs. HEENT: Noncontributory. LUNGS: Decreased breath sounds, basilar. HEART: Irregular rhythm. ABDOMEN: Soft and nontender. She has a submucosal bleb, possible hernia in the right lower quadrant which she has had for quite some time. This is nontender. LABORATORY DATA: I reviewed this patient's laboratory data. Significant for some drop in her H&H not from rectal bleeding. Chemistry is significant for mildly elevated BUN. Total protein is 5.4. Remainder of the labs except for an elevated brain natriuretic peptide is 771, noncontributory. ASSESSMENT: This is a 75-year-old white female known to oim consultant, past medical history of weight loss, probably secondary to a poor caloric intake, admitted with complaints of chest pain probably sustained in a trauma episode. The weight loss she has had for quite sometime, for which a colonoscope evaluation was performed. There is no upper gastrointestinal symptomatology to warrant an upper endoscopy. Overall, she feels good at her current weight and height. In discussion of her diet, she indicates she eats a substantial amount of junk food that is of poor quality material. Candy cakes and soda are staple for her diet. I indicated her that in order to maintain and gain weight, she needs high quality protein in the form of Ensure at least one bottle or 2 bottles daily, in addition she should intake some degree of meat, fish or chicken, and Ensure on a daily basis. For chronic constipation, I will initiate MiraLax and Colace on a daily basis. She may add some Benefiber if she feels that it is appropriate. A nutrition dietary consult may benefit her. Gera Doshi DO, PhD DANII
--- NOTE | 2016-11-28 02:16 | DS ---
HISTORY OF PRESENT ILLNESS: The patient has no complaints of any chest pain or shortness of breath. No headache or dizziness. She initially came into the hospital because of COPD exacerbation. She had improvement of her symptoms. She was also having chest discomfort. She was seen by Dr. Bee. She has been complaining of weight loss. She is supposed to follow with Dr. Doshi. Her troponins are negative. No headache or dizziness. She does have anxiety that is managed with her medications. PHYSICAL EXAMINATION: VITAL SIGNS: Temperature 98.6, pulse of 52, blood pressure 101/64, respiration 20. GENERAL: The patient is lying in bed, flat, comfortable. HEENT: No oral lesion. Anicteric sclerae. Moist mucosa. NECK: No JVD, adenopathy, or thyromegaly. CARDIOVASCULAR: S1 and S2, regular. No murmurs, rubs, or gallops. LUNGS: Clear to auscultation bilaterally. No wheeze, rales, or rhonchi. ABDOMEN: Bowel sounds are positive, soft, nontender and nondistended. EXTREMITIES: no cyanosis, clubbing or edema. ASSESSMENT: 1. Chest pain, secondary to anxiety. 2. Acute chronic obstructive pulmonary disease. 3. Hypertension. 4. Weight loss. 5. Osteoporosis and chronic back pain. PLAN: The patient is currently comfortable. She has no wheezing on her exam. The patient will continue her home medications. She get the Xanax as needed. She is on Seroquel. She is on lisinopril for hypertension. She is going to follow with her GI doctor, Dr. Doshi and also Dr. Messina. I will give her steroids. Bashir Blair MD
== END 2016-11-27 18:04 | disposition home or self-care (01) | DRG 191 ==
LOC: ED 11:28 → ERH 14:56 → 2RNO 22:18 → 3RSO 11-26 16:33 → OBSVTOIN 11-26 19:01
PROVIDERS: ADMIT Internal Medicine Nephrology; ATTEND Internal Medicine Nephrology
DX: J44.1 Chronic obstructive pulmonary disease with (acute) exacerbation (principal); M80.88XA Other osteoporosis with current pathological fracture, vertebra(e), initial encounter for fracture; F41.9 Anxiety disorder, unspecified; R07.9 Chest pain, unspecified; I10 Essential (primary) hypertension; I25.10 Atherosclerotic heart disease of native coronary artery without angina pectoris; I27.2 Other secondary pulmonary hypertension; R63.4 Abnormal weight loss; G89.29 Other chronic pain; F32.9 Major depressive disorder, single episode, unspecified; M41.9 Scoliosis, unspecified; M15.9 Polyosteoarthritis, unspecified; I08.3 Combined rheumatic disorders of mitral, aortic and tricuspid valves; R07.89 Other chest pain; K59.09 Other constipation; F45.9 Somatoform disorder, unspecified; Z99.81 Dependence on supplemental oxygen; Z68.21 Body mass index [BMI] 21.0-21.9, adult; Z95.5 Presence of coronary angioplasty implant and graft; Z85.3 Personal history of malignant neoplasm of breast; Z87.891 Personal history of nicotine dependence; Z90.11 Acquired absence of right breast and nipple

== ENCOUNTER 2017-03-07 09:11 | Inpatient (IN) | payer MEDICARE, BC ==
[2017-03-07 09:11] VITALS: BMI 21.2
[2017-03-07 10:22] LABS: BASO # 0.01 K/mm3 (0.0-2.0); BASO % 0.2 % (0.0-3.0); EOS % 0.4 % (1.5-5.0); GRAN # 3.93 (1.4-6.5); GRAN % 76.6 % (50.0-68.0); HEMATOCRIT 34.6 % (36.0-48.0); LYMPH # 0.7 (1.2-3.4); LYMPH % 13.8 % (22.0-35.0); MEAN CORPUSCULAR HEMOGLOBIN 30.9 pg (25.0-35.0); MEAN CORPUSCULAR HGB CONC 33.5 g/dl (31.0-37.0); MEAN PLATELET VOLUME 8.4 fl (7.0-11.0); MONO # 0.5 (0.1-0.6); RED CELL DISTRIBUTION WIDTH 13.2 % (11.5-14.5); WHITE BLOOD COUNT 5.1 10^3/ul (4.5-11.0)
[2017-03-07 10:34] LABS: ALB/GLOB RATIO 1.4 (1.1-1.8); ALKALINE PHOSPHATASE 88 U/L (38-126); ALT/SGPT 28 U/L (7-56); AST/SGOT 28 U/L (14-36); BILIRUBIN,TOTAL 1.4 mg/dL (0.2-1.3); BLOOD UREA NITROGEN 14 mg/dL (7-21); CARBON DIOXIDE 40 mmol/L (21-33); CHLORIDE 88 mmol/L (98-107); GFR AFRICAN-AMERICAN > 60; GLUCOSE,RANDOM 91 mg/dL (70-110); POTASSIUM 3.3 mmol/L (3.6-5.0); SODIUM 132 mmol/L (132-148); TOTAL PROTEIN 6.4 g/dL (5.8-8.3)
--- NOTE | 2017-03-07 10:49 | RAD ---
HISTORY: psych eval COMPARISON: 11/25/2016 FINDINGS: LUNGS: No active pulmonary disease. PLEURA: No significant pleural effusion identified, no pneumothorax apparent. CARDIOVASCULAR: Normal. OSSEOUS STRUCTURES: No significant abnormalities. VISUALIZED UPPER ABDOMEN: Normal. OTHER FINDINGS: Previous left mastectomy IMPRESSION: No active disease.
--- NOTE | 2017-03-07 10:53 | ED PDOC ---
Arrival/HPI - General Chief Complaint: Psychiatric Evaluation Time Seen by Provider: 03/07/17 09:14 Historian: Patient - History of Present Illness Narrative History of Present Illness (Text): 03/07/17 09:33 A 76 year old female, whose past medical history includes COPD, hypertension and anxiety, presents to the emergency department complaining of depression. Patient reports she does not want to stay at home. Patient denies any auditory/ visual hallucinations or any physical complaints. Also, on initial report, patient stated experiencing SI, but denies it to me. PMD: Dr. Blair Past Medical History - Provider Review Nursing Documentation Reviewed: Yes - Infectious Disease Hx of Infectious Diseases: None - Tetanus Immunization Tetanus Immunization: Unknown - Reproductive Menopause: Yes - Cardiac Hx Cardiac Disorders: Yes Hx Circulatory Problems: Yes Hx Hypertension: Yes Other/Comment: Status post angioplasty - Pulmonary Hx Respiratory Disorders: Yes Hx Asthma: Yes Hx Chronic Obstructive Pulmonary Disease (COPD): Yes Hx Emphysema: Yes Hx Respiratory Tract Infection: Yes - Neurological Hx Neurological Disorder: No Hx Dizziness: Yes Hx Syncope: Yes - HEENT Hx HEENT Disorder: Yes Hx Cataracts: Yes (L. eye sx) Other/Comment: Blurry vision. R. eye lazy eye - Renal Hx Renal Disorder: No - Endocrine/Metabolic Hx Endocrine Disorders: No - Hematological/Oncological Hx Blood Disorders: Yes Hx Cancer: Yes (R. Breast Cancer (20 yrs ago)) - Integumentary Hx Dermatological Disorder: No - Musculoskeletal/Rheumatological Hx Musculoskeletal Disorders: Yes Hx Arthritis: Yes Hx Falls: Yes Hx Fractures: Yes (R. ankle fx with surgery) - Gastrointestinal Hx Gastrointestinal Disorders: No - Genitourinary/Gynecological Hx Genitourinary Disorders: No - Psychiatric Hx Psychophysiologic Disorder: No Hx Substance Use: No - Past Surgical History Past Surgical History: No Previous - Surgical History Hx Coronary Stent: Yes Other/Comment: Cataracts with sx of the left eye and R. ankle fx repair with surgery with pins - Anesthesia Hx Anesthesia: Yes Hx Anesthesia Reactions: No Hx Malignant Hyperthermia: No - Suicidal Assessment Feels Threatened In Home Enviroment: No Family/Social History - Physician Review Nursing Documentation Reviewed: Yes Family/Social History: No Known Family HX Smoking Status: Former Smoker Hx Alcohol Use: No Hx Substance Use: No Hx Substance Use Treatment: No Allergies/Home Meds Allergies/Adverse Reactions: Allergies No Known Allergies Allergy (Verified 11/25/16 11:42) Review of Systems - Physician Review All systems were reviewed & negative as marked: Yes - Review of Systems Constitutional: absent: Fevers Psychiatric: Depression. absent: Suicidal Ideation, Other (no auditiory/visual hallucinations) Physical Exam Vital Signs Reviewed: Yes Vital Signs Temp Pulse Resp BP Pulse Ox 03/07/17 13:00 98.8 F 78 18 140/76 95 03/07/17 11:00 98.0 F 80 18 140/84 95 03/07/17 09:15 98.5 F 76 18 142/92 H 95 Temperature: Afebrile Blood Pressure: Normal Pulse: Regular Respiratory Rate: Normal Appearance: Positive for: Other (thin) Pain Distress: None Mental Status: Positive for: Alert and Oriented X 3 - Systems Exam Head: Present: Atraumatic, Normocephalic Pupils: Present: PERRL Extroacular Muscles: Present: EOMI Conjunctiva: Present: Normal Mouth: Present: Moist Mucous Membranes Neck: Present: Normal Range of Motion Respiratory/Chest: Present: Clear to Auscultation, Good Air Exchange. No: Respiratory Distress, Accessory Muscle Use Cardiovascular: Present: Regular Rate and Rhythm, Normal S1, S2. No: Murmurs Abdomen: Present: Normal Bowel Sounds. No: Tenderness, Distention, Peritoneal Signs Back: Present: Normal Inspection Upper Extremity: Present: Normal Inspection. No: Cyanosis, Edema Lower Extremity: Present: Normal Inspection. No: Edema Neurological: Present: GCS=15, CN II-XII Intact, Speech Normal Skin: Present: Warm, Dry, Normal Color. No: Rashes Psychiatric: Present: Alert, Oriented x 3, Normal Insight, Normal Concentration Medical Decision Making ED Course and Treatment: 03/07/17 09:39 Impression: 76 year old female with depression. Physical exam shows patient appears thin; otherwise examination is unremarkable. Plan: -- EKG -- Chest X-ray -- Labs -- Urinalysis -- Reassess and disposition Prior Visits: Notes and results from previous visits were reviewed. Patient was last seen in the emergency department on 11/25/2016 for shortness of breath. Patient was admitted. Progress Notes: EKG: Ordered, reviewed, and independently interpreted the EKG. Rate : 77 BPM Rhythm : NSR Interpretation : No ST-segment elevations or depressions, no T-wave inversions, normal intervals. Comparison : No previous EKG for comparison. 03/07/2017 10:47 Chest X-ray IMPRESSION: No active disease. Dictator: Antwan Badillo MD 03/07/17 10:55 Patient ready for transport by EMS, however patient refuses to go home. Patient will be reevaluated by psychiatry. - Lab Interpretations Lab Results: 03/07/17 10:15 03/07/17 10:15 Lab Results 03/07/17 10:15: Alcohol, Quantitative < 10 03/07/17 10:15: Salicylates < 1 L, Acetaminophen < 10.0 L 03/07/17 10:15: Sodium 132, Potassium 3.3 L, Chloride 88 L, Carbon Dioxide 40 H , Anion Gap 8 L, BUN 14, Creatinine 0.5 L, Est GFR ( Amer) > 60, Est GFR (Non-Af Amer) > 60, Random Glucose 91, Calcium 9.0, Total Bilirubin 1.4 H, AST 28, ALT 28, Alkaline Phosphatase 88, Total Protein 6.4, Albumin 3.7, Globulin 2.6, Albumin/Globulin Ratio 1.4 03/07/17 10:15: WBC 5.1, RBC 3.76, Hgb 11.6 L, Hct 34.6 L, MCV 92.0, MCH 30.9, MCHC 33.5, RDW 13.2, Plt Count 249, MPV 8.4, Gran % 76.6 H, Lymph % (Auto) 13.8 L, Miller % (Auto) 9.0 H, Eos % (Auto) 0.4 L, Baso % (Auto) 0.2, Gran # 3.93, Lymph # 0.7 L, Miller # 0.5, Eos # 0.0, Baso # 0.01 I have reviewed the lab results: Yes - RAD Interpretation Radiology Orders: 03/07/17 09:39 CHEST PORTABLE [RAD] Stat - Scribe Statement The provider has reviewed the documentation as recorded by the Veronique Suazo Provider Scribe Attestation: All medical record entries made by the Scribe were at my direction and personally dictated by me. I have reviewed the chart and agree that the record accurately reflects my personal performance of the history, physical exam, medical decision making, and the department course for this patient. I have also personally directed, reviewed, and agree with the discharge instructions and disposition. Disposition/Present on Arrival - Present on Arrival Any Indicators Present on Arrival: No History of DVT/PE: No History of Uncontrolled Diabetes: No Urinary Catheter: No History of Decub. Ulcer: No History Surgical Site Infection Following: None - Disposition Have Diagnosis and Disposition been Completed?: Yes Diagnosis: Depression Disposition: HOME/ ROUTINE Disposition Time: 10:45 Patient Problems: Current Active Problems Problem Status Onset Depression Acute Condition: GOOD
[2017-03-07] MEDS ORDERED: Alum-Mag Hydrox-Simethicone Susp (30 mL) PO PRN (19:46)
[2017-03-07] MEDS ORDERED: Magnesium Hydroxide Susp 30 ml UD PO PRN (19:46)
--- NOTE | 2017-03-07 23:37 | CARD ---
APPROVED REPORT EKG Measurement Heart [id number] OK 102P-5 [id number] <Conclusion> Poor data quality, interpretation may be adversely affected Sinus rhythm with short OK Otherwise normal ECG
--- NOTE | 2017-03-08 01:18 | PCM.BM ---
<Elle Millan - Last Filed: 03/08/17 01:18> Treatment Plan Problems - Problems identified on initial assessmt DEPRESSION Date Initiated: 03/07/17 Time Initiated: 20:00 Assessment reference: NA Status: Active SUICIDAL IDEATION Date Initiated: 03/07/17 Time Initiated: 20:00 Assessment reference: NA Status: Active IMPAIRED BREATHING Date Initiated: 03/07/17 Time Initiated: 20:00 Assessment reference: NA Status: Active Treatment assets and liabiliti Patient Assests: adapts well, cooperative, negotiates basic needs, cognitively intact, good interpersonal skills, other Patient Liabilities: live alone, financial problems, dietary restrictions, medical problems, imparied memory, visual impairment - Milieu Protocol Maintain good personal hygiene: daily Encourage regular showers, every shift Remind patient to perform daily oral care, every shift Assist patient to perform ADL's Maintain personal safety: every shift Educate patient to report safety concerns to staff, every shift Monitor environment for contraband/sharps Medication safety: Monitor for expected outcome, potential side effects: every shift, Assess barriers to learning: every shift, Assess readiness for medication education: every shift Family Contact Family involvement: Family/SO is involved Discharge/Continuing Care - Education Needs Education Needs: Patient Medication, Patient Diagnosis/Disease Process, Patient Coping Skills, Patient Placement options, Patient Activities of Daily Living, Patient Nutrition, Patient Uses of Medical Equipment, Patient Health Practices/ Safety, Patient Personal Hygiene/Grooming, Patient Aftercare Safety Plan - Discharge Discharge Criteria: Tolerates medication w/o severe side effects, Free of Suicidal thoughts, Free of paranoid thoughts, Normal sleep pattern <Moy Messina H - Last Filed: 03/08/17 21:27> - Diagnosis (1) Depression Status: Acute Interventions: 03/08/17 21:27 * Assess/adjust medications daily and /or as needed * Discuss risks, benefits, side effects and alternatives of medications * See patient on an individual basis 7x/week to assess level of suicidal thoughts * <Zoila Koch - Last Filed: 03/14/17 09:41> Family Contact Family contact: Patient agrees to contact Family contact name: Av Fulton Family contacted how many times per week?: 2
[2017-03-08] MEDS: Albuterol-Ipratrop 3 mg / 0.5 (3 ml) UD IH PRN (03:12)
[2017-03-08 06:55] VITALS: O2SAT 95
[2017-03-08 08:23] LABS: CHOLESTEROL 155 mg/dL (130-200); GLUCOSE,FASTING 86 mg/dL (65-110)
[2017-03-08] MEDS: Docusate-Senna 50 mg-8.6 mg Tab PO SCH ×2 (08:44→16:06)
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
[2017-03-09] MEDS ORDERED: Potassium Chloride 20 mEq ER Tab PO STA (06:32)
--- NOTE | 2017-03-09 06:43 | CP.PCM.PCO ---
<DottieSimon - Last Filed: 03/09/17 06:33> Addendum Addendum: 03/09/17 06:33 CODE STAR was called in psych unit and team responded STAT. On arrival, patient was noted to be sitting in bed with nurse bedside. Pt states that she is supposed to be getting assistance getting out of bed and using the restroom however she got up by herself and as she was getting back into bed, she fell to her right side. pt states that she struck her head but denies LOC, dizziness, weakness, headache, changes in vision/hearing or current pain. states that she was on the floor for about 3 minutes and was able to get back up by herself without assistance. pt is a poor historian with differing stories to different staff members. pt is currently on portable O2, and seems a bit short of breath but more likely due to anxiety. Per staff, she is at her baseline and is an anxious person. No meds were given recently. PE: No motor sensory deficits No tenderness/swelling around shoulder, hip, knee and ankle joints b/l Full active ROM Pt is anxious Plan: - CT Head STAT - Labs and chart were reviewed, will replete K - continue management per primary team - psych unit staff instructed to let Dr. Blair know (who is consulted for medical clearance) - No further workup required <Lakeisha Lilly - Last Filed: 03/10/17 06:58> Attending/Attestation - Attestation I have personally seen and examined this patient.: Yes I have fully participated in the care of the patient.: Yes I have reviewed all pertinent clinical information: Yes
[2017-03-09] MEDS: Docusate-Senna 50 mg-8.6 mg Tab PO SCH ×2 (08:53→17:16)
--- NOTE | 2017-03-09 11:05 | CT ---
PROCEDURE: CT HEAD WITHOUT CONTRAST. HISTORY: code star COMPARISON: None available. TECHNIQUE: Axial computed tomography images were obtained through the head/brain without intravenous contrast. Radiation dose: Total exam DLP = 814 mGy-cm. This CT exam was performed using one or more of the following dose reduction techniques: Automated exposure control, adjustment of the mA and/or kV according to patient size, and/or use of iterative reconstruction technique. FINDINGS: HEMORRHAGE: No intracranial hemorrhage. BRAIN: No mass effect or edema. Severe chronic microvascular disease is seen in the periventricular white matter. There is moderate atrophy. No acute intracranial findings VENTRICLES: Unremarkable. No hydrocephalus. CALVARIUM: Unremarkable. PARANASAL SINUSES: Unremarkable as visualized. No significant inflammatory changes. MASTOID AIR CELLS: Unremarkable as visualized. No inflammatory changes. OTHER FINDINGS: None. IMPRESSION: No acute intracranial findings
--- NOTE | 2017-03-09 18:01 | PN ---
DATE: SUBJECTIVE: The patient is a 76-year-old white female with much anxiety, dependency and more recently excessive ingestion of Xanax, who initially complained of suicidal ideation. The patient is alert, oriented to three spheres, seems more relaxed, did have a fall, seems relieved that she is in a situation/environment where her niece will be taking care of her where she can interact with other individuals/patients. There is a change in her mood state as a result of socialization has been reinforced to the patient. The patient, however, seems resistant to going into an assisted living situation and wants to go home, which poses a potential future problem given that her social milieu will not change. A CT scan of her head, which was taken earlier this day that showed no acute intracranial findings (after she fell). A CBC in diff on admission showed low hemoglobin at 11.6, hematocrit 34.6. A toxicology screen was negative. A biochemical profiled showed lower potassium of 3.3, anion gap of 8, creatinine low at 0.5, and total bilirubin low at 1.4 (other indices within normal limits). PHYSICAL EXAMINATION: VITAL SIGNS: Blood pressure 139/79, temperature 97.3, pulse rate 72, and respiratory rate 20. The patient is scheduled to be picked up by her son over the weekend to arrange for further consideration of either enhanced individualized living (with an aid at home) or assisted living (potentially and probably desirably in [place] where her son lives (in the [place] area). Moy Messina MD/ PhD
[2017-03-10] MEDS: Albuterol-Ipratrop 3 mg / 0.5 (3 ml) UD IH PRN ×2 (01:10→21:40)
[2017-03-10] MEDS: Docusate-Senna 50 mg-8.6 mg Tab PO SCH ×2 (08:43→16:57)
--- NOTE | 2017-03-10 08:57 | PCM.PYCHPN ---
Psychiatric Progress Note - Psychiatric Progress Note Patient seen today, length of contact: 25 min Patient Chief Complaint: "I am hopeful I guess" Problems Identified/Issues Discussed: I reviewed assessment and recent notes. Patient was interviewed at bedside. Her appearance is a little unkempt. She is oriented to month, year, location and circumstances. She indicates that she is feeling better and has been tolerating medications. States "I am hopeful I guess". Affect is anxious. Patient denies any perceptual disturbances and she does not appear to be responding to internal stimuli. Presently she denies any new pain or discomfort though admits that her sleep was restless last night. Staff notes indicate that patient has been labile, anxious and confused at times. Needy and can be attention-seeking. There are no major behavioral issues overnight. 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 Medication Change: No Medical Record Reviewed: Yes Mental Status Examination - Cognitive Function Orientation: Person, Place, Situation, Time - Mood Mood: Anxious, Other ("I am hopeful I guess") - Affect Affect: Constricted, Other (anxious) - Speech Speech: Soft - Formal Thought Process Formal Thought Process: Other - Suicidal Ideation Suicidal Ideation: No - Homicidal Ideation Homicidal Ideation: No Goal/Treatment Plan - Goal/Treatment Plan Progress Toward Problem(s) and Goals/Treatment Plan: * c/w current tx and plan * No new weekend labs thus far * Vitals reviewed and noted below: Selected Entries 03/09/17 03/09/17 07:00 16:00 Temperature 97.3 F L Pulse Rate 72 70 Respiratory 20 Rate Blood Pressure 139/79 124/55 L
[2017-03-11 07:17] VITALS: RESP 20
[2017-03-11] MEDS: Docusate-Senna 50 mg-8.6 mg Tab PO SCH ×2 (08:12→16:50)
--- NOTE | 2017-03-11 09:36 | PCM.PYCHPN ---
Psychiatric Progress Note - Psychiatric Progress Note Patient seen today, length of contact: 25 min Patient Chief Complaint: "getting better" Problems Identified/Issues Discussed: I reviewed recent notes and interviewed patient at bedside. Her appearance is still a little unkempt. She is oriented to month, year, location and circumstances. She indicates that she is "getting better" and has been tolerating medications. She is hopeful and reports she slept really well last night. Affect is less anxious this morning. Patient denies any perceptual disturbances and she does not appear to be responding to internal stimuli. Presently she denies any new pain or discomfort. Staff notes indicate that patient has been labile, anxious and confused at times. Needy and can be attention seeking though generally pleasant. Seen socializing with select peers. There are no major behavioral issues over the weekend. 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 Medication Change: No Medical Record Reviewed: Yes Mental Status Examination - Cognitive Function Orientation: Person, Place, Situation, Time - Mood Mood: Anxious, Other ("getting better") - Affect Affect: Constricted, Other (anxious) - Speech Speech: Soft - Formal Thought Process Formal Thought Process: Other - Suicidal Ideation Suicidal Ideation: No - Homicidal Ideation Homicidal Ideation: No Goal/Treatment Plan - Goal/Treatment Plan Progress Toward Problem(s) and Goals/Treatment Plan: * c/w current tx and plan * No new weekend labs thus far * Vitals reviewed and noted below: Selected Entries 03/10/17 03/10/17 03/10/17 06:55 08:42 08:43 Temperature 97.8 F Pulse Rate 74 74 74 Respiratory 16 Rate Blood Pressure 136/77 136/77 136/77 03/11/17 01:29 Temperature Pulse Rate 69 Respiratory Rate Blood Pressure 124/65
[2017-03-12] MEDS: Albuterol-Ipratrop 3 mg / 0.5 (3 ml) UD IH PRN (08:20)
[2017-03-12] MEDS: Docusate-Senna 50 mg-8.6 mg Tab PO SCH ×2 (09:33→17:28)
--- NOTE | 2017-03-12 14:53 | PN ---
DATE: IDENTIFYING INFORMATION: The patient is a 76-year-old white female with dependency, anxiety, and with a history of poor compliance. The patient is presently alert, oriented to 3 spheres, comfortable, has some difficulty breathing, and anxious. I have questioned her about what her goals are. She indicates she cannot afford assisted living, does not want to live in a long term and is limiting the placement we can offer near her son who lives in [place], [place]. It was my understanding that the patient would be picked up by her son over this weekend, but this appears not to have transpired. If the patient is to continue living at home, she will be going right back to the same situation she was before which has led to recurrent recidivism, noncompliance with medication or follow-ups. She does get confused at times. She is presently expressing her admiration towards me. I have reviewed the patient's situation with social work who will be contacting the patient's son. MEDICATIONS: The patient is being maintained psychotropically Lexapro 10 mg at bedtime, Seroquel 25 mg at bedtime. She is also on atenolol, Senokot, Pepcid, , DuoNeb, Tenormin, Zestril. PHYSICAL EXAMINATION: VITAL SIGNS: Blood pressure 148/68, pulse 90, temperature 98, respiratory rate 20. If the patient is to return to her previous/current living situation and same level home support, then this will need to a recipe of yet further recidivism. Moy Messina MD/ PhD
[2017-03-13] MEDS: Docusate-Senna 50 mg-8.6 mg Tab PO SCH ×2 (08:22→16:40)
[2017-03-13] MEDS: Albuterol-Ipratrop 3 mg / 0.5 (3 ml) UD IH PRN (08:23)
[2017-03-14 06:58] VITALS: BP 131/71; PULSE 70; TEMP 97.8
--- NOTE | 2017-03-14 08:26 | PN ---
DATE: 03/13/2017 IDENTIFICATION INFORMATION: The patient is a 76-year-old anxious, depressed, dependent, white female with a history of poor compliance and some manipulativeness. I have reviewed the patient's clinical and social situation with nursing and social work. The patient is indicating that she wants to return home and feels capable of caring for herself (something that I have serious doubts about, given her history of recurrent hospitalizations or emergency room visits). The patient will undergo physical therapy evaluation before, dating this patient's request this without being limited due to the lack of funding for the patient to go into an assisted-living facility. MEDICATIONS: She is presently being maintained on DuoNeb, Lexapro 10 mg, Pepcid 20 mg, Seroquel 25 mg at bedtime, atenolol 50 mg daily, Xanax p.r.n., Seroquel 25 mg at bedtime, lisinopril 10 mg daily The patient is alert, oriented to 3 spheres, seems to be invigorated by her stay in a supportive environment - which underscores the utility - indeed need for her to be in such a supportive environment where her needs can be taken care of and where she has an ample amount of individuals to interact with. PHYSICAL EXAMINATION: VITAL SIGNS: Blood pressure 124/67, pulse 65, temperature 98.3, respiratory rate 20. Moy Messina MD/ PhD
[2017-03-14] MEDS: Docusate-Senna 50 mg-8.6 mg Tab PO SCH (09:36)
--- NOTE | 2017-03-15 13:38 | DS ---
IDENTIFYING INFORMATION: The patient is a 76-year-old white female with history of recurrent hospitalizations due to anxiety, depression, that appears to be linked with her dependency and anxiety about her living situation and health (COPD). HISTORY OF PRESENT ILLNESS: The patient had come to the emergency room and stated that she was feeling suicidal and wanted to slash her wrist. It was noted that she had it done so even as she had regular, daily contact with the office of her Psychiatrist (Dr. 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 She has, however, had issues dealing with loneliness. Her living situation is in senior citizen's residence and her sister lives one or two floors above her and her only son, whom she worries about, (and who worries about her) resides in [place], [place], sees her about once a week (but whose refuses to allow the patient to move in with her son). The patient often worries about her health, often reflects about her past unhappy marriage, and some perceived "curses " bestowed upon her by her ex-. She ruminates at times about the certain liberties she took in the context of her marital relationship (having some brief interludes with other men, as apparently her ex- also so engaged in). The patient has had a number of psychiatric hospitalizations that appear to be increasing in frequency. The patient's mood and affect improved while on the psychiatric unit. She was offered electrician assistant confining halfway ( in the [place] area to be close to her son,but this was rejected). A CT scan of her head (the patient has frequent falls) on 03/09/2017 without contrast showed no acute intracranial findings. An EKG on admission was considered to be a poor data quality and deemed to have a sinus rhythm with a short WA interval, with an otherwise normal EKG. A chest x-ray on that same date showed no active disease (with a prior left mastectomy). CBC and differential showed hemoglobin 11.6, hematocrit 34.6, lymphocyte percent 13.8, eosinophil percent 0.4 with elevated monocyte percent 9.0, granulocyte percent 76.6. A drug screen on admission was negative. A biochemical profile showed lowered anion gap of 8 with low creatinine of 0.5. Other indices (other than potassium low at 3.3) chloride low 88 and elevated CO2 of 40 were within normal limits. The patient's mood and affect improved. She was not homicidal, suicidal, or psychotic at time of discharge. DISCHARGE DIAGNOSES: Anxiety disorder not otherwise specified, histrionic personality traits, elements of malingering, status post mastectomy, chronic obstructive pulmonary disease. DISCHARGE MEDICATIONS: DuoNeb 3 mL q.6 hours p.r.n., Lexapro 10 mg at bedtime, Pepcid 20 mg b.i.d., Senokot 1 tab b.i.d., Seroquel 25 mg at bedtime., atenolol 50 mg at bedtime, Xanax 0.25 mg p.r.n.,and Zestril 10 mg daily. DISPOSITION: The patient to return home. She was referred back to [facility], but this was rejected by that organization because of her history of noncompliance. She was referred to [facility]. She is to continue seeing her psychiatrist, Dr. Messina and therapist Moy Gil. Moy Messina MD/ PhD
== END 2017-03-14 15:30 | disposition home health service (06) | DRG 881 ==
LOC: ED 09:11 → PSYC 16:43
PROVIDERS: ADMIT Psychiatry & Neurology Addiction Medicine; ATTEND Psychiatry & Neurology Addiction Medicine
DX: F32.9 Major depressive disorder, single episode, unspecified (principal); F41.9 Anxiety disorder, unspecified; F60.7 Dependent personality disorder; I10 Essential (primary) hypertension; H53.001 Unspecified amblyopia, right eye; J43.9 Emphysema, unspecified; Z85.3 Personal history of malignant neoplasm of breast; Z91.14 Patient's other noncompliance with medication regimen; Z91.19 Patient's noncompliance with other medical treatment and regimen; Z98.42 Cataract extraction status, left eye

== ENCOUNTER 2017-03-22 12:59 | Inpatient (IN) | payer MEDICARE, BC ==
[2017-03-22 12:59] VITALS: BMI 21.2
[2017-03-22] MEDS ORDERED: Albuterol-Ipratrop 3 mg / 0.5 (3 ml) UD IH STA (13:44)
--- NOTE | 2017-03-22 13:45 | ED PDOC ---
Arrival/HPI - General Chief Complaint: Psychiatric Evaluation Time Seen by Provider: 03/22/17 13:06 Historian: Patient - History of Present Illness Narrative History of Present Illness (Text): 03/22/17 13:36 A 76 year old female, whose past medical history includes hypertension, COPD, anxiety, suicidal ideation, presents to the emergency department via EMS. The patient states she was yelling out for her son that she just wants to see him. The patient denies hearing any voices, suicidal ideation, chest pain, cough, fever, or any other complaints at this time. Time/Duration: Prior to Arrival Symptom Onset: Sudden Symptom Course: Other Activities at Onset: Light Context: Home Past Medical History - Provider Review Nursing Documentation Reviewed: Yes - Infectious Disease Hx of Infectious Diseases: None - Tetanus Immunization Tetanus Immunization: Unknown - Cardiac Hx Cardiac Disorders: Yes Hx Hypertension: Yes - Pulmonary Hx Chronic Obstructive Pulmonary Disease (COPD): Yes - Neurological Hx Neurological Disorder: No Hx Dizziness: Yes Hx Syncope: Yes - HEENT Hx HEENT Disorder: Yes Hx Cataracts: Yes (L. eye sx) Other/Comment: Blurry vision. R. eye lazy eye - Renal Hx Renal Disorder: No - Endocrine/Metabolic Hx Diabetes Mellitus Type 2: Yes - Hematological/Oncological Hx Blood Disorders: Yes Hx Cancer: Yes (R. Breast Cancer (20 yrs ago)) - Integumentary Hx Dermatological Disorder: No - Musculoskeletal/Rheumatological Hx Musculoskeletal Disorders: Yes Hx Arthritis: Yes Hx Falls: Yes Hx Fractures: Yes (R. ankle fx with surgery) - Gastrointestinal Hx Gastrointestinal Disorders: No - Genitourinary/Gynecological Hx Genitourinary Disorders: No - Psychiatric Hx Psychophysiologic Disorder: No Hx Anxiety: Yes Hx Depression: Yes Hx Substance Use: No - Past Surgical History Past Surgical History: No Previous - Surgical History Hx Coronary Stent: Yes Other/Comment: Cataracts with sx of the left eye and R. ankle fx repair with surgery with pins - Anesthesia Hx Anesthesia: Yes Hx Anesthesia Reactions: No Hx Malignant Hyperthermia: No - Suicidal Assessment Feels Threatened In Home Enviroment: No Family/Social History - Physician Review Nursing Documentation Reviewed: Yes Family/Social History: No Known Family HX Smoking Status: Former Smoker Hx Alcohol Use: No Hx Substance Use: No Hx Substance Use Treatment: No Allergies/Home Meds Allergies/Adverse Reactions: Allergies No Known Allergies Allergy (Verified 03/07/17 20:19) Review of Systems - Physician Review All systems were reviewed & negative as marked: Yes - Review of Systems Constitutional: absent: Fevers Respiratory: absent: Cough Cardiovascular: absent: Chest Pain Psychiatric: Other (hearing voices). absent: Suicidal Ideation Physical Exam Vital Signs Reviewed: Yes Vital Signs Temp Pulse Resp BP Pulse Ox 03/22/17 18:17 63 20 142/79 95 03/22/17 16:51 18 99 03/22/17 13:58 78 18 132/65 94 L 03/22/17 13:12 97.8 F 87 20 136/64 81 L Temperature: Afebrile Blood Pressure: Normal Pulse: Regular Respiratory Rate: Normal Appearance: Positive for: Well-Appearing, Non-Toxic, Comfortable Pain Distress: None Mental Status: Positive for: Alert and Oriented X 3 (Knows month, but not year. ) Finger Stick Blood Glucose: 157 - Systems Exam Head: Present: Atraumatic, Normocephalic Pupils: Present: PERRL Extroacular Muscles: Present: EOMI Conjunctiva: Present: Normal Mouth: Present: Moist Mucous Membranes Neck: Present: Normal Range of Motion Respiratory/Chest: Present: Clear to Auscultation, Good Air Exchange. No: Respiratory Distress, Accessory Muscle Use Cardiovascular: Present: Regular Rate and Rhythm, Normal S1, S2. No: Murmurs Abdomen: Present: Normal Bowel Sounds. No: Tenderness, Distention, Peritoneal Signs Back: Present: Normal Inspection Upper Extremity: Present: Normal Inspection. No: Cyanosis, Edema Lower Extremity: Present: Normal Inspection. No: Edema Neurological: Present: GCS=15, CN II-XII Intact, Speech Normal Skin: Present: Warm, Dry, Normal Color. No: Rashes Psychiatric: Present: Alert, Oriented x 3, Normal Insight, Normal Mood. No: Suicidal Ideation, Delusional, Hallucinations Medical Decision Making ED Course and Treatment: 03/22/17 13:40 Impression: A 76 year old female brought in for screaming in apartment Differential Diagnosis included but are not limited to: Agitation secondary to Psychosis vs Noncompliance with meds Plan: -- EKG -- Duoneb -- Urinalysis -- Reassess and disposition Progress Notes: 03/22/17 14:48 EKG: Ordered, reviewed, and independently interpreted the EKG. Rate : 73 BPM Rhythm : NSR Interpretation : No ST-segment elevations or depressions, no T-wave inversions, normal intervals. Comparison : No previous EKG for comparison. 03/22/17 18:55 Treated with duoneb and solumedrol for her COPD. She did not appear to have SOB or was not in respiratory distress. Her Oxy sat was 90% on RA and now 94% on RA. I discussed case with Dr. Delgado who states she's on home oxygen and this is her baseline oxygen level. Case discussed with P[employer] gaming director who will give disposition. 7:16pm - case discussed with Dr. Messina who will place patient under his service in Psych. - Lab Interpretations Lab Results: 03/22/17 14:50 03/22/17 14:50 Lab Results 03/22/17 14:50: Alcohol, Quantitative < 10 03/22/17 14:50: Salicylates < 1 L, Acetaminophen < 10.0 L 03/22/17 14:50: Sodium 139, Potassium 3.6, Chloride 91 L, Carbon Dioxide 45 H, Anion Gap 7 L, BUN 18, Creatinine 0.6 L, Est GFR ( Amer) > 60, Est GFR ( Non-Af Amer) > 60, Random Glucose 104, Calcium 9.4, Total Bilirubin 1.4 H, AST 26, ALT 31, Alkaline Phosphatase 88, Total Protein 6.7, Albumin 3.8, Globulin 2.9, Albumin/Globulin Ratio 1.3 03/22/17 14:50: WBC 5.7, RBC 4.21, Hgb 12.9, Hct 40.4, MCV 96.0 D, MCH 30.6, MCHC 31.9, RDW 13.2, Plt Count 218, MPV 9.3, Gran % 78.1 H, Lymph % (Auto) 12.9 L, Webster % (Auto) 7.4 H, Eos % (Auto) 1.2 L, Baso % (Auto) 0.4, Gran # 4.42, Lymph # 0.7 L, Webster # 0.4, Eos # 0.1, Baso # 0.02 03/22/17 13:09: POC Glucose (mg/dL) 157 H - RAD Interpretation Radiology Orders: 03/22/17 14:07 CXR [CHEST PORTABLE] [RAD] Stat 03/22/17 14:28 HEAD W/O CONTRAST [CT] Stat - Medication Orders Current Medication Orders: Discontinued Medications Albuterol/Ipratropium (Duoneb 3 Mg/0.5 Mg (3 Ml) Ud) 3 ml IH STAT STA Stop: 03/22/17 13:45 Last Admin: 03/22/17 14:53 Dose: 3 ml Methylprednisolone (Solu-Medrol) 125 mg IVP STAT STA Stop: 03/22/17 14:08 Last Admin: 03/22/17 14:53 Dose: 125 mg IVP Administration Document 03/22/17 14:53 OCS (Rec: 03/22/17 14:54 OCS [id number]) Charges for Administration # of IVP Administrations 1 - Scribe Statement The provider has reviewed the documentation as recorded by the Scribberhane Partida Provider Scribe Attestation: All medical record entries made by the Scribe were at my direction and personally dictated by me. I have reviewed the chart and agree that the record accurately reflects my personal performance of the history, physical exam, medical decision making, and the department course for this patient. I have also personally directed, reviewed, and agree with the discharge instructions and disposition. Disposition/Present on Arrival - Present on Arrival Any Indicators Present on Arrival: No History of DVT/PE: No History of Uncontrolled Diabetes: No Urinary Catheter: No History of Decub. Ulcer: No History Surgical Site Infection Following: None - Disposition Have Diagnosis and Disposition been Completed?: Yes Diagnosis: Psychiatric care Disposition: HOSPITALIZED Disposition Time: 19:17 Patient Plan: Admission Condition: GUARDED Referrals: Bashir Blair MD [Primary Care Provider] - Follow up with primary Forms: [employer] ([place])
--- NOTE | 2017-03-22 14:44 | RAD ---
HISTORY: Hypoxia COMPARISON: 03/07/2017 FINDINGS: LUNGS: The lungs are well inflated and clear. PLEURA: No significant pleural effusion identified, no pneumothorax apparent. CARDIOVASCULAR: Normal. OSSEOUS STRUCTURES: There is severe dextroscoliosis in the thoracic spine. VISUALIZED UPPER ABDOMEN: Normal. OTHER FINDINGS: There are multiple surgical clips in the right axilla. IMPRESSION: No active pulmonary disease.
[2017-03-22 14:57] LABS: BASO # 0.02 K/mm3 (0.0-2.0); BASO % 0.4 % (0.0-3.0); EOS # 0.1 (0.0-0.7); EOS % 1.2 % (1.5-5.0); GRAN # 4.42 (1.4-6.5); GRAN % 78.1 % (50.0-68.0); HEMOGLOBIN 12.9 g/dL (12.0-16.0); LYMPH # 0.7 (1.2-3.4); LYMPH % 12.9 % (22.0-35.0); MEAN CORPUSCULAR HEMOGLOBIN 30.6 pg (25.0-35.0); MEAN CORPUSCULAR HGB CONC 31.9 g/dl (31.0-37.0); MEAN PLATELET VOLUME 9.3 fl (7.0-11.0); MONO # 0.4 (0.1-0.6); MONO % 7.4 % (1.0-6.0); RBC 4.21 10^6/uL (3.5-6.1); RED CELL DISTRIBUTION WIDTH 13.2 % (11.5-14.5); WHITE BLOOD COUNT 5.7 10^3/ul (4.5-11.0)
[2017-03-22 15:36] LABS: ALB/GLOB RATIO 1.3 (1.1-1.8); ALBUMIN 3.8 g/dL (3.0-4.8); ALT/SGPT 31 U/L (7-56); AST/SGOT 26 U/L (14-36); BLOOD UREA NITROGEN 18 mg/dL (7-21); CALCIUM 9.4 mg/dL (8.4-10.5); GFR AFRICAN-AMERICAN > 60; GFR NON-AFRICAN AMERICAN > 60
[2017-03-22 15:51] LABS: ACETAMINOPHEN < 10.0 ug/ml (10.0-20.0); SALICYLATE < 1 mg/dL (2.0-20.0)
--- NOTE | 2017-03-22 16:09 | CT ---
PROCEDURE: CT HEAD WITHOUT CONTRAST. HISTORY: altered mental status COMPARISON: 03/09/2017 TECHNIQUE: Axial computed tomography images were obtained through the head/brain without intravenous contrast. Radiation dose: Total exam DLP = 847 mGy-cm. This CT exam was performed using one or more of the following dose reduction techniques: Automated exposure control, adjustment of the mA and/or kV according to patient size, and/or use of iterative reconstruction technique. FINDINGS: HEMORRHAGE: No intracranial hemorrhage. BRAIN: No mass effect or edema. There is moderate atrophy. Chronic microvascular changes are seen. VENTRICLES: Unremarkable. No hydrocephalus. CALVARIUM: Unremarkable. PARANASAL SINUSES: Unremarkable as visualized. No significant inflammatory changes. MASTOID AIR CELLS: Unremarkable as visualized. No inflammatory changes. OTHER FINDINGS: None. IMPRESSION: No acute findings
--- NOTE | 2017-03-22 18:47 | CARD ---
APPROVED REPORT EKG Measurement Heart [id number] <Conclusion> Sinus rhythm with short MD with fusion complexes Nonspecific ST and T wave abnormality Abnormal ECG
[2017-03-23 03:13] LABS: URINE BILIRUBIN NEGATIVE (NEGATIVE); URINE BLOOD SMALL (NEGATIVE); URINE GLUCOSE (UA) NEGATIVE (NEGATIVE); URINE LEUKOCYTE ESTERASE NEGATIVE Leu/uL (NEGATIVE); URINE NITRATE NEGATIVE (NEGATIVE); URINE PROTEIN TRACE mg/dL (<30 mg/dL)
[2017-03-23 03:16] LABS: URINE APPEARANCE CLEAR (CLEAR); URINE COLOR YELLOW (YELLOW)
[2017-03-23 03:17] LABS: URINE EPITHELIAL CELLS 0 - 2 /hpf (0-5); URINE WBC 0 - 2 /hpf (0-6)
[2017-03-23 06:48] LABS: BARBITURATES, UR NEGATIVE (NEGATIVE); OPIATES, UR NEGATIVE (NEGATIVE); PHENCYCLIDINE, UR NEGATIVE (NEGATIVE)
[2017-03-23 06:58] LABS: BENZODIAZEPINES, UR POSITIVE (NEGATIVE)
[2017-03-23 08:22] VITALS: O2SAT 100
--- NOTE | 2017-03-23 15:05 | PCM.BM ---
<LanettetrudiMani - Last Filed: 03/23/17 15:02> Treatment Plan Problems - Problems identified on initial assessmt Anxiety Date Initiated: 03/23/17 Time Initiated: 15:02 Assessment reference: LADONNA CASTELLON panic attacks Date Initiated: 03/23/17 Time Initiated: 15:03 Assessment reference: RAVINDER NA ineffective breathing pattern Date Initiated: 03/23/17 Time Initiated: 15:03 Assessment reference: RAVINDER NA Treatment assets and liabiliti Patient Assests: adapts well, cooperative, resourceful, negotiates basic needs, cognitively intact, good interpersonal skills, other Patient Liabilities: live alone, poor support system, medical problems, other - Milieu Protocol Maintain good personal hygiene: daily Encourage regular showers, daily Remind patient to perform daily oral care, daily Assist patient to perform ADL's Maintain personal safety: daily Educate patient to report safety concerns to staff, daily Monitor environment for contraband/sharps Medication safety: Monitor for expected outcome, potential side effects: daily, Assess barriers to learning: daily, Assess readiness for medication education: daily Discharge/Continuing Care - Education Needs Education Needs: Patient Medication, Patient Diagnosis/Disease Process, Patient Coping Skills, Patient Placement options, Patient Community resources, Patient Activities of Daily Living, Patient Uses of Medical Equipment, Patient Health Practices/Safety, Patient Personal Hygiene/Grooming, Patient Aftercare Safety Plan - Discharge Discharge Criteria: Tolerates medication w/o severe side effects, Free of Suicidal thoughts, Free of Homicidal thoughts, Normal sleep pattern, Ability to care for self <Zoila Koch - Last Filed: 03/23/17 16:49> Family Contact Family involvement: Family/SO is involved Family contact: Patient agrees to contact Family contact name: Av Mota(son) Family contacted how many times per week?: 2
[2017-03-23] MEDS: Albuterol-Ipratrop 3 mg / 0.5 (3 ml) UD IH SCH (20:43)
--- NOTE | 2017-03-23 21:56 | PCM.PSYCH ---
Initial Psychiatric Evaluation - Initial Psychiatric Evaluation Type of Admission: Voluntary Legal Status: Capacity Chief Complaint (in patient's own words): "I don't know what happened, I just kind of lost it" Patient's Reaction to Hospitalization: Patient is seen today in treatment team. Patient wants to be here and is willing to have a short term hospitalization. Patient was admitted after she was in the street "yelling and screaming for my son". She initially refused inpatient admission but eventually consented to sign in. Patient has a long history of depression, anxiety, dependency issues as well as por coping. She has had multiple psychiatric admissions and has seen Dr Messina privately. She has a history of taking more Xanax than prescribed and sporadically following through with treatment. She was recently released from this unit 2 weeks ago. Patient's ability to care for herself and live independently has deteriorated, and she has little family support. She also is in a wheelchair and has moderate to severe COPD and Hypertension. Patient is alert and oriented x3, eye contact is good, speech rate and volume are within normal limits. Mood is euthymic, affect is full thoughts are goal directed. She denies being suicidal or homicidal, she denies the presence of hallucinations, delusions, or paranoia. Focus and concentration are good, memory is adequate, and she reports her sleep and appetite are normal. Plan: [place]/ structure/ supportive therapy Medical Consult Social Work consult for discharge planning Med management Follow up on labs Close monitoring Education regarding follow up and med compliance Current Medications: Active Medications Generic Name Dose Route Start Last Admin Trade Name Freq PRN Reason Stop Dose Admin Albuterol/Ipratropium 3 ml 03/23/17 20:00 03/23/17 20:43 Duoneb 3 Mg/0.5 Mg (3 Ml) Ud IH Not Given [id number] ENDER Alprazolam 0.25 mg 03/23/17 14:38 03/23/17 15:50 Xanax PO 03/30/17 18:01 0.25 mg TID PRN Administration Anxiety Protocol Atenolol 50 mg 03/23/17 22:00 03/23/17 21:26 Tenormin PO Not Given HS ENDER Escitalopram Oxalate 10 mg 03/23/17 22:00 03/23/17 21:26 Lexapro PO Not Given HS ENDER Famotidine 20 mg 03/23/17 22:00 03/23/17 21:26 Pepcid PO Not Given 1000,2200 ENDER Lisinopril 10 mg 03/24/17 08:00 Zestril PO DAILY ENDER Quetiapine Fumarate 25 mg 03/23/17 22:00 03/23/17 21:26 Seroquel PO Not Given HS [facility] Protocol Sennosides 8.6 mg 03/23/17 16:00 03/23/17 18:07 Senokot Tab PO Not Given BID ENDER Past Psychiatric History - Past Psychiatric History Pertinent Medical Hx (Current Medical&Sleep Prob, Allergies): Allergies Allergy/AdvReac Type Severity Reaction Status Date / Time No Known Allergies Allergy Verified 03/23/17 14:43 ALPRAZolam [Xanax] 0.25 mg PO Q4 PRN tab 10/04/16 Atenolol [Tenormin] 50 mg PO DAILY tab 10/04/16 Docusate Sodium/Sennosides A [Senokot S 50 MG-8.6 MG] 1 tab PO BID tab Escitalopram [Lexapro] 10 mg PO HS tab 10/04/16 Famotidine [Pepcid] 20 mg PO 1000,2200 tab 10/04/16 Lisinopril [Zestril] 10 mg PO DAILY tab 10/04/16 QUEtiapine [Seroquel] 25 mg PO HS tab 10/04/16 Acetaminophen [Tylenol 325mg tab] 650 mg PO Q6H PRN tab 11/27/16 Albuterol/Ipratropium [Duoneb 3 mg/0.5 mg (3 ml) UD] 3 ml IH [id number] PRN #30 neb 03/14/17
[2017-03-24] MEDS: Albuterol-Ipratrop 3 mg / 0.5 (3 ml) UD IH SCH ×4 (02:04→21:47)
--- NOTE | 2017-03-24 09:10 | PCM.PYCHPN ---
Psychiatric Progress Note - Psychiatric Progress Note Patient seen today, length of contact: 25 MIN Patient Chief Complaint: "just give me the little pink pill that Doctor Siddharth gives me". Problems Identified/Issues Discussed: I reviewed assessment and recent notes. I met with patient at bedside. Grooming is unkempt and patient is irritable. She reports that she isn't doing well and didn't sleep well last night. She repeatedly asks for the "little pink pill that Doctor Siddharth gives me". When asked about hallucinations, patients responds "oh COME ON". She is aware it is March but refuses to answer any more questions about orientation. Affect is labile. Patient doesn't appear to be responding to internal stimuli. She also asks me to tell Dr. Messina that she had a dream that she "was 76 and ". Patient denies any new discomfort or pain. Staff notes indicate that patient has been comfortable on the unit with peers. Participates in unit activities. History of anxiety related to her living situation. There were no behavioral issues overnight however refused to take her prescribed medications. Insight and judgment are poor. 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 Messina's discharge summary on 03/14/17 Medication Change: Yes (added benadryl) Medical Record Reviewed: Yes Mental Status Examination - Cognitive Function Orientation: Person Memory: Impaired Attention: Poor Concentration: Poor - Mood Mood: Other ("just give me the little pink pill that Doctor Siddharth gives me". ) - Affect Affect: Other (labile and irritable) - Speech Speech: Loud - Formal Thought Process Formal Thought Process: Loosening of associations - Suicidal Ideation Suicidal Ideation: No - Homicidal Ideation Homicidal Ideation: No Goal/Treatment Plan - Goal/Treatment Plan Progress Toward Problem(s) and Goals/Treatment Plan: * c/w current tx and plan * Added benadryl 12.5 mg HS to help patient with sleep (possibly the "pink pill " patient as been asking for, this provider reviewed discharge summary from her admission earlier this month and patient is being prescribed the same psychiatric medications) * No new labs thus far * Vitals reviewed and noted below: Selected Entries 03/23/17 03/23/17 03/23/17 07:30 09:16 11:36 Temperature 98 F 98 F Pulse Rate 72 66 78 Respiratory 16 16 16 Rate Blood Pressure 128/86 108/78 03/23/17 16:00 Temperature Pulse Rate 76 Respiratory Rate Blood Pressure 131/58 L
[2017-03-24] MEDS: DiphenhydrAMINE 12.5 mg/5 ml LIQ UD (5 ml) PO SCH (22:14)
[2017-03-25] MEDS: Albuterol-Ipratrop 3 mg / 0.5 (3 ml) UD IH SCH ×4 (01:29→23:00)
--- NOTE | 2017-03-25 08:43 | PCM.PYCHPN ---
Psychiatric Progress Note - Psychiatric Progress Note Patient seen today, length of contact: 25 MIN Patient Chief Complaint: "a little better". Problems Identified/Issues Discussed: I reviewed recent notes and met with patient at bedside. Grooming is unkempt and patient is a little calmer though remains labile and anxious. She reports that she slept well and that she is feeling a little better. Affect is constricted and disinterested. She is aware of month and location, refuses to answer any more questions about orientation. Thought process is still somewhat scattered however she is not responding to internal stimuli. She will not respond to questions regarding hallucinations. She denies any new discomfort or pain. Staff notes indicate that patient has been comfortable on the unit with peers. Participates in unit activities but has refused some medications and respiratory treatments. She dictates the timing of her treatments and medications as well as meals. On a positive note, she was able to recognize self -escalating anxiety yesterday and can communicate need for prn medication (xanax ) well in this regard. Remains dismissive of this mortgage underwriter as well as staff. Insight and judgment are poor. 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 Messina's discharge summary on 03/14/17 Medication Change: Yes (added benadryl on 03/24/17) Medical Record Reviewed: Yes Mental Status Examination - Cognitive Function Orientation: Person Memory: Impaired Attention: Poor Concentration: Poor - Mood Mood: Other ("a little better") - Affect Affect: Other (labile and irritable) - Speech Speech: Appropriate - Formal Thought Process Formal Thought Process: Loosening of associations - Suicidal Ideation Suicidal Ideation: No - Homicidal Ideation Homicidal Ideation: No Goal/Treatment Plan - Goal/Treatment Plan Progress Toward Problem(s) and Goals/Treatment Plan: * c/w current tx and plan * Added benadryl 12.5 mg HS to help patient with sleep on 03/24/17 (possibly the "pink pill" patient as been asking for, this provider reviewed discharge summary from her admission earlier this month and patient is being prescribed the same psychiatric medications) * No new labs thus far * Vitals reviewed and noted below: Selected Entries 03/24/17 03/24/17 06:51 16:42 Temperature 97.3 F L Pulse Rate 82 91 H Respiratory 18 Rate Blood Pressure 155/85 H 153/75 H
[2017-03-25] MEDS: DiphenhydrAMINE 12.5 mg/5 ml LIQ UD (5 ml) PO SCH ×2 (21:26→22:15)
[2017-03-26] MEDS: Albuterol-Ipratrop 3 mg / 0.5 (3 ml) UD IH SCH ×3 (01:10→23:00)
[2017-03-26] MEDS ORDERED: Albuterol-Ipratrop 3 mg / 0.5 (3 ml) UD IH ONE (09:23)
--- NOTE | 2017-03-26 14:29 | CP.PCM.HP ---
<AnanthMariam - Last Filed: 03/27/17 08:39> History of Present Illness - History of Present Illness History of Present Illness: PGY-[address] Blair Medical consult Ms Fulton, 76F with PMHx of CAD, COPD, chronic pain, insomnia, gait dysfunction , anxiety and depression came to the ED on 03/22/17 for emotional disturbance/ SI in the setting of uncontrolled anxiety. While staying overnight at the ED, pt was found to have an isolated episode of BRBPR at the end of her stooling , her stools were dark brown and groslly nonbloody, her anal exam revealed anterior midline hemorrhoid , patulous anus, no masses, w/ hemostasis already acheived. She was medically cleared to be volunteer admitted to the psych unit. Today, pt was in bed with 1:1 for suicidal ideation. CLIENT SUPPORT PROFESSIONAL endorsed that pt experience sob while ambulating from bed to bathroom while O2 was off. Breathing improve at rest and back on O2. Denies F/C, SOB, CP, Abd pain, N/V/D/C, dysuria PMH HTN CAD s/p angioplasty COPD, active smoker Breast Cancer, s/p mastectomy, 20 years ago generalized osteoarthritis, Thoracic verbetral compression fracture Gait dysfunction, Insomnia, back pain Hx falls Depression, anxety PSH R ankle fracture L eye surgery mastectomy cholecystectmy SH Former smoker for 40-50 years Xanax non-compliance All NKDA Home Med Seroquel 25 HS Lisinopril 10 Pepcid 20 bid Lexapro 10 HS atenolol 50 daily Duoneb nebulizer q6 prn xanax 0.25 q4 prn Senokot S 50-8.6 BID Present on Admission - Present on Admission Any Indicators Present on Admission: No Past Patient History - Infectious Disease Hx of Infectious Diseases: None - Tetanus Immunizations Tetanus Immunization: Unknown - Past Medical History & Family History Past Medical History?: Yes - Past Social History Smoking Status: Former Smoker - CARDIAC Hx Cardiac Disorders: Yes Hx Hypertension: Yes - PULMONARY Hx Chronic Obstructive Pulmonary Disease (COPD): Yes - NEUROLOGICAL Hx Neurological Disorder: No Hx Dizziness: Yes Hx Syncope: Yes - HEENT Hx HEENT Problems: Yes Hx Cataracts: Yes (L. eye sx) Other/Comment: Blurry vision. R. eye lazy eye - RENAL Hx Chronic Kidney Disease: No - ENDOCRINE/METABOLIC Hx Diabetes Mellitus Type 2: Yes - HEMATOLOGICAL/ONCOLOGICAL Hx Cancer: Yes (R. Breast Cancer (20 yrs ago)) - INTEGUMENTARY Hx Dermatological Problems: No - MUSCULOSKELETAL/RHEUMATOLOGICAL Hx Musculoskeletal Disorders: Yes Hx Arthritis: Yes Hx Falls: Yes Hx Fractures: Yes (R. ankle fx with surgery) - GASTROINTESTINAL Hx Gastrointestinal Disorders: No - GENITOURINARY/GYNECOLOGICAL Hx Genitourinary Disorders: No - PSYCHIATRIC Hx Anxiety: Yes Hx Substance Use: No - SURGICAL HISTORY Hx Coronary Stent: Yes Other/Comment: Cataracts with sx of the left eye and R. ankle fx repair with surgery with pins - ANESTHESIA Hx Anesthesia: Yes Hx Anesthesia Reactions: No Hx Malignant Hyperthermia: No Meds Allergies/Adverse Reactions: Allergies Allergy/AdvReac Type Severity Reaction Status Date / Time No Known Allergies Allergy Verified 03/23/17 14:43 Physical Exam - Constitutional Appears: No Acute Distress - Head Exam Head Exam: ATRAUMATIC, NORMAL INSPECTION, NORMOCEPHALIC - Eye Exam Eye Exam: EOMI, Normal appearance, PERRL. absent: Scleral icterus Pupil Exam: NORMAL ACCOMODATION - ENT Exam ENT Exam: Mucous Membranes Moist - Neck Exam Additional comments: supple - Respiratory Exam Respiratory Exam: Clear to Auscultation Bilateral, Prolonged Expiratory Phase - Cardiovascular Exam Cardiovascular Exam: REGULAR RHYTHM - GI/Abdominal Exam GI & Abdominal Exam: Soft. absent: Guarding - Extremities Exam Extremities exam: Negative for: calf tenderness - Neurological Exam Neurological exam: Alert, Oriented x3 - Psychiatric Exam Psychiatric exam: Normal Affect, Normal Mood - Skin Skin Exam: Dry, Normal Color Results - Vital Signs Recent Vital Signs: Last Vital Signs Temp 98.4 F 03/26/17 08:02 Pulse 75 03/26/17 09:04 Resp 16 03/26/17 08:02 BP 134/80 03/26/17 09:04 Pulse Ox 100 03/23/17 11:36 - Labs Result Diagrams: 03/22/17 14:50 03/22/17 14:50 Assessment & Plan - Assessment and Plan (Free Text) Plan: Ms Fulton, 76F with PMHx of CAD, COPD, chronic pain, insomnia, gait dysfunction , anxiety and depression voluntary admitted to psychiatry unit for emotional disturbance/suicidal ideation and uncontrolled anxiety. COPD, former smoker - O2 as needed - Duoneb Q6 standing, Q3 prn CAD s/p angioplasty HTN - Atenolol 50 HS, lisinopril 10 Gait dysfunction Insomnia Chronic back pain Hx falls, Hx R ankle fracture generalized osteoarthritis Thoracic verbetral compression fracture Suicidal ideation Depression, anxety, Insomnia - per psych (xanax 0.25 TID prn, benadryl 12.5 hs, lexaprol, quetiapine) - 1:1 GI-bleed, BRBPR, likely from hemorrhoid - H/H stable. Resolved Constipation - Sennoside 8.6 bid Prophylaxis - pepcid bid FEN - HHD Consult - no s/r/d/w Dr Blair <Bashir Blair S - Last Filed: 03/27/17 15:37> Results - Vital Signs Recent Vital Signs: Last Vital Signs Temp 98.4 F 03/26/17 08:02 Pulse 74 03/26/17 16:00 Resp 16 03/26/17 08:02 BP 135/71 03/26/17 16:00 Pulse Ox 100 03/23/17 11:36 - Labs Result Diagrams: 03/22/17 14:50 03/22/17 14:50 Assessment & Plan - Assessment and Plan (Free Text) Plan: Pt seen and examined.Pain under control. Pt is able to tolerate PO diet. Pt's labs and vitals have been reviewed. I agree with the medical education specialist note. The pt was placed on Duoneb treatments. No active medical issues. Will sign off. Re- consult as needed
[2017-03-26] MEDS: DiphenhydrAMINE 12.5 mg/5 ml LIQ UD (5 ml) PO SCH (21:59)
--- NOTE | 2017-03-27 00:42 | PN ---
DATE: SUBJECTIVE: I have been asked to assess the likelihood that this patient will be compliant with treatment including medication in an independent or assisted living setting. The patient who has a history of poor or partial compliance is more likely to be compliant if she receives those services that she needs which includes some measure of support, some socialization such that she does not have to deal with issues of loneliness, and fear of her health (if she is receiving the medical services that she needs), and ongoing support from her son - if she receives these measures of reassurance, then her level of compliance is likely to correspondingly be more commensurate with her needs. To the extent that she becomes more fearful of being alone, ill, negated, then her anxiety level will increase in a commensurate manner and this mental state will likely be associated with a less likelihood of compliance. Thus, having the patient placed in a supportive assisted living situation where she is able to meet individuals of her age and background, with some measure of reassurance and that somebody is looking after her both nutritionally and medically, she is likely to be compliant with her psychotropic and other medications. Moy Messina MD/ PhD
[2017-03-27] MEDS: Albuterol-Ipratrop 3 mg / 0.5 (3 ml) UD IH SCH ×4 (01:48→20:00)
--- NOTE | 2017-03-27 01:56 | PN ---
DATE: SUBJECTIVE: The patient is a 76-year-old white female, who carries with a diagnosis of anxiety disorder NOS, histrionic personality traits with elements of malingering. She appears to be somewhat calmer today, but is anxious and upset about having been made a major life decision which is to go into an assisted-living facility. She would like to be somewhere near her son. She appears to be weird, at least for the moment, that she is incapable of caring for herself. She is dealing some realistic insight into the wrenching nature of what she is about to embark upon, which is to relocate into a new community with a new living situation with new responsibilities and not to be next to her son (she will be about an hour away which is closer than she is presently), but still a distance. I have reviewed her situation with Social Work and with Nursing. The patient is being maintained on Lexapro 10 mg daily, Seroquel 25 mg h.s., Xanax 0.25 mg t.i.d. p.r.n. She is also on Zestril, Tenormin, Senokot, Pepcid, DuoNeb. Laboratory results reviewed. Blood pressure 134/80, pulse 75, temperature 98.4, respiratory rate 16. Supportive therapy offered. Moy Messina MD/ PhD
[2017-03-27] MEDS ORDERED: Bacitracin 500 Units/gm Oint Foilpak UD TOP STA (16:08)
[2017-03-27] MEDS: DiphenhydrAMINE 12.5 mg/5 ml LIQ UD (5 ml) PO SCH ×2 (22:00→23:03)
--- NOTE | 2017-03-28 08:30 | PN ---
DATE: 03/27/2017 SUBJECTIVE: The patient is a 76-year-old white female, who has been expressing suicidal thoughts. She is considered to be a lonely, dependent woman, who is fearful of living by herself, has multiple medical problems including COPD, which limits her activity. Her son lives in [facility] and is unable to have his mother move in with him. group home placement is being considered with the patient struggling, we all agreeing to go to such a facility, but not without emotional duress. The patient has been refusing to eat, verbalizing that she would rather . She is becoming more angry about the reality that she will be transferred to an assisted-living facility. I have discussed case with social work, who was helping to find placement in an assisted living facility for this patient. The patient's son is expected to visit the patient tomorrow. VITAL SIGNS: Blood pressure 129/78, pulse 71, temperature 97.3, respiratory rate 16. The patient is being maintained psychotropically on Lexapro 10 mg at bedtime, Seroquel 25 mg at bedtime, Xanax 0.25 p.r.n. Moy Messina MD/ PhD
[2017-03-28] MEDS: Albuterol-Ipratrop 3 mg / 0.5 (3 ml) UD IH SCH ×2 (08:35→13:42)
[2017-03-28] MEDS: Bacitracin 500 Units/gm Oint Foilpak UD TOP SCH (10:40)
[2017-03-28] MEDS: DiphenhydrAMINE 12.5 mg/5 ml LIQ UD (5 ml) PO SCH (23:24)
--- NOTE | 2017-03-29 03:42 | PN ---
DATE: 03/28/2017 SUBJECTIVE: The patient is a 76-year-old white female, who had been expressing suicidal thoughts. She has become agitated and anxious at times. She has to deal with the specter of having to go into an assisted-living or nursing facility; something that she says she wants, but acts as she does not want. The patient expresses suicidal thoughts intermittently and speaks of feeling depressed and hurt that her son is not giving her full support (he cannot allow her to live at his home because his won't allow this) as the patient is feeling abandoned. She has been observed lying in a position and not looking at people while she speaks and being irritable. Possibility secondary gain (malingering type behavior). Social workers were looking for an acceptable living situation for the patient. Moy Messina MD/ PhD
[2017-03-29] MEDS: Albuterol-Ipratrop 3 mg / 0.5 (3 ml) UD IH SCH ×3 (08:23→22:00)
[2017-03-29] MEDS: Bacitracin 500 Units/gm Oint Foilpak UD TOP SCH (09:34)
[2017-03-29] MEDS: DiphenhydrAMINE 12.5 mg/5 ml LIQ UD (5 ml) PO SCH (22:08)
[2017-03-30] MEDS: Albuterol-Ipratrop 3 mg / 0.5 (3 ml) UD IH SCH ×4 (02:01→23:00)
--- NOTE | 2017-03-30 05:01 | PN ---
DATE: SUBJECTIVE: The patient is a 76-year-old white female, who has been depressed, anxious and angry. The patient appears to be withdrawn and angry today and not willing to engage in extended meaningful conversation, was making poor eye contact. The patient is caught in a life crisis. She is unable to care for herself, does not want to go to a usp or an assisted-living facility and could not go to live where she would prefer, which would be at her son's home. Thus she appears to be angry, appositional and has been pouting and at times being passive, aggressive, and non-cooperative. She is refusing to take her medication at times, refuses to contract for safety. She does not appear to be responding to internal stimuli. She is dependent on oxygen. Blood pressure of 147/83, pulse of 101, temperature 97.9, respiratory rate 20. The patient is being maintained on Benadryl 12.5 mg at bedtime, Lexapro 10 mg daily, Seroquel 25 mg at bedtime, and Xanax 0.25 p.r.n. Supportive therapy offered. Moy Messina MD/ PhD
[2017-03-30] MEDS: Bacitracin 500 Units/gm Oint Foilpak UD TOP SCH (10:28)
--- NOTE | 2017-03-30 16:20 | PCM.PYCHPN ---
Psychiatric Progress Note - Psychiatric Progress Note Patient seen today, length of contact: 25 MIN Patient Chief Complaint: "I am starving myself" Problems Identified/Issues Discussed: Patient refused to come out of her room for treatment team. She was seen in her room, she has a 1:1 for safety. Patient is angry and belligerent, she has been refusing meals, refusing some of her medications and treatments and is verbally abusive to staff. She does not want any kind of living placement but really does not have the insight that at this time it does not appear that she can live alone and care for herself. Staff reports some periods where she sits quietly and appears sad. When questioned if she is suicidal does not answer. Medical Problems: CAD, COPD, chronic pain, insomnia, gait dysfunction Diagnostic Results: Temp Pulse Resp BP Pulse Ox 97.2 F L 97 H 20 123/65 100 03/30/17 07:19 03/30/17 15:00 03/30/17 07:19 03/30/17 15:00 03/23/17 11:36 Medication Change: No Medical Record Reviewed: Yes Consults ordered or reviewed: Medical consult 03/26/[address] Blair reviewed, last labs reviewed. Mental Status Examination - Cognitive Function Orientation: Person, Place, Situation, Time Memory: Impaired Attention: Poor Concentration: Poor Association: Loose Fund of Knowledge: Poor Decription of patient's judgement and insights: Patient's judgment and insight are poor, she is unable to care for herself in the community, in the hospital has been refusing food, medication, and treatments at times. - Mood Mood: Depressed, Other ("a little better") - Affect Affect: Constricted, Other (labile and irritable) - Speech Speech: Appropriate - Formal Thought Process Formal Thought Process: Loosening of associations Psychotic Thoughts and Behaviors: Patient denies hallucinations, delusions, or paranoia - Suicidal Ideation Suicidal Ideation: No - Homicidal Ideation Homicidal Ideation: No Goal/Treatment Plan - Goal/Treatment Plan Need for Continued Stay: Remain at risks for inpatient hospitalization, Discharge may exacerbated symptoms, Severe functional impairment Progress Toward Problem(s) and Goals/Treatment Plan: Treatment plan: Milieu/structure/supportive therapy Medical consult appreciated, see medical team note for more detailed info SW consultation for discharge plan and social issues Med management Family involvement Follow up on labs Will monitor closely SW evaluation for d/c planning Pt was educated about risk/benefits and alternatives of medications, coping strategies (safety plan, suicide prevention), relapse prevention, importance of follow up with psychiatrist and therapist - Smoking Cessation Smoking Cessation Initiated: No Reason for not providing: Nt a smoker
[2017-03-30] MEDS: DiphenhydrAMINE 12.5 mg/5 ml LIQ UD (5 ml) PO SCH (22:15)
[2017-03-31] MEDS: Albuterol-Ipratrop 3 mg / 0.5 (3 ml) UD IH SCH ×3 (01:38→20:49)
[2017-03-31] MEDS: Bacitracin 500 Units/gm Oint Foilpak UD TOP SCH (09:59)
--- NOTE | 2017-03-31 15:20 | PCM.PYCHPN ---
Psychiatric Progress Note - Psychiatric Progress Note Patient seen today, length of contact: 30 minutes Patient Chief Complaint: "I don't care anymore..." Problems Identified/Issues Discussed: this copywriter attempted to discuss suicide/ homicide prevention, past psychiatric h/o, current psychiatric symptoms, medical problems, risk/benefits and alternatives of medications, medications compliance, coping strategies, substance abuse h/o, relapse prevention, importance of follow up with psychiatrist and therapist, discharge plan. Medical Problems: HTN CAD s/p angioplasty COPD, active smoker Breast Cancer, s/p mastectomy, 20 years ago generalized osteoarthritis, Thoracic verbetral compression fracture Gait dysfunction, Insomnia, back pain Hx falls Diagnostic Results: 03/22/17 14:50 03/22/17 14:50 Lab Results 03/23/17 07:30: POC Glucose (mg/dL) 93 03/23/17 05:30: Urine Opiates Screen Negative, Urine Methadone Screen Negative, Ur Barbiturates Screen Negative, Ur Phencyclidine Scrn Negative, Ur Amphetamines Screen Negative, U Benzodiazepines Scrn Positive, U Oth Cocaine Metabols Negative, U Cannabinoids Screen Negative 03/23/17 02:32: Urine Color Yellow, Urine Appearance Clear, Urine pH 6.0, Ur Specific [place] 1.020, Urine Protein Trace H, Urine Glucose (UA) Negative, Urine Ketones 15 H, Urine Blood Small H, Urine Nitrate Negative, Urine Bilirubin Negative, Urine Urobilinogen 1.0 H, Ur Leukocyte Esterase Negative, Urine RBC 2 - 5, Urine WBC 0 - 2, Ur Epithelial Cells 0 - 2 03/22/17 14:50: Alcohol, Quantitative < 10 03/22/17 14:50: Salicylates < 1 L, Acetaminophen < 10.0 L 03/22/17 14:50: Sodium 139, Potassium 3.6, Chloride 91 L, Carbon Dioxide 45 H, Anion Gap 7 L, BUN 18, Creatinine 0.6 L, Est GFR ( Amer) > 60, Est GFR ( Non-Af Amer) > 60, Random Glucose 104, Calcium 9.4, Total Bilirubin 1.4 H, AST 26, ALT 31, Alkaline Phosphatase 88, Total Protein 6.7, Albumin 3.8, Globulin 2.9, Albumin/Globulin Ratio 1.3 03/22/17 14:50: WBC 5.7, RBC 4.21, Hgb 12.9, Hct 40.4, MCV 96.0 D, MCH 30.6, MCHC 31.9, RDW 13.2, Plt Count 218, MPV 9.3, Gran % 78.1 H, Lymph % (Auto) 12.9 L, Butts % (Auto) 7.4 H, Eos % (Auto) 1.2 L, Baso % (Auto) 0.4, Gran # 4.42, Lymph # 0.7 L, Butts # 0.4, Eos # 0.1, Baso # 0.02 03/22/17 13:09: POC Glucose (mg/dL) 157 H Vital Signs Temp Pulse Resp BP Pulse Ox 03/31/17 09:59 87 110/71 03/31/17 07:27 98.1 F 87 20 110/71 03/30/17 15:00 97 H 123/65 03/30/17 13:51 88 152/94 H 03/30/17 07:19 97.2 F L 88 20 152/94 H 03/29/17 09:33 101 H 147/83 03/29/17 07:24 97.9 F 101 H 20 147/83 03/28/17 10:41 67 112/67 03/27/17 16:00 88 184/69 H 03/27/17 07:08 97.3 F L 71 16 129/78 03/26/17 21:59 74 135/71 03/26/17 16:00 74 135/71 03/26/17 09:04 75 134/80 03/26/17 08:02 98.4 F 75 16 134/80 03/25/17 12:19 75 112/67 03/25/17 07:32 98.0 F 75 22 112/67 03/24/17 16:42 91 H 153/75 H 03/24/17 06:51 97.3 F L 82 18 155/85 H 03/23/17 16:00 76 131/58 L 03/23/17 11:36 98 F 78 16 108/78 100 03/23/17 09:16 66 16 112/77 98 03/23/17 07:30 98 F 72 16 128/86 100 03/23/17 05:30 81 18 103/51 L 97 03/23/17 00:05 79 18 104/62 96 03/22/17 20:06 72 24 120/87 98 03/22/17 18:17 63 20 142/79 95 03/22/17 16:51 18 99 03/22/17 13:58 78 18 132/65 94 L 03/22/17 13:12 97.8 F 87 20 136/64 81 L DSM 5 Symptoms Update: Covering for . shortly patient is 76 year old female, multiple medical comorbidities , poor social support, patient deemed not to be able to take care of herself in the community, patient brought herself to the hospital initially, refused to leave the emergency room, was admitted under Dr. Messina is service, for the past week patient is more depressed, angry, currently she is on one-to-one for suicide precaution, patient refused to take medications, has poor appetite, seems to be deeply depressed. as per staff pt is irritable, self isolating, not participating in unit activities. this copywriter attempted to speak to the pt, pt is disengaged, refused to talk, pt said "let me starve myself to ", then stayed mute, as per staff pt ate a little later on. as per report pt's son seems not to be very interested in pt's care, pt is severely depressed because of that. 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 Medication Change: No (pt was refusing meds) Medical Record Reviewed: Yes Consults ordered or reviewed: medical consult appreciated, see notes for more detailed information Mental Status Examination - Cognitive Function Orientation: Person, Place, Situation, Time Memory: Impaired Attention: Poor Concentration: Poor Association: Loose Fund of Knowledge: Poor - Mood Mood: Depressed, Other ("a little better") - Affect Affect: Constricted, Other (labile and irritable) - Speech Speech: Appropriate - Formal Thought Process Formal Thought Process: Loosening of associations - Suicidal Ideation Suicidal Ideation: No - Homicidal Ideation Homicidal Ideation: No Goal/Treatment Plan - Goal/Treatment Plan Need for Continued Stay: Remain at risks for inpatient hospitalization, Severe depression anxiety, Discharge may exacerbated symptoms, Severe functional impairment Progress Toward Problem(s) and Goals/Treatment Plan: Milieu/structure/supportive therapy Medical consult appreciated, see medical team note for more detailed info consultation for discharge plan and social issues Med management Xanax 0.25 mg 3 times a day as needed for anxiety Lexapro 10 mg at the nighttime schedule Seroquel 25 mg of the nighttime scheduled Patient was refusing all of her psychotropic medications pt is currently is on one-to-one observation Family involvement Follow up on labs Will monitor closely SW evaluation for d/c planning Pt was educated about risk/benefits and alternatives of medications, coping strategies (safety plan, suicide prevention), relapse prevention, importance of follow up with psychiatrist and therapist, stay away from drugs/alcohol/smoking Estimated Date of D/C: 04/06/17 (will monitor closely)
[2017-03-31] MEDS: DiphenhydrAMINE 12.5 mg/5 ml LIQ UD (5 ml) PO SCH (22:29)
[2017-04-01] MEDS: Albuterol-Ipratrop 3 mg / 0.5 (3 ml) UD IH SCH ×4 (03:00→20:45)
[2017-04-01] MEDS: Bacitracin 500 Units/gm Oint Foilpak UD TOP SCH (09:36)
--- NOTE | 2017-04-01 18:33 | PCM.PYCHPN ---
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 Medical Problems: HTN CAD s/p angioplasty COPD, active smoker Breast Cancer, s/p mastectomy, 20 years ago generalized osteoarthritis, Thoracic verbetral compression fracture Gait dysfunction, Insomnia, back pain Hx falls Diagnostic Results: 03/22/17 14:50 03/22/17 14:50 Lab Results 03/23/17 07:30: POC Glucose (mg/dL) 93 03/23/17 05:30: Urine Opiates Screen Negative, Urine Methadone Screen Negative, Ur Barbiturates Screen Negative, Ur Phencyclidine Scrn Negative, Ur Amphetamines Screen Negative, U Benzodiazepines Scrn Positive, U Oth Cocaine Metabols Negative, U Cannabinoids Screen Negative 03/23/17 02:32: Urine Color Yellow, Urine Appearance Clear, Urine pH 6.0, Ur Specific [place] 1.020, Urine Protein Trace H, Urine Glucose (UA) Negative, Urine Ketones 15 H, Urine Blood Small H, Urine Nitrate Negative, Urine Bilirubin Negative, Urine Urobilinogen 1.0 H, Ur Leukocyte Esterase Negative, Urine RBC 2 - 5, Urine WBC 0 - 2, Ur Epithelial Cells 0 - 2 03/22/17 14:50: Alcohol, Quantitative < 10 03/22/17 14:50: Salicylates < 1 L, Acetaminophen < 10.0 L 03/22/17 14:50: Sodium 139, Potassium 3.6, Chloride 91 L, Carbon Dioxide 45 H, Anion Gap 7 L, BUN 18, Creatinine 0.6 L, Est GFR ( Amer) > 60, Est GFR ( Non-Af Amer) > 60, Random Glucose 104, Calcium 9.4, Total Bilirubin 1.4 H, AST 26, ALT 31, Alkaline Phosphatase 88, Total Protein 6.7, Albumin 3.8, Globulin 2.9, Albumin/Globulin Ratio 1.3 03/22/17 14:50: WBC 5.7, RBC 4.21, Hgb 12.9, Hct 40.4, MCV 96.0 D, MCH 30.6, MCHC 31.9, RDW 13.2, Plt Count 218, MPV 9.3, Gran % 78.1 H, Lymph % (Auto) 12.9 L, [place] % (Auto) 7.4 H, Eos % (Auto) 1.2 L, Baso % (Auto) 0.4, Gran # 4.42, Lymph # 0.7 L, [place] # 0.4, Eos # 0.1, Baso # 0.02 03/22/17 13:09: POC Glucose (mg/dL) 157 H Vital Signs Temp Pulse Resp BP Pulse Ox 03/31/17 09:59 87 110/71 03/31/17 07:27 98.1 F 87 20 110/71 03/30/17 15:00 97 H 123/65 03/30/17 13:51 88 152/94 H 03/30/17 07:19 97.2 F L 88 20 152/94 H 03/29/17 09:33 101 H 147/83 03/29/17 07:24 97.9 F 101 H 20 147/83 03/28/17 10:41 67 112/67 03/27/17 16:00 88 184/69 H 03/27/17 07:08 97.3 F L 71 16 129/78 03/26/17 21:59 74 135/71 03/26/17 16:00 74 135/71 03/26/17 09:04 75 134/80 03/26/17 08:02 98.4 F 75 16 134/80 03/25/17 12:19 75 112/67 03/25/17 07:32 98.0 F 75 22 112/67 03/24/17 16:42 91 H 153/75 H 03/24/17 06:51 97.3 F L 82 18 155/85 H 03/23/17 16:00 76 131/58 L 03/23/17 11:36 98 F 78 16 108/78 100 03/23/17 09:16 66 16 112/77 98 03/23/17 07:30 98 F 72 16 128/86 100 03/23/17 05:30 81 18 103/51 L 97 03/23/17 00:05 79 18 104/62 96 03/22/17 20:06 72 24 120/87 98 03/22/17 18:17 63 20 142/79 95 03/22/17 16:51 18 99 03/22/17 13:58 78 18 132/65 94 L 03/22/17 13:12 97.8 F 87 20 136/64 81 L DSM 5 Symptoms Update: Covering for . shortly patient is 76 year old female, multiple medical comorbidities , poor social support, patient deemed not to be able to take care of herself in the community, patient brought herself to the hospital initially, refused to leave the emergency room, was admitted under Dr. Messina is service, for the past week patient is more depressed, angry, currently she is on one-to-one for suicide precaution, patient refused to take medications, has poor appetite, seems to be deeply depressed. as per staff pt is irritable, self isolating, not participating in unit activities. as per RN pt ate better today, took a shower, but still very depressed. vitals are stable. 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 pt is on 1:1 now as per report pt's son seems not to be very interested in pt's care, pt is severely depressed because of that. 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 Medication Change: No (pt was refusing meds "I can survive without them") Medical Record Reviewed: Yes Consults ordered or reviewed: medical consult appreciated, see notes for more detailed information Mental Status Examination - Cognitive Function Orientation: Person, Place, Situation, Time Memory: Impaired Attention: Poor Concentration: Poor Association: Loose Fund of Knowledge: Poor - Mood Mood: Depressed, Other ("a little better") - Affect Affect: Constricted, Other (labile and irritable) - Speech Speech: Appropriate - Formal Thought Process Formal Thought Process: Loosening of associations - Suicidal Ideation Suicidal Ideation: No - Homicidal Ideation Homicidal Ideation: No Goal/Treatment Plan - Goal/Treatment Plan Need for Continued Stay: Remain at risks for inpatient hospitalization, Severe depression anxiety, Discharge may exacerbated symptoms, Severe functional impairment Progress Toward Problem(s) and Goals/Treatment Plan: Milieu/structure/supportive therapy Medical consult appreciated, see medical team note for more detailed info consultation for discharge plan and social issues Med management Xanax 0.25 mg 3 times a day as needed for anxiety Lexapro 10 mg at the nighttime schedule Seroquel 25 mg of the nighttime scheduled Patient was refusing all of her psychotropic medications pt is currently is on one-to-one observation Family involvement Follow up on labs Will monitor closely SW evaluation for d/c planning Pt was educated about risk/benefits and alternatives of medications, coping strategies (safety plan, suicide prevention), relapse prevention, importance of follow up with psychiatrist and therapist, stay away from drugs/alcohol/smoking Estimated Date of D/C: 04/06/17 (will monitor closely)
[2017-04-01] MEDS: DiphenhydrAMINE 12.5 mg/5 ml LIQ UD (5 ml) PO SCH (22:01)
[2017-04-02] MEDS: Albuterol-Ipratrop 3 mg / 0.5 (3 ml) UD IH SCH ×4 (03:00→22:00)
[2017-04-02] MEDS: Bacitracin 500 Units/gm Oint Foilpak UD TOP SCH (09:43)
--- NOTE | 2017-04-02 11:32 | PCM.BM ---
<Mani Hayes - Last Filed: 04/02/17 11:32> Treatment Plan Problems - Problems identified on initial assessmt Anxiety Date Initiated: 03/23/17 Time Initiated: 15:02 Assessment reference: LADONNA CASTELLON panic attacks Date Initiated: 03/23/17 Time Initiated: 15:03 Assessment reference: LADONNA CASTELLON ineffective breathing pattern Date Initiated: 03/23/17 Time Initiated: 15:03 Assessment reference: LADONNA CASTELLON Treatment assets and liabiliti Patient Assests: adapts well, cooperative, resourceful, negotiates basic needs, cognitively intact, good interpersonal skills, other Patient Liabilities: live alone, poor support system, medical problems, other - Milieu Protocol Maintain good personal hygiene: daily Encourage regular showers, daily Remind patient to perform daily oral care, daily Assist patient to perform ADL's Maintain personal safety: daily Educate patient to report safety concerns to staff Medication safety: Monitor for expected outcome, potential side effects: daily, Assess barriers to learning: daily, Assess readiness for medication education: daily Milieu Narrative: Milieu/structure/supportive therapy Medical consult appreciated, see medical team note for more detailed info consultation for discharge plan and social issues Med management Xanax 0.25 mg 3 times a day as needed for anxiety Lexapro 10 mg at the nighttime schedule Seroquel 25 mg of the nighttime scheduled Patient was refusing all of her psychotropic medications pt is currently is on one-to-one observation Family involvement Follow up on labs Will monitor closely evaluation for d/c planning Pt was educated about risk/benefits and alternatives of medications, coping strategies (safety plan, suicide prevention), relapse prevention, importance of follow up with psychiatrist and therapist, stay away from drugs/alcohol/smoking Family Contact Family involvement: Family/SO is involved Family contact: Patient agrees to contact Family contact name: Av Mota(son) Family contacted how many times per week?: 2 Discharge/Continuing Care - Education Needs Education Needs: Patient Medication, Patient Diagnosis/Disease Process, Patient Coping Skills, Patient Placement options, Patient Community resources, Patient Activities of Daily Living, Patient Uses of Medical Equipment, Patient Health Practices/Safety, Patient Personal Hygiene/Grooming, Patient Aftercare Safety Plan - Discharge Discharge Criteria: Tolerates medication w/o severe side effects, Free of Suicidal thoughts, Free of Homicidal thoughts, Normal sleep pattern, Ability to care for self, Reduction of target symptoms - Treatment Team Participation Patient/Family/SO Statement: Milieu/structure/supportive therapy Medical consult appreciated, see medical team note for more detailed info SW consultation for discharge plan and social issues Med management Xanax 0.25 mg 3 times a day as needed for anxiety Lexapro 10 mg at the nighttime schedule Seroquel 25 mg of the nighttime scheduled Patient was refusing all of her psychotropic medications pt is currently is on one-to-one observation Family involvement Follow up on labs Will monitor closely evaluation for d/c planning Pt was educated about risk/benefits and alternatives of medications, coping strategies (safety plan, suicide prevention), relapse prevention, importance of follow up with psychiatrist and therapist, stay away from drugs/alcohol/smoking Treatment Plan Review - Problem Anxiety Time Initiated: 15:02 panic attacks Time Initiated: 15:03 ineffective breathing pattern Time Initiated: 15:03 <Radha Ayala - Last Filed: 04/02/17 14:24> - Diagnosis (1) MDD (major depressive disorder) Status: Acute Interventions: 04/02/17 14:23 pt is not improving pt is still depressed refused to participate in treatment team pt refused to take medications meds changed education provided 04/02/17 14:24
--- NOTE | 2017-04-02 14:34 | PCM.PYCHPN ---
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 Medical Problems: HTN CAD s/p angioplasty COPD, active smoker Breast Cancer, s/p mastectomy, 20 years ago generalized osteoarthritis, Thoracic verbetral compression fracture Gait dysfunction, Insomnia, back pain Hx falls Diagnostic Results: 03/22/17 14:50 03/22/17 14:50 Lab Results 03/23/17 07:30: POC Glucose (mg/dL) 93 03/23/17 05:30: Urine Opiates Screen Negative, Urine Methadone Screen Negative, Ur Barbiturates Screen Negative, Ur Phencyclidine Scrn Negative, Ur Amphetamines Screen Negative, U Benzodiazepines Scrn Positive, U Oth Cocaine Metabols Negative, U Cannabinoids Screen Negative 03/23/17 02:32: Urine Color Yellow, Urine Appearance Clear, Urine pH 6.0, Ur Specific [place] 1.020, Urine Protein Trace H, Urine Glucose (UA) Negative, Urine Ketones 15 H, Urine Blood Small H, Urine Nitrate Negative, Urine Bilirubin Negative, Urine Urobilinogen 1.0 H, Ur Leukocyte Esterase Negative, Urine RBC 2 - 5, Urine WBC 0 - 2, Ur Epithelial Cells 0 - 2 03/22/17 14:50: Alcohol, Quantitative < 10 03/22/17 14:50: Salicylates < 1 L, Acetaminophen < 10.0 L 03/22/17 14:50: Sodium 139, Potassium 3.6, Chloride 91 L, Carbon Dioxide 45 H, Anion Gap 7 L, BUN 18, Creatinine 0.6 L, Est GFR ( Amer) > 60, Est GFR ( Non-Af Amer) > 60, Random Glucose 104, Calcium 9.4, Total Bilirubin 1.4 H, AST 26, ALT 31, Alkaline Phosphatase 88, Total Protein 6.7, Albumin 3.8, Globulin 2.9, Albumin/Globulin Ratio 1.3 03/22/17 14:50: WBC 5.7, RBC 4.21, Hgb 12.9, Hct 40.4, MCV 96.0 D, MCH 30.6, MCHC 31.9, RDW 13.2, Plt Count 218, MPV 9.3, Gran % 78.1 H, Lymph % (Auto) 12.9 L, [place] % (Auto) 7.4 H, Eos % (Auto) 1.2 L, Baso % (Auto) 0.4, Gran # 4.42, Lymph # 0.7 L, [place] # 0.4, Eos # 0.1, Baso # 0.02 03/22/17 13:09: POC Glucose (mg/dL) 157 H Vital Signs Temp Pulse Resp BP Pulse Ox 03/31/17 09:59 87 110/71 03/31/17 07:27 98.1 F 87 20 110/71 03/30/17 15:00 97 H 123/65 03/30/17 13:51 88 152/94 H 03/30/17 07:19 97.2 F L 88 20 152/94 H 03/29/17 09:33 101 H 147/83 03/29/17 07:24 97.9 F 101 H 20 147/83 03/28/17 10:41 67 112/67 03/27/17 16:00 88 184/69 H 03/27/17 07:08 97.3 F L 71 16 129/78 03/26/17 21:59 74 135/71 03/26/17 16:00 74 135/71 03/26/17 09:04 75 134/80 03/26/17 08:02 98.4 F 75 16 134/80 03/25/17 12:19 75 112/67 03/25/17 07:32 98.0 F 75 22 112/67 03/24/17 16:42 91 H 153/75 H 03/24/17 06:51 97.3 F L 82 18 155/85 H 03/23/17 16:00 76 131/58 L 03/23/17 11:36 98 F 78 16 108/78 100 03/23/17 09:16 66 16 112/77 98 03/23/17 07:30 98 F 72 16 128/86 100 03/23/17 05:30 81 18 103/51 L 97 03/23/17 00:05 79 18 104/62 96 03/22/17 20:06 72 24 120/87 98 03/22/17 18:17 63 20 142/79 95 03/22/17 16:51 18 99 03/22/17 13:58 78 18 132/65 94 L 03/22/17 13:12 97.8 F 87 20 136/64 81 L DSM 5 Symptoms Update: Covering for . shortly patient is 76 year old female, multiple medical comorbidities , poor social support, patient deemed not to be able to take care of herself in the community, patient brought herself to the hospital initially, refused to leave the emergency room, was admitted under Dr. Messina is service, for the past week patient is more depressed, angry, currently she is on one-to-one for suicide precaution, patient refused to take medications, has poor appetite, seems to be deeply depressed. as per staff pt is irritable, self isolating, not participating in unit activities, pt has tendency of trying to throw herself on the floor, needs constant redirection. pt was seen at the treatment team meeting today, pt presented to be irritable, said she does not want to talk, pt said "I am just fine, I will talk to you later on", then tried to wheel herself from the room, appeared to be annoyed, when this write asked if she needs any help, pt said "give me some coffee". pt was educated about the plan to change her lexapro to wellbutrin, pt said "I will take it", when this production underwriter asked to sign treatment plan review pt said "I am not signing it, I am not signing it,I am not signing it,I am not signing it,I am not signing it,I am not signing it". when asked why pt said "I don't need to explain to you". yesterday pt took a shower. pt is on 1:1 now as per SW report pt's son seems not to be very interested in pt's care, pt is severely depressed because of that. today pt said "I want to speak to my son", pt was advised to call him. 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 Medication Change: Yes (wellbutrin started, d/c lexapro) Medical Record Reviewed: Yes Consults ordered or reviewed: medical consult appreciated, see notes for more detailed information Mental Status Examination - Cognitive Function Orientation: Person, Place, Situation, Time Memory: Impaired Attention: Poor Concentration: Poor Association: Loose Fund of Knowledge: Poor - Mood Mood: Depressed, Other ("a little better") - Affect Affect: Constricted, Other (labile and irritable) - Speech Speech: Appropriate - Formal Thought Process Formal Thought Process: Loosening of associations - Suicidal Ideation Suicidal Ideation: No - Homicidal Ideation Homicidal Ideation: No Goal/Treatment Plan - Goal/Treatment Plan Need for Continued Stay: Remain at risks for inpatient hospitalization, Severe depression anxiety, Discharge may exacerbated symptoms, Severe functional impairment Progress Toward Problem(s) and Goals/Treatment Plan: Milieu/structure/supportive therapy Medical consult appreciated, see medical team note for more detailed info consultation for discharge plan and social issues Med management Xanax 0.25 mg 3 times a day as needed for anxiety Lexapro d/c wellbutrin 75mg po daily for depression Seroquel 25 mg of the nighttime scheduled Patient was refusing all of her psychotropic medications pt is currently is on one-to-one observation if pt continue the same behavior, refuse to take meds, please consider to call [facility] [place] consider ECT treatment Family involvement Follow up on labs Will monitor closely evaluation for d/c planning Pt was educated about risk/benefits and alternatives of medications, coping strategies (safety plan, suicide prevention), relapse prevention, importance of follow up with psychiatrist and therapist, stay away from drugs/alcohol/smoking Estimated Date of D/C: 04/06/17 (will monitor closely)
[2017-04-02] MEDS: DiphenhydrAMINE 12.5 mg/5 ml LIQ UD (5 ml) PO SCH (21:49)
[2017-04-03] MEDS: Albuterol-Ipratrop 3 mg / 0.5 (3 ml) UD IH SCH ×4 (03:00→21:15)
[2017-04-03] MEDS: Bacitracin 500 Units/gm Oint Foilpak UD TOP SCH (09:48)
--- NOTE | 2017-04-03 17:00 | PCM.PYCHPN ---
Psychiatric Progress Note - Psychiatric Progress Note Patient seen today, length of contact: 30 minutes Patient Chief Complaint: "I am 87 years old" Problems Identified/Issues Discussed: She was seen in her room at her bedside, she has a 1:1 for safety. Staff reports that patient at times is angry and belligerent, at times she has been refusing meals, at times is refusing some of her medications and treatments and is verbally abusive to staff or extremely pleasant. Periods of confusion have been noted, she does respond to redirection. She is out of her room more later in the day. She appears calmer and was observed socializing appropriately with peers in the common area. Discharge plan is for patient to go to an assisted living facility where she will have supervision and support. Medical Problems: CAD, COPD, chronic pain, insomnia, gait dysfunction Diagnostic Results: Temp Pulse Resp BP Pulse Ox 97.2 F L 97 H 20 123/65 100 03/30/17 07:19 03/30/17 15:00 03/30/17 07:19 03/30/17 15:00 03/23/17 11:36 Temp Pulse Resp BP Pulse Ox 97.6 F 61 16 102/55 L 100 04/02/17 07:00 04/03/17 10:01 04/02/17 16:30 04/03/17 10:01 03/23/17 11:36 Laboratory Last Values WBC 5.7 10^3/ul (4.5-11.0) 03/22/17 14:50 RBC 4.21 10^6/uL (3.5-6.1) 03/22/17 14:50 Hgb 12.9 g/dL (12.0-16.0) 03/22/17 14:50 Hct 40.4 % (36.0-48.0) 03/22/17 14:50 MCV 96.0 fl (80.0-105.0) D 03/22/17 14:50 MCH 30.6 pg (25.0-35.0) 03/22/17 14:50 MCHC 31.9 g/dl (31.0-37.0) 03/22/17 14:50 RDW 13.2 % (11.5-14.5) 03/22/17 14:50 Plt Count 218 10^3/uL (120.0-450.0) 03/22/17 14:50 MPV 9.3 fl (7.0-11.0) 03/22/17 14:50 Gran % 78.1 % (50.0-68.0) H 03/22/17 14:50 Lymph % (Auto) 12.9 % (22.0-35.0) L 03/22/17 14:50 [place] % (Auto) 7.4 % (1.0-6.0) H 03/22/17 14:50 Eos % (Auto) 1.2 % (1.5-5.0) L 03/22/17 14:50 Baso % (Auto) 0.4 % (0.0-3.0) 03/22/17 14:50 Gran # 4.42 (1.4-6.5) 03/22/17 14:50 Lymph # 0.7 (1.2-3.4) L 03/22/17 14:50 [place] # 0.4 (0.1-0.6) 03/22/17 14:50 Eos # 0.1 (0.0-0.7) 03/22/17 14:50 Baso # 0.02 K/mm3 (0.0-2.0) 03/22/17 14:50 Sodium 139 mmol/L (132-148) 03/22/17 14:50 Potassium 3.6 mmol/L (3.6-5.0) 03/22/17 14:50 Chloride 91 mmol/L (98-107) L 03/22/17 14:50 Carbon Dioxide 45 mmol/L (21-33) H 03/22/17 14:50 Anion Gap 7 (10-20) L 03/22/17 14:50 BUN 18 mg/dL (7-21) 03/22/17 14:50 Creatinine 0.6 mg/dl (0.7-1.2) L 03/22/17 14:50 Est GFR ( Amer) > 60 03/22/17 14:50 Est GFR (Non-Af Amer) > 60 03/22/17 14:50 POC Glucose (mg/dL) 93 mg/dL (65-110) 03/23/17 07:30 Random Glucose 104 mg/dL (70-110) 03/22/17 14:50 Calcium 9.4 mg/dL (8.4-10.5) 03/22/17 14:50 Total Bilirubin 1.4 mg/dL (0.2-1.3) H 03/22/17 14:50 AST 26 U/L (14-36) 03/22/17 14:50 ALT 31 U/L (7-56) 03/22/17 14:50 Alkaline Phosphatase 88 U/L (38-126) 03/22/17 14:50 Total Protein 6.7 g/dL (5.8-8.3) 03/22/17 14:50 Albumin 3.8 g/dL (3.0-4.8) 03/22/17 14:50 Globulin 2.9 gm/dL 03/22/17 14:50 Albumin/Globulin Ratio 1.3 (1.1-1.8) 03/22/17 14:50 Urine Color Yellow (YELLOW) 03/23/17 02:32 Urine Appearance Clear (CLEAR) 03/23/17 02:32 Urine pH 6.0 (4.7-8.0) 03/23/17 02:32 Ur Specific [place] 1.020 (1.005-1.035) 03/23/17 02:32 Urine Protein Trace mg/dL (<30 mg/dL) H 03/23/17 02:32 Urine Glucose (UA) Negative mg/dL (NEGATIVE) 03/23/17 02:32 Urine Ketones 15 mg/dL (NEGATIVE) H 03/23/17 02:32 Urine Blood Small (NEGATIVE) H 03/23/17 02:32 Urine Nitrate Negative (NEGATIVE) 03/23/17 02:32 Urine Bilirubin Negative (NEGATIVE) 03/23/17 02:32 Urine Urobilinogen 1.0 E.U./dL (<1 E.U./dL) H 03/23/17 02:32 Ur Leukocyte Esterase Negative Cuco/uL (NEGATIVE) 03/23/17 02:32 Urine RBC 2 - 5 /hpf (0-2) 03/23/17 02:32 Urine WBC 0 - 2 /hpf (0-6) 03/23/17 02:32 Ur Epithelial Cells 0 - 2 /hpf (0-5) 03/23/17 02:32 Salicylates < 1 mg/dL (2.0-20.0) L 03/22/17 14:50 Urine Opiates Screen Negative (NEGATIVE) 03/23/17 05:30 Urine Methadone Screen Negative (NEGATIVE) 03/23/17 05:30 Acetaminophen < 10.0 ug/ml (10.0-20.0) L 03/22/17 14:50 Ur Barbiturates Screen Negative (NEGATIVE) 03/23/17 05:30 Ur Phencyclidine Scrn Negative (NEGATIVE) 03/23/17 05:30 Ur Amphetamines Screen Negative (NEGATIVE) 03/23/17 05:30 U Benzodiazepines Scrn Positive (NEGATIVE) 03/23/17 05:30 U Oth Cocaine Metabols Negative (NEGATIVE) 03/23/17 05:30 U Cannabinoids Screen Negative (NEGATIVE) 03/23/17 05:30 Alcohol, Quantitative < 10 mg/dL (0-10) 03/22/17 14:50 Medication Change: No Medical Record Reviewed: Yes Consults ordered or reviewed: Medical consult 03/26/[address] Blair reviewed, last labs reviewed. Mental Status Examination - Cognitive Function Orientation: Person, Place, Situation, Time Memory: Impaired Attention: Poor Concentration: Poor Association: Loose Fund of Knowledge: Poor - Mood Mood: Depressed, Other ("a little better") - Affect Affect: Constricted, Other (labile and irritable) - Speech Speech: Appropriate - Formal Thought Process Formal Thought Process: Loosening of associations - Suicidal Ideation Suicidal Ideation: No - Homicidal Ideation Homicidal Ideation: No Goal/Treatment Plan - Goal/Treatment Plan Need for Continued Stay: Remain at risks for inpatient hospitalization, Severe depression anxiety, Discharge may exacerbated symptoms, Severe functional impairment Progress Toward Problem(s) and Goals/Treatment Plan: Treatment plan: Milieu/structure/supportive therapy Medical consult appreciated, see medical team note for more detailed info SW consultation for discharge plan and social issues Med management Family involvement Follow up on labs Will monitor closely SW evaluation for d/c planning Pt was educated about risk/benefits and alternatives of medications, coping strategies (safety plan, suicide prevention), relapse prevention, importance of follow up with psychiatrist and therapist Estimated Date of D/C: 04/06/17 (will monitor closely)
[2017-04-03] MEDS: DiphenhydrAMINE 12.5 mg/5 ml LIQ UD (5 ml) PO SCH ×2 (22:00→22:09)
[2017-04-04] MEDS: Albuterol-Ipratrop 3 mg / 0.5 (3 ml) UD IH SCH ×4 (02:50→20:40)
[2017-04-04] MEDS: Bacitracin 500 Units/gm Oint Foilpak UD TOP SCH (10:24)
--- NOTE | 2017-04-04 18:45 | PCM.PYCHPN ---
Psychiatric Progress Note - Psychiatric Progress Note Patient seen today, length of contact: 30 minutes Patient Chief Complaint: "I don't care any more" Problems Identified/Issues Discussed: Patient was seen today in the hallway, being wheeled by her 1:1. Presentation today is angry, patient indicates she no longer cares about or wants to be involved in her discharge planning or plan, she will do what ever is decided. Staff reports continued depressed appearance, some confusion at times and some anger and hostility at times. Her socialization is limited. Hygiene is adequate. 1:1 continues for safety, primarily against falls. Awaiting assisted living placement. Medical Problems: CAD, COPD, chronic pain, insomnia, gait dysfunction Diagnostic Results: Temp Pulse Resp BP Pulse Ox 97.2 F L 97 H 20 123/65 100 03/30/17 07:19 03/30/17 15:00 03/30/17 07:19 03/30/17 15:00 03/23/17 11:36 Temp Pulse Resp BP Pulse Ox 97.6 F 61 16 102/55 L 100 04/02/17 07:00 04/03/17 10:01 04/02/17 16:30 04/03/17 10:01 03/23/17 11:36 Laboratory Last Values WBC 5.7 10^3/ul (4.5-11.0) 03/22/17 14:50 RBC 4.21 10^6/uL (3.5-6.1) 03/22/17 14:50 Hgb 12.9 g/dL (12.0-16.0) 03/22/17 14:50 Hct 40.4 % (36.0-48.0) 03/22/17 14:50 MCV 96.0 fl (80.0-105.0) D 03/22/17 14:50 MCH 30.6 pg (25.0-35.0) 03/22/17 14:50 MCHC 31.9 g/dl (31.0-37.0) 03/22/17 14:50 RDW 13.2 % (11.5-14.5) 03/22/17 14:50 Plt Count 218 10^3/uL (120.0-450.0) 03/22/17 14:50 MPV 9.3 fl (7.0-11.0) 03/22/17 14:50 Gran % 78.1 % (50.0-68.0) H 03/22/17 14:50 Lymph % (Auto) 12.9 % (22.0-35.0) L 03/22/17 14:50 [place] % (Auto) 7.4 % (1.0-6.0) H 03/22/17 14:50 Eos % (Auto) 1.2 % (1.5-5.0) L 03/22/17 14:50 Baso % (Auto) 0.4 % (0.0-3.0) 03/22/17 14:50 Gran # 4.42 (1.4-6.5) 03/22/17 14:50 Lymph # 0.7 (1.2-3.4) L 03/22/17 14:50 [place] # 0.4 (0.1-0.6) 03/22/17 14:50 Eos # 0.1 (0.0-0.7) 03/22/17 14:50 Baso # 0.02 K/mm3 (0.0-2.0) 03/22/17 14:50 Sodium 139 mmol/L (132-148) 03/22/17 14:50 Potassium 3.6 mmol/L (3.6-5.0) 03/22/17 14:50 Chloride 91 mmol/L (98-107) L 03/22/17 14:50 Carbon Dioxide 45 mmol/L (21-33) H 03/22/17 14:50 Anion Gap 7 (10-20) L 03/22/17 14:50 BUN 18 mg/dL (7-21) 03/22/17 14:50 Creatinine 0.6 mg/dl (0.7-1.2) L 03/22/17 14:50 Est GFR ( Amer) > 60 03/22/17 14:50 Est GFR (Non-Af Amer) > 60 03/22/17 14:50 POC Glucose (mg/dL) 93 mg/dL (65-110) 03/23/17 07:30 Random Glucose 104 mg/dL (70-110) 03/22/17 14:50 Calcium 9.4 mg/dL (8.4-10.5) 03/22/17 14:50 Total Bilirubin 1.4 mg/dL (0.2-1.3) H 03/22/17 14:50 AST 26 U/L (14-36) 03/22/17 14:50 ALT 31 U/L (7-56) 03/22/17 14:50 Alkaline Phosphatase 88 U/L (38-126) 03/22/17 14:50 Total Protein 6.7 g/dL (5.8-8.3) 03/22/17 14:50 Albumin 3.8 g/dL (3.0-4.8) 03/22/17 14:50 Globulin 2.9 gm/dL 03/22/17 14:50 Albumin/Globulin Ratio 1.3 (1.1-1.8) 03/22/17 14:50 Urine Color Yellow (YELLOW) 03/23/17 02:32 Urine Appearance Clear (CLEAR) 03/23/17 02:32 Urine pH 6.0 (4.7-8.0) 03/23/17 02:32 Ur Specific [place] 1.020 (1.005-1.035) 03/23/17 02:32 Urine Protein Trace mg/dL (<30 mg/dL) H 03/23/17 02:32 Urine Glucose (UA) Negative mg/dL (NEGATIVE) 03/23/17 02:32 Urine Ketones 15 mg/dL (NEGATIVE) H 03/23/17 02:32 Urine Blood Small (NEGATIVE) H 03/23/17 02:32 Urine Nitrate Negative (NEGATIVE) 03/23/17 02:32 Urine Bilirubin Negative (NEGATIVE) 03/23/17 02:32 Urine Urobilinogen 1.0 E.U./dL (<1 E.U./dL) H 03/23/17 02:32 Ur Leukocyte Esterase Negative Cuco/uL (NEGATIVE) 03/23/17 02:32 Urine RBC 2 - 5 /hpf (0-2) 03/23/17 02:32 Urine WBC 0 - 2 /hpf (0-6) 03/23/17 02:32 Ur Epithelial Cells 0 - 2 /hpf (0-5) 03/23/17 02:32 Salicylates < 1 mg/dL (2.0-20.0) L 03/22/17 14:50 Urine Opiates Screen Negative (NEGATIVE) 03/23/17 05:30 Urine Methadone Screen Negative (NEGATIVE) 03/23/17 05:30 Acetaminophen < 10.0 ug/ml (10.0-20.0) L 03/22/17 14:50 Ur Barbiturates Screen Negative (NEGATIVE) 03/23/17 05:30 Ur Phencyclidine Scrn Negative (NEGATIVE) 03/23/17 05:30 Ur Amphetamines Screen Negative (NEGATIVE) 03/23/17 05:30 U Benzodiazepines Scrn Positive (NEGATIVE) 03/23/17 05:30 U Oth Cocaine Metabols Negative (NEGATIVE) 03/23/17 05:30 U Cannabinoids Screen Negative (NEGATIVE) 03/23/17 05:30 Alcohol, Quantitative < 10 mg/dL (0-10) 03/22/17 14:50 Temp Pulse Resp BP Pulse Ox 97.6 F 79 16 137/82 100 04/02/17 07:00 04/04/17 17:18 04/03/17 22:15 04/04/17 17:18 03/23/17 11:36 Medication Change: Yes (D/C Wellbutrin, restart Lexapro, add Abilify for mood stability) Medical Record Reviewed: Yes Consults ordered or reviewed: Medical consult 03/26/[address] Blair reviewed, last labs reviewed. Mental Status Examination - Cognitive Function Orientation: Person, Place, Situation, Time Memory: Impaired Attention: Poor Concentration: Poor Association: Loose Fund of Knowledge: Poor - Mood Mood: Depressed, Other ("a little better") - Affect Affect: Constricted, Other (labile and irritable) - Speech Speech: Appropriate - Formal Thought Process Formal Thought Process: Loosening of associations - Suicidal Ideation Suicidal Ideation: No - Homicidal Ideation Homicidal Ideation: No Goal/Treatment Plan - Goal/Treatment Plan Need for Continued Stay: Remain at risks for inpatient hospitalization, Severe depression anxiety, Discharge may exacerbated symptoms, Severe functional impairment Progress Toward Problem(s) and Goals/Treatment Plan: Treatment plan: Milieu/structure/supportive therapy Medical consult appreciated, see medical team note for more detailed info SW consultation for discharge plan and social issues Med management Family involvement Follow up on labs Will monitor closely SW evaluation for d/c planning Pt was educated about risk/benefits and alternatives of medications, coping strategies (safety plan, suicide prevention), relapse prevention, importance of follow up with psychiatrist and therapist Estimated Date of D/C: 04/06/17 (will monitor closely) - Smoking Cessation Smoking Cessation Initiated: No Reason for not providing: Not a smoker
[2017-04-04] MEDS: DiphenhydrAMINE 12.5 mg/5 ml LIQ UD (5 ml) PO SCH (21:57)
[2017-04-05] MEDS: Albuterol-Ipratrop 3 mg / 0.5 (3 ml) UD IH SCH ×3 (07:57→20:26)
[2017-04-05] MEDS: Bacitracin 500 Units/gm Oint Foilpak UD TOP SCH (09:50)
--- NOTE | 2017-04-05 17:20 | PCM.PYCHPN ---
Psychiatric Progress Note - Psychiatric Progress Note Patient seen today, length of contact: 30 minutes Patient Chief Complaint: "It sounds like the assisted care might be good for me " Problems Identified/Issues Discussed: Patient was seen today at her bedside with her 1:1. Presentation today is pleasant and cooperative. She wants to know "what has been decided regarding her placement after discharge. discussed [facility] vs assisted living, patient indicates she feel assisted living would be "ok" for her. Staff continues to report a depressed appearance, some confusion at times and some anger and hostility at times. Hygiene is adequate. 1:1 continues for safety, primarily against falls. Medical Problems: CAD, COPD, chronic pain, insomnia, gait dysfunction Diagnostic Results: Temp Pulse Resp BP Pulse Ox 97.2 F L 97 H 20 123/65 100 03/30/17 07:19 03/30/17 15:00 03/30/17 07:19 03/30/17 15:00 03/23/17 11:36 Temp Pulse Resp BP Pulse Ox 97.6 F 61 16 102/55 L 100 04/02/17 07:00 04/03/17 10:01 04/02/17 16:30 04/03/17 10:01 03/23/17 11:36 Laboratory Last Values WBC 5.7 10^3/ul (4.5-11.0) 03/22/17 14:50 RBC 4.21 10^6/uL (3.5-6.1) 03/22/17 14:50 Hgb 12.9 g/dL (12.0-16.0) 03/22/17 14:50 Hct 40.4 % (36.0-48.0) 03/22/17 14:50 MCV 96.0 fl (80.0-105.0) D 03/22/17 14:50 MCH 30.6 pg (25.0-35.0) 03/22/17 14:50 MCHC 31.9 g/dl (31.0-37.0) 03/22/17 14:50 RDW 13.2 % (11.5-14.5) 03/22/17 14:50 Plt Count 218 10^3/uL (120.0-450.0) 03/22/17 14:50 MPV 9.3 fl (7.0-11.0) 03/22/17 14:50 Gran % 78.1 % (50.0-68.0) H 03/22/17 14:50 Lymph % (Auto) 12.9 % (22.0-35.0) L 03/22/17 14:50 [place] % (Auto) 7.4 % (1.0-6.0) H 03/22/17 14:50 Eos % (Auto) 1.2 % (1.5-5.0) L 03/22/17 14:50 Baso % (Auto) 0.4 % (0.0-3.0) 03/22/17 14:50 Gran # 4.42 (1.4-6.5) 03/22/17 14:50 Lymph # 0.7 (1.2-3.4) L 03/22/17 14:50 [place] # 0.4 (0.1-0.6) 03/22/17 14:50 Eos # 0.1 (0.0-0.7) 03/22/17 14:50 Baso # 0.02 K/mm3 (0.0-2.0) 03/22/17 14:50 Sodium 139 mmol/L (132-148) 03/22/17 14:50 Potassium 3.6 mmol/L (3.6-5.0) 03/22/17 14:50 Chloride 91 mmol/L (98-107) L 03/22/17 14:50 Carbon Dioxide 45 mmol/L (21-33) H 03/22/17 14:50 Anion Gap 7 (10-20) L 03/22/17 14:50 BUN 18 mg/dL (7-21) 03/22/17 14:50 Creatinine 0.6 mg/dl (0.7-1.2) L 03/22/17 14:50 Est GFR ( Amer) > 60 03/22/17 14:50 Est GFR (Non-Af Amer) > 60 03/22/17 14:50 POC Glucose (mg/dL) 93 mg/dL (65-110) 03/23/17 07:30 Random Glucose 104 mg/dL (70-110) 03/22/17 14:50 Calcium 9.4 mg/dL (8.4-10.5) 03/22/17 14:50 Total Bilirubin 1.4 mg/dL (0.2-1.3) H 03/22/17 14:50 AST 26 U/L (14-36) 03/22/17 14:50 ALT 31 U/L (7-56) 03/22/17 14:50 Alkaline Phosphatase 88 U/L (38-126) 03/22/17 14:50 Total Protein 6.7 g/dL (5.8-8.3) 03/22/17 14:50 Albumin 3.8 g/dL (3.0-4.8) 03/22/17 14:50 Globulin 2.9 gm/dL 03/22/17 14:50 Albumin/Globulin Ratio 1.3 (1.1-1.8) 03/22/17 14:50 Urine Color Yellow (YELLOW) 03/23/17 02:32 Urine Appearance Clear (CLEAR) 03/23/17 02:32 Urine pH 6.0 (4.7-8.0) 03/23/17 02:32 Ur Specific [place] 1.020 (1.005-1.035) 03/23/17 02:32 Urine Protein Trace mg/dL (<30 mg/dL) H 03/23/17 02:32 Urine Glucose (UA) Negative mg/dL (NEGATIVE) 03/23/17 02:32 Urine Ketones 15 mg/dL (NEGATIVE) H 03/23/17 02:32 Urine Blood Small (NEGATIVE) H 03/23/17 02:32 Urine Nitrate Negative (NEGATIVE) 03/23/17 02:32 Urine Bilirubin Negative (NEGATIVE) 03/23/17 02:32 Urine Urobilinogen 1.0 E.U./dL (<1 E.U./dL) H 03/23/17 02:32 Ur Leukocyte Esterase Negative Cuco/uL (NEGATIVE) 03/23/17 02:32 Urine RBC 2 - 5 /hpf (0-2) 03/23/17 02:32 Urine WBC 0 - 2 /hpf (0-6) 03/23/17 02:32 Ur Epithelial Cells 0 - 2 /hpf (0-5) 03/23/17 02:32 Salicylates < 1 mg/dL (2.0-20.0) L 03/22/17 14:50 Urine Opiates Screen Negative (NEGATIVE) 03/23/17 05:30 Urine Methadone Screen Negative (NEGATIVE) 03/23/17 05:30 Acetaminophen < 10.0 ug/ml (10.0-20.0) L 03/22/17 14:50 Ur Barbiturates Screen Negative (NEGATIVE) 03/23/17 05:30 Ur Phencyclidine Scrn Negative (NEGATIVE) 03/23/17 05:30 Ur Amphetamines Screen Negative (NEGATIVE) 03/23/17 05:30 U Benzodiazepines Scrn Positive (NEGATIVE) 03/23/17 05:30 U Oth Cocaine Metabols Negative (NEGATIVE) 03/23/17 05:30 U Cannabinoids Screen Negative (NEGATIVE) 03/23/17 05:30 Alcohol, Quantitative < 10 mg/dL (0-10) 03/22/17 14:50 Temp Pulse Resp BP Pulse Ox 97.6 F 79 16 137/82 100 04/02/17 07:00 04/04/17 17:18 04/03/17 22:15 04/04/17 17:18 03/23/17 11:36 Temp Pulse Resp BP Pulse Ox 97.6 F 79 16 137/82 100 04/02/17 07:00 04/04/17 21:58 04/03/17 22:15 04/04/17 21:58 03/23/17 11:36 Medication Change: No Medical Record Reviewed: Yes Mental Status Examination - Cognitive Function Orientation: Person, Place, Situation, Time Memory: Impaired Attention: Poor Concentration: Poor Association: Loose Fund of Knowledge: Poor - Mood Mood: Depressed, Other ("a little better") - Affect Affect: Constricted, Other (labile and irritable) - Speech Speech: Appropriate - Formal Thought Process Formal Thought Process: Loosening of associations - Suicidal Ideation Suicidal Ideation: No - Homicidal Ideation Homicidal Ideation: No Goal/Treatment Plan - Goal/Treatment Plan Need for Continued Stay: Remain at risks for inpatient hospitalization, Severe depression anxiety, Discharge may exacerbated symptoms, Severe functional impairment Progress Toward Problem(s) and Goals/Treatment Plan: Treatment plan: Milieu/structure/supportive therapy Medical consult appreciated, see medical team note for more detailed info consultation for discharge plan and social issues Med management Family involvement Follow up on labs Will monitor closely evaluation for d/c planning Pt was educated about risk/benefits and alternatives of medications, coping strategies (safety plan, suicide prevention), relapse prevention, importance of follow up with psychiatrist and therapist Estimated Date of D/C: 04/06/17 (will monitor closely)
[2017-04-05] MEDS: DiphenhydrAMINE 12.5 mg/5 ml LIQ UD (5 ml) PO SCH (21:57)
[2017-04-06] MEDS: Albuterol-Ipratrop 3 mg / 0.5 (3 ml) UD IH SCH ×3 (01:26→13:09)
[2017-04-06] MEDS: Bacitracin 500 Units/gm Oint Foilpak UD TOP SCH (09:26)
[2017-04-06] MEDS: Albuterol-Ipratrop 3 mg / 0.5 (3 ml) UD IH PRN (14:27)
--- NOTE | 2017-04-06 18:41 | PCM.PYCHPN ---
Psychiatric Progress Note - Psychiatric Progress Note Patient seen today, length of contact: 30 minutes Patient Chief Complaint: "I am not good today " Problems Identified/Issues Discussed: Patient was seen today at her bedside with her 1:1. She indicates that she is feeling poorly mentally and physically. She is preoccupied thinking about he son , wishing she is able to spend more time with him. Is mourning the fact that she cannot live alone and the necessity of an assisted living situation. Today is isolating, only out for meals with no socialization. Medical Problems: CAD, COPD, chronic pain, insomnia, gait dysfunction Diagnostic Results: Temp Pulse Resp BP Pulse Ox 97.2 F L 97 H 20 123/65 100 03/30/17 07:19 03/30/17 15:00 03/30/17 07:19 03/30/17 15:00 03/23/17 11:36 Temp Pulse Resp BP Pulse Ox 97.6 F 61 16 102/55 L 100 04/02/17 07:00 04/03/17 10:01 04/02/17 16:30 04/03/17 10:01 03/23/17 11:36 Laboratory Last Values WBC 5.7 10^3/ul (4.5-11.0) 03/22/17 14:50 RBC 4.21 10^6/uL (3.5-6.1) 03/22/17 14:50 Hgb 12.9 g/dL (12.0-16.0) 03/22/17 14:50 Hct 40.4 % (36.0-48.0) 03/22/17 14:50 MCV 96.0 fl (80.0-105.0) D 03/22/17 14:50 MCH 30.6 pg (25.0-35.0) 03/22/17 14:50 MCHC 31.9 g/dl (31.0-37.0) 03/22/17 14:50 RDW 13.2 % (11.5-14.5) 03/22/17 14:50 Plt Count 218 10^3/uL (120.0-450.0) 03/22/17 14:50 MPV 9.3 fl (7.0-11.0) 03/22/17 14:50 Gran % 78.1 % (50.0-68.0) H 03/22/17 14:50 Lymph % (Auto) 12.9 % (22.0-35.0) L 03/22/17 14:50 [place] % (Auto) 7.4 % (1.0-6.0) H 03/22/17 14:50 Eos % (Auto) 1.2 % (1.5-5.0) L 03/22/17 14:50 Baso % (Auto) 0.4 % (0.0-3.0) 03/22/17 14:50 Gran # 4.42 (1.4-6.5) 03/22/17 14:50 Lymph # 0.7 (1.2-3.4) L 03/22/17 14:50 [place] # 0.4 (0.1-0.6) 03/22/17 14:50 Eos # 0.1 (0.0-0.7) 03/22/17 14:50 Baso # 0.02 K/mm3 (0.0-2.0) 03/22/17 14:50 Sodium 139 mmol/L (132-148) 03/22/17 14:50 Potassium 3.6 mmol/L (3.6-5.0) 03/22/17 14:50 Chloride 91 mmol/L (98-107) L 03/22/17 14:50 Carbon Dioxide 45 mmol/L (21-33) H 03/22/17 14:50 Anion Gap 7 (10-20) L 03/22/17 14:50 BUN 18 mg/dL (7-21) 03/22/17 14:50 Creatinine 0.6 mg/dl (0.7-1.2) L 03/22/17 14:50 Est GFR ( Amer) > 60 03/22/17 14:50 Est GFR (Non-Af Amer) > 60 03/22/17 14:50 POC Glucose (mg/dL) 93 mg/dL (65-110) 03/23/17 07:30 Random Glucose 104 mg/dL (70-110) 03/22/17 14:50 Calcium 9.4 mg/dL (8.4-10.5) 03/22/17 14:50 Total Bilirubin 1.4 mg/dL (0.2-1.3) H 03/22/17 14:50 AST 26 U/L (14-36) 03/22/17 14:50 ALT 31 U/L (7-56) 03/22/17 14:50 Alkaline Phosphatase 88 U/L (38-126) 03/22/17 14:50 Total Protein 6.7 g/dL (5.8-8.3) 03/22/17 14:50 Albumin 3.8 g/dL (3.0-4.8) 03/22/17 14:50 Globulin 2.9 gm/dL 03/22/17 14:50 Albumin/Globulin Ratio 1.3 (1.1-1.8) 03/22/17 14:50 Urine Color Yellow (YELLOW) 03/23/17 02:32 Urine Appearance Clear (CLEAR) 03/23/17 02:32 Urine pH 6.0 (4.7-8.0) 03/23/17 02:32 Ur Specific [place] 1.020 (1.005-1.035) 03/23/17 02:32 Urine Protein Trace mg/dL (<30 mg/dL) H 03/23/17 02:32 Urine Glucose (UA) Negative mg/dL (NEGATIVE) 03/23/17 02:32 Urine Ketones 15 mg/dL (NEGATIVE) H 03/23/17 02:32 Urine Blood Small (NEGATIVE) H 03/23/17 02:32 Urine Nitrate Negative (NEGATIVE) 03/23/17 02:32 Urine Bilirubin Negative (NEGATIVE) 03/23/17 02:32 Urine Urobilinogen 1.0 E.U./dL (<1 E.U./dL) H 03/23/17 02:32 Ur Leukocyte Esterase Negative Cuco/uL (NEGATIVE) 03/23/17 02:32 Urine RBC 2 - 5 /hpf (0-2) 03/23/17 02:32 Urine WBC 0 - 2 /hpf (0-6) 03/23/17 02:32 Ur Epithelial Cells 0 - 2 /hpf (0-5) 03/23/17 02:32 Salicylates < 1 mg/dL (2.0-20.0) L 03/22/17 14:50 Urine Opiates Screen Negative (NEGATIVE) 03/23/17 05:30 Urine Methadone Screen Negative (NEGATIVE) 03/23/17 05:30 Acetaminophen < 10.0 ug/ml (10.0-20.0) L 03/22/17 14:50 Ur Barbiturates Screen Negative (NEGATIVE) 03/23/17 05:30 Ur Phencyclidine Scrn Negative (NEGATIVE) 03/23/17 05:30 Ur Amphetamines Screen Negative (NEGATIVE) 03/23/17 05:30 U Benzodiazepines Scrn Positive (NEGATIVE) 03/23/17 05:30 U Oth Cocaine Metabols Negative (NEGATIVE) 03/23/17 05:30 U Cannabinoids Screen Negative (NEGATIVE) 03/23/17 05:30 Alcohol, Quantitative < 10 mg/dL (0-10) 03/22/17 14:50 Temp Pulse Resp BP Pulse Ox 97.6 F 79 16 137/82 100 04/02/17 07:00 04/04/17 17:18 04/03/17 22:15 04/04/17 17:18 03/23/17 11:36 Temp Pulse Resp BP Pulse Ox 97.6 F 79 16 137/82 100 04/02/17 07:00 04/04/17 21:58 04/03/17 22:15 04/04/17 21:58 03/23/17 11:36 Temp Pulse Resp BP Pulse Ox 97.9 F 82 22 136/70 100 04/06/17 07:36 04/06/17 16:00 04/06/17 07:36 04/06/17 16:00 03/23/17 11:36 Medication Change: No Medical Record Reviewed: Yes Consults ordered or reviewed: Patient HPI 03/26/[address] Blair Mental Status Examination - Cognitive Function Orientation: Person, Place, Situation, Time Memory: Impaired Attention: Poor Concentration: Poor Association: Loose Fund of Knowledge: Poor - Mood Mood: Depressed, Other ("a little better") - Affect Affect: Constricted, Other (labile and irritable) - Speech Speech: Appropriate - Formal Thought Process Formal Thought Process: Loosening of associations - Suicidal Ideation Suicidal Ideation: No - Homicidal Ideation Homicidal Ideation: No Goal/Treatment Plan - Goal/Treatment Plan Need for Continued Stay: Remain at risks for inpatient hospitalization, Severe depression anxiety, Discharge may exacerbated symptoms, Severe functional impairment Progress Toward Problem(s) and Goals/Treatment Plan: Treatment plan: Milieu/structure/supportive therapy Medical consult appreciated, see medical team note for more detailed info SW consultation for discharge plan and social issues Med management Family involvement Follow up on labs Will monitor closely evaluation for d/c planning Pt was educated about risk/benefits and alternatives of medications, coping strategies (safety plan, suicide prevention), relapse prevention, importance of follow up with psychiatrist and therapist Estimated Date of D/C: 04/06/17 (will monitor closely)
[2017-04-06] MEDS: DiphenhydrAMINE 12.5 mg/5 ml LIQ UD (5 ml) PO SCH (21:09)
[2017-04-07] MEDS: Albuterol-Ipratrop 3 mg / 0.5 (3 ml) UD IH SCH ×4 (04:41→20:51)
--- NOTE | 2017-04-07 08:57 | PCM.PYCHPN ---
Psychiatric Progress Note - Psychiatric Progress Note Patient seen today, length of contact: 25 minutes Patient Chief Complaint: "all right". She is neither hopeful or hopeless. Problems Identified/Issues Discussed: I reviewed recent notes and met with patient at bedside. Patient is known to me from prior interviews during this hospitalization. Grooming is unkempt and patient is a little calmer though remains labile and irritable. She believes it is already April 2017 (this is in 2 days). Patient reports that she slept " all right" however her 1:1 indicates that she was tossing and turning all night. Patient's affect remains constricted and disinterested. She tells me that she feels "all right". She is neither hopeful or hopeless. Patient's focus is poor and I need to repeat some of my questions. Thought process is still somewhat scattered however she is not responding to internal stimuli. She denies having any hallucinations. Continues to deny any new discomfort or pain. Staff notes indicate that patient has been anxious, unmotivated and uncooperative at times. She refuses some scheduled medications and appears unmotivated for improvement. Remains dismissive of this film writer as well as staff. Insight and judgment are poor. 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 She is neither hopeful or hopeless.), Other ("a little better") - Affect Affect: Constricted, Other ( a little calmer though remains labile and irritable. ) - Speech Speech: Appropriate - Formal Thought Process Formal Thought Process: Loosening of associations - Suicidal Ideation Suicidal Ideation: No - Homicidal Ideation Homicidal Ideation: No Goal/Treatment Plan - Goal/Treatment Plan Need for Continued Stay: Remain at risks for inpatient hospitalization, Severe depression anxiety, Discharge may exacerbated symptoms, Severe functional impairment Progress Toward Problem(s) and Goals/Treatment Plan: * c/w current tx and plan * Lexapro 20 mg po daily for depression * Abilify 2.5 mg po daily, increased to 5 mg HS on 04/07/17 for mood control and depression * Seroquel 25 mg HS for lability and off-label for poor sleep, consider d/c as abilify is optimized. * Benadryl 12.5 mg HS * Xanax 0.25 mg po TID prn: anxiety * Per Dr. Ayala 04/02/17: if pt continues the same behavior, refuse to take meds, please consider calling [facility] [place] screening. Consider ECT treatment * Continue 1:1 for safety * No new labs thus far * Vitals reviewed and noted below: 04/06/17 04/06/17 04/06/17 07:36 09:28 16:00 Temperature 97.9 F Pulse Rate 83 83 82 Respiratory 22 Rate Blood Pressure 153/81 H 153/79 H 136/70 04/06/17 21:20 Temperature Pulse Rate 71 Respiratory Rate Blood Pressure 112/65 Estimated Date of D/C: 04/06/17 (will monitor closely)
[2017-04-07] MEDS: Bacitracin 500 Units/gm Oint Foilpak UD TOP SCH (09:23)
[2017-04-07] MEDS: DiphenhydrAMINE 12.5 mg/5 ml LIQ UD (5 ml) PO SCH ×3 (21:33→23:37)
[2017-04-08] MEDS: Albuterol-Ipratrop 3 mg / 0.5 (3 ml) UD IH SCH ×4 (01:02→20:50)
[2017-04-08] MEDS: Bacitracin 500 Units/gm Oint Foilpak UD TOP SCH (08:52)
--- NOTE | 2017-04-08 08:57 | PCM.PYCHPN ---
Psychiatric Progress Note - Psychiatric Progress Note Patient seen today, length of contact: 25 minutes Patient Chief Complaint: "fine" and "sleeping better" Problems Identified/Issues Discussed: I reviewed recent notes and met with patient at bedside. Patient is known to me from prior interviews during this hospitalization. Grooming is unkempt and patient is a little calmer though remains labile and irritable. She will not respond to questioning about orientation though yesterday she believed it was already April 2017. Patient reports that she is "fine" and "sleeping better" however staff notes indicate that patient had a few fits/panic attacks last night. She was heard screaming "I'm going to please help me". Patient required reassurance and was medicated with low dose xanax. Patient's affect remains constricted and disinterested. Patient's focus is poor and I need to repeat some of my questions without much success in engaging her. Her thought process is still scattered however she is not responding to internal stimuli. She denies having any hallucinations. Continues to deny any new discomfort or pain. Staff notes indicate that patient has been anxious and uncooperative at times. She refuses some scheduled medications and appears unmotivated for improvement. Insight and judgment remain poor. 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 ) - Speech Speech: Appropriate - Formal Thought Process Formal Thought Process: Loosening of associations - Suicidal Ideation Suicidal Ideation: No - Homicidal Ideation Homicidal Ideation: No Goal/Treatment Plan - Goal/Treatment Plan Need for Continued Stay: Remain at risks for inpatient hospitalization, Severe depression anxiety, Discharge may exacerbated symptoms, Severe functional impairment Progress Toward Problem(s) and Goals/Treatment Plan: * c/w current tx and plan * Lexapro 20 mg po daily for depression * Abilify 2.5 mg po daily, increased to 5 mg HS on 04/07/17 for mood control and depression * Seroquel 25 mg HS for lability and off-label for poor sleep, consider d/c as abilify is optimized. * Benadryl 12.5 mg HS * Xanax 0.25 mg po TID prn: anxiety * Per Dr. Ayala 04/02/17: if pt continues the same behavior, refuse to take meds, please consider calling [facility] [place]. Consider ECT treatment * Continue 1:1 for safety * No new labs thus far * Vitals reviewed and noted below: Selected Entries 04/07/17 04/07/17 04/07/17 06:45 09:19 15:00 Temperature 97.7 F 97.6 F Pulse Rate 69 69 75 Respiratory 16 20 Rate Blood Pressure 126/72 126/72 110/60 04/07/17 21:33 Temperature Pulse Rate 91 H Respiratory Rate Blood Pressure 92/53 L Estimated Date of D/C: 04/06/17 (will monitor closely)
[2017-04-08] MEDS: DiphenhydrAMINE 12.5 mg/5 ml LIQ UD (5 ml) PO SCH (21:21)
[2017-04-09] MEDS: Albuterol-Ipratrop 3 mg / 0.5 (3 ml) UD IH SCH ×4 (01:08→20:39)
[2017-04-09] MEDS: Bacitracin 500 Units/gm Oint Foilpak UD TOP SCH (09:15)
--- NOTE | 2017-04-09 12:45 | PCM.BM ---
<Harjit Espinosa - Last Filed: 04/09/17 12:44> Treatment Plan Problems - Problems identified on initial assessmt Anxiety Date Initiated: 03/23/17 Time Initiated: 15:02 Assessment reference: HP, NA panic attacks Date Initiated: 03/23/17 Time Initiated: 15:03 Assessment reference: HP, NA ineffective breathing pattern Date Initiated: 03/23/17 Time Initiated: 15:03 Assessment reference: HP, NA depressive symptoms Date Initiated: 04/09/17 Time Initiated: 12:45 Assessment reference: NA Status: Active Priority: 4 Treatment assets and liabiliti Patient Assests: adapts well, cooperative, resourceful, negotiates basic needs, cognitively intact, good interpersonal skills, other Patient Liabilities: live alone, poor support system, medical problems, other - Milieu Protocol Maintain good personal hygiene: daily Encourage regular showers, daily Remind patient to perform daily oral care, daily Assist patient to perform ADL's Maintain personal safety: daily Educate patient to report safety concerns to staff, daily Monitor environment for contraband/sharps Medication safety: Monitor for expected outcome, potential side effects: daily, Assess barriers to learning: daily, Assess readiness for medication education: daily Milieu Narrative: * c/w current tx and plan * Lexapro 20 mg po daily for depression * Abilify 2.5 mg po daily, increased to 5 mg HS on 04/07/17 for mood control and depression * Seroquel 25 mg HS for lability and off-label for poor sleep, consider d/c as abilify is optimized. * Benadryl 12.5 mg HS * Xanax 0.25 mg po TID prn: anxiety * Per Dr. Ayala 04/02/17: if pt continues the same behavior, refuse to take meds, [place] [facility] [place] * Continue 1:1 for safety * No new labs thus far * Vitals reviewed and noted below: Selected Entries 04/07/17 04/07/17 04/07/17 06:45 09:19 15:00 Temperature 97.7 F 97.6 F Pulse Rate 69 69 75 Respiratory 16 20 Rate Blood Pressure 126/72 126/72 110/60 04/07/17 21:33 Temperature Pulse Rate 91 H Respiratory Rate Blood Pressure 92/53 L Family Contact Family involvement: Family/SO is involved Family contact: Patient agrees to contact Family contact name: Av Mota(son) Family contacted how many times per week?: 2 Discharge/Continuing Care - Education Needs Education Needs: Patient Medication, Patient Diagnosis/Disease Process, Patient Coping Skills, Patient Placement options, Patient Community resources, Patient Activities of Daily Living, Patient Uses of Medical Equipment, Patient Health Practices/Safety, Patient Personal Hygiene/Grooming, Patient Aftercare Safety Plan - Discharge Discharge Criteria: Tolerates medication w/o severe side effects, Free of Suicidal thoughts, Free of Homicidal thoughts, Normal sleep pattern, Ability to care for self, Reduction of target symptoms - Treatment Team Participation Patient/Family/SO Statement: * c/w current tx and plan * Lexapro 20 mg po daily for depression * Abilify 2.5 mg po daily, increased to 5 mg HS on 04/07/17 for mood control and depression * Seroquel 25 mg HS for lability and off-label for poor sleep, consider d/c as abilify is optimized. * Benadryl 12.5 mg HS * Xanax 0.25 mg po TID prn: anxiety * Per Dr. Aylaa 04/02/17: if pt continues the same behavior, refuse to take meds, please [place] [facility] [place] Consider [place] treatment * Continue 1:1 for safety * No new labs thus far * Vitals reviewed and noted below: Selected Entries 04/07/17 04/07/17 04/07/17 06:45 09:19 15:00 Temperature 97.7 F 97.6 F Pulse Rate 69 69 75 Respiratory 16 20 Rate Blood Pressure 126/72 126/72 110/60 04/07/17 21:33 Temperature Pulse Rate 91 H Respiratory Rate Blood Pressure 92/53 L Treatment Plan Review - Problem Anxiety Time Initiated: 15:02 panic attacks Time Initiated: 15:03 ineffective breathing pattern Time Initiated: 15:03 <Mariam Florez - Last Filed: 04/11/17 12:53> - Diagnosis (1) MDD (major depressive disorder) Status: Acute Interventions: 04/02/17 14:23 pt is not improving pt is still depressed refused to participate in treatment team pt refused to take medications meds changed education provided 04/02/17 14:24 (2) COPD (chronic obstructive pulmonary disease) Status: Acute Interventions: Pt will be seen by medical team as needed Medications will be confirmed and resumed Additional consultation by specialists as needed Lab work as needed CXR as needed EKG Physical therapy valuation as needed 04/11/17 12:52
--- NOTE | 2017-04-09 17:16 | PCM.PYCHPN ---
Psychiatric Progress Note - Psychiatric Progress Note Patient seen today, length of contact: 25 minutes Patient Chief Complaint: "I am afraid I am going to " Problems Identified/Issues Discussed: Patient was seen today at her bedside with her 1:1. She had refused to come to treatment team so we had treatment team in her room. She talks about her fear of dying which is worse when she is alone. Pointed out to the patient that she has been observed out of her room appearing to enjoy socializing and that less isolation may help her feel less alone and scared. Patient agrees to spend time outside of the room. was observed later socializing with improved affect. Medical Problems: CAD, COPD, chronic pain, insomnia, gait dysfunction Diagnostic Results: Temp Pulse Resp BP Pulse Ox 97.2 F L 97 H 20 123/65 100 03/30/17 07:19 03/30/17 15:00 03/30/17 07:19 03/30/17 15:00 03/23/17 11:36 Temp Pulse Resp BP Pulse Ox 97.6 F 61 16 102/55 L 100 04/02/17 07:00 04/03/17 10:01 04/02/17 16:30 04/03/17 10:01 03/23/17 11:36 Laboratory Last Values WBC 5.7 10^3/ul (4.5-11.0) 03/22/17 14:50 RBC 4.21 10^6/uL (3.5-6.1) 03/22/17 14:50 Hgb 12.9 g/dL (12.0-16.0) 03/22/17 14:50 Hct 40.4 % (36.0-48.0) 03/22/17 14:50 MCV 96.0 fl (80.0-105.0) D 03/22/17 14:50 MCH 30.6 pg (25.0-35.0) 03/22/17 14:50 MCHC 31.9 g/dl (31.0-37.0) 03/22/17 14:50 RDW 13.2 % (11.5-14.5) 03/22/17 14:50 Plt Count 218 10^3/uL (120.0-450.0) 03/22/17 14:50 MPV 9.3 fl (7.0-11.0) 03/22/17 14:50 Gran % 78.1 % (50.0-68.0) H 03/22/17 14:50 Lymph % (Auto) 12.9 % (22.0-35.0) L 03/22/17 14:50 [place] % (Auto) 7.4 % (1.0-6.0) H 03/22/17 14:50 Eos % (Auto) 1.2 % (1.5-5.0) L 03/22/17 14:50 Baso % (Auto) 0.4 % (0.0-3.0) 03/22/17 14:50 Gran # 4.42 (1.4-6.5) 03/22/17 14:50 Lymph # 0.7 (1.2-3.4) L 03/22/17 14:50 [place] # 0.4 (0.1-0.6) 03/22/17 14:50 Eos # 0.1 (0.0-0.7) 03/22/17 14:50 Baso # 0.02 K/mm3 (0.0-2.0) 03/22/17 14:50 Sodium 139 mmol/L (132-148) 03/22/17 14:50 Potassium 3.6 mmol/L (3.6-5.0) 03/22/17 14:50 Chloride 91 mmol/L (98-107) L 03/22/17 14:50 Carbon Dioxide 45 mmol/L (21-33) H 03/22/17 14:50 Anion Gap 7 (10-20) L 03/22/17 14:50 BUN 18 mg/dL (7-21) 03/22/17 14:50 Creatinine 0.6 mg/dl (0.7-1.2) L 03/22/17 14:50 Est GFR ( Amer) > 60 03/22/17 14:50 Est GFR (Non-Af Amer) > 60 03/22/17 14:50 POC Glucose (mg/dL) 93 mg/dL (65-110) 03/23/17 07:30 Random Glucose 104 mg/dL (70-110) 03/22/17 14:50 Calcium 9.4 mg/dL (8.4-10.5) 03/22/17 14:50 Total Bilirubin 1.4 mg/dL (0.2-1.3) H 03/22/17 14:50 AST 26 U/L (14-36) 03/22/17 14:50 ALT 31 U/L (7-56) 03/22/17 14:50 Alkaline Phosphatase 88 U/L (38-126) 03/22/17 14:50 Total Protein 6.7 g/dL (5.8-8.3) 03/22/17 14:50 Albumin 3.8 g/dL (3.0-4.8) 03/22/17 14:50 Globulin 2.9 gm/dL 03/22/17 14:50 Albumin/Globulin Ratio 1.3 (1.1-1.8) 03/22/17 14:50 Urine Color Yellow (YELLOW) 03/23/17 02:32 Urine Appearance Clear (CLEAR) 03/23/17 02:32 Urine pH 6.0 (4.7-8.0) 03/23/17 02:32 Ur Specific [place] 1.020 (1.005-1.035) 03/23/17 02:32 Urine Protein Trace mg/dL (<30 mg/dL) H 03/23/17 02:32 Urine Glucose (UA) Negative mg/dL (NEGATIVE) 03/23/17 02:32 Urine Ketones 15 mg/dL (NEGATIVE) H 03/23/17 02:32 Urine Blood Small (NEGATIVE) H 03/23/17 02:32 Urine Nitrate Negative (NEGATIVE) 03/23/17 02:32 Urine Bilirubin Negative (NEGATIVE) 03/23/17 02:32 Urine Urobilinogen 1.0 E.U./dL (<1 E.U./dL) H 03/23/17 02:32 Ur Leukocyte Esterase Negative Cuco/uL (NEGATIVE) 03/23/17 02:32 Urine RBC 2 - 5 /hpf (0-2) 03/23/17 02:32 Urine WBC 0 - 2 /hpf (0-6) 03/23/17 02:32 Ur Epithelial Cells 0 - 2 /hpf (0-5) 03/23/17 02:32 Salicylates < 1 mg/dL (2.0-20.0) L 03/22/17 14:50 Urine Opiates Screen Negative (NEGATIVE) 03/23/17 05:30 Urine Methadone Screen Negative (NEGATIVE) 03/23/17 05:30 Acetaminophen < 10.0 ug/ml (10.0-20.0) L 03/22/17 14:50 Ur Barbiturates Screen Negative (NEGATIVE) 03/23/17 05:30 Ur Phencyclidine Scrn Negative (NEGATIVE) 03/23/17 05:30 Ur Amphetamines Screen Negative (NEGATIVE) 03/23/17 05:30 U Benzodiazepines Scrn Positive (NEGATIVE) 03/23/17 05:30 U Oth Cocaine Metabols Negative (NEGATIVE) 03/23/17 05:30 U Cannabinoids Screen Negative (NEGATIVE) 03/23/17 05:30 Alcohol, Quantitative < 10 mg/dL (0-10) 03/22/17 14:50 Temp Pulse Resp BP Pulse Ox 97.6 F 79 16 137/82 100 04/02/17 07:00 04/04/17 17:18 04/03/17 22:15 04/04/17 17:18 03/23/17 11:36 Temp Pulse Resp BP Pulse Ox 98.2 F 74 20 121/59 L 100 04/08/17 07:00 04/09/17 16:30 04/08/17 07:00 04/09/17 16:30 03/23/17 11:36 Temp Pulse Resp BP Pulse Ox 97.6 F 79 16 137/82 100 04/02/17 07:00 04/04/17 21:58 04/03/17 22:15 04/04/17 21:58 03/23/17 11:36 Temp Pulse Resp BP Pulse Ox 97.9 F 82 22 136/70 100 04/06/17 07:36 04/06/17 16:00 04/06/17 07:36 04/06/17 16:00 03/23/17 11:36 Medication Change: No Medical Record Reviewed: Yes Mental Status Examination - Cognitive Function Orientation: Person, Place, Situation, Time Memory: Impaired Attention: Poor Concentration: Poor Association: Loose Fund of Knowledge: Poor - Mood Mood: Depressed ( "fine" and "sleeping better") - Affect Affect: Constricted, Other ( a little calmer though remains labile, dismissive and irritable. ) - Speech Speech: Appropriate - Formal Thought Process Formal Thought Process: Loosening of associations - Suicidal Ideation Suicidal Ideation: No - Homicidal Ideation Homicidal Ideation: No Goal/Treatment Plan - Goal/Treatment Plan Need for Continued Stay: Remain at risks for inpatient hospitalization, Severe depression anxiety, Discharge may exacerbated symptoms, Severe functional impairment Progress Toward Problem(s) and Goals/Treatment Plan: Treatment plan: Milieu/structure/supportive therapy Medical consult appreciated, see medical team note for more detailed info SW consultation for discharge plan and social issues Med management Family involvement Follow up on labs Will monitor closely SW evaluation for d/c planning Pt was educated about risk/benefits and alternatives of medications, coping strategies (safety plan, suicide prevention), relapse prevention, importance of follow up with psychiatrist and therapist Estimated Date of D/C: 04/06/17 (will monitor closely) If changed, why: Patient requires further care/ observation - Smoking Cessation Smoking Cessation Initiated: No Reason for not providing: not a smoker
[2017-04-09] MEDS: DiphenhydrAMINE 12.5 mg/5 ml LIQ UD (5 ml) PO SCH (22:30)
[2017-04-10] MEDS: Albuterol-Ipratrop 3 mg / 0.5 (3 ml) UD IH SCH ×4 (01:39→21:08)
[2017-04-10] MEDS: Bacitracin 500 Units/gm Oint Foilpak UD TOP SCH (08:25)
[2017-04-10] MEDS: DiphenhydrAMINE 12.5 mg/5 ml LIQ UD (5 ml) PO SCH (21:57)
[2017-04-11] MEDS: Albuterol-Ipratrop 3 mg / 0.5 (3 ml) UD IH SCH ×3 (08:22→22:00)
[2017-04-11] MEDS: Bacitracin 500 Units/gm Oint Foilpak UD TOP SCH (08:34)
--- NOTE | 2017-04-11 12:56 | PN ---
DATE: 04/10/2017 IDENTIFYING INFORMATION: The patient is a 76-year-old white female, who is a focus of our concern because of her mood lability. She has become more depressed and anxious since having to deal with the emergent reality that she is no longer able to take care of herself and there is no likelihood, going to be placed in a [facility] as we are having difficultly with placing her in an assisted-living facility. There she appears to need more help they can provide. She is presently withdrawn and poorly communicative and appears angry, , when she is not observed, when her son is not present, when she is able to ambulate without assistance and acted more appropriate and focused manner. aggressive behaviors, it is difficult to say with certainty, but the higher level of functioning exists within the problematic angry patient. Her case was reviewed with social work. The patient is presently psychotropically on Abilify 5 mg at bedtime., Lexapro 20 mg per day, Seroquel 25 mg at bedtime, Xanax 0.25 mg t.i.d. p.r.n. PHYSICAL EXAMINATION: VITAL SIGNS: Blood pressure 131/91, pulse 90, respiratory rate 16. Social work interviewed towards an appropriate placement. Moy Messina MD/ PhD
--- NOTE | 2017-04-11 22:26 | PN ---
DATE: SUBJECTIVE: The patient is a 76-year-old white female with a mood disorder and with some cognitive impairment. The patient is alert and oriented today and seems to be more communicative, brighter, and more accepting of her fate. She seems to respond or have her mood focused about to the attention and involvement of her son who is apparent. She is looking forward until tomorrow. We were able to talk about some old movies including rear window and gone with the wind, with the patient having a good recall of these. Indeed this discussion with her bedside aid led to at least four outbursts of laughter; something that has been lacking in this patient's behavioral repertoire. OBJECTIVE: VITAL SIGNS: Blood pressure 141/79, pulse rate 85, temperature 97.8, respiratory rate 20. The patient is being maintained on Abilify 5 mg at bedtime, Benadryl 12.5 mg at bedtime ., Lexapro 20 mg daily. I will stop the patient's Benadryl as the patient is on Seroquel for sleep assistance in addition to Abilify. Moy Messina MD/ PhD
[2017-04-12] MEDS: Albuterol-Ipratrop 3 mg / 0.5 (3 ml) UD IH SCH ×3 (03:00→14:14)
[2017-04-12] MEDS: Bacitracin 500 Units/gm Oint Foilpak UD TOP SCH (08:27)
--- NOTE | 2017-04-12 10:46 | PCM.PYCHPN ---
Psychiatric Progress Note - Psychiatric Progress Note Patient seen today, length of contact: 25 minutes Patient Chief Complaint: "I really just want to lay down now " Problems Identified/Issues Discussed: Patient was seen today in the common room, oxygen being utilized via nasal cannula. Patient indicates that she is feeling poorly physically today, and would rather be in her room laying down. She worries about dying of her lung disease, however she does not want to and denies any thoughts or intent to hurt herself. She is isolating more today, evidently some of the patients that she has enjoyed socializing with have been discharged. She appears sad. Medical Problems: CAD, COPD, chronic pain, insomnia, gait dysfunction Diagnostic Results: Temp Pulse Resp BP Pulse Ox 97.2 F L 97 H 20 123/65 100 03/30/17 07:19 03/30/17 15:00 03/30/17 07:19 03/30/17 15:00 03/23/17 11:36 Temp Pulse Resp BP Pulse Ox 97.6 F 61 16 102/55 L 100 04/02/17 07:00 04/03/17 10:01 04/02/17 16:30 04/03/17 10:01 03/23/17 11:36 Laboratory Last Values WBC 5.7 10^3/ul (4.5-11.0) 03/22/17 14:50 RBC 4.21 10^6/uL (3.5-6.1) 03/22/17 14:50 Hgb 12.9 g/dL (12.0-16.0) 03/22/17 14:50 Hct 40.4 % (36.0-48.0) 03/22/17 14:50 MCV 96.0 fl (80.0-105.0) D 03/22/17 14:50 MCH 30.6 pg (25.0-35.0) 03/22/17 14:50 MCHC 31.9 g/dl (31.0-37.0) 03/22/17 14:50 RDW 13.2 % (11.5-14.5) 03/22/17 14:50 Plt Count 218 10^3/uL (120.0-450.0) 03/22/17 14:50 MPV 9.3 fl (7.0-11.0) 03/22/17 14:50 Gran % 78.1 % (50.0-68.0) H 03/22/17 14:50 Lymph % (Auto) 12.9 % (22.0-35.0) L 03/22/17 14:50 [place] % (Auto) 7.4 % (1.0-6.0) H 03/22/17 14:50 Eos % (Auto) 1.2 % (1.5-5.0) L 03/22/17 14:50 Baso % (Auto) 0.4 % (0.0-3.0) 03/22/17 14:50 Gran # 4.42 (1.4-6.5) 03/22/17 14:50 Lymph # 0.7 (1.2-3.4) L 03/22/17 14:50 [place] # 0.4 (0.1-0.6) 03/22/17 14:50 Eos # 0.1 (0.0-0.7) 03/22/17 14:50 Baso # 0.02 K/mm3 (0.0-2.0) 03/22/17 14:50 Sodium 139 mmol/L (132-148) 03/22/17 14:50 Potassium 3.6 mmol/L (3.6-5.0) 03/22/17 14:50 Chloride 91 mmol/L (98-107) L 03/22/17 14:50 Carbon Dioxide 45 mmol/L (21-33) H 03/22/17 14:50 Anion Gap 7 (10-20) L 03/22/17 14:50 BUN 18 mg/dL (7-21) 03/22/17 14:50 Creatinine 0.6 mg/dl (0.7-1.2) L 03/22/17 14:50 Est GFR ( Amer) > 60 03/22/17 14:50 Est GFR (Non-Af Amer) > 60 03/22/17 14:50 POC Glucose (mg/dL) 93 mg/dL (65-110) 03/23/17 07:30 Random Glucose 104 mg/dL (70-110) 03/22/17 14:50 Calcium 9.4 mg/dL (8.4-10.5) 03/22/17 14:50 Total Bilirubin 1.4 mg/dL (0.2-1.3) H 03/22/17 14:50 AST 26 U/L (14-36) 03/22/17 14:50 ALT 31 U/L (7-56) 03/22/17 14:50 Alkaline Phosphatase 88 U/L (38-126) 03/22/17 14:50 Total Protein 6.7 g/dL (5.8-8.3) 03/22/17 14:50 Albumin 3.8 g/dL (3.0-4.8) 03/22/17 14:50 Globulin 2.9 gm/dL 03/22/17 14:50 Albumin/Globulin Ratio 1.3 (1.1-1.8) 03/22/17 14:50 Urine Color Yellow (YELLOW) 03/23/17 02:32 Urine Appearance Clear (CLEAR) 03/23/17 02:32 Urine pH 6.0 (4.7-8.0) 03/23/17 02:32 Ur Specific [place] 1.020 (1.005-1.035) 03/23/17 02:32 Urine Protein Trace mg/dL (<30 mg/dL) H 03/23/17 02:32 Urine Glucose (UA) Negative mg/dL (NEGATIVE) 03/23/17 02:32 Urine Ketones 15 mg/dL (NEGATIVE) H 03/23/17 02:32 Urine Blood Small (NEGATIVE) H 03/23/17 02:32 Urine Nitrate Negative (NEGATIVE) 03/23/17 02:32 Urine Bilirubin Negative (NEGATIVE) 03/23/17 02:32 Urine Urobilinogen 1.0 E.U./dL (<1 E.U./dL) H 03/23/17 02:32 Ur Leukocyte Esterase Negative Cuco/uL (NEGATIVE) 03/23/17 02:32 Urine RBC 2 - 5 /hpf (0-2) 03/23/17 02:32 Urine WBC 0 - 2 /hpf (0-6) 03/23/17 02:32 Ur Epithelial Cells 0 - 2 /hpf (0-5) 03/23/17 02:32 Salicylates < 1 mg/dL (2.0-20.0) L 03/22/17 14:50 Urine Opiates Screen Negative (NEGATIVE) 03/23/17 05:30 Urine Methadone Screen Negative (NEGATIVE) 03/23/17 05:30 Acetaminophen < 10.0 ug/ml (10.0-20.0) L 03/22/17 14:50 Ur Barbiturates Screen Negative (NEGATIVE) 03/23/17 05:30 Ur Phencyclidine Scrn Negative (NEGATIVE) 03/23/17 05:30 Ur Amphetamines Screen Negative (NEGATIVE) 03/23/17 05:30 U Benzodiazepines Scrn Positive (NEGATIVE) 03/23/17 05:30 U Oth Cocaine Metabols Negative (NEGATIVE) 03/23/17 05:30 U Cannabinoids Screen Negative (NEGATIVE) 03/23/17 05:30 Alcohol, Quantitative < 10 mg/dL (0-10) 03/22/17 14:50 Temp Pulse Resp BP Pulse Ox 97.6 F 79 16 137/82 100 04/02/17 07:00 04/04/17 17:18 04/03/17 22:15 04/04/17 17:18 03/23/17 11:36 Temp Pulse Resp BP Pulse Ox 98.2 F 74 20 121/59 L 100 04/08/17 07:00 04/09/17 16:30 04/08/17 07:00 04/09/17 16:30 03/23/17 11:36 Temp Pulse Resp BP Pulse Ox 97.6 F 79 16 137/82 100 04/02/17 07:00 04/04/17 21:58 04/03/17 22:15 04/04/17 21:58 03/23/17 11:36 Temp Pulse Resp BP Pulse Ox 97.9 F 82 22 136/70 100 04/06/17 07:36 04/06/17 16:00 04/06/17 07:36 04/06/17 16:00 03/23/17 11:36 Temp Pulse Resp BP Pulse Ox 97.9 F 83 20 121/62 100 04/12/17 07:26 04/12/17 08:28 04/12/17 07:26 04/12/17 08:28 03/23/17 11:36 Medication Change: No Medical Record Reviewed: Yes Mental Status Examination - Cognitive Function Orientation: Person, Place, Situation, Time Memory: Impaired Attention: Poor Concentration: Poor Association: Loose Fund of Knowledge: Poor - Mood Mood: Depressed ( "fine" and "sleeping better") - Affect Affect: Constricted, Other ( a little calmer though remains labile, dismissive and irritable. ) - Speech Speech: Appropriate - Formal Thought Process Formal Thought Process: No Impairment - Suicidal Ideation Suicidal Ideation: No - Homicidal Ideation Homicidal Ideation: No Goal/Treatment Plan - Goal/Treatment Plan Need for Continued Stay: Remain at risks for inpatient hospitalization, Severe depression anxiety, Discharge may exacerbated symptoms, Severe functional impairment Progress Toward Problem(s) and Goals/Treatment Plan: Treatment plan: Milieu/structure/supportive therapy Medical consult appreciated, see medical team note for more detailed info SW consultation for discharge plan and social issues Med management Family involvement Follow up on labs Will monitor closely SW evaluation for d/c planning Pt was educated about risk/benefits and alternatives of medications, coping strategies (safety plan, suicide prevention), relapse prevention, importance of follow up with psychiatrist and therapist Estimated Date of D/C: 04/06/17 (will monitor closely) If changed, why: Patient needs further observation - Smoking Cessation Smoking Cessation Initiated: No Reason for not providing: Not a smoker
[2017-04-13] MEDS: Albuterol-Ipratrop 3 mg / 0.5 (3 ml) UD IH SCH ×3 (08:55→21:40)
[2017-04-13] MEDS: Bacitracin 500 Units/gm Oint Foilpak UD TOP SCH (08:57)
--- NOTE | 2017-04-13 13:11 | PCM.PYCHPN ---
Psychiatric Progress Note - Psychiatric Progress Note Patient seen today, length of contact: 25 minutes Patient Chief Complaint: "I am OK, I don't want to talk about it " Problems Identified/Issues Discussed: Patient was seen today in the common room, on oxygen via nasal cannula. Patient says she continues feeling poorly physically today. She is spending time in the common areas and socializing occasionally. Patient has been cooperative and denies any suicidal thoughts. She can be managed medically and psychiatrically in a [facility] setting. Medical Problems: CAD, COPD, chronic pain, insomnia, gait dysfunction Diagnostic Results: Temp Pulse Resp BP Pulse Ox 97.2 F L 97 H 20 123/65 100 03/30/17 07:19 03/30/17 15:00 03/30/17 07:19 03/30/17 15:00 03/23/17 11:36 Temp Pulse Resp BP Pulse Ox 97.6 F 61 16 102/55 L 100 04/02/17 07:00 04/03/17 10:01 04/02/17 16:30 04/03/17 10:01 03/23/17 11:36 Laboratory Last Values WBC 5.7 10^3/ul (4.5-11.0) 03/22/17 14:50 RBC 4.21 10^6/uL (3.5-6.1) 03/22/17 14:50 Hgb 12.9 g/dL (12.0-16.0) 03/22/17 14:50 Hct 40.4 % (36.0-48.0) 03/22/17 14:50 MCV 96.0 fl (80.0-105.0) D 03/22/17 14:50 MCH 30.6 pg (25.0-35.0) 03/22/17 14:50 MCHC 31.9 g/dl (31.0-37.0) 03/22/17 14:50 RDW 13.2 % (11.5-14.5) 03/22/17 14:50 Plt Count 218 10^3/uL (120.0-450.0) 03/22/17 14:50 MPV 9.3 fl (7.0-11.0) 03/22/17 14:50 Gran % 78.1 % (50.0-68.0) H 03/22/17 14:50 Lymph % (Auto) 12.9 % (22.0-35.0) L 03/22/17 14:50 Mclean % (Auto) 7.4 % (1.0-6.0) H 03/22/17 14:50 Eos % (Auto) 1.2 % (1.5-5.0) L 03/22/17 14:50 Baso % (Auto) 0.4 % (0.0-3.0) 03/22/17 14:50 Gran # 4.42 (1.4-6.5) 03/22/17 14:50 Lymph # 0.7 (1.2-3.4) L 03/22/17 14:50 Mclean # 0.4 (0.1-0.6) 03/22/17 14:50 Eos # 0.1 (0.0-0.7) 03/22/17 14:50 Baso # 0.02 K/mm3 (0.0-2.0) 03/22/17 14:50 Sodium 139 mmol/L (132-148) 03/22/17 14:50 Potassium 3.6 mmol/L (3.6-5.0) 03/22/17 14:50 Chloride 91 mmol/L (98-107) L 03/22/17 14:50 Carbon Dioxide 45 mmol/L (21-33) H 03/22/17 14:50 Anion Gap 7 (10-20) L 03/22/17 14:50 BUN 18 mg/dL (7-21) 03/22/17 14:50 Creatinine 0.6 mg/dl (0.7-1.2) L 03/22/17 14:50 Est GFR ( Amer) > 60 03/22/17 14:50 Est GFR (Non-Af Amer) > 60 03/22/17 14:50 POC Glucose (mg/dL) 93 mg/dL (65-110) 03/23/17 07:30 Random Glucose 104 mg/dL (70-110) 03/22/17 14:50 Calcium 9.4 mg/dL (8.4-10.5) 03/22/17 14:50 Total Bilirubin 1.4 mg/dL (0.2-1.3) H 03/22/17 14:50 AST 26 U/L (14-36) 03/22/17 14:50 ALT 31 U/L (7-56) 03/22/17 14:50 Alkaline Phosphatase 88 U/L (38-126) 03/22/17 14:50 Total Protein 6.7 g/dL (5.8-8.3) 03/22/17 14:50 Albumin 3.8 g/dL (3.0-4.8) 03/22/17 14:50 Globulin 2.9 gm/dL 03/22/17 14:50 Albumin/Globulin Ratio 1.3 (1.1-1.8) 03/22/17 14:50 Urine Color Yellow (YELLOW) 03/23/17 02:32 Urine Appearance Clear (CLEAR) 03/23/17 02:32 Urine pH 6.0 (4.7-8.0) 03/23/17 02:32 Ur Specific [place] 1.020 (1.005-1.035) 03/23/17 02:32 Urine Protein Trace mg/dL (<30 mg/dL) H 03/23/17 02:32 Urine Glucose (UA) Negative mg/dL (NEGATIVE) 03/23/17 02:32 Urine Ketones 15 mg/dL (NEGATIVE) H 03/23/17 02:32 Urine Blood Small (NEGATIVE) H 03/23/17 02:32 Urine Nitrate Negative (NEGATIVE) 03/23/17 02:32 Urine Bilirubin Negative (NEGATIVE) 03/23/17 02:32 Urine Urobilinogen 1.0 E.U./dL (<1 E.U./dL) H 03/23/17 02:32 Ur Leukocyte Esterase Negative Cuco/uL (NEGATIVE) 03/23/17 02:32 Urine RBC 2 - 5 /hpf (0-2) 03/23/17 02:32 Urine WBC 0 - 2 /hpf (0-6) 03/23/17 02:32 Ur Epithelial Cells 0 - 2 /hpf (0-5) 03/23/17 02:32 Salicylates < 1 mg/dL (2.0-20.0) L 03/22/17 14:50 Urine Opiates Screen Negative (NEGATIVE) 03/23/17 05:30 Urine Methadone Screen Negative (NEGATIVE) 03/23/17 05:30 Acetaminophen < 10.0 ug/ml (10.0-20.0) L 03/22/17 14:50 Ur Barbiturates Screen Negative (NEGATIVE) 03/23/17 05:30 Ur Phencyclidine Scrn Negative (NEGATIVE) 03/23/17 05:30 Ur Amphetamines Screen Negative (NEGATIVE) 03/23/17 05:30 U Benzodiazepines Scrn Positive (NEGATIVE) 03/23/17 05:30 U Oth Cocaine Metabols Negative (NEGATIVE) 03/23/17 05:30 U Cannabinoids Screen Negative (NEGATIVE) 03/23/17 05:30 Alcohol, Quantitative < 10 mg/dL (0-10) 03/22/17 14:50 Temp Pulse Resp BP Pulse Ox 97.6 F 79 16 137/82 100 04/02/17 07:00 04/04/17 17:18 04/03/17 22:15 04/04/17 17:18 03/23/17 11:36 Temp Pulse Resp BP Pulse Ox 98.2 F 74 20 121/59 L 100 04/08/17 07:00 04/09/17 16:30 04/08/17 07:00 04/09/17 16:30 03/23/17 11:36 Temp Pulse Resp BP Pulse Ox 97.6 F 79 16 137/82 100 04/02/17 07:00 04/04/17 21:58 04/03/17 22:15 04/04/17 21:58 03/23/17 11:36 Temp Pulse Resp BP Pulse Ox 97.9 F 82 22 136/70 100 04/06/17 07:36 04/06/17 16:00 04/06/17 07:36 04/06/17 16:00 03/23/17 11:36 Temp Pulse Resp BP Pulse Ox 97.9 F 83 20 121/62 100 04/12/17 07:26 04/12/17 08:28 04/12/17 07:26 04/12/17 08:28 03/23/17 11:36 Temp Pulse Resp BP Pulse Ox 97.3 F L 58 L 20 109/57 L 100 04/13/17 07:40 04/13/17 08:56 04/13/17 07:40 04/13/17 08:56 03/23/17 11:36 Medication Change: No Medical Record Reviewed: Yes Mental Status Examination - Cognitive Function Orientation: Person, Place, Situation, Time Memory: Impaired Attention: Poor Concentration: Poor Association: Loose Fund of Knowledge: Poor - Mood Mood: Depressed ( "fine" and "sleeping better") - Affect Affect: Constricted, Other ( a little calmer though remains labile, dismissive and irritable. ) - Speech Speech: Appropriate - Formal Thought Process Formal Thought Process: No Impairment Psychotic Thoughts and Behaviors: Patient denies the presence of hallucinations, delusions, or paranoia. - Suicidal Ideation Suicidal Ideation: No - Homicidal Ideation Homicidal Ideation: No Goal/Treatment Plan - Goal/Treatment Plan Need for Continued Stay: Remain at risks for inpatient hospitalization, Severe depression anxiety, Discharge may exacerbated symptoms, Severe functional impairment Progress Toward Problem(s) and Goals/Treatment Plan: Treatment plan: Milieu/structure/supportive therapy Medical consult appreciated, see medical team note for more detailed info SW consultation for discharge plan and social issues Med management Family involvement Follow up on labs Will monitor closely SW evaluation for d/c planning Pt was educated about risk/benefits and alternatives of medications, coping strategies (safety plan, suicide prevention), relapse prevention, importance of follow up with psychiatrist and therapist Estimated Date of D/C: 04/06/17 (will monitor closely) - Smoking Cessation Smoking Cessation Initiated: No Reason for not providing: Not a smoker
[2017-04-14] MEDS: Albuterol-Ipratrop 3 mg / 0.5 (3 ml) UD IH SCH ×4 (01:16→20:04)
[2017-04-14] MEDS: Bacitracin 500 Units/gm Oint Foilpak UD TOP SCH (09:14)
--- NOTE | 2017-04-14 09:41 | PCM.PYCHPN ---
Psychiatric Progress Note - Psychiatric Progress Note Patient seen today, length of contact: 25 minutes Patient Chief Complaint: "fine" Problems Identified/Issues Discussed: I reviewed recent notes and met with patient at bedside. Patient is known to me from prior interviews during this hospitalization. Grooming is unkempt and patient is calmer, a little more cooperative and less irritable today. Indicates that she feels "okay" and responds appropriately to questions regarding orientation. Aware that she's at [facility] and it is April 2017. She denies having any discomfort or pain and she's tolerating her medications. Her only complaint at this time is her inability to sleep. Overall, patient's affect still remains constricted and disinterested. She denies having any hallucinations and doesn't appear to be responding to internal stimuli. Staff notes indicate that patient has been anxious and irritable at times. Nonetheless her behavior has been in control with no signs of aggression or agitation. Insight, judgment and impulse control are improving. 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 ) - Speech Speech: Appropriate - Formal Thought Process Formal Thought Process: No Impairment - Suicidal Ideation Suicidal Ideation: No - Homicidal Ideation Homicidal Ideation: No Goal/Treatment Plan - Goal/Treatment Plan Need for Continued Stay: Remain at risks for inpatient hospitalization, Severe depression anxiety, Discharge may exacerbated symptoms, Severe functional impairment Progress Toward Problem(s) and Goals/Treatment Plan: * c/w current tx and plan * Lexapro 20 mg po daily for depression * Increase Abilify to 10 mg HS for mood control and depression * d/c Seroquel 25 mg HS in favor of optimizing Abilify for lability and depression * Xanax 0.25 mg po TID prn: anxiety * No new labs thus far * Vitals reviewed and noted below: Selected Entries 04/12/17 04/12/17 04/12/17 11:13 16:00 21:37 Temperature 97.3 F L Pulse Rate 78 68 Respiratory Rate Blood Pressure 89/52 L 04/13/17 04/13/17 07:40 08:56 Temperature 97.3 F L Pulse Rate 58 L 58 L Respiratory 20 Rate Blood Pressure 109/57 L 109/57 L Estimated Date of D/C: 04/06/17 (will monitor closely)
[2017-04-15] MEDS: Albuterol-Ipratrop 3 mg / 0.5 (3 ml) UD IH SCH ×4 (04:30→22:50)
--- NOTE | 2017-04-15 10:10 | PCM.PYCHPN ---
Psychiatric Progress Note - Psychiatric Progress Note Patient seen today, length of contact: 25 minutes Patient Chief Complaint: "fine" Problems Identified/Issues Discussed: I reviewed recent notes and met with patient at bedside. Grooming is still unkempt and patient remains calmer and more cooperative today. Indicates that she feels okay and denies depression. She responds appropriately to questions regarding orientation. Aware that she's at [facility] and it is April 2017. She denies having any discomfort or pain and she's tolerating her medications. Reports that she slept better last night. Patient's affect remains constricted and eye contact is poor. She still appears disinterested with my questioning but she isn't as dismissive. Patient denies having any hallucinations and doesn't appear to be responding to internal stimuli. Staff notes indicate that patient has been labile. She can be pleasant as well as anxious and irritable at times. Yesterday she became loud and angry because she didn't want to be moved from her room. Nonetheless her behavior has been in better control with no signs of aggression or threats. Insight and judgment are improving but remain impaired. 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 ) - Speech Speech: Appropriate - Formal Thought Process Formal Thought Process: No Impairment - Suicidal Ideation Suicidal Ideation: No - Homicidal Ideation Homicidal Ideation: No Goal/Treatment Plan - Goal/Treatment Plan Need for Continued Stay: Remain at risks for inpatient hospitalization, Severe depression anxiety, Discharge may exacerbated symptoms, Severe functional impairment Progress Toward Problem(s) and Goals/Treatment Plan: * c/w current tx and plan * Lexapro 20 mg po daily for depression * Increased Abilify to 10 mg HS for mood control and depression on 04/14/17 * d/c Seroquel 25 mg HS on 04/14/17 in favor of optimizing Abilify for lability and depression * Xanax 0.25 mg po TID prn: anxiety * No new weekend labs thus far * Vitals reviewed and noted below: 04/13/17 04/13/17 04/14/17 07:40 08:56 07:00 Temperature 97.3 F L 97.1 F L Pulse Rate 58 L 58 L 70 Respiratory 20 20 Rate Blood Pressure 109/57 L 109/57 L 139/52 L 04/14/17 04/14/17 09:14 21:13 Temperature Pulse Rate 80 66 Respiratory Rate Blood Pressure 139/52 L 110/55 L Estimated Date of D/C: 04/06/17 (will monitor closely)
[2017-04-15] MEDS: Bacitracin 500 Units/gm Oint Foilpak UD TOP SCH (11:06)
[2017-04-16] MEDS: DiphenhydrAMINE 12.5 mg/5 ml LIQ UD (5 ml) PO PRN (00:16)
[2017-04-16] MEDS: Albuterol-Ipratrop 3 mg / 0.5 (3 ml) UD IH SCH ×3 (03:30→13:54)
[2017-04-16] MEDS: Bacitracin 500 Units/gm Oint Foilpak UD TOP SCH (09:45)
--- NOTE | 2017-04-17 08:44 | PN ---
DATE: 04/16/2017 IDENTIFYING INFORMATION: The patient is a 76-year-old white female, undergoing a difficult time in her life as she prepares for either a assisted or assisted living facility placement. She has shown some mood lability, but presently as I see her, she is alert, oriented to three spheres, cooperative, pleasant (partially because she had a large bowel movement, although she has some diarrhea before my having seen her). She expresses the hope and the considerations being given to her going through [facility], that this would be assisted living and not a assisted. Psychotropically, she remains on Abilify below 10 mg, Lexapro 20 mg. Supportive therapy offered. Blood pressure 99/60, pulse 86, temperature 98, and respiratory rate 20. Laboratory results reviewed. Moy Messina MD/ PhD
[2017-04-17] MEDS: Albuterol-Ipratrop 3 mg / 0.5 (3 ml) UD IH PRN (12:01)
[2017-04-17] MEDS: Bacitracin 500 Units/gm Oint Foilpak UD TOP SCH (17:31)
[2017-04-17] MEDS: DiphenhydrAMINE 12.5 mg/5 ml LIQ UD (5 ml) PO PRN (21:11)
[2017-04-17] MEDS: Albuterol-Ipratrop 3 mg / 0.5 (3 ml) UD IH SCH (21:34)
[2017-04-18] MEDS: Albuterol-Ipratrop 3 mg / 0.5 (3 ml) UD IH SCH ×4 (01:55→23:09)
--- NOTE | 2017-04-18 08:39 | PN ---
DATE: 04/17/2017 SUBJECTIVE: The patient is a 76-year-old white female with much anxiety, depression, and in a life crisis (change of life circumstance). She can no longer care for herself, has respiratory difficulties at times, confusion at times, severe agitation at times. Assisted-living to a detention, referral in progress. She does; however, both exhibiting and speaking on improved mood. She does not appear to be overtly psychotic. She does not appear to be specifically confused today although nursing reports at times she is somewhat confused. Presently surprisingly she can be ambulatory. Psychotropically she remains on Abilify 10 mg at bedtime, Lexapro 20 mg q. day, Seroquel 25 mg at bedtime with p.r.n. Xanax for anxiety. OBJECTIVE: VITAL SIGNS: Blood pressure 91/55, pulse 98. Moy Messina MD/ PhD
[2017-04-18] MEDS: Bacitracin 500 Units/gm Oint Foilpak UD TOP SCH (10:25)
[2017-04-19] MEDS: Albuterol-Ipratrop 3 mg / 0.5 (3 ml) UD IH SCH ×4 (01:19→22:53)
[2017-04-19] MEDS: Bacitracin 500 Units/gm Oint Foilpak UD TOP SCH (08:51)
--- NOTE | 2017-04-19 08:54 | PN ---
DATE: 04/18/2017 SUBJECTIVE: The patient is a 76-year-old white female, who had been admitted with much agitation, anxiety, suicidal thoughts and inability to care for herself. She is had to deal with number of medical issues including pulmonary distress and has been deemed to be incapable of autonomous living, but required assisted living. Her son is much involved in her care and our pursuit of appropriate living arrangements for this patient, but his will not allow the patient to move in with him. The patient's mood and affect appear to be brighter, she is more cooperative, more communicative, not psychotic, does not appear to be confused today. She is being maintained on her present medication. LABORATORY RESULTS: Reviewed. Blood pressure 100/60, pulse 98, temperature 91/55 Moy Messina MD/ PhD
--- NOTE | 2017-04-19 17:30 | PN ---
IDENTIFYING INFORMATION: The patient is a 76-year-old white female, admitted with mood disturbance, anxiety, and difficulty in caring for herself. SUBJECTIVE: The patient is alert, oriented, was interviewed in treatment team. Our present efforts at getting her placed at were reviewed with the patient. She appears to respond appropriately, acceptingly, and is even ambulating independently. OBJECTIVE: Blood pressure 131/68, pulse 75, temperature 98.0, respiratory rate 20. Laboratory values reviewed. PLAN: The patient remains on her regimen of psychotropic medication as noted previously. Moy Messina MD/ PhD
[2017-04-20] MEDS: Albuterol-Ipratrop 3 mg / 0.5 (3 ml) UD IH SCH ×4 (02:04→23:15)
[2017-04-20] MEDS: Bacitracin 500 Units/gm Oint Foilpak UD TOP SCH (08:37)
--- NOTE | 2017-04-20 10:23 | PCM.BM ---
Treatment Plan Problems - Problems identified on initial assessmt Anxiety Date Initiated: 03/23/17 Time Initiated: 15:02 Assessment reference: HP, NA panic attacks Date Initiated: 03/23/17 Time Initiated: 15:03 Assessment reference: HP, NA ineffective breathing pattern Date Initiated: 03/23/17 Time Initiated: 15:03 Assessment reference: HP, NA depressive symptoms Date Initiated: 04/09/17 Time Initiated: 12:45 Assessment reference: NA Status: Active Priority: 4 Treatment assets and liabiliti Patient Assests: adapts well, cooperative, resourceful, negotiates basic needs, cognitively intact, good interpersonal skills, other Patient Liabilities: live alone, poor support system, medical problems, other - Milieu Protocol Maintain good personal hygiene: daily Encourage regular showers, daily Remind patient to perform daily oral care, daily Assist patient to perform ADL's Maintain personal safety: daily Educate patient to report safety concerns to staff, daily Monitor environment for contraband/sharps Medication safety: Monitor for expected outcome, potential side effects: daily, Assess barriers to learning: daily, Assess readiness for medication education: daily Milieu Narrative: * c/w current tx and plan * Lexapro 20 mg po daily for depression * Increased Abilify to 10 mg HS for mood control and depression on 04/14/17 * d/c Seroquel 25 mg HS on 04/14/17 in favor of optimizing Abilify for lability and depression * Xanax 0.25 mg po TID prn: anxiety * No new weekend labs thus far * Vitals reviewed and noted below: 04/13/17 04/13/17 04/14/17 07:40 08:56 07:00 Temperature 97.3 F L 97.1 F L Pulse Rate 58 L 58 L 70 Respiratory 20 20 Rate Blood Pressure 109/57 L 109/57 L 139/52 L 04/14/17 04/14/17 09:14 21:13 Temperature Pulse Rate 80 66 Respiratory Rate Blood Pressure 139/52 L 110/55 L Family Contact Family involvement: Family/SO is involved Family contact: Patient agrees to contact Family contact name: Av Mota(son) Family contacted how many times per week?: 2 Discharge/Continuing Care - Education Needs Education Needs: Patient Medication, Patient Diagnosis/Disease Process, Patient Coping Skills, Patient Placement options, Patient Community resources, Patient Activities of Daily Living, Patient Uses of Medical Equipment, Patient Health Practices/Safety, Patient Personal Hygiene/Grooming, Patient Aftercare Safety Plan - Discharge Discharge Criteria: Tolerates medication w/o severe side effects, Free of Suicidal thoughts, Free of Homicidal thoughts, Normal sleep pattern, Ability to care for self, Reduction of target symptoms - Treatment Team Participation Patient/Family/SO Statement: * c/w current tx and plan * Lexapro 20 mg po daily for depression * Increased Abilify to 10 mg HS for mood control and depression on 04/14/17 * d/c Seroquel 25 mg HS on 04/14/17 in favor of optimizing Abilify for lability and depression * Xanax 0.25 mg po TID prn: anxiety * No new weekend labs thus far * Vitals reviewed and noted below: 04/13/17 04/13/17 04/14/17 07:40 08:56 07:00 Temperature 97.3 F L 97.1 F L Pulse Rate 58 L 58 L 70 Respiratory 20 20 Rate Blood Pressure 109/57 L 109/57 L 139/52 L 04/14/17 04/14/17 09:14 21:13 Temperature Pulse Rate 80 66 Respiratory Rate Blood Pressure 139/52 L 110/55 L Treatment Plan Review - Problem Anxiety Time Initiated: 15:02 panic attacks Time Initiated: 15:03 ineffective breathing pattern Time Initiated: 15:03 depressive symptoms Time Initiated: 12:45
--- NOTE | 2017-04-20 20:09 | PN ---
DATE: IDENTIFYING INFORMATION: The patient is a 76-year-old white female, being treated for anxiety, depression, some cognitive decline and some earlier characterologic that included manipulativeness. The patient is alert and oriented to 3 spheres. She is requiring minimal assistance. She represents an improvement both in her outlook and in her physical performance. She at times does appear to be anxious. Social work is trying for the necessary information to [place] for arrangement of appropriate housing at either assisted living or nursing care facility. VITAL SIGNS: Blood pressure 110/58, pulse 61. LABORATORY VALUES: Reviewed. The patient remains on same medication as previously described. Moy Messina MD/ PhD
[2017-04-21] MEDS: Albuterol-Ipratrop 3 mg / 0.5 (3 ml) UD IH SCH ×4 (02:00→21:48)
[2017-04-21] MEDS: Bacitracin 500 Units/gm Oint Foilpak UD TOP SCH (10:12)
--- NOTE | 2017-04-21 10:25 | PCM.PYCHPN ---
Psychiatric Progress Note - Psychiatric Progress Note Patient seen today, length of contact: 25 minutes Patient Chief Complaint: "fine" Problems Identified/Issues Discussed: I reviewed recent notes and met with patient in the dayroom. Grooming is still unkempt and patient is calmer and more cooperative than prior weekends. Indicates that she feels "okay" and denies depression. She responds appropriately to questions regarding orientation. Aware that she's at [facility] and it is April 2017. She denies having any discomfort or pain and she's tolerating her medications. Reports that she slept well last night. Indicates that she is more hopeful and affect is more reactive than previous visits. She even smiled a little during questioning. Patient denies having any hallucinations and doesn't appear to be responding to internal stimuli. Staff notes indicate that patient has been visible on the unit and attending some groups. She is still irritable and anxious. Still yells sometimes and she was dismissive during treatment team meeting. 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 ) - Speech Speech: Appropriate - Formal Thought Process Formal Thought Process: No Impairment - Suicidal Ideation Suicidal Ideation: No - Homicidal Ideation Homicidal Ideation: No Goal/Treatment Plan - Goal/Treatment Plan Need for Continued Stay: Remain at risks for inpatient hospitalization, Severe depression anxiety, Discharge may exacerbated symptoms, Severe functional impairment Progress Toward Problem(s) and Goals/Treatment Plan: * c/w current tx and plan * No new weekend labs thus far * Vitals reviewed and noted below: 04/19/17 04/19/17 04/20/17 16:00 21:24 08:37 Pulse Rate 108 H 61 Blood Pressure 120/67 120/67 110/58 L 04/20/17 23:00 Pulse Rate 92 H Blood Pressure 108/60 Estimated Date of D/C: 04/06/17 (will monitor closely)
[2017-04-21] MEDS: DiphenhydrAMINE 12.5 mg/5 ml LIQ UD (5 ml) PO PRN (21:31)
[2017-04-22] MEDS: Albuterol-Ipratrop 3 mg / 0.5 (3 ml) UD IH SCH ×4 (01:16→22:30)
[2017-04-22] MEDS: Bacitracin 500 Units/gm Oint Foilpak UD TOP SCH (09:02)
--- NOTE | 2017-04-22 09:49 | PCM.PYCHPN ---
Psychiatric Progress Note - Psychiatric Progress Note Patient seen today, length of contact: 25 minutes Patient Chief Complaint: "doing pretty good" Problems Identified/Issues Discussed: I reviewed recent notes and met with patient in the dayroom. Grooming is still unkempt and patient remains calmer and more cooperative than prior weekends. Indicates that she is "doing pretty good" and denies depression. She responds appropriately to questions regarding orientation. Aware that she's at [facility] and it is April 2017. She denies having any discomfort or pain and she's tolerating her medications. Reports that she slept well again last night. Indicates that she is more hopeful and affect is more reactive than previous visits. Much less dismissive. Patient denies having any hallucinations and doesn't appear to be responding to internal stimuli. Staff notes indicate that patient's behavior is much improved. She is brighter, more polite and thankful. Compliant with medications. There were no behavioral issues over the weekend. 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 Anxiety Disorder NOS Medication Change: Yes (d/c Seroquel, increased Abilify) Medical Record Reviewed: Yes Mental Status Examination - Cognitive Function Orientation: Person, Place, Situation, Time Memory: Impaired Attention: WNL Concentration: Poor Association: Loose Fund of Knowledge: Poor - Mood Mood: Depressed ( "doing pretty good" ) - Affect Affect: Constricted (more reactive and pleasant), Other ( ) - Speech Speech: Appropriate - Formal Thought Process Formal Thought Process: No Impairment - Suicidal Ideation Suicidal Ideation: No - Homicidal Ideation Homicidal Ideation: No Goal/Treatment Plan - Goal/Treatment Plan Need for Continued Stay: Remain at risks for inpatient hospitalization, Severe depression anxiety, Discharge may exacerbated symptoms, Severe functional impairment Progress Toward Problem(s) and Goals/Treatment Plan: * c/w current tx and plan * No new weekend labs thus far * Vitals reviewed and noted below: 04/21/17 04/21/17 04/21/17 07:00 10:09 23:50 Temperature 98.3 F Pulse Rate 82 77 Respiratory 20 Rate Blood Pressure 112/67 112/67 98/65 L Estimated Date of D/C: 04/06/17 (will monitor closely)
[2017-04-22] MEDS: DiphenhydrAMINE 12.5 mg/5 ml LIQ UD (5 ml) PO PRN (21:15)
[2017-04-23] MEDS: Albuterol-Ipratrop 3 mg / 0.5 (3 ml) UD IH SCH ×4 (02:04→22:30)
[2017-04-23] MEDS: Bacitracin 500 Units/gm Oint Foilpak UD TOP SCH (08:45)
--- NOTE | 2017-04-23 17:54 | PN ---
DATE: Case discussed with Social Work. The patient is a 76-year-old white female. Her mood and affect is improved as is her ability or desire to act more independently. She is presently denying depression, she is responding appropriately. She does not appear to be responding to any internal stimuli. Staff agrees that the patient is much improved and compliant. We are working on appropriate placement for this woman who needs assistance in daily living. Blood pressure 160/85, pulse 85, temperature 98, respiratory rate 20. Moy Messina MD/ PhD
[2017-04-24] MEDS: Albuterol-Ipratrop 3 mg / 0.5 (3 ml) UD IH SCH ×3 (01:53→14:08)
[2017-04-24] MEDS: Bacitracin 500 Units/gm Oint Foilpak UD TOP SCH (09:53)
[2017-04-24] MEDS: DiphenhydrAMINE 12.5 mg/5 ml LIQ UD (5 ml) PO PRN (21:34)
--- NOTE | 2017-04-25 02:27 | PN ---
DATE: SUBJECTIVE: The patient is a 76-year-old white female who has been admitted with depression, anxiety, somatization. She is alert and oriented. The patient however is problematic today because she is insisting now that she does not want to go to either a assisted or assisted living facility but wants to go home. Is telling me that she can afford to pay for a home health aide caregiver. Something I doubt. I have pointed out to the patient that she is probably doing better because she has been in the hospital and getting this supportive services that we are attempting to sustain for her for her own well being. The patient nonetheless presently is insisting that she does not want to go anywhere but home. PHYSICAL EXAMINATION VITAL SIGNS: Blood pressure 144/77, pulse 75, temperature 97.6 with respiratory rate 17. LABORATORY DATA: Glucose taken yesterday was 93. The patient does not appear to be psychotic nor agitated, but has once again an angry to her as she gravels with the reality of her pending living situation. The patient is being maintained on Abilify 10 mg at bedtime, albuterol, Lexapro 20 mg daily, Pepcid 20 mg b.i.d., Senokot b.i.d., Seroquel 25 mg at bedtime, Tenormin 50 mg at bedtime and Zestril 10 mg daily. Her present mental status and disposition plans will be discussed with social work tomorrow. Moy Messina MD/ PhD
[2017-04-25] MEDS: Albuterol-Ipratrop 3 mg / 0.5 (3 ml) UD IH SCH ×4 (02:30→14:42)
[2017-04-25 07:52] VITALS: RESP 20; TEMP 97.9
[2017-04-25 16:18] VITALS: BP 129/79; PULSE 84
== END 2017-04-25 17:53 | disposition home or self-care (01) | DRG 885 ==
LOC: ED 12:59 → UNDOADMIN 19:13 → ERH 19:13 → PSYC 03-23 13:37
PROVIDERS: ADMIT Psychiatry & Neurology Addiction Medicine; ATTEND Psychiatry & Neurology Addiction Medicine
DX: F32.2 Major depressive disorder, single episode, severe without psychotic features (principal); F41.9 Anxiety disorder, unspecified; F45.0 Somatization disorder; M48.54XA Collapsed vertebra, not elsewhere classified, thoracic region, initial encounter for fracture; G47.00 Insomnia, unspecified; J44.9 Chronic obstructive pulmonary disease, unspecified; F60.4 Histrionic personality disorder; I25.10 Atherosclerotic heart disease of native coronary artery without angina pectoris; I10 Essential (primary) hypertension; M15.9 Polyosteoarthritis, unspecified; G89.29 Other chronic pain; K59.00 Constipation, unspecified; K64.9 Unspecified hemorrhoids; R26.9 Unspecified abnormalities of gait and mobility; F17.200 Nicotine dependence, unspecified, uncomplicated; Z99.81 Dependence on supplemental oxygen; Z85.3 Personal history of malignant neoplasm of breast; Z90.11 Acquired absence of right breast and nipple; Z98.42 Cataract extraction status, left eye; Z76.5 Malingerer [conscious simulation]; Z95.5 Presence of coronary angioplasty implant and graft

== ENCOUNTER 2017-06-05 07:12 | Emergency (ER) | payer MEDICARE, BC ==
[2017-06-05 07:22] VITALS: BMI 18.3
[2017-06-05 07:24] VITALS: TEMP 98.3
--- NOTE | 2017-06-05 07:50 | ED PDOC ---
Arrival/HPI - General Chief Complaint: Anxiety Time Seen by Provider: 06/05/17 07:39 Historian: Patient - History of Present Illness Narrative History of Present Illness (Text): 06/05/17 07:50 A 76 year old female brought into the emergency department by EMS for psych evaluation. Patient reports feeling anxious and concerned with her ability to cope living at home alone. Patient notes having suicidal thoughts but admits she would not be able to follow through on such an act. Patient denies any pain or discomfort at this time. Patient denies any fever, chills, nausea, vomiting, abdominal pain, chest pain, shortness of breath, changes in respiratory status, or any other complaints. Patient is on O2 at home. Time/Duration: Prior to Arrival Symptom Course: Unchanged Context: Home Past Medical History - Provider Review Nursing Documentation Reviewed: Yes - Infectious Disease Hx of Infectious Diseases: None - Tetanus Immunization Tetanus Immunization: Unknown - Reproductive Menopause: Yes - Cardiac Hx Cardiac Disorders: Yes (coronary stent) Hx Hypertension: Yes - Pulmonary Hx Chronic Obstructive Pulmonary Disease (COPD): Yes - Neurological Hx Neurological Disorder: No Hx Dizziness: Yes Hx Syncope: Yes - HEENT Hx HEENT Disorder: Yes Hx Cataracts: Yes (L. eye sx) Other/Comment: Blurry vision. R. eye lazy eye - Renal Hx Renal Disorder: No - Endocrine/Metabolic Hx Diabetes Mellitus Type 2: Yes - Hematological/Oncological Hx Cancer: Yes (R. Breast Cancer (20 yrs ago)) - Integumentary Hx Dermatological Disorder: No - Musculoskeletal/Rheumatological Hx Arthritis: Yes - Gastrointestinal Hx Gastrointestinal Disorders: No - Genitourinary/Gynecological Hx Genitourinary Disorders: No - Psychiatric Hx Anxiety: Yes Hx Substance Use: No - Past Surgical History Past Surgical History: No Previous - Surgical History Hx Coronary Stent: Yes Other/Comment: Cataracts with sx of the left eye and R. ankle fx repair with surgery with pins - Anesthesia Hx Anesthesia: Yes Hx Anesthesia Reactions: No Hx Malignant Hyperthermia: No - Suicidal Assessment Feels Threatened In Home Enviroment: No Family/Social History - Physician Review Nursing Documentation Reviewed: Yes Family/Social History: No Known Family HX Smoking Status: Former Smoker Hx Alcohol Use: No Hx Substance Use: No Hx Substance Use Treatment: No Allergies/Home Meds Allergies/Adverse Reactions: Allergies No Known Allergies Allergy (Verified 12/15/17 14:43) Review of Systems - Physician Review All systems were reviewed & negative as marked: Yes - Review of Systems Constitutional: absent: Fevers, Night Sweats Respiratory: absent: SOB Cardiovascular: absent: Chest Pain Gastrointestinal: absent: Abdominal Pain, Nausea, Vomiting Psychiatric: Anxiety, Suicidal Ideation Physical Exam Vital Signs Reviewed: Yes Vital Signs Temp Pulse Resp BP Pulse Ox 06/05/17 07:13 98.3 F 88 20 132/95 H 94 L Temperature: Afebrile Blood Pressure: Hypertensive Pulse: Regular Respiratory Rate: Normal Appearance: Positive for: Non-Toxic, Comfortable, Other (Anxious appearing) Pain Distress: None Mental Status: Positive for: Alert and Oriented X 3 - Systems Exam Head: Present: Atraumatic, Normocephalic Pupils: Present: PERRL Extroacular Muscles: Present: EOMI Conjunctiva: Present: Normal Mouth: Present: Moist Mucous Membranes Respiratory/Chest: Present: Respiratory Distress (Mild to moderate respiratory difficulty on a chronic bases), Accessory Muscle Use, Decreased Breath Sounds ( throughout all lung rehman), Other (Maintained on O2) Cardiovascular: Present: Regular Rate and Rhythm, Normal S1, S2. No: Murmurs Abdomen: Present: Normal Bowel Sounds. No: Tenderness, Distention, Peritoneal Signs Upper Extremity: Present: Normal Inspection, NORMAL PULSES. No: Cyanosis, Edema Lower Extremity: Present: Normal Inspection, NORMAL PULSES. No: Edema Neurological: Present: GCS=15, CN II-XII Intact, Speech Normal, Motor Func Grossly Intact, Normal Sensory Function, Other (No focal or acute neruological deficits) Skin: Present: Warm, Dry, Normal Color, Abrasion (Small abrasion to tibial aspect od left leg). No: Rashes Psychiatric: Present: Alert, Oriented x 3, Anxious (Concerned with her ability to cope at home alone), Suicidal Ideation (However, paitent admits she would not be able to followw through on such an act) Medical Decision Making ED Course and Treatment: 06/05/17 07:50 Impression: A 76 year old female with anxiety and suicidal thoughts Plan: -- Chest xray -- EKG -- Labs -- Urinalysis -- Xanax -- Reassess and disposition Progress Notes: Report Date : 06/05/2017 08:23:23 Procedure: Chest xray Dictator : Antwan Abraham MD IMPRESSION: No active disease. 06/05/17 09:19 Patient evaluated by PES, who report patient is not a candidate for inpatient admission. Plan is to discharge patient home with outpatient follow up. Patient aware of and in agreement with plan. - Lab Interpretations Lab Results: 06/05/17 08:00 06/05/17 08:00 Lab Results 06/05/17 08:40: Urine Opiates Screen Negative, Urine Methadone Screen Negative, Ur Barbiturates Screen Negative, Ur Phencyclidine Scrn Negative, Ur Amphetamines Screen Negative, U Benzodiazepines Scrn Positive, U Oth Cocaine Metabols Negative, U Cannabinoids Screen Negative 06/05/17 08:40: Urine Color Yellow, Urine Appearance Clear, Urine pH 7.0, Ur Specific Haddock 1.020, Urine Protein Trace H, Urine Glucose (UA) Negative, Urine Ketones Negative, Urine Blood Moderate H, Urine Nitrate Positive H, Urine Bilirubin Negative, Urine Urobilinogen 0.2, Ur Leukocyte Esterase Small H, Urine RBC 15 - 20, Urine WBC 10 - 15, Ur Epithelial Cells 4 - 5, Amorphous Sediment Small, Urine Bacteria Many, Urine Other Uyeast 06/05/17 08:00: Alcohol, Quantitative < 10 06/05/17 08:00: Salicylates < 1 L, Acetaminophen < 10.0 L 06/05/17 08:00: Sodium 137, Potassium 3.8, Chloride 88 L, Carbon Dioxide 46 H, Anion Gap 7 L, BUN 10, Creatinine 0.4 L, Est GFR ( Amer) > 60, Est GFR ( Non-Af Amer) > 60, Random Glucose 101, Calcium 8.8, Total Bilirubin 0.5, AST 21 , ALT 29, Alkaline Phosphatase 63, Total Protein 6.0, Albumin 3.3, Globulin 2.7 , Albumin/Globulin Ratio 1.3 06/05/17 08:00: WBC 3.5 L D, RBC 3.52, Hgb 11.1 L, Hct 35.6 L, MCV 101.1 D, MCH 31.5, MCHC 31.2, RDW 13.1, Plt Count 186, MPV 9.0, Gran % 68.4 H, Lymph % ( Auto) 18.5 L, Henderson % (Auto) 8.8 H, Eos % (Auto) 3.7, Baso % (Auto) 0.6, Gran # 2.40, Lymph # (Auto) 0.7 L, Henderson # (Auto) 0.3, Eos # (Auto) 0.1, Baso # (Auto) 0.02 I have reviewed the lab results: Yes - RAD Interpretation Radiology Orders: 06/05/17 07:49 CHEST PORTABLE [RAD] Stat - Medication Orders Current Medication Orders: Discontinued Medications Alprazolam (Xanax) 0.25 mg PO STAT STA PRN Reason: Protocol Stop: 06/05/17 07:51 Last Admin: 06/05/17 08:11 Dose: 0.25 mg Disposition/Present on Arrival - Present on Arrival Any Indicators Present on Arrival: No History of DVT/PE: No History of Uncontrolled Diabetes: No Urinary Catheter: No History of Decub. Ulcer: No History Surgical Site Infection Following: None - Disposition Have Diagnosis and Disposition been Completed?: Yes Diagnosis: Anxiety, COPD (chronic obstructive pulmonary disease) Disposition: HOME/ ROUTINE Disposition Time: 09:19 Patient Plan: Discharge Patient Problems: Current Active Problems Problem Status Onset COPD (chronic obstructive pulmonary disease) Acute Anxiety Chronic Condition: IMPROVED Discharge Instructions (ExitCare): Anxiety, Adult (DC), Chronic Obstructive Pulmonary Disease (COPD), Including Emphysema Referrals: CorNova Fady Req, [Primary Care Provider] - Follow up with primary Forms: [employer] (Serbian)
[2017-06-05 08:15] LABS: BASO # 0.02 K/mm3 (0.0-2.0); BASO % 0.6 % (0.0-3.0); EOS # 0.1 (0.0-0.7); EOS % 3.7 % (1.5-5.0); GRAN # 2.4 (1.4-6.5); GRAN % 68.4 % (50.0-68.0); HEMOGLOBIN 11.1 g/dL (12.0-16.0); LYMPH # 0.7 (1.2-3.4); LYMPH % 18.5 % (22.0-35.0); MEAN CELL VOLUME 101.1 fl (80.0-105.0); MEAN CORPUSCULAR HEMOGLOBIN 31.5 pg (25.0-35.0); MEAN CORPUSCULAR HGB CONC 31.2 g/dl (31.0-37.0); MONO # 0.3 (0.1-0.6); MONO % 8.8 % (1.0-6.0); RBC 3.52 10^6/uL (3.5-6.1); RED CELL DISTRIBUTION WIDTH 13.1 % (11.5-14.5); WHITE BLOOD COUNT 3.5 10^3/ul (4.5-11.0)
--- NOTE | 2017-06-05 08:25 | RAD ---
HISTORY: sob COMPARISON: 03/07/2017 FINDINGS: LUNGS: No active pulmonary disease. PLEURA: No significant pleural effusion identified, no pneumothorax apparent. CARDIOVASCULAR: Normal. OSSEOUS STRUCTURES: No significant abnormalities. VISUALIZED UPPER ABDOMEN: Normal. OTHER FINDINGS: None. IMPRESSION: No active disease.
[2017-06-05 08:28] LABS: ACETAMINOPHEN < 10.0 ug/ml (10.0-20.0); SALICYLATE < 1 mg/dL (2.0-20.0)
[2017-06-05 08:30] LABS: ALB/GLOB RATIO 1.3 (1.1-1.8); ALBUMIN 3.3 g/dL (3.0-4.8); ALT/SGPT 29 U/L (7-56); AST/SGOT 21 U/L (14-36); BLOOD UREA NITROGEN 10 mg/dL (7-21); CALCIUM 8.8 mg/dL (8.4-10.5); GFR AFRICAN-AMERICAN > 60; GFR NON-AFRICAN AMERICAN > 60
[2017-06-05 08:54] LABS: URINE BILIRUBIN NEGATIVE (NEGATIVE); URINE BLOOD MODERATE (NEGATIVE); URINE GLUCOSE (UA) NEGATIVE (NEGATIVE); URINE LEUKOCYTE ESTERASE SMALL Leu/uL (NEGATIVE); URINE NITRATE POSITIVE (NEGATIVE); URINE PROTEIN TRACE mg/dL (<30 mg/dL); URINE UROBILINOGEN 0.2 E.U./dL (<1 E.U./dL)
[2017-06-05 08:59] LABS: URINE APPEARANCE CLEAR (CLEAR); URINE COLOR YELLOW (YELLOW)
[2017-06-05 09:25] LABS: URINE BACTERIA MANY (NEG)
[2017-06-05 09:26] LABS: URINE RBC 15 - 20 /hpf (0-2)
[2017-06-05 09:27] LABS: BARBITURATES, UR NEGATIVE (NEGATIVE); BENZODIAZEPINES, UR POSITIVE (NEGATIVE); OPIATES, UR NEGATIVE (NEGATIVE); PHENCYCLIDINE, UR NEGATIVE (NEGATIVE); URINE AMORPHOUS SEDIMENT SMALL
[2017-06-05 12:19] VITALS: RESP 22; O2SAT 99
[2017-06-05 12:27] VITALS: BP 124/86; PULSE 95
--- NOTE | 2017-06-05 12:31 | CARD ---
APPROVED REPORT EKG Measurement Heart [id number] <Conclusion> Normal sinus rhythm Normal ECG
--- NOTE | 2017-06-06 08:21 | CON ---
DATE: 06/05/2017 PRESENTATION: Patient is a 76-year-old female seen in the emergency room in her hospital bed. Patient has been brought to the emergency room by EMS for psych evaluation. She was feeling anxious and concerned with her ability to cope living at home. She indicated at this time that she was having suicidal thoughts, but felt like she would not follow through on this. When seen in consultation, patient was very clear with me that she is not suicidal at this time; however, she is afraid that she would get suicidal. Patient recently has been to a number of times and most recently was admitted on 03/23/2017, and discharged on 04/25/2017. At that time, social work had arranged a longterm for the patient; however, when a bed became available, the patient and her son signed out AMA, they did not want to follow up with the longterm, even though with the recommendation of the psychiatrist and the staff that she was being treated by at that time. Patient struggles to care for herself living on her own. She needs more assistance than she gets and she gets frustrated and anxious and depressed and eventually suicidal. Patient is telling me today that her son still has not, I guess, turned in the paper work for Medicaid, so she is unable to have a home health aide, so she has a woman that comes for a very short period of time daily. She states the morning are terrible for her. She wakes up and she feels very depressed and she is afraid she is going to get suicidal. She is afraid to go home and she is afraid to be alone. VITAL SIGNS: Current vital signs include a temperature of 98.3, pulse rate of 88, blood pressure of 132/95 and an O2 sat of 94. MENTAL STATUS EXAMINATION: Patient is alert and oriented x3. Eye contact is good. Behavior is cooperative. Speech, rate and volume all within normal limits. Mood is sad. Affect is constricted. Thoughts are goal directed, but somewhat concrete. She denies being suicidal or homicidal. She denies the presence of hallucinations, delusions or paranoia. 'Her concentration and focus appear to be adequate. Her memory, both short and long-term, has minor deficits, but she is fairly clear. Appetite and sleep, patient indicates, are normal. DIAGNOSTIC IMPRESSION: Major depression with anxiety, chronic obstructive pulmonary disease, history of breast cancer, scoliosis. PLAN: Patient is not suicidal or homicidal. So she does not currently meet the criterion for inpatient hospitalization on our voluntary psychiatric unit. Patient does not have any current emergent medical issue that would necessitate a medical admission for her. So patient is medically clear. Psychiatrically, she is additionally clear to go home. Patient has followup. She sees Dr. Messina privately. Her son will continue to arrange care for her. So patient will be discharged. Thank you for the consultation. Mariam Florez APN Radha Ayala MD DANII
== END 2017-06-05 12:15 | disposition home or self-care (01) ==
LOC: ED 07:12
DX: F41.9 Anxiety disorder, unspecified (principal); J44.9 Chronic obstructive pulmonary disease, unspecified; I10 Essential (primary) hypertension; E11.9 Type 2 diabetes mellitus without complications; Z95.5 Presence of coronary angioplasty implant and graft; Z87.891 Personal history of nicotine dependence
CPT/HCPCS: 71045; 80053; 81001; 85025; 87086; 87181; 90791; 93005; 99283; G0480

== ENCOUNTER 2017-06-06 04:56 | Emergency (ER) | payer MEDICARE, BC ==
[2017-06-06 05:03] VITALS: BMI 18.1
--- NOTE | 2017-06-06 05:35 | ED PDOC ---
Arrival/HPI - General Chief Complaint: Anxiety Time Seen by Provider: 06/06/17 05:01 Historian: Patient, EMS - History of Present Illness Narrative History of Present Illness (Text): 06/06/17 05:33 Estelle Fulton is a 76 year old female, whose past medical history includes anxiety, depression, CAD, COPD, chronic pain, insomnia, and gait dysfunction, who presents to the Emergency department brought in by EMS for anxiety. Patient states she has been feeling very anxious an afraid of being home alone, notes she is afraid she might harm herself. Patient requesting Xanax. Patient denies any fever, chills, chest pain, nausea, vomiting, diarrhea, urinary symptoms, back pain, neck pain, headache, dizziness, trauma/injury, homicidal ideation or any other complaints. PMD: Dr. Blair Symptom Onset: Gradual Symptom Course: Unchanged Activities at Onset: Light Context: Home Past Medical History - Provider Review Nursing Documentation Reviewed: Yes - Infectious Disease Hx of Infectious Diseases: None - Tetanus Immunization Tetanus Immunization: Unknown - Reproductive Menopause: Yes - Cardiac Hx Cardiac Disorders: Yes (coronary stent) Hx Hypertension: Yes - Pulmonary Hx Chronic Obstructive Pulmonary Disease (COPD): Yes - Neurological Hx Neurological Disorder: No Hx Dizziness: Yes Hx Syncope: Yes - HEENT Hx HEENT Disorder: Yes Hx Cataracts: Yes (L. eye sx) Other/Comment: Blurry vision. R. eye lazy eye - Renal Hx Renal Disorder: No - Endocrine/Metabolic Hx Diabetes Mellitus Type 2: Yes - Hematological/Oncological Hx Cancer: Yes (R. Breast Cancer (20 yrs ago)) - Integumentary Hx Dermatological Disorder: No - Musculoskeletal/Rheumatological Hx Arthritis: Yes - Gastrointestinal Hx Gastrointestinal Disorders: No - Genitourinary/Gynecological Hx Genitourinary Disorders: No - Psychiatric Hx Anxiety: Yes Hx Substance Use: No - Past Surgical History Past Surgical History: No Previous - Surgical History Hx Coronary Stent: Yes Other/Comment: Cataracts with sx of the left eye and R. ankle fx repair with surgery with pins - Anesthesia Hx Anesthesia: Yes Hx Anesthesia Reactions: No Hx Malignant Hyperthermia: No - Suicidal Assessment Feels Threatened In Home Enviroment: No Family/Social History - Physician Review Nursing Documentation Reviewed: Yes Family/Social History: Unknown Family HX Smoking Status: Former Smoker Hx Alcohol Use: No Hx Substance Use: No Hx Substance Use Treatment: No Allergies/Home Meds Allergies/Adverse Reactions: Allergies No Known Allergies Allergy (Verified 06/06/17 05:03) Review of Systems - Physician Review All systems were reviewed & negative as marked: Yes - Review of Systems Constitutional: Normal. absent: Fevers Eyes: Normal ENT: Normal Respiratory: Normal. absent: SOB Cardiovascular: Normal. absent: Chest Pain Gastrointestinal: Normal. absent: Abdominal Pain, Diarrhea, Nausea, Vomiting Genitourinary Female: Normal. absent: Dysuria, Frequency, Hematuria, Urine Output Changes Musculoskeletal: Normal. absent: Back Pain, Neck Pain Skin: Normal. absent: Rash Neurological: Normal. absent: Headache, Dizziness Endocrine: Normal Hemo/Lymphatic: Normal Psychiatric: Anxiety Physical Exam Vital Signs Reviewed: Yes Vital Signs Temp Pulse Resp BP Pulse Ox 06/06/17 06:27 75 20 121/61 95 06/06/17 05:10 97.7 F 87 18 143/74 98 Temperature: Afebrile Blood Pressure: Normal Pulse: Regular Respiratory Rate: Normal Appearance: Positive for: Well-Appearing, Non-Toxic, Comfortable Pain Distress: None Mental Status: Positive for: Alert and Oriented X 3 (Anxious) - Systems Exam Head: Present: Atraumatic, Normocephalic Pupils: Present: PERRL Extroacular Muscles: Present: EOMI Conjunctiva: Present: Normal Mouth: Present: Moist Mucous Membranes Neck: Present: Normal Range of Motion Respiratory/Chest: Present: Decreased Breath Sounds (Decreased breath sounds bilaterally), Other (Barrel chest). No: Respiratory Distress, Accessory Muscle Use Cardiovascular: Present: Regular Rate and Rhythm, Normal S1, S2. No: Murmurs Abdomen: Present: Normal Bowel Sounds. No: Tenderness, Distention, Peritoneal Signs Back: Present: Normal Inspection Upper Extremity: Present: Normal Inspection. No: Cyanosis, Edema Lower Extremity: Present: Normal Inspection. No: Edema Neurological: Present: GCS=15, CN II-XII Intact, Speech Normal Skin: Present: Warm, Dry, Normal Color. No: Rashes Psychiatric: Present: Alert, Oriented x 3, Normal Insight, Normal Concentration Medical Decision Making ED Course and Treatment: 06/06/17 05:33 Impression: 76 year old female complaining of anxiety and depression. Plan: -- EKG -- Chest X-ray -- Labs, alcohol level -- Urinalysis, urine drug screen -- Duoneb -- Xanax -- Reassess and disposition Progress Notes: 06/06/17 05:54 Chest X-ray reviewed, shows no acute process, chronic interstitial changes, 06/06/17 06:17 Reviewed EKG, NSR at 81 bpm. Short IA interval with PACs. Non-specific ST/T wave changes. 06/06/17 07:[address] Hines, pending medical clearance, PES evaluation, re- assessment, and final disposition. - Lab Interpretations Lab Results: 06/06/17 05:36 Lab Results 06/06/17 05:36: WBC 4.3 L D, RBC 3.48 L, Hgb 10.8 L, Hct 35.0 L, MCV 100.6, MCH 31.0, MCHC 30.9 L, RDW 13.3, Plt Count 183, MPV 8.7 06/06/17 05:36: Alcohol, Quantitative < 10 - RAD Interpretation Radiology Orders: 06/06/17 05:36 CHEST PORTABLE [RAD] Stat - EKG Interpretation Interpreted by ED Physician: Yes Type: 12 lead EKG - Medication Orders Current Medication Orders: Discontinued Medications Albuterol/Ipratropium (Duoneb 3 Mg/0.5 Mg (3 Ml) Ud) 3 ml IH ONCE STA Stop: 06/06/17 05:40 Last Admin: 06/06/17 05:50 Dose: 3 ml Alprazolam (Xanax) 0.25 mg PO STAT STA PRN Reason: Protocol Stop: 06/06/17 05:42 Last Admin: 06/06/17 05:49 Dose: 0.25 mg - Scribe Statement The provider has reviewed the documentation as recorded by the Scribberhane Hendrickson All medical record entries made by the Alonsoibberhane were at my direction and personally dictated by me. I have reviewed the chart and agree that the record accurately reflects my personal performance of the history, physical exam, medical decision making, and the department course for this patient. I have also personally directed, reviewed, and agree with the discharge instructions and disposition. Disposition/Present on Arrival - Present on Arrival Any Indicators Present on Arrival: No History of DVT/PE: No History of Uncontrolled Diabetes: No Urinary Catheter: No History of Decub. Ulcer: No History Surgical Site Infection Following: None - Disposition Have Diagnosis and Disposition been Completed?: No Diagnosis: Depression, Anxiety Disposition Time: 07:00 Condition: STABLE Forms: [employer] (Central African)
[2017-06-06] MEDS ORDERED: Albuterol-Ipratrop 3 mg / 0.5 (3 ml) UD IH STA ×2 (05:39→12:19)
[2017-06-06 06:23] LABS: HEMOGLOBIN 10.8 g/dL (12.0-16.0); MEAN CELL VOLUME 100.6 fl (80.0-105.0); MEAN CORPUSCULAR HGB CONC 30.9 g/dl (31.0-37.0); MEAN PLATELET VOLUME 8.7 fl (7.0-11.0); RBC 3.48 10^6/uL (3.5-6.1); RED CELL DISTRIBUTION WIDTH 13.3 % (11.5-14.5); WHITE BLOOD COUNT 4.3 10^3/ul (4.5-11.0)
[2017-06-06 07:08] LABS: ALB/GLOB RATIO 1.2 (1.1-1.8); ALBUMIN 3.4 g/dL (3.0-4.8); ALT/SGPT 28 U/L (7-56); AST/SGOT 26 U/L (14-36); BLOOD UREA NITROGEN 12 mg/dL (7-21); CALCIUM 9.2 mg/dL (8.4-10.5); GFR AFRICAN-AMERICAN > 60; GFR NON-AFRICAN AMERICAN > 60
[2017-06-06] MEDS ORDERED: Potassium Chloride 20 mEq ER Tab PO STA (07:11)
--- NOTE | 2017-06-06 07:30 | ED PDOC ---
Physical Exam Vital Signs Temp Pulse Resp BP Pulse Ox 06/06/17 15:18 98.1 F 72 18 159/88 H 95 06/06/17 13:49 90 18 132/84 94 L 06/06/17 12:04 90 18 151/86 H 95 06/06/17 09:50 89 18 134/79 96 06/06/17 07:49 84 18 120/69 97 06/06/17 06:27 75 20 121/61 95 06/06/17 05:10 97.7 F 87 18 143/74 98 Medical Decision Making ED Course and Treatment: 06/06/17 07:15 Patient endorsed to me by Dr. Garzon, as patient is currently awaiting lab results and psychiatric evaluation. 06/06/17 07:41 Patient is medically cleared for Psych evaluation. Data Warehouse Specialist Ivy called [facility]. 06/06/17 08:10 Patient is comfortable. She states that she is scared to go home because she was afraid she would harm herself. 06/06/17 08:35 UA is positive for UTI. Renal function normal. Will treat with Macrobid. 06/06/17 12:28 Patient's CO2 improved on repeat labs. Oxygen sat 97% on 2L. Patient is chronically on oxygen. Treated with Albuterol/Atrovent. Lungs are clear and no wheezing. Patient is medically cleared for psych admission. 06/06/17 13:15 Case was discussed with ED Attending Dr. Raphael about patient's lab results. Patient is repeatedly asking to speak to her son. She says she's scared to go home. She is requesting more Xanax. On re-exam her lungs are still clear. No w/r /r. Not in respiratory distress. Typically she takes Xanax 0.25 Q4H. She is due for another dosage so will order it now. As per OZZY Rivera, patient was accepted to [facility]. 06/06/17 15:32 Patient stable on discharge for transfer. She is more calm and cooperative. Dr. Eagle is the accepting physician at [facility] for Psych. - Lab Interpretations Lab Results: 06/06/17 12:21 06/06/17 11:40 Lab Results 06/06/17 12:21: WBC 5.4 D, RBC 3.47 L, Hgb 11.0 L, Hct 35.0 L, MCV 100.9, MCH 31.7, MCHC 31.4, RDW 13.2, Plt Count 187, MPV 8.8, Gran % 75.2 H, Lymph % (Auto ) 16.4 L, Divide % (Auto) 7.6 H, Eos % (Auto) 0.6 L, Baso % (Auto) 0.2, Gran # 4.05, Lymph # (Auto) 0.9 L, Divide # (Auto) 0.4, Eos # (Auto) 0.0, Baso # (Auto) 0.01 06/06/17 11:40: Sodium 136, Potassium 4.2, Chloride 87 L, Carbon Dioxide 44 H, Anion Gap 9 L, BUN 14, Creatinine 0.5 L, Est GFR ( Amer) > 60, Est GFR ( Non-Af Amer) > 60, Random Glucose 85, Calcium 9.1, Magnesium 2.0 06/06/17 07:40: Urine Opiates Screen Negative, Urine Methadone Screen Negative, Ur Barbiturates Screen Negative, Ur Phencyclidine Scrn Negative, Ur Amphetamines Screen Negative, U Benzodiazepines Scrn Positive, U Oth Cocaine Metabols Negative, U Cannabinoids Screen Negative 06/06/17 07:40: Urine Color Yellow, Urine Appearance Slight-cloudy, Urine pH 6.0 , Ur Specific Pollock 1.020, Urine Protein Trace H, Urine Glucose (UA) Negative , Urine Ketones Negative, Urine Blood Large H, Urine Nitrate Positive H, Urine Bilirubin Negative, Urine Urobilinogen 0.2, Ur Leukocyte Esterase Small H, Urine RBC 1 - 3, Urine WBC 5 - 10, Ur Epithelial Cells 0 - 2, Urine Bacteria Mod 06/06/17 05:36: WBC 4.3 L D, RBC 3.48 L, Hgb 10.8 L, Hct 35.0 L, MCV 100.6, MCH 31.0, MCHC 30.9 L, RDW 13.3, Plt Count 183, MPV 8.7 06/06/17 05:36: Alcohol, Quantitative < 10 06/06/17 05:36: Sodium 136, Potassium 3.5 L, Chloride 86 L, Carbon Dioxide 50 H , Anion Gap 4 L, BUN 12, Creatinine 0.5 L, Est GFR ( Amer) > 60, Est GFR (Non-Af Amer) > 60, Random Glucose 97, Calcium 9.2, Total Bilirubin 0.7, AST 26 , ALT 28, Alkaline Phosphatase 69, Total Protein 6.2, Albumin 3.4, Globulin 2.8 , Albumin/Globulin Ratio 1.2 - RAD Interpretation Radiology Orders: 06/06/17 05:36 CHEST PORTABLE [RAD] Stat - Medication Orders Current Medication Orders: Discontinued Medications Albuterol/Ipratropium (Duoneb 3 Mg/0.5 Mg (3 Ml) Ud) 3 ml IH ONCE STA Stop: 06/06/17 05:40 Last Admin: 06/06/17 05:50 Dose: 3 ml Albuterol/Ipratropium (Duoneb 3 Mg/0.5 Mg (3 Ml) Ud) 3 ml IH STAT STA Stop: 06/06/17 12:20 Last Admin: 06/06/17 12:31 Dose: 3 ml Alprazolam (Xanax) 0.25 mg PO STAT STA PRN Reason: Protocol Stop: 06/06/17 05:42 Last Admin: 06/06/17 05:49 Dose: 0.25 mg Alprazolam (Xanax) 0.25 mg PO STAT STA PRN Reason: Protocol Stop: 06/06/17 09:18 Last Admin: 06/06/17 09:20 Dose: 0.25 mg Alprazolam (Xanax) 0.25 mg PO STAT STA PRN Reason: Protocol Stop: 06/06/17 13:16 Last Admin: 06/06/17 13:18 Dose: 0.25 mg Nitrofurantoin Macrocrystals (Macrobid) 100 mg PO STAT STA Stop: 06/06/17 08:10 Last Admin: 06/06/17 08:31 Dose: 100 mg Potassium Chloride (K-Dur 20 Meq Er Tab) 40 meq PO STAT STA Stop: 06/06/17 07:12 Last Admin: 06/06/17 07:45 Dose: 40 meq - Scribe Statement The provider has reviewed the documentation as recorded by the Veronique Suazo Provider Scribe Attestation: All medical record entries made by the Alonsoibberhane were at my direction and personally dictated by me. I have reviewed the chart and agree that the record accurately reflects my personal performance of the history, physical exam, medical decision making, and the department course for this patient. I have also personally directed, reviewed, and agree with the discharge instructions and disposition. Disposition/Present on Arrival - Present on Arrival Any Indicators Present on Arrival: No History of DVT/PE: No History of Uncontrolled Diabetes: No Urinary Catheter: No History of Decub. Ulcer: No History Surgical Site Infection Following: None - Disposition Have Diagnosis and Disposition been Completed?: Yes Diagnosis: Depression, Anxiety Disposition: Transfer [facility] Disposition Time: 12:30 Patient Plan: Transfer To Patient Problems: Current Active Problems Problem Status Onset Anxiety Chronic Depression Chronic Condition: STABLE Referrals: Bashir Blair MD [Primary Care Provider] - Follow up with primary Forms: [employer] (Amharic)
[2017-06-06 07:50] VITALS: RESP 18
[2017-06-06 07:54] LABS: URINE APPEARANCE SLIGHT-CLOUDY (CLEAR); URINE BILIRUBIN NEGATIVE (NEGATIVE); URINE BLOOD LARGE (NEGATIVE); URINE COLOR YELLOW (YELLOW); URINE GLUCOSE (UA) NEGATIVE (NEGATIVE); URINE LEUKOCYTE ESTERASE SMALL Leu/uL (NEGATIVE); URINE NITRATE POSITIVE (NEGATIVE); URINE PROTEIN TRACE mg/dL (<30 mg/dL); URINE UROBILINOGEN 0.2 E.U./dL (<1 E.U./dL)
[2017-06-06 08:03] LABS: URINE BACTERIA MOD (NEG); URINE EPITHELIAL CELLS 0 - 2 /hpf (0-5)
[2017-06-06 08:21] LABS: BARBITURATES, UR NEGATIVE (NEGATIVE); BENZODIAZEPINES, UR POSITIVE (NEGATIVE); OPIATES, UR NEGATIVE (NEGATIVE); PHENCYCLIDINE, UR NEGATIVE (NEGATIVE)
--- NOTE | 2017-06-06 09:09 | CARD ---
APPROVED REPORT EKG Measurement Heart [id number] CT [id number] <Conclusion> Sinus rhythm with short CT with premature atrial complexes Otherwise normal ECG
--- NOTE | 2017-06-06 09:27 | RAD ---
HISTORY: medical clearance COMPARISON: 06/05/2017 FINDINGS: LUNGS: No active pulmonary disease. PLEURA: No significant pleural effusion identified, no pneumothorax apparent. CARDIOVASCULAR: Normal. OSSEOUS STRUCTURES: No significant abnormalities. VISUALIZED UPPER ABDOMEN: Normal. OTHER FINDINGS: None. IMPRESSION: No active disease.
[2017-06-06 12:01] LABS: BLOOD UREA NITROGEN 14 mg/dL (7-21); CALCIUM 9.1 mg/dL (8.4-10.5); GFR AFRICAN-AMERICAN > 60; GFR NON-AFRICAN AMERICAN > 60
[2017-06-06 12:25] LABS: BASO # 0.01 K/mm3 (0.0-2.0); BASO % 0.2 % (0.0-3.0); EOS % 0.6 % (1.5-5.0); GRAN # 4.05 (1.4-6.5); GRAN % 75.2 % (50.0-68.0); LYMPH # 0.9 (1.2-3.4); LYMPH % 16.4 % (22.0-35.0); MEAN CELL VOLUME 100.9 fl (80.0-105.0); MEAN CORPUSCULAR HEMOGLOBIN 31.7 pg (25.0-35.0); MEAN CORPUSCULAR HGB CONC 31.4 g/dl (31.0-37.0); MEAN PLATELET VOLUME 8.8 fl (7.0-11.0); MONO # 0.4 (0.1-0.6); MONO % 7.6 % (1.0-6.0); RBC 3.47 10^6/uL (3.5-6.1); RED CELL DISTRIBUTION WIDTH 13.2 % (11.5-14.5); WHITE BLOOD COUNT 5.4 10^3/ul (4.5-11.0)
[2017-06-06 15:19] VITALS: BP 159/88; PULSE 72; TEMP 98.1; O2SAT 95
--- NOTE | 2017-06-07 08:22 | CON ---
DATE: 06/06/2017 PRESENTATION: The patient is a 76-year-old female seen at bedside in the emergency room. This is my second evaluation of her in 24 hours. I saw her in the emergency room yesterday when she was discharged, because she was not suicidal, indicated that she was depressed. Today, she came back to the hospital complaining about anxiety, feeling anxious about being home alone. She was afraid she would harm herself, possibly cut her wrist. The patient is well known to me. She has been on 5B several times and as stated earlier, I saw her yesterday in consult. Patient has a history of anxiety, depression, CAD, COPD, chronic pain, insomnia and gait dysfunction. She is on oxygen constantly. There have been some questions in the past of her abusing Xanax. Her outpatient medications are Xanax 0.25 mg 1 p.o. t.i.d. p.r.n., Lexapro 20 mg one daily. Patient was most recently discharged from an inpatient stay on 5B on 04/25/2017 after being admitted on 03/23/2017. Patient has been referred for care home care as part of her discharge plan and the time came that a bed became available, and patient and her son signed her out AMA. He was to get her help in the home and get in necessary papers for her to have Medicaid. However, he did not follow through on this to date. According to the PES worker who spoke with him, he is still collecting information in order to get the Medicaid. Patient is alone at home, she says with the person who comes in very short period of time every day whom he pays $90 a week to check in on her. She says it is very difficult for her. She gets up in the morning and she is depressed, she is lonely, she is anxious and she feels badly. This she told me yesterday. Today, she says that he has fired the woman, that no one is going to come in, that she is home alone all the time and she cannot bear it. She feels suicidal as a result. CURRENT VITAL SIGNS: Include a temperature of 97, a pulse rate of 91, an O2 sat of 82% and a blood pressure of 139/88. MENTAL STATUS: Patient is alert and oriented x3. Her eye contact is good. Her behavior is cooperative. Her speech rate and volume are within normal limits. Mood is anxious. Affect is constricted. Thoughts are goal directed. She denies being homicidal. In terms of being suicidal, she indicates that she feels like she wants to kill herself when she is alone and she is afraid she might cut her wrist. She denies the presence of hallucinations, delusions, or paranoia. Her concentration and her focus appear to be at her baseline. Her memory, both short and long-term did have some age-related deficits. Her appetite is good. She is having some trouble sleeping due to her anxiety. DIAGNOSTIC IMPRESSION: Depressive disorder - unspecified and generalized anxiety disorder, secondary to chronic obstructive pulmonary disease. PLAN: Patient indicates that she is suicidal with the plan to cut her wrist. At this moment, there is no bed available on . Additionally, we have on the unit currently a mix of younger patients and there have been some violent outbursts. So at this time, patient will be referred for assessment for admission to [facility], which, it seems, would be more appropriate for this patient and her needs. She is on oxygen 30/10 and she also needs some assistance or supervision while walking. She does have a history of falls. Patient indicates that she is amenable to voluntary admission either here or [facility]. Psych emergency worker has faxed over the information to [facility] and we are awaiting the results of their evaluation. Psychiatry will sign off. Thank you for the consult. Mariam Florez APN Radha Ayala MD DANII
== END 2017-06-06 15:24 | disposition short-term general hospital (02) ==
LOC: ED 04:56
DX: F41.9 Anxiety disorder, unspecified (principal); F32.9 Major depressive disorder, single episode, unspecified; I25.10 Atherosclerotic heart disease of native coronary artery without angina pectoris; I10 Essential (primary) hypertension; Z95.5 Presence of coronary angioplasty implant and graft; Z87.891 Personal history of nicotine dependence
CPT/HCPCS: 71045; 80053; 81001; 83735; 85025; 85027; 87086; 87181; 90791; 93005; 94640; 99285; G0480